=== PATIENT | female | born 1980 | race Caucasian/White ===

== ENCOUNTER → 2016-08-19 | Outpatient (CLI) | payer MEDICARE, OTHER ==
--- NOTE | 2016-08-19 14:30 | MR ---
EXAMINATION TYPE: MR cspine/lspine wo con DATE OF EXAM: 08/19/2016 1:50 PM COMPARISON: CT abdomen and pelvis May 29, 2011. Lumbar spine x-ray August 12, 2009. HISTORY: Neck pain and lumbago with right-sided sciatica per order. Headache with constant pain and s tiffness in neck for 5 years causing pain or weakness in bilateral fingers per patient. Scoliosis wit h pain and bilateral leg numbness and right leg pain per patient. TECHNIQUE: Multiplanar, multisequence imaging of the cervical and lumbar spine are performed without IV contrast. FINDINGS: C-SPINE: FINDINGS: Sagittal images of the cervical spine show the craniocervical junction to appear within nor mal limits. The cervical and upper thoracic spinal cord is normal in course, caliber, and signal. V ertebral alignment is straightened. There is dextroconvex scoliotic curvature centered near the cervi anup thoracic junction on coronal images with more prominent levoconvex scoliosis suspected centered i n the mid thoracic spine. The vertebral body and intravertebral disk heights are normal. No large pos terior disc herniations are seen on sagittal images. The bone marrow signal intensity is within matthew l limits. No significant spurring is noted. Axial images show there is no significant focal disk disease, spinal canal stenosis, neural foraminal narrowing, or spinal cord compromise at any cervical level. IMPRESSION: Loss of normal cervical curvature otherwise unremarkable study. L-SPINE: Sagittal images of the lumbar spine show vertebral body heights to appear satisfactory. There is terrence ed dextroconvex scoliosis centered at L1-L2 level redemonstrated. Multilevel disc desiccation is seen . There is disc space narrowing at left upper to mid lumbar levels and right mid to lower lumbar leve ls identified on sagittal images. No large posterior disc herniations are present on sagittal images The conus medullaris is normal in position and signal ending at mid L1 vertebral body level. There i s some heterogeneous endplate changes right L4-L5 and right L2-L3 vertebral body levels. Axial images at the T12-L1 level are felt within normal limits. Axial images at the L1-L2 level show broad-based left paracentral disc protrusion effacing anterior t hecal sac and axial image 23, bilateral neural foramina are patent. Axial images at the L2-L3 level show moderate broad disc bulge effacing left anterolateral thecal sac on axial image 18 with mild to moderate left-sided neural foraminal narrowing seen. Right-sided neur al foramen is patent. Axial images at the L3-L4 level show mild facet degenerative changes and ligament flavum hypertrophy. There is mild broad disc bulge mildly effacing the anterior thecal sac. Mild bilateral anterior infe rior neural foraminal narrowing at this level is identified, left greater than right. Axial images at L4-L5 level show mild facet degenerative changes and ligamentum flavum hypertrophy. T here is mild to moderate broad disc bulge with right foraminal/lateral disc protrusion component on a xial image 7. There is mild effacement the anterior thecal sac. Left-sided neural foramen is patent. There is moderate right-sided inferior neural foraminal narrowing with encroachment lung anterior inf erior margin of right L4 nerve suspected on sagittal images 11 and 12. Axial images at L5-S1 level show mild facet degenerative changes bilaterally. There is central disc p rotrusion seen. Spinal canal is preserved and bilateral neural foramina are patent. IMPRESSION: Redemonstration of marked dextroconvex rotary scoliosis centered at L2 level with multile maine degenerative changes seen as detailed above. Attention to L4-L5 level where eccentric disc hernia tion appears to encroach on exiting right L4 nerve.
== END | disposition home or self-care (01) ==
LOC: RADMRIMAIN 12:24
PROVIDERS: ATTEND Psychiatry & Neurology Neurology
DX: M41.86 Other forms of scoliosis, lumbar region (principal); M54.41 Lumbago with sciatica, right side
CPT/HCPCS: 72141; 72148

== ENCOUNTER 2016-08-21 10:11 | Day surgery (SDC) | payer MEDICARE, OTHER ==
[2016-08-19 11:09] VITALS: BMI 27.4
[~2016-08-21 10:11] MED LIST: LACTATED RINGERS 1,000 ML IV SCH
[2016-08-21 10:38] VITALS: TEMP 97.6
[2016-08-21] MEDS ORDERED: LIDOCAINE 1% 20 ML VIAL (10MG/ML) FOR IV START INTRADERMA ONE (10:47)
[2016-08-21] MEDS ORDERED: PROPOFOL 10 MG/ML 20 ML VIAL IV ONE (10:53)
--- NOTE | 2016-08-21 11:11 | P.PCN ---
Date of Procedure: 08/21/16 Procedure(s) Performed: BRIEF HISTORY: Patient is a 36-year-old pleasant white female, scheduled for an elective colonoscopy as a part of evaluation of long-standing history of Crohn' s disease diagnosed in 2003. She is status post terminal ileal resection in 2014 for small bowel obstruction. Since then she has been in clinical remission. Presently on no maintenance medications for Crohn's disease. She has 1 or 2 bowel movements daily and occasional right lower quadrant abdominal pain. PROCEDURE PERFORMED: Colonoscopy with biopsy. PREOPERATIVE DIAGNOSIS: Long-standing history of Crohn's ileitis status post TI resection in 2014. IV sedation per Anesthesia. PROCEDURE: After informed consent was obtained, the patient, was brought into the endoscopy unit. IV conscious sedation was administered by Anesthesia under continuous monitoring. Initially the Olympus CF-160 flexible video colonoscope was then inserted in the rectum, gradually advanced into the right colon with ileocolonic anastomosis was visualized. There was narrowing of the anastomosis with multiple superficial erosions identified and biopsies were done from this area. The transverse colon, descending colon, sigmoid colon, and rectum appeared normal. Retroflexion was performed in the rectum and no lesions were seen. The patient tolerated the procedure well. IMPRESSION: 1. Narrowing of the ileocolic anastomosis with multiple superficial erosions consistent with recurrent Crohn's disease 2. Colon appeared normal. RECOMMENDATIONS: Findings of this examination were discussed with the patient as well as a family. She was advised to follow with the biopsy results and she' ll be seen in the office in 3-4 weeks.
[2016-08-21 11:15] VITALS: RESP 16
[2016-08-21 11:29] VITALS: BP 102/72; PULSE 73
== END 2016-08-21 12:36 | disposition home or self-care (01) ==
LOC: ORWHC2ENDO 10:11
PROVIDERS: ATTEND Internal Medicine Gastroenterology
DX: K52.9 Noninfective gastroenteritis and colitis, unspecified (principal); Z98.0 Intestinal bypass and anastomosis status; B19.20 Unspecified viral hepatitis C without hepatic coma; Z79.899 Other long term (current) drug therapy; Z88.8 Allergy status to other drugs, medicaments and biological substances
CPT/HCPCS: 81025; 88305; 45380; J2704

== ENCOUNTER → 2016-08-25 | Outpatient (CLI) | payer MEDICARE, OTHER ==
--- NOTE | 2016-08-25 09:04 | US ---
EXAMINATION TYPE: US liver DATE OF EXAM: 08/25/2016 8:19 AM COMPARISON: NONE CLINICAL HISTORY: 36-year-old female B18.2 Chronic viral HEP C. TECHNIQUE: Multiple sonographic images of the right upper quadrant are obtained. FINDINGS: Liver Length: 12.3 cm Gallbladder Wall: 0.3 cm CBD: 0.7 cm Right Kidney: 10.8 x 4.8 x 5.6 cm Pancreas: Suboptimal visualization of the pancreatic tail secondary to shadowing from bowel gas. Vis ualized portions show no gross abnormality. Liver: Normal size with homogeneous echotexture and no focal lesion. Gallbladder: No abnormal gallbladder distention, wall thickening, pericholecystic fluid, or shadowin g calculi. Evidence for sonographic Licea's sign: No CBD: Borderline to mildly dilated at 7 mm. Right Kidney: No hydronephrosis. IMPRESSION: 1. Overall normal homogeneous appearance to the liver. No sonographic evidence for hepatoma. 2. The bile duct is borderline to mildly dilated. Uncertain if this is chronic in this patient. Corre late with alkaline phosphatase and bilirubin levels to exclude possibility of biliary obstruction.
[2016-08-25 10:20] LABS: Basophils % (A) 1 %; CHCM 32.3; Eosinophils # (A) 0.1 k/uL (0-0.7); Eosinophils % (A) 1 %; HCT 38.1 % (34.0-46.0); HDW 2.35; HGB 12.5 gm/dL (11.4-16.0); Luc # (Auto) 0.18; Luc % (Auto) 2; Lymphocytes # (A) 1.9 k/uL (1.0-4.8); Lymphocytes % (A) 25 %; MCH 31.7 pg (25.0-35.0); MCHC 32.9 g/dL (31.0-37.0); MCV 96.4 fL (80.0-100.0); Mean Platelet Volume 7.8; Monocytes # (A) 0.3 k/uL (0-1.0); Monocytes % (A) 4 %; Neutrophils # (A) 5.1 k/uL (1.3-7.7); Neutrophils % (A) 67 %; RBC 3.95 m/uL (3.80-5.40); WBC 7.6 k/uL (3.8-10.6); WBC (Perox) 8.22
[2016-08-25 11:06] LABS: ALT 58 U/L (9-52); AST 29 U/L (14-36); Alkaline Phosphatase 64 U/L (38-126); Anion Gap 14 mmol/L; Blood Urea Nitrogen 11 mg/dL (7-17); Calcium 9.4 mg/dL (8.4-10.2); Carbon Dioxide 22 mmol/L (22-30); Chloride 106 mmol/L (98-107); Glucose 90 mg/dL (74-99); Non-African American GFR(MDRD) >60 (>60 ml/min/1.73 sqM); Potassium 4.5 mmol/L (3.5-5.1); Sodium 142 mmol/L (137-145); Total Bilirubin 0.4 mg/dL (0.2-1.3); Total Protein 7.2 g/dL (6.3-8.2)
[2016-08-28 14:39] LABS: HCV Qualitative Result DETECTED (Not detected)
== END | disposition home or self-care (01) ==
LOC: RADUSWWP 07:55
PROVIDERS: ATTEND Internal Medicine Gastroenterology
DX: B18.2 Chronic viral hepatitis C (principal)
CPT/HCPCS: 76705; 80053; 82105; 85025; 87522; 87902

== ENCOUNTER → 2017-03-16 | Outpatient (CLI) | payer MEDICARE, OTHER ==
--- NOTE | 2017-03-16 22:48 | US ---
EXAMINATION TYPE: US OB >= 14 wk fetus, US OB TV Cervical Measurement DATE OF EXAM: 03/16/2017 COMPARISON: None CLINICAL HISTORY: 36-year-old female Supervision 3rd trimester O09.523 TECHNIQUE: Transabdominal (TA) and transvaginal scanning FINDINGS: GESTATIONAL AGE / DATING Physician Established: (30 weeks/5 days) EDC: 05/20/17 Dates by LMP: pt unsure of LMP Dates by First Scan: not available Dates by Current Scan: (30 weeks/4 days) EDC: 05/21/17 SURVEY IUP: Single PLACENTA: Anterior PREVIA: No Previa JIMMY: 11.4 cm CERVICAL LENGTH (transabdominal: norm > 3.0cm):unable to visualize CERVICAL LENGTH (transvaginal: norm> 2.5cm): Closed length of 1.9 cm. Some slight funneling appears t o be present. Office called with preliminary results. (Supplemental transvaginal imaging performed to verify cervical length.) BIOMETRY PRESENTATION: Vertex LIE: Longitudinal BPD: 7.8 cm 31 weeks / 1 days HC: 28.7 cm 31 weeks / 4 days AC: 26.9 cm 30 weeks / 0 days FL: 5.9 cm 30 weeks / 6 days ESTIMATED WEIGHT IN GRAMS: 1587 grams ESTIMATED WEIGHT IN LBS/OZ: 3 lbs. 8 oz. WEIGHT PERCENTAGE BASED ON ESTABLISHED DATES: 30% HC/AC: 1.1 FL/AC: 22.8 HEART RATE: 143 bpm RHYTHM: Normal TOOL AND MACHINE MAINTAINER NOTES: Preliminary cervix measurement given to Eryn Juárez office at 3:20. Fawn ent instructed to go to [facility] for further monitoring. IMPRESSION: 1. Single live intrauterine with established gestational age of 30 weeks 5 days. Current ul trasound biometry is concordant (30 weeks 4 days) placing the child at the 30th percentile for weight . 2. Note a closed cervical length measured at 1.9 cm on transvaginal scanning. There appears to be sli ght funneling as well. Appropriate management and close follow-up recommended.
== END | disposition home or self-care (01) ==
LOC: RADUSWWP 14:28
PROVIDERS: ATTEND Obstetrics & Gynecology
DX: O09.523 Supervision of elderly multigravida, third trimester (principal); Z3A.30 30 weeks gestation of pregnancy
CPT/HCPCS: 76805; 76817

== ENCOUNTER → 2017-04-16 | Outpatient (CLI) | payer MEDICARE, OTHER ==
--- NOTE | 2017-04-16 17:20 | US ---
EXAMINATION TYPE: US OB >= 14 wk fetus DATE OF EXAM: 04/16/2017 COMPARISON: US CLINICAL HISTORY: O09.523 Supervision of elderly multigravida, third For Growth/ pt has known shorten ed cervix, pt states she is being monitored for it, has had ultrasounds at outside facility showing p rogression of shortening cervix and thinning on physical exam TECHNIQUE: Transabdominal (TA), TV for cervical length GESTATIONAL AGE / DATING Physician Established: (35 weeks/1 days) EDC: 05/20/2017 Dates by LMP: Unknown Dates by First Scan: (35 weeks/0 days) EDC: 05/21/2017 Dates by Current Scan: (33 weeks/6 days) EDC: 05/29/2017 SURVEY IUP: Single PLACENTA: Anterior PREVIA: No Previa JIMMY: 15.6 cm Normal CERVICAL LENGTH (transabdominal: norm > 3.0cm): 2.1 cm CERVICAL LENGTH (transvaginal: norm> 2.5cm): 1.7 cm, slightly shortened from previous, no funneling visualized (Supplemental transvaginal imaging performed to verify cervical length.) BIOMETRY PRESENTATION: Vertex BPD: 8.4 cm 34 weeks / 0 days HC: 31.6 cm 35 weeks / 3 days AC: 28.6 cm 32 weeks / 4 days FL: 6.5 cm 33 weeks / 4 days ESTIMATED WEIGHT IN GRAMS: 2164 grams ESTIMATED WEIGHT IN LBS/OZ: 4 lbs. 12 oz. WEIGHT PERCENTAGE BASED ON ESTABLISHED DATES: 8.3% HC/AC: 1.11 Normal FL/AC: 23 Normal HEART RATE: 124 bpm RHYTHM: Normal Single, viable IUP, growth parameters in 8th percentile, shortened cervix IMPRESSION: Cervix measures 1.7 cm which is not significantly different than last exam. Cervix is closed. Estimat ed weight is 8 percentile which is decreased compared to last exam. Last exam was 31 percentile . It is not clear if this is due to error of measurement. The possibility of IUGR cannot BE excluded.
== END | disposition home or self-care (01) ==
LOC: RADUSWWP 16:25
PROVIDERS: ATTEND Obstetrics & Gynecology
DX: O09.523 Supervision of elderly multigravida, third trimester (principal); Z3A.33 33 weeks gestation of pregnancy
CPT/HCPCS: 76805; 76817

== ENCOUNTER → 2017-06-28 | Outpatient (CLI) | payer MEDICARE, OTHER ==
[2017-06-28 13:20] LABS: Basophils % (A) 0 %; Eosinophils # (A) 0.1 k/uL (0-0.7); Eosinophils % (A) 1 %; HCT 39.2 % (34.0-46.0); HGB 12.5 gm/dL (11.4-16.0); Lymphocytes # (A) 2.7 k/uL (1.0-4.8); Lymphocytes % (A) 37 %; MCH 30.5 pg (25.0-35.0); MCHC 31.9 g/dL (31.0-37.0); MCV 95.7 fL (80.0-100.0); Monocytes # (A) 0.4 k/uL (0-1.0); Monocytes % (A) 5 %; Neutrophils % (A) 55 %; Platelet Count 206 k/uL (150-450); RDW 13.1 % (11.5-15.5); WBC 7.3 k/uL (3.8-10.6)
[2017-06-28 13:34] LABS: ALT 65 U/L (9-52); AST 36 U/L (14-36); Albumin 4.3 g/dL (3.5-5.0); Alkaline Phosphatase 60 U/L (38-126); Anion Gap 12 mmol/L; Blood Urea Nitrogen 16 mg/dL (7-17); C Reactive Protein <5.0 mg/L (<10.0); Calcium 9.3 mg/dL (8.4-10.2); Carbon Dioxide 20 mmol/L (22-30); Chloride 110 mmol/L (98-107); Glucose 119 mg/dL (74-99); Potassium 4.2 mmol/L (3.5-5.1); Sodium 142 mmol/L (137-145); Total Bilirubin 0.3 mg/dL (0.2-1.3); Total Protein 7.2 g/dL (6.3-8.2)
[2017-06-28 14:44] LABS: Erythrocyte Sedimentation Rate 12 mm/hr (0-20)
== END | disposition home or self-care (01) ==
LOC: LABWHC1 12:23
PROVIDERS: ATTEND Internal Medicine Gastroenterology
DX: K50.90 Crohn's disease, unspecified, without complications (principal)
CPT/HCPCS: 36415; 80053; 85025; 85652; 86140; 86480

== ENCOUNTER → 2017-12-14 | Outpatient (CLI) | payer MEDICARE, OTHER ==
[2017-12-14 13:25] LABS: Basophils % (A) 0 %; Eosinophils # (A) 0.1 k/uL (0-0.7); Eosinophils % (A) 1 %; HCT 37.7 % (34.0-46.0); HGB 12.3 gm/dL (11.4-16.0); Lymphocytes # (A) 3.1 k/uL (1.0-4.8); Lymphocytes % (A) 39 %; MCH 30.5 pg (25.0-35.0); MCHC 32.6 g/dL (31.0-37.0); MCV 93.8 fL (80.0-100.0); Mean Platelet Volume 7.3; Monocytes # (A) 0.5 k/uL (0-1.0); Monocytes % (A) 6 %; Neutrophils # (A) 4.1 k/uL (1.3-7.7); Neutrophils % (A) 52 %; Platelet Count 224 k/uL (150-450); RBC 4.02 m/uL (3.80-5.40); RDW 12.8 % (11.5-15.5); WBC 7.9 k/uL (3.8-10.6)
[2017-12-14 13:36] LABS: ALT 43 U/L (9-52); AST 31 U/L (14-36); Albumin 4.3 g/dL (3.5-5.0); Alkaline Phosphatase 62 U/L (38-126); Anion Gap 10 mmol/L; Blood Urea Nitrogen 9 mg/dL (7-17); Calcium 9.4 mg/dL (8.4-10.2); Carbon Dioxide 26 mmol/L (22-30); Chloride 105 mmol/L (98-107); Glucose 72 mg/dL (74-99); Potassium 4.2 mmol/L (3.5-5.1); Sodium 141 mmol/L (137-145); Total Bilirubin 0.4 mg/dL (0.2-1.3); Total Protein 6.8 g/dL (6.3-8.2)
[2017-12-14 14:01] LABS: C Reactive Protein <5.0 mg/L (<10.0)
[2017-12-14 14:12] LABS: Erythrocyte Sedimentation Rate 11 mm/hr (0-20)
== END ==
LOC: LABWHC1 12:43
PROVIDERS: ATTEND Internal Medicine Gastroenterology
DX: K50.90 Crohn's disease, unspecified, without complications (principal)
CPT/HCPCS: 36415; 80053; 85025; 85652; 86140

== ENCOUNTER → 2018-06-10 | Outpatient (CLI) | payer MEDICARE, OTHER ==
[2018-06-10 13:59] LABS: Basophils % (A) 0 %; Eosinophils # (A) 0.1 k/uL (0-0.7); Eosinophils % (A) 0 %; HGB 12.3 gm/dL (11.4-16.0); Lymphocytes # (A) 3.4 k/uL (1.0-4.8); Lymphocytes % (A) 32 %; MCH 30.4 pg (25.0-35.0); MCHC 31.5 g/dL (31.0-37.0); MCV 96.6 fL (80.0-100.0); Monocytes # (A) 0.5 k/uL (0-1.0); Monocytes % (A) 5 %; Neutrophils # (A) 6.4 k/uL (1.3-7.7); Neutrophils % (A) 60 %; Platelet Count 225 k/uL (150-450); RBC 4.04 m/uL (3.80-5.40); RDW 12.6 % (11.5-15.5); WBC 10.6 k/uL (3.8-10.6)
[2018-06-10 15:15] LABS: Erythrocyte Sedimentation Rate 12 mm/hr (0-20)
[2018-06-10 18:59] LABS: ALT 33 U/L (8-44); AST 27 U/L (13-35); Albumin/Globulin Ratio 2.25 (1.20-2.10); Alkaline Phosphatase 57 U/L (41-126); C Reactive Protein <0.4 mg/dL (0.0-0.8); Calcium 9.2 mg/dL (8.7-10.3); Carbon Dioxide 24.6 mmol/L (21.6-31.8); Chloride 109 mmol/L (96-109); Glucose 72 mg/dL (70-110); Potassium 4.2 mmol/L (3.5-5.5); Sodium 141 mmol/L (135-145); Total Bilirubin 0.3 mg/dL (0.3-1.2); Total Protein 6.5 g/dL (6.2-8.2)
== END ==
LOC: LABWHC1 13:12
PROVIDERS: ATTEND Internal Medicine Gastroenterology
DX: K50.90 Crohn's disease, unspecified, without complications (principal)
CPT/HCPCS: 36415; 80053; 85025; 85652; 86140

== ENCOUNTER → 2018-07-21 | Outpatient (CLI) | payer MEDICARE, OTHER ==
[2018-07-21 20:34] LABS: Hepatitis B Core IgM Non-Reactive (Non-Reactive)
== END ==
LOC: LABWHC1 11:07
PROVIDERS: ATTEND Physician Assistant
DX: B18.2 Chronic viral hepatitis C (principal)
CPT/HCPCS: 36415; 86704; 86705; 87340

== ENCOUNTER → 2018-11-02 | Outpatient (CLI) | payer MEDICARE, OTHER ==
[2018-11-02 12:47] LABS: Basophils % (A) 0 %; Eosinophils # (A) 0.1 k/uL (0-0.7); Eosinophils % (A) 1 %; HCT 40.8 % (34.0-46.0); Lymphocytes # (A) 3.3 k/uL (1.0-4.8); Lymphocytes % (A) 34 %; MCH 30.3 pg (25.0-35.0); MCHC 31.8 g/dL (31.0-37.0); MCV 95.4 fL (80.0-100.0); Mean Platelet Volume 7.5; Monocytes # (A) 0.4 k/uL (0-1.0); Monocytes % (A) 5 %; Neutrophils # (A) 5.6 k/uL (1.3-7.7); Neutrophils % (A) 58 %; Platelet Count 217 k/uL (150-450); RBC 4.28 m/uL (3.80-5.40); RDW 12.6 % (11.5-15.5); WBC 9.7 k/uL (3.8-10.6)
[2018-11-02 16:59] LABS: Albumin 4.7 g/dL (3.80-4.90); Albumin/Globulin Ratio 2.04 (1.60-3.17); Anion Gap 8.2 mmol/L (4.00-12.00); Calcium 9.4 mg/dL (8.7-10.3); Carbon Dioxide 20.8 mmol/L (21.6-31.8); Globulin 2.3 g/dL (1.6-3.3); Potassium 4.4 mmol/L (3.5-5.5); Total Bilirubin 0.7 mg/dL (0.3-1.2)
[2018-11-03 15:34] LABS: Hepatits C Virus RNA Not detected (Not detected); Hepatits C Virus RNA, Quant <12 IU/mL (<12); LOG HCV IU/mL <1.08 (<1.08)
== END | disposition home or self-care (01) ==
LOC: LABWHC1 11:49
PROVIDERS: ATTEND Internal Medicine Gastroenterology
DX: B18.2 Chronic viral hepatitis C (principal)
CPT/HCPCS: 36415; 80053; 85025; 87522

== ENCOUNTER 2019-01-28 20:55 | Emergency (ER) | payer MEDICARE, OTHER ==
[2019-01-28] MEDS ORDERED: SODIUM CHLORIDE 0.9% 1,000 ML IV STA (21:51)
[2019-01-28] MEDS ORDERED: ONDANSETRON 4 MG/2 ML VIAL IVP STA (21:51)
[2019-01-28] MEDS ORDERED: MORPHINE SULFATE 4 MG/ML SYRINGE IV STA (21:51)
[2019-01-28 22:20] LABS: Basophils % (A) 0 %; Eosinophils # (A) 0.1 k/uL (0-0.7); Eosinophils % (A) 1 %; HCT 38.2 % (34.0-46.0); HGB 12.9 gm/dL (11.4-16.0); Lymphocytes # (A) 4.2 k/uL (1.0-4.8); Lymphocytes % (A) 28 %; MCH 32.1 pg (25.0-35.0); MCHC 33.6 g/dL (31.0-37.0); MCV 95.6 fL (80.0-100.0); Mean Platelet Volume 7.2; Monocytes # (A) 0.7 k/uL (0-1.0); Monocytes % (A) 5 %; Neutrophils # (A) 9.8 k/uL (1.3-7.7); Neutrophils % (A) 65 %; Platelet Count 213 k/uL (150-450); RDW 12.3 % (11.5-15.5); WBC 15.1 k/uL (3.8-10.6)
[2019-01-28 22:24] LABS: Appearance,Urine Clear (Clear); Bacteria,Urine Rare /hpf; Bilirubin,Urine Negative (Negative); Blood,Urine Small (Negative); Color,Urine Yellow; Glucose,Urine (UA) Negative (Negative); Ketones,Urine Negative (Negative); Leukocyte Esterase,Urine Negative (Negative); Mucus,Urine Rare /hpf; Nitrite,Urine Negative (Negative); PH, Urine 5.5 (5.0-8.0); Protein,Urine Negative (Negative); RBC,Urine 2 /hpf (0-5); Specific Gravity,Urine 1.013 (1.001-1.035); Squamous Epithelial Cell,Urine 1 /hpf (0-4); Urobilinogen,Urine <2.0 mg/dL (<2.0); WBC,Urine 1 /hpf (0-5)
[2019-01-28 22:33] LABS: ALT 14 U/L (9-52); AST 25 U/L (14-36); African American GFR (CKD) >90 (>60 ml/min/1.73 sqM); Albumin 4.4 g/dL (3.5-5.0); Alkaline Phosphatase 45 U/L (38-126); Amylase 54 U/L (30-110); Anion Gap 10 mmol/L; Blood Urea Nitrogen 14 mg/dL (7-17); Calcium 9.6 mg/dL (8.4-10.2); Carbon Dioxide 22 mmol/L (22-30); Chloride 107 mmol/L (98-107); Glucose 86 mg/dL (74-99); Potassium 3.9 mmol/L (3.5-5.1); Sodium 139 mmol/L (137-145); Total Bilirubin 0.3 mg/dL (0.2-1.3); Total Protein 7.4 g/dL (6.3-8.2)
--- NOTE | 2019-01-28 22:49 | CT ---
EXAM: CT Abdomen and Pelvis With Intravenous Contrast CLINICAL HISTORY: ITS.REASON CT Reason: abdominal pain TECHNIQUE: Axial computed tomography images of the abdomen and pelvis with intravenous contrast. CTDI is 9 mGy and DLP is 437 mGy-cm. This CT exam was performed using one or more of the following dose reduction techniques: automated exposure control, adjustment of the mA and/or kV according to patient size, and/or use of iterative reconstruction technique. COMPARISON: No relevant prior studies available. FINDINGS: Lung bases: No mass. No consolidation. ABDOMEN: Liver: Steatosis. Gallbladder and bile ducts: Gallbladder is unremarkable. Mild intra- and moderate extrahepatic biliary dilatation. Pancreas: Unremarkable. Spleen: Unremarkable. Adrenals: Unremarkable. Kidneys and ureters: No hydronephrosis. Stomach and bowel: No bowel obstruction. No bowel wall thickening. Diffusely fluid-filled small and large bowel. PELVIS: Appendix: No appendicitis. Bladder: Unremarkable. Reproductive: IUD is in place. ABDOMEN and PELVIS: Intraperitoneal space: Unremarkable. Bones/joints: No acute fractures. Severe dextroscoliosis. Soft tissues: Unremarkable. Vasculature: No abdominal aortic aneurysm. Lymph nodes: No enlarged lymph nodes. IMPRESSION: 1. Diffusely fluid-filled small and large bowel, correlate with gastroenteritis. 2. Intra-and extrahepatic biliary dilatation. Gallbladder appears unremarkable No definite stones or obstructive process is identified. Correlate with right upper quadrant ultrasound and ERCP/MRCP.
[2019-01-28] MEDS ORDERED: HYDROmorphone 1 MG/ML 1 ML SYRINGE IVP STA (23:00)
--- NOTE | 2019-01-29 00:03 | ED ---
Abdominal Pain HPI - General Chief Complaint: Abdominal Pain Stated Complaint: Abd pain Time Seen by Provider: 01/28/19 21:18 Source: patient Mode of arrival: ambulatory Limitations: no limitations - History of Present Illness Initial Comments: 38-year-old female patient with past medical history significant for Crohn's disease and polyps structure and presents to the emergency department today for evaluation of upper abdominal pain, bloating, and nausea. Patient states that symptoms started yesterday evening. Patient states that she has felt nauseated but has not vomited. States she was able to eat today however the pain got significantly worse after eating. She denies any fever or chills. Denies any constipation or diarrhea. States her last bowel movement was yesterday morning. She is passing gas. Patient denies any recent rash, shortness breath, chest pain, numbness, tingling, dizziness, weakness, hematuria, dysuria, urinary urgency, urinary frequency, headache, visual changes, or any other complaints. - Related Data Home Medications Medication Instructions Recorded Confirmed Adalimumab [Humira Pediatric] 40 mg SQ Q14D 01/28/19 01/28/19 Ibuprofen [Motrin Ib] 600 mg PO Q6H PRN 01/28/19 01/28/19 Loperamide [Imodium] 2 mg PO QID PRN 01/28/19 01/28/19 Pnv,Calcium 72/Iron/Folic Acid 1 tab PO DAILY 01/28/19 01/28/19 [ Plus Tablet] Umeclidinium Antimony [Incruse 1 puff INHALATION RT-DAILY 01/28/19 01/28/19 Ellipta] Previous Rx's Medication Instructions Recorded Ondansetron [Zofran ODT] 4 mg PO Q8HR PRN #10 tab 01/29/19 Allergies Allergy/AdvReac Type Severity Reaction Status Date / Time prochlorperazine Allergy AGITATION Verified 01/28/19 22:32 [From Compazine] Review of Systems ROS Statement: Those systems with pertinent positive or pertinent negative responses have been documented in the HPI. ROS Other: All systems not noted in ROS Statement are negative. Past Medical History Past Medical History: No Reported History, Unable to Obtain, Pulmonary Embolus (PE) Additional Past Medical History / Comment(s): HEPATITIS C, chrons, History of Any Multi-Drug Resistant Organisms: MRSA Date of last positivie culture/infection: 06/07/14 MDRO Source:: ABDOMEN Past Surgical History: Bowel Resection, Hernia Repair Additional Past Surgical History / Comment(s): VICTOR HUGO FOOT SURGERY, BOWEL RESECTION, Past Anesthesia/Blood Transfusion Reactions: No Reported Reaction Past Psychological History: Depression Smoking Status: Current every day smoker Past Alcohol Use History: None Reported Past Drug Use History: None Reported - Past Family History Father Family Medical History: Cancer General Exam Limitations: no limitations General appearance: alert, in no apparent distress, other (This is a well- developed, well-nourished adult female patient in no acute distress. Vital signs upon presentation are temperature 98.6F, pulse 77, respirations 18, blood pressure 108/74, pulse ox 99% on room air.) Eye exam: Present: normal appearance, PERRL, EOMI. Absent: scleral icterus, conjunctival injection, periorbital swelling ENT exam: Present: normal exam, normal oropharynx, mucous membranes moist Respiratory exam: Present: normal lung sounds bilaterally. Absent: respiratory distress, wheezes, rales, rhonchi, stridor Cardiovascular Exam: Present: regular rate, normal rhythm, normal heart sounds. Absent: systolic murmur, diastolic murmur, rubs, gallop, clicks GI/Abdominal exam: Present: soft, tenderness (Midepigastric and right upper quadrant tenderness), normal bowel sounds. Absent: distended, guarding, rebound, rigid Neurological exam: Present: alert, oriented X3, CN II-XII intact Psychiatric exam: Present: normal affect, normal mood Skin exam: Present: warm, dry, intact, normal color. Absent: rash Course Vital Signs 01/28/19 01/28/19 20:59 23:07 Temperature 98.6 F Pulse Rate 77 77 Respiratory 18 18 Rate Blood Pressure 108/74 119/85 O2 Sat by Pulse 99 99 Oximetry Medical Decision Making - Medical Decision Making 38-year-old female patient presents to the emergency department today for evaluation of upper abdominal pain and nausea. Labs reviewed and showed elevated white blood cell count at 15.1. Liver enzymes normal. Normal bilirubin. Alk phos normal at 45. CT abdomen and pelvis was obtained and showed diffusely fluid-filled small and large bowel. Also showed dilatation of the common bile duct and hepatic bile ducts. Recommended ultrasound of the abdomen, this was obtained and showed dilated common bile duct at 8 mm. I did review previous ultrasounds which showed dilated common bile duct as well. Patient's liver enzymes, alk phos, and bilirubin levels were normal. We will discharge at this time to follow-up outpatient for further evaluation by gastroenterology. She is given prescription for Zofran. She is instructed to follow-up with her primary care physician for recheck in 1-2 days. Return parameters were discussed in detail. She verbalizes understanding and agrees with this plan. - Lab Data Result diagrams: 01/28/19 21:45 01/28/19 21:45 Lab Results 01/28/19 01/28/19 01/28/19 Range/Units 21:40 21:45 21:45 WBC 15.1 H (3.8-10.6) k/uL RBC 4.00 (3.80-5.40) m/uL Hgb 12.9 (11.4-16.0) gm/dL Hct 38.2 (34.0-46.0) % MCV 95.6 (80.0-100.0) fL MCH 32.1 (25.0-35.0) pg MCHC 33.6 (31.0-37.0) g/dL RDW 12.3 (11.5-15.5) % Plt Count 213 (150-450) k/uL Neutrophils % 65 % Lymphocytes % 28 % Monocytes % 5 % Eosinophils % 1 % Basophils % 0 % Neutrophils # 9.8 H (1.3-7.7) k/uL Lymphocytes # 4.2 (1.0-4.8) k/uL Monocytes # 0.7 (0-1.0) k/uL Eosinophils # 0.1 (0-0.7) k/uL Basophils # 0.0 (0-0.2) k/uL Sodium 139 (137-145) mmol/L Potassium 3.9 (3.5-5.1) mmol/L Chloride 107 (98-107) mmol/L Carbon Dioxide 22 (22-30) mmol/L Anion Gap 10 mmol/L BUN 14 (7-17) mg/dL Creatinine 0.72 (0.52-1.04) mg/dL Est GFR (CKD-EPI)AfAm >90 (>60 ml/min/1.73 sqM) Est GFR (CKD-EPI)NonAf >90 (>60 ml/min/1.73 sqM) Glucose 86 (74-99) mg/dL Plasma Lactic Acid Anton (0.7-2.0) mmol/L Calcium 9.6 (8.4-10.2) mg/dL Total Bilirubin 0.3 (0.2-1.3) mg/dL AST 25 (14-36) U/L ALT 14 (9-52) U/L Alkaline Phosphatase 45 (38-126) U/L Total Protein 7.4 (6.3-8.2) g/dL Albumin 4.4 (3.5-5.0) g/dL Amylase 54 (30-110) U/L Lipase 19 L (23-300) U/L Urine Color Yellow Urine Appearance Clear (Clear) Urine pH 5.5 (5.0-8.0) Ur Specific Ruffin 1.013 (1.001-1.035) Urine Protein Negative (Negative) Urine Glucose (UA) Negative (Negative) Urine Ketones Negative (Negative) Urine Blood Small H (Negative) Urine Nitrite Negative (Negative) Urine Bilirubin Negative (Negative) Urine Urobilinogen <2.0 (<2.0) mg/dL Ur Leukocyte Esterase Negative (Negative) Urine RBC 2 (0-5) /hpf Urine WBC 1 (0-5) /hpf Ur Squamous Epith Cells 1 (0-4) /hpf Urine Bacteria Rare H (None) /hpf Urine Mucus Rare H (None) /hpf 01/28/19 Range/Units 21:45 WBC (3.8-10.6) k/uL RBC (3.80-5.40) m/uL Hgb (11.4-16.0) gm/dL Hct (34.0-46.0) % MCV (80.0-100.0) fL MCH (25.0-35.0) pg MCHC (31.0-37.0) g/dL RDW (11.5-15.5) % Plt Count (150-450) k/uL Neutrophils % % Lymphocytes % % Monocytes % % Eosinophils % % Basophils % % Neutrophils # (1.3-7.7) k/uL Lymphocytes # (1.0-4.8) k/uL Monocytes # (0-1.0) k/uL Eosinophils # (0-0.7) k/uL Basophils # (0-0.2) k/uL Sodium (137-145) mmol/L Potassium (3.5-5.1) mmol/L Chloride (98-107) mmol/L Carbon Dioxide (22-30) mmol/L Anion Gap mmol/L BUN (7-17) mg/dL Creatinine (0.52-1.04) mg/dL Est GFR (CKD-EPI)AfAm (>60 ml/min/1.73 sqM) Est GFR (CKD-EPI)NonAf (>60 ml/min/1.73 sqM) Glucose (74-99) mg/dL Plasma Lactic Acid Anton 0.8 (0.7-2.0) mmol/L Calcium (8.4-10.2) mg/dL Total Bilirubin (0.2-1.3) mg/dL AST (14-36) U/L ALT (9-52) U/L Alkaline Phosphatase (38-126) U/L Total Protein (6.3-8.2) g/dL Albumin (3.5-5.0) g/dL Amylase (30-110) U/L Lipase (23-300) U/L Urine Color Urine Appearance (Clear) Urine pH (5.0-8.0) Ur Specific Ruffin (1.001-1.035) Urine Protein (Negative) Urine Glucose (UA) (Negative) Urine Ketones (Negative) Urine Blood (Negative) Urine Nitrite (Negative) Urine Bilirubin (Negative) Urine Urobilinogen (<2.0) mg/dL Ur Leukocyte Esterase (Negative) Urine RBC (0-5) /hpf Urine WBC (0-5) /hpf Ur Squamous Epith Cells (0-4) /hpf Urine Bacteria (None) /hpf Urine Mucus (None) /hpf - Radiology Data Radiology results: report reviewed, image reviewed CT abdomen and pelvis was obtained. Report was reviewed in its entirety. Impression by Dr. Vizcarra shows diffusely fluid-filled small and large bowel, correlate with gastroenteritis. Hepatic biliary dilatation. Gallbladder appears unremarkable. No definite stones or obstructive process is identified. Correlate with right upper quadrant ultrasound and ERCP/MRCP. Ultrasound of the right upper quadrant was obtained. Report was reviewed in its entirety. Impression by Dr. Vizcarra shows dilated CBD with no definite stone identified. The pancreatic duct is also mildly dilated. Recommend ERCP to rule out more distal truck process. Unremarkable gallbladder. Disposition Clinical Impression: Abdominal pain Disposition: HOME SELF-CARE Condition: Good Instructions (If sedation given, give patient instructions): Abdominal Pain (ED) Additional Instructions: Follow-up with your primary care physician or digital pre press operator for recheck as soon as possible. Return to the emergency department immediately for any new, worsening, or concerning symptoms. Prescriptions: Ondansetron [Zofran ODT] 4 mg PO Q8HR PRN #10 tab PRN Reason: Nausea Is patient prescribed a controlled substance at d/c from ED?: No Referrals: Raquel Villeda MD [Primary Care Provider] - 1-2 days Time of Disposition: 00:47
--- NOTE | 2019-01-29 00:16 | US ---
EXAM: US Abdomen Limited, Right Upper Quadrant CLINICAL HISTORY: ITS.REASON US Reason: Pain TECHNIQUE: Real-time ultrasound of the right upper quadrant with image documentation. COMPARISON: CT abdomen 01/28/19 FINDINGS: Liver: No mass. No intrahepatic bile duct dilation. Gallbladder: Unremarkable. No gallstones. Common bile duct: Dilated to 8 mm. No stones. Pancreas: Mildly dilated pancreatic duct 4 mm. Right kidney: No stones. No solid mass. No hydronephrosis. IMPRESSION: 1. Dilated CBD with no definite stone identified. The pancreatic duct is also mildly dilated. Recommend ERCP/MRCP to rule out more distal obstructive process. 2. Unremarkable gallbladder.
[2019-01-29 04:21] VITALS: BP 103/88; PULSE 67; RESP 17; TEMP 98.2
== END 2019-01-29 01:34 | disposition home or self-care (01) ==
LOC: EC 20:55
DX: R10.10 Upper abdominal pain, unspecified (principal); K83.8 Other specified diseases of biliary tract; D72.829 Elevated white blood cell count, unspecified; R11.0 Nausea; K50.90 Crohn's disease, unspecified, without complications; F17.200 Nicotine dependence, unspecified, uncomplicated; Z88.8 Allergy status to other drugs, medicaments and biological substances; Z79.899 Other long term (current) drug therapy; Z86.14 Personal history of Methicillin resistant Staphylococcus aureus infection; Z90.49 Acquired absence of other specified parts of digestive tract
CPT/HCPCS: 36415; 80053; 82150; 83605; 83690; 85025; 81001; 76705; 74177; 99284; 96374; 96375 ×2; 96361; J2270; J2405; J1170; Q9967

== ENCOUNTER 2019-03-04 18:07 | Emergency (ER) | payer MEDICARE, OTHER ==
--- NOTE | 2019-03-04 18:51 | ED ---
General Adult HPI - General Chief complaint: Chest Pain Stated complaint: chest pain Time Seen by Provider: 03/04/19 18:20 Source: patient Mode of arrival: ambulatory Limitations: no limitations - History of Present Illness Initial comments: Patient presents to the ED complaining of having sinus congestion and a cough for the past 2 days. Patient states that her PCP called in a prescription for amoxicillin for her, and she states that she started taking it yesterday. Patient states that she has developed "sharp, shooting" pain in her left chest today. Patient states that she has also developed intermittent palpitations and dyspnea today. Patient states that she has had amoxicillin in the past without reaction. Patient denies trauma or injury, fever or chills, tongue/lip/throat, swelling, rash/pruritus, neck/arm/jaw pain, back pain, pleuritic pain, hemoptysis, dizziness, syncope, nausea/vomiting/diaphoresis, abdominal pain, urinary symptoms, leg or calf swelling or tenderness, or any other symptoms or complaints. - Related Data Home Medications Medication Instructions Recorded Confirmed Adalimumab [Humira Pediatric] 40 mg SQ Q14D 01/28/19 03/04/19 Loperamide [Imodium] 2 mg PO QID PRN 01/28/19 03/04/19 Pnv,Calcium 72/Iron/Folic Acid 1 tab PO DAILY 01/28/19 03/04/19 [ Plus Tablet] Umeclidinium [place] [Incruse 1 puff INHALATION RT-DAILY 01/28/19 03/04/19 Ellipta] Amoxicillian 1 tab PO Q12H 03/04/19 03/04/19 Allergies Allergy/AdvReac Type Severity Reaction Status Date / Time prochlorperazine Allergy AGITATION Verified 03/04/19 18:40 [From Compazine] Review of Systems ROS Statement: Those systems with pertinent positive or pertinent negative responses have been documented in the HPI. ROS Other: All systems not noted in ROS Statement are negative. Past Medical History Past Medical History: No Reported History, Unable to Obtain, Pulmonary Embolus (PE) Additional Past Medical History / Comment(s): HEPATITIS C, crohn's disease History of Any Multi-Drug Resistant Organisms: MRSA Date of last positivie culture/infection: 06/07/14 MDRO Source:: ABDOMEN Past Surgical History: Bowel Resection, Hernia Repair Additional Past Surgical History / Comment(s): VICTOR HUGO FOOT SURGERY, BOWEL RESECTION,. carpal tunnel surgery right hand Past Anesthesia/Blood Transfusion Reactions: No Reported Reaction Past Psychological History: Depression Smoking Status: Current every day smoker Past Alcohol Use History: None Reported Past Drug Use History: None Reported - Past Family History Father Family Medical History: Cancer General Exam Limitations: no limitations General appearance: alert, in no apparent distress Head exam: Present: atraumatic, normocephalic Eye exam: Present: normal appearance, EOMI ENT exam: Present: normal oropharynx, mucous membranes moist Neck exam: Absent: tenderness, meningismus Respiratory exam: Present: wheezes. Absent: respiratory distress, rales, rhonchi, chest wall tenderness Cardiovascular Exam: Present: regular rate, normal rhythm, normal heart sounds, other (Normal radial pulses bilaterally) GI/Abdominal exam: Present: soft. Absent: distended, tenderness Extremities exam: Absent: tenderness, pedal edema, calf tenderness Neurological exam: Present: alert, oriented X3 Psychiatric exam: Present: anxious Skin exam: Present: warm, dry, intact, normal color. Absent: rash Course Vital Signs 03/04/19 03/04/19 03/04/19 18:14 19:20 19:26 Temperature 97.8 F Pulse Rate 83 83 88 Respiratory 18 Rate Blood Pressure 99/62 O2 Sat by Pulse 96 Oximetry - Reevaluation(s) Reevaluation #1: 03/04/19 20:23 Patient remains alert and breathing comfortably. Patient denies development of any new symptoms while in the ED. Patient is aware of her test results, and she feels comfortable going home at this time. Patient was instructed to return to the ED should she develop new or worsening pain or symptoms. Patient was instructed to follow up closely with her PCP. EKG Findings - EKG Comments: EKG Findings:: Normal sinus rhythm, ventricular rate 72 bpm, normal NH and QRS intervals, normal QT interval, normal axis, no acute ST or T-wave abnormality Medical Decision Making - Medical Decision Making Patient's vital signs have been reassuring while in the ED. Patient's EKG, chest x-ray and labs are all fairly unremarkable. Patient's d-dimer and troponin are negative. I suspect that the patient's symptoms are likely secondary to a viral URI, and I do not suspect a cardiac or emergent medical condition. Will discharge patient home at this time. Patient was clearly explained return and follow-up instructions. Patient was instructed to follow up closely with her PCP. Patient feels comfortable with this plan. - Lab Data Result diagrams: 03/04/19 19:40 03/04/19 19:40 Lab Results 03/04/19 03/04/19 03/04/19 Range/Units 19:40 19:40 19:40 WBC 9.6 (3.8-10.6) k/uL RBC 4.41 (3.80-5.40) m/uL Hgb 13.9 (11.4-16.0) gm/dL Hct 41.4 (34.0-46.0) % MCV 93.9 (80.0-100.0) fL MCH 31.4 (25.0-35.0) pg MCHC 33.4 (31.0-37.0) g/dL RDW 12.3 (11.5-15.5) % Plt Count 201 (150-450) k/uL Neutrophils % 50 % Lymphocytes % 41 % Monocytes % 5 % Eosinophils % 1 % Basophils % 1 % Neutrophils # 4.8 (1.3-7.7) k/uL Lymphocytes # 3.9 (1.0-4.8) k/uL Monocytes # 0.5 (0-1.0) k/uL Eosinophils # 0.1 (0-0.7) k/uL Basophils # 0.1 (0-0.2) k/uL PT 9.4 (9.0-12.0) sec INR 0.9 (<1.2) APTT 24.1 (22.0-30.0) sec D-Dimer 0.49 (<0.60) mg/L FEU Sodium 140 (137-145) mmol/L Potassium 4.1 (3.5-5.1) mmol/L Chloride 107 (98-107) mmol/L Carbon Dioxide 23 (22-30) mmol/L Anion Gap 10 mmol/L BUN 12 (7-17) mg/dL Creatinine 0.61 (0.52-1.04) mg/dL Est GFR (CKD-EPI)AfAm >90 (>60 ml/min/1.73 sqM) Est GFR (CKD-EPI)NonAf >90 (>60 ml/min/1.73 sqM) Glucose 90 (74-99) mg/dL Calcium 9.6 (8.4-10.2) mg/dL Total Bilirubin 0.3 (0.2-1.3) mg/dL AST 27 (14-36) U/L ALT 22 (9-52) U/L Alkaline Phosphatase 55 (38-126) U/L Troponin I (0.000-0.034) ng/mL NT-Pro-B Natriuret Pep pg/mL Total Protein 7.9 (6.3-8.2) g/dL Albumin 4.6 (3.5-5.0) g/dL Urine HCG, Qual (Not Detectd) 03/04/19 03/04/19 03/04/19 Range/Units 19:40 19:40 19:40 WBC (3.8-10.6) k/uL RBC (3.80-5.40) m/uL Hgb (11.4-16.0) gm/dL Hct (34.0-46.0) % MCV (80.0-100.0) fL MCH (25.0-35.0) pg MCHC (31.0-37.0) g/dL RDW (11.5-15.5) % Plt Count (150-450) k/uL Neutrophils % % Lymphocytes % % Monocytes % % Eosinophils % % Basophils % % Neutrophils # (1.3-7.7) k/uL Lymphocytes # (1.0-4.8) k/uL Monocytes # (0-1.0) k/uL Eosinophils # (0-0.7) k/uL Basophils # (0-0.2) k/uL PT (9.0-12.0) sec INR (<1.2) APTT (22.0-30.0) sec D-Dimer (<0.60) mg/L FEU Sodium (137-145) mmol/L Potassium (3.5-5.1) mmol/L Chloride (98-107) mmol/L Carbon Dioxide (22-30) mmol/L Anion Gap mmol/L BUN (7-17) mg/dL Creatinine (0.52-1.04) mg/dL Est GFR (CKD-EPI)AfAm (>60 ml/min/1.73 sqM) Est GFR (CKD-EPI)NonAf (>60 ml/min/1.73 sqM) Glucose (74-99) mg/dL Calcium (8.4-10.2) mg/dL Total Bilirubin (0.2-1.3) mg/dL AST (14-36) U/L ALT (9-52) U/L Alkaline Phosphatase (38-126) U/L Troponin I <0.012 (0.000-0.034) ng/mL NT-Pro-B Natriuret Pep 54 pg/mL Total Protein (6.3-8.2) g/dL Albumin (3.5-5.0) g/dL Urine HCG, Qual Not Detected (Not Detectd) - Radiology Data Radiology results: image reviewed (Chest x-ray shows no acute cardiopulmonary process) Disposition Clinical Impression: Upper respiratory infection, Chest pain, Palpitations Disposition: HOME SELF-CARE Condition: Stable Instructions (If sedation given, give patient instructions): Chest Pain (ED), Upper Respiratory Infection (ED), Heart Palpitations (ED) Additional Instructions: Return to the ER immediately if you develop new or worsening pain, increased shortness of breath, a fever, vomiting, feeling dizzy or faint, or new or worsening symptoms. Follow up closely with your primary care provider. Is patient prescribed a controlled substance at d/c from ED?: No Referrals: Raquel Villeda MD [Primary Care Provider] - 1-2 days Time of Disposition: 20:28
[2019-03-04] MEDS ORDERED: IPRATROPIUM-ALBUTEROL 3 ML NEB INHALATION STA (18:59)
[2019-03-04 19:53] LABS: Basophils # (A) 0.1 k/uL (0-0.2); Basophils % (A) 1 %; Eosinophils # (A) 0.1 k/uL (0-0.7); Eosinophils % (A) 1 %; HCT 41.4 % (34.0-46.0); HGB 13.9 gm/dL (11.4-16.0); Lymphocytes # (A) 3.9 k/uL (1.0-4.8); Lymphocytes % (A) 41 %; MCH 31.4 pg (25.0-35.0); MCHC 33.4 g/dL (31.0-37.0); MCV 93.9 fL (80.0-100.0); Mean Platelet Volume 7.5; Monocytes # (A) 0.5 k/uL (0-1.0); Monocytes % (A) 5 %; Neutrophils # (A) 4.8 k/uL (1.3-7.7); Neutrophils % (A) 50 %; Platelet Count 201 k/uL (150-450); RBC 4.41 m/uL (3.80-5.40); RDW 12.3 % (11.5-15.5); WBC 9.6 k/uL (3.8-10.6)
[2019-03-04 20:02] LABS: ALT 22 U/L (9-52); AST 27 U/L (14-36); African American GFR (CKD) >90 (>60 ml/min/1.73 sqM); Albumin 4.6 g/dL (3.5-5.0); Alkaline Phosphatase 55 U/L (38-126); Anion Gap 10 mmol/L; Blood Urea Nitrogen 12 mg/dL (7-17); Calcium 9.6 mg/dL (8.4-10.2); Carbon Dioxide 23 mmol/L (22-30); Chloride 107 mmol/L (98-107); Glucose 90 mg/dL (74-99); Potassium 4.1 mmol/L (3.5-5.1); Sodium 140 mmol/L (137-145); Total Bilirubin 0.3 mg/dL (0.2-1.3); Total Protein 7.9 g/dL (6.3-8.2)
--- NOTE | 2019-03-04 20:11 | XR ---
EXAMINATION TYPE: XR chest 2V DATE OF EXAM: 03/04/2019 COMPARISON: 06/28/2009 INDICATION: Chest pain TECHNIQUE: Frontal and lateral views of the chest are obtained. FINDINGS: The heart size is normal. The pulmonary vasculature is normal. The lungs are clear. Scoliosis is present. IMPRESSION: 1. No acute pulmonary process.
[2019-03-04 20:13] LABS: D-Dimer 0.49 mg/L FEU (<0.60); INR 0.9 (<1.2); Partial Thromboplastin Time 24.1 sec (22.0-30.0); Prothrombin Time 9.4 sec (9.0-12.0)
[2019-03-04 20:51] VITALS: BP 127/64; PULSE 78; RESP 16; TEMP 98.1
== END 2019-03-04 20:51 | disposition home or self-care (01) ==
LOC: EC 18:07
DX: J06.9 Acute upper respiratory infection, unspecified (principal); R00.2 Palpitations; R07.9 Chest pain, unspecified; F17.200 Nicotine dependence, unspecified, uncomplicated; Z88.8 Allergy status to other drugs, medicaments and biological substances; Z86.711 Personal history of pulmonary embolism
CPT/HCPCS: 36415; 71046; 80053; 81025; 83880; 84484; 85025; 85379; 85610; 85730; 94640; 99285

== ENCOUNTER 2019-04-30 08:18 | Inpatient (IN) | payer MEDICARE, OTHER ==
[2019-04-30 08:24] LABS: Glucose,Whole Blood 135 mg/dL (75-99)
[2019-04-30] MEDS ORDERED: SODIUM CHLORIDE 0.9% 1,000 ML IV STA (08:28)
[2019-04-30] MEDS ORDERED: ONDANSETRON 4 MG/2 ML VIAL IVP STA ×2 (08:28→12:13)
[2019-04-30] MEDS ORDERED: MORPHINE SULFATE 4 MG/ML SYRINGE IV STA (08:28)
[2019-04-30] MEDS ORDERED: HYDROmorphone 0.5 MG/0.5 ML SYRINGE IVP STA (08:34)
--- NOTE | 2019-04-30 08:38 | ED ---
Abdominal Pain HPI - General Chief Complaint: Abdominal Pain Stated Complaint: severe abdominal pain Time Seen by Provider: 04/30/19 08:20 Source: patient Mode of arrival: wheelchair Limitations: no limitations - History of Present Illness Initial Comments: 38-year-old female history of Crohn's disease previous small bowel obstruction with resection presents emergency department today for chief complaint of epigastric abdominal pain and vomiting. Patient states that around midnight she began experiencing very sharp and shooting abdominal pain without radiation she states is in the epigastric region. She states she had one small loose bowel movement this morning however this seemed to increase the pain. Patient states when she arrived in the emergency department she had one episode of emesis denies hematemesis. Patient denies any lower abdominal pain. Denies any chest pain shortness of breath leg swelling. Patient denies experiencing symptoms prior to midnight. Patient denies any other complaints. Upon arrival patient appears uncomfortable. VS stable. - Related Data Home Medications Medication Instructions Recorded Confirmed Loperamide [Imodium] 2 - 4 mg PO TID PRN 01/28/19 04/30/19 Pnv,Calcium 72/Iron/Folic Acid 1 tab PO DAILY 01/28/19 04/30/19 [ Plus Tablet] Umeclidinium [place] [Incruse 1 puff INHALATION RT-DAILY 01/28/19 04/30/19 Ellipta] Adalimumab [Humira Pen] 40 mg SQ Q14D 04/30/19 04/30/19 Albuterol Sulfate [Ventolin HFA] 2 puff INHALATION RT-Q4H PRN 04/30/19 04/30/19 Allergies Allergy/AdvReac Type Severity Reaction Status Date / Time prochlorperazine AdvReac AGITATION Verified 04/30/19 13:53 [From Compazine] Review of Systems ROS Statement: Those systems with pertinent positive or pertinent negative responses have been documented in the HPI. ROS Other: All systems not noted in ROS Statement are negative. Past Medical History Past Medical History: No Reported History, Pulmonary Embolus (PE) Additional Past Medical History / Comment(s): HEPATITIS C, crohn's disease, SBO History of Any Multi-Drug Resistant Organisms: MRSA Date of last positivie culture/infection: 06/07/14 MDRO Source:: ABDOMEN Past Surgical History: Bowel Resection, Hernia Repair Additional Past Surgical History / Comment(s): VICTOR HUGO FOOT SURGERY, BOWEL RESECTION,. carpal tunnel surgery right hand Past Anesthesia/Blood Transfusion Reactions: No Reported Reaction Past Psychological History: Depression Smoking Status: Current every day smoker Past Alcohol Use History: None Reported Past Drug Use History: None Reported - Past Family History Father Family Medical History: Cancer General Exam - General Exam Comments Initial Comments: General: The patient is awake and alert, appears uncomfortable Eye: +3 mm pupils are equal, round and reactive to light, extra-ocular movements are intact. No nystagmus. There is normal conjunctiva bilaterally. No signs of icterus. Ears, nose, mouth and throat: There are moist mucous membranes and no oral lesions. Neck: The neck is supple, there is no tenderness or JVD. Cardiovascular: There is a regular rate and rhythm. No murmur, rub or gallop is appreciated. Respiratory: Lungs are clear to auscultation, respirations are non-labored, breath sounds are equal. No wheezes, stridor, rales, or rhonchi. Gastrointestinal: Soft, non-distended, tenderness to palpation of the epigastric region, no RUQ tenderness (-) murphys sign. The remaining abdomen is nontender and without masses or organomegaly noted. There is no rebound or guarding present. No CVA tenderness. Bowel sounds are unremarkable. Musculoskeletal: Normal ROM, no tenderness. Strength 5/5. Sensation intact. Radial pulses equal bilaterally 2+. Neurological: A&O x 3. CN II-XII intact grossly, There are no obvious motor or sensory deficits. Coordination appears grossly intact. Speech is normal. Skin: Skin is warm and dry and no rashes or lesions are noted. Psychiatric: Cooperative, appropriate mood & affect, normal judgment. Limitations: no limitations Course Vital Signs 04/30/19 04/30/19 04/30/19 08:23 12:11 12:19 Temperature 97.8 F 98.0 F 98.0 F Pulse Rate 89 68 68 Respiratory 20 18 18 Rate Blood Pressure 121/93 109/74 109/74 O2 Sat by Pulse 99 96 96 Oximetry Medical Decision Making - Medical Decision Making CT revealed findings consistent with small bowel obstruction. There is evidence of colitis. Patient has history of Crohn's. Patient given Solu-Medrol IV antibiotics. Surgery consult is recommending MPO all rest IV fluids. They did not recommend NG tube at this time. Gastro-neurology on consult. Patient states she seen a different surgeon for a bowel resection after a small bowel obstruction in [place] however she does not prefer to emergency room care with this surgeon as there was complications. Patient be admitted agreeable to admission when necessary antiemetics and pain medications. - Lab Data Result diagrams: 04/30/19 08:55 04/30/19 08:55 Lab Results 04/30/19 04/30/19 04/30/19 Range/Units 08:22 08:55 08:55 WBC 14.3 H (3.8-10.6) k/uL RBC 4.40 (3.80-5.40) m/uL Hgb 14.4 (11.4-16.0) gm/dL Hct 41.8 (34.0-46.0) % MCV 95.1 (80.0-100.0) fL MCH 32.7 (25.0-35.0) pg MCHC 34.4 (31.0-37.0) g/dL RDW 12.1 (11.5-15.5) % Plt Count 226 (150-450) k/uL Neutrophils % 79 % Lymphocytes % 16 % Monocytes % 4 % Eosinophils % 1 % Basophils % 0 % Neutrophils # 11.3 H (1.3-7.7) k/uL Lymphocytes # 2.2 (1.0-4.8) k/uL Monocytes # 0.5 (0-1.0) k/uL Eosinophils # 0.1 (0-0.7) k/uL Basophils # 0.0 (0-0.2) k/uL Sodium 141 (137-145) mmol/L Potassium 4.0 (3.5-5.1) mmol/L Chloride 108 H (98-107) mmol/L Carbon Dioxide 22 (22-30) mmol/L Anion Gap 11 mmol/L BUN 18 H (7-17) mg/dL Creatinine 0.65 (0.52-1.04) mg/dL Est GFR (CKD-EPI)AfAm >90 (>60 ml/min/1.73 sqM) Est GFR (CKD-EPI)NonAf >90 (>60 ml/min/1.73 sqM) Glucose 126 H (74-99) mg/dL POC Glucose (mg/dL) 135 H (75-99) mg/dL POC Glu Hairspring Inspector ID Nafisa Stiles Plasma Lactic Acid [place] (0.7-2.0) mmol/L Calcium 9.9 (8.4-10.2) mg/dL Total Bilirubin 0.5 (0.2-1.3) mg/dL AST 27 (14-36) U/L ALT 24 (9-52) U/L Alkaline Phosphatase 63 (38-126) U/L Total Protein 7.8 (6.3-8.2) g/dL Albumin 4.6 (3.5-5.0) g/dL Amylase 50 (30-110) U/L Lipase 23 (23-300) U/L Urine Color Urine Appearance (Clear) Urine pH (5.0-8.0) Ur Specific [place] (1.001-1.035) Urine Protein (Negative) Urine Glucose (UA) (Negative) Urine Ketones (Negative) Urine Blood (Negative) Urine Nitrite (Negative) Urine Bilirubin (Negative) Urine Urobilinogen (<2.0) mg/dL Ur Leukocyte Esterase (Negative) Urine RBC (0-5) /hpf Urine WBC (0-5) /hpf Ur Squamous Epith Cells (0-4) /hpf Calcium Oxalate Crystal (None) /hpf Urine Bacteria (None) /hpf Urine Mucus (None) /hpf Urine HCG, Qual (Not Detectd) 04/30/19 04/30/19 04/30/19 Range/Units 08:55 09:07 09:07 WBC (3.8-10.6) k/uL RBC (3.80-5.40) m/uL Hgb (11.4-16.0) gm/dL Hct (34.0-46.0) % MCV (80.0-100.0) fL MCH (25.0-35.0) pg MCHC (31.0-37.0) g/dL RDW (11.5-15.5) % Plt Count (150-450) k/uL Neutrophils % % Lymphocytes % % Monocytes % % Eosinophils % % Basophils % % Neutrophils # (1.3-7.7) k/uL Lymphocytes # (1.0-4.8) k/uL Monocytes # (0-1.0) k/uL Eosinophils # (0-0.7) k/uL Basophils # (0-0.2) k/uL Sodium (137-145) mmol/L Potassium (3.5-5.1) mmol/L Chloride (98-107) mmol/L Carbon Dioxide (22-30) mmol/L Anion Gap mmol/L BUN (7-17) mg/dL Creatinine (0.52-1.04) mg/dL Est GFR (CKD-EPI)AfAm (>60 ml/min/1.73 sqM) Est GFR (CKD-EPI)NonAf (>60 ml/min/1.73 sqM) Glucose (74-99) mg/dL POC Glucose (mg/dL) (75-99) mg/dL POC Glu Hairspring Inspector ID Plasma Lactic Acid Anton 1.3 (0.7-2.0) mmol/L Calcium (8.4-10.2) mg/dL Total Bilirubin (0.2-1.3) mg/dL AST (14-36) U/L ALT (9-52) U/L Alkaline Phosphatase (38-126) U/L Total Protein (6.3-8.2) g/dL Albumin (3.5-5.0) g/dL Amylase (30-110) U/L Lipase (23-300) U/L Urine Color Yellow Urine Appearance Cloudy H (Clear) Urine pH 5.5 (5.0-8.0) Ur Specific [place] 1.028 (1.001-1.035) Urine Protein Trace H (Negative) Urine Glucose (UA) Negative (Negative) Urine Ketones 2+ H (Negative) Urine Blood Small H (Negative) Urine Nitrite Negative (Negative) Urine Bilirubin Negative (Negative) Urine Urobilinogen <2.0 (<2.0) mg/dL Ur Leukocyte Esterase Small H (Negative) Urine RBC 5 (0-5) /hpf Urine WBC 6 H (0-5) /hpf Ur Squamous Epith Cells 8 H (0-4) /hpf Calcium Oxalate Crystal Few H (None) /hpf Urine Bacteria Moderate H (None) /hpf Urine Mucus Few H (None) /hpf Urine HCG, Qual Not Detected (Not Detectd) Disposition Clinical Impression: Crohn's disease, SBO (small bowel obstruction), Abdominal pain Disposition: ADMITTED IP TO THIS [facility] Condition: Stable Is patient prescribed a controlled substance at d/c from ED?: No Time of Disposition: 10:22 Decision to Admit Reason: Admit from EC Decision Date: 04/30/19 Decision Time: 10:22
[2019-04-30] MEDS ORDERED: methylPREDNISolone SOD SUCCI 125 MG/2 ML VIAL IV STA (09:07)
[2019-04-30 09:26] LABS: Basophils % (A) 0 %; Eosinophils # (A) 0.1 k/uL (0-0.7); Eosinophils % (A) 1 %; HCT 41.8 % (34.0-46.0); HGB 14.4 gm/dL (11.4-16.0); Lymphocytes # (A) 2.2 k/uL (1.0-4.8); Lymphocytes % (A) 16 %; MCH 32.7 pg (25.0-35.0); MCHC 34.4 g/dL (31.0-37.0); MCV 95.1 fL (80.0-100.0); Mean Platelet Volume 6.7; Monocytes # (A) 0.5 k/uL (0-1.0); Monocytes % (A) 4 %; Neutrophils # (A) 11.3 k/uL (1.3-7.7); Neutrophils % (A) 79 %; Platelet Count 226 k/uL (150-450); RDW 12.1 % (11.5-15.5); WBC 14.3 k/uL (3.8-10.6)
[2019-04-30 09:34] LABS: Appearance,Urine Cloudy (Clear); Bacteria,Urine Moderate /hpf; Bilirubin,Urine Negative (Negative); Blood,Urine Small (Negative); Calcium Oxalate Crystals,Urine Few /hpf; Color,Urine Yellow; Glucose,Urine (UA) Negative (Negative); Ketones,Urine 2+ (Negative); Leukocyte Esterase,Urine Small (Negative); Mucus,Urine Few /hpf; Nitrite,Urine Negative (Negative); PH, Urine 5.5 (5.0-8.0); Protein,Urine Trace (Negative); RBC,Urine 5 /hpf (0-5); Specific Gravity,Urine 1.028 (1.001-1.035); Squamous Epithelial Cell,Urine 8 /hpf (0-4); Urobilinogen,Urine <2.0 mg/dL (<2.0); WBC,Urine 6 /hpf (0-5)
[2019-04-30 09:37] LABS: ALT 24 U/L (9-52); AST 27 U/L (14-36); African American GFR (CKD) >90 (>60 ml/min/1.73 sqM); Albumin 4.6 g/dL (3.5-5.0); Alkaline Phosphatase 63 U/L (38-126); Amylase 50 U/L (30-110); Anion Gap 11 mmol/L; Blood Urea Nitrogen 18 mg/dL (7-17); Calcium 9.9 mg/dL (8.4-10.2); Carbon Dioxide 22 mmol/L (22-30); Chloride 108 mmol/L (98-107); Glucose 126 mg/dL (74-99); Non-African American GFR(CKD) >90 (>60 ml/min/1.73 sqM); Sodium 141 mmol/L (137-145); Total Bilirubin 0.5 mg/dL (0.2-1.3); Total Protein 7.8 g/dL (6.3-8.2)
--- NOTE | 2019-04-30 10:13 | CT ---
EXAMINATION TYPE: CT abdomen pelvis w con DATE OF EXAM: 04/30/2019 COMPARISON: 01/28/2019 HISTORY: 38-year-old female abdominal pain, history of Crohn's TECHNIQUE: Contiguous axial scanning of the abdomen and pelvis following administration of 100 ml Iso [place] 300 IV contrast. Delayed images through the kidneys and coronal/sagittal reconstructions perform ed. CT DLP: 769.2 mGycm Automated exposure control for dose reduction was used. FINDINGS: Heart normal size without pericardial effusion. Lung bases clear without pleural effusion. Bile duct mildly dilated at 9 mm, similar to prior exam. Minimal intrahepatic biliary ductal dilatati on centrally in the liver is also similar. No focal liver lesion. Portal venous system is patent. Gallbladder, adrenal glands, kidneys, spleen, and pancreas appear within normal limits. Minimally pro minent main pancreatic duct at 2.5 mm is unchanged and within acceptable limits. Post surgical changes right lower quadrant, suspected distal ileal resection and ileocolonic anastomo sis with a neoterminal ileum. There is 3.5 cm long segment of moderate circumferential wall thickenin g and annular narrowing of the distal ileum prior to the anastomosis, refer to axial image 36 and sag ittal image 40. Small bowel proximally is dilated up to 4.1 cm and fluid-filled. Liquid stool throughout the colon. M ild circumference of wall thickening of the transverse colon. Some borderline-sized right lower quadrant mesenteric lymph nodes measure up to 6 mm. Mild pelvic free fluid. No free air. Bladder nondistended. Uterus anteverted with IUD in place. Both ovaries are visualized. Bones: Mild osteitis pubis. There is a marked dextro convex scoliotic curvature of the lumbar spine. IMPRESSION: 1. ACUTE TERMINAL ILEITIS WITH A 3.5 CM SEGMENT OF MODERATE CIRCUMFERENTIAL THICKENING AND ANNULAR NA RROWING. 2. POSTSURGICAL CHANGE AT THE ILEOCECAL JUNCTION WITH A NEOTERMINAL ILEUM. 3. SECONDARY PARTIAL SMALL BOWEL OBSTRUCTION. SMALL BOWEL LOOPS ARE DILATED UP TO 4.1 CM. 4. MILD CIRCUMFERENTIAL WALL THICKENING OF THE TRANSVERSE COLON SUGGESTS A CONCURRENT MILD COLITIS. 5. STABLE MILD BILIARY DUCTAL DILATATION AT 9 MM, PROBABLY CHRONIC IN THIS PATIENT GIVEN SIMILAR APPE ARANCE BACK TO 01/28/2019.
[2019-04-30] MEDS ORDERED: MORPHINE SULFATE 4 MG/ML SYRINGE IV PRN (10:20)
[2019-04-30] MEDS ORDERED: NALOXONE 0.4 MG/ML 1 ML VIAL IV PRN (10:20)
[2019-04-30] MEDS: SODIUM CHLORIDE 0.9% 1,000 ML IV SCH ×2 (12:11→20:30)
[2019-04-30] MEDS: HYDROmorphone 0.5 MG/0.5 ML SYRINGE IVP PRN ×4 (12:18→21:54)
[2019-04-30 14:22] VITALS: BMI 24.9
[2019-04-30] MEDS: HEPARIN SODIUM,PORCINE 5,000 UNIT/ML 1 ML VIAL SQ SCH ×2 (15:34→23:14)
[2019-04-30] MEDS ORDERED: ALBUTEROL NEBULIZED 2.5 MG/3 ML INHALATION PRN (17:23)
[2019-04-30] MEDS: INSULIN ASPART (NovoLOG) 100 UNIT/ML VIAL SQ SCH ×2 (17:44→20:45)
[2019-04-30 18:22] LABS: Amphetamine Screen,Urine Not Detected (NotDetected); Barbiturate Screen,Urine Not Detected (NotDetected); Benzodiazepines Screen,Urine Not Detected (NotDetected); Cocaine Screen,Urine Not Detected (NotDetected); Methadone Screen, Urine Not Detected (NotDetected); Opiate Screen,Urine Not Detected (NotDetected); Oxycodone Screen, Urine Not Detected (NotDetected); Phencyclidine Screen,Urine Not Detected (NotDetected); Tricyclic Antidepressant,Urine Not Detected (NotDetected); Urn Cannabinoid Scrn Not Detected (NotDetected)
[2019-04-30] MEDS: PIPERACILLIN-TAZOBACTAM 3.375 GM in SODIUM CHLORIDE 0.9% 100 ML IVPB SCH (18:22)
[2019-04-30] MEDS: methylPREDNISolone SOD SUCCI 125 MG/2 ML VIAL IV SCH ×2 (18:25→23:13)
--- NOTE | 2019-04-30 20:16 | HP ---
HISTORY AND PHYSICAL DATE OF SERVICE: 04/30/2019 CHIEF COMPLAINT: Abdominal pain and nausea. HISTORY OF PRESENT ILLNESS: This 38-year-old woman with a past medical history of multiple medical problems including history of pulmonary embolus, hepatitis C, Crohn disease, small bowel obstruction, MRSA, history of bilateral foot surgery, depression, being followed by Dr. Raquel Villeda and Dr. Simons in the outpatient setting, was complaining of severe abdominal pain for the last 2 days. The patient's pain is felt in the upper epigastrium with some vomiting. Patient unable to keep anything down. The patient was also unable to sleep. Because of the symptoms, the patient came to [facility] and was admitted for further evaluation and treatment. The initial evaluation showed white count elevated 14.3, and the patient also had abdominal and pelvis CAT scan which showed significant terminal ileitis with 3.5 cm segment of moderate circumferential thickening also, postsurgical changes also noted with possible partial small-bowel obstruction also noted. The patient being closely monitored. There is no history of fever, rigors or chills. No history of headache, loss of consciousness or seizures at this time. PAST MEDICAL HISTORY: History of Crohn's disease, abdominal surgery, hepatitis C, history of MRSA, history of bowel resection, depression, nicotine dependence. MEDICATIONS: Prior to admission home medications include: 1. Ellipta 1 puff daily. 2. vitamins p.o. daily. 3. Imodium 2-4 mg t.i.d. p.r.n. 4. Ventolin 1 to 2 puffs q.4h p.r.n. 5. Meropenem 40 mg subcu q.14 days. ALLERGIES: COMPAZINE. FAMILY HISTORY: History of cancer in the family. SOCIAL HISTORY: History of smoking, continued ongoing. REVIEW OF SYSTEMS: ENT: No diminished vision. No diminished hearing. CARDIOVASCULAR system: No angina, or palpitations. RESPIRATORY: No cough or hemoptysis. GI as mentioned earlier. no dysuria. NERVOUS: No numbness or weakness. ALLERGY/IMMUNOLOGY: No asthma or hayfever. MUSCULOSKELETAL as mentioned earlier. HEMATOLOGY/ONCOLOGY: No history of anemia. ENDOCRINE: No history of diabetes or hypothyroidism. CONSTITUTIONAL: As mentioned earlier. DERMATOLOGY: Negative. RHEUMATOLOGY: Negative. PSYCHIATRY: As mentioned earlier. PHYSICAL EXAMINATION: Alert and oriented times three. Pulse 70. Blood pressure 110/78. Respirations 16. Temperature 98 degrees, pulse ox 97% on room air. HEENT: Conjunctivae normal. Oral mucosa moist. NECK is no jugular venous distention. No carotid bruit. No lymph node enlargement. Cardiovascular systems: S1, S2. RESPIRATION: Breath sounds diminished in the bases. A few scattered rhonchi. No crackles. ABDOMEN: Soft, mild diffuse discomfort. No guarding. No rigidity. No mass palpable. Bowel sounds present. No ascites. LEGS: No edema. No swelling. NERVOUS SYSTEM: Higher functions as mentioned earlier. Moves all four limbs. No focal motor or sensory deficits. LYMPHATICS: No lymph nodes palpable in the neck, axillae or groin. SKIN: No ulcer. No rash and no bleeding. JOINTS: No active deforming arthropathy. LAB STUDIES: WBC 14.2, sodium 140, potassium 4. ASSESSMENT: 1. Abdominal pain with possibly acute Crohn's disease, acute exacerbation with acute terminal ileitis. 2. Partial small bowel obstruction secondary to Crohn's disease. 3. Concurrent mild colitis in the transverse colon with circumferential thickening. 4. History of Crohn's disease with bowel resection. 5. Increased WBC. 6. History of hepatitis C. 7. History of MRSA. 8. History of hernia repair. 9. History of bilateral foot surgery. 10.History of depression. 11.History of nicotine dependence, continued, ongoing. 12.FULL CODE. RECOMMENDATIONS AND DISCUSSION: In this 38-year-old woman who presented with multiple complex medical issues, we will monitor the patient closely, continue the current medications, symptomatic treatment, management and we will initiate empiric IV steroids and also symptomatic treatment of the pain. I would also recommend surgical and gastroenterology consultations. I would also recommend empiric antibiotics. Otherwise guarded prognosis because of multiple complex issues. Further recommendations to follow. I would recommend combination of Levaquin and Flagyl for the possible colitis. Copy of dictation being forwarded to Dr. Raquel Villeda who is the primary physician. Home medications also will be restarted. MMODL / IJN: [id number] /
[2019-04-30] MEDS: HYDROcodone/APAP 5-325MG 1 EACH TAB PO PRN (20:30)
[2019-04-30 20:45] LABS: Glucose,Whole Blood 119 mg/dL (75-99)
[2019-04-30] MEDS: TEMAZEPAM 15 MG CAP PO PRN (21:50)
[2019-04-30] MEDS: LORazepam 1 MG TAB PO PRN (23:14)
[2019-05-01] MEDS: HYDROmorphone 0.5 MG/0.5 ML SYRINGE IVP PRN ×7 (01:50→22:02)
[2019-05-01] MEDS: PIPERACILLIN-TAZOBACTAM 3.375 GM in SODIUM CHLORIDE 0.9% 100 ML IVPB SCH ×3 (01:50→17:34)
[2019-05-01] MEDS: methylPREDNISolone SOD SUCCI 125 MG/2 ML VIAL IV SCH ×3 (06:00→17:25)
[2019-05-01] MEDS: ONDANSETRON 4 MG/2 ML VIAL IVP PRN ×2 (06:08→17:44)
[2019-05-01 06:19] LABS: Glucose,Whole Blood 124 mg/dL (75-99)
[2019-05-01] MEDS: INSULIN ASPART (NovoLOG) 100 UNIT/ML VIAL SQ SCH ×4 (07:00→20:31)
[2019-05-01 08:03] LABS: Basophils % (A) 0 %; Eosinophils % (A) 0 %; HCT 36.1 % (34.0-46.0); HGB 12.1 gm/dL (11.4-16.0); Lymphocytes # (A) 1.3 k/uL (1.0-4.8); Lymphocytes % (A) 14 %; MCHC 33.7 g/dL (31.0-37.0); MCV 95.2 fL (80.0-100.0); Mean Platelet Volume 6.7; Monocytes # (A) 0.4 k/uL (0-1.0); Monocytes % (A) 4 %; Neutrophils # (A) 7.7 k/uL (1.3-7.7); Neutrophils % (A) 81 %; Platelet Count 184 k/uL (150-450); RBC 3.79 m/uL (3.80-5.40); RDW 11.9 % (11.5-15.5); WBC 9.5 k/uL (3.8-10.6)
[2019-05-01 08:11] LABS: African American GFR (CKD) >90 (>60 ml/min/1.73 sqM); Anion Gap 8 mmol/L; Blood Urea Nitrogen 16 mg/dL (7-17); Calcium 8.7 mg/dL (8.4-10.2); Carbon Dioxide 22 mmol/L (22-30); Chloride 110 mmol/L (98-107); Glucose 122 mg/dL (74-99); Non-African American GFR(CKD) >90 (>60 ml/min/1.73 sqM); Potassium 4.4 mmol/L (3.5-5.1); Sodium 140 mmol/L (137-145)
[2019-05-01] MEDS: HEPARIN SODIUM,PORCINE 5,000 UNIT/ML 1 ML VIAL SQ SCH ×2 (08:25→17:24)
[2019-05-01] MEDS: HYDROcodone/APAP 5-325MG 1 EACH TAB PO PRN ×3 (08:31→20:34)
[2019-05-01] MEDS: IPRATROPIUM 0.5 MG/2.5 ML NEBU INHALATION SCH ×4 (08:36→20:57)
[2019-05-01 12:22] LABS: Glucose,Whole Blood 120 mg/dL (75-99)
[2019-05-01] MEDS: SODIUM CHLORIDE 0.9% 1,000 ML IV SCH ×2 (13:24→17:24)
--- NOTE | 2019-05-01 13:27 | P.GSCN ---
<Zoe Almaraz - Last Filed: 05/01/19 13:22> History of Present Illness Consult date: 05/01/19 Reason for Consult: SBO Requesting physician: Catie Chowdhury History of present illness: CHIEF COMPLAINT: Small bowel obstruction HISTORY OF PRESENT ILLNESS: 38-year-old female who presented to the emergency room with a chief complaint of abdominal pain. Patient reports she began having abdominal pain Wednesday morning with nausea and episodes of nonbloody bilious emesis. She reports having a bowel movement yesterday morning. She states she was bloated, which has since resolved. She has a history of crohns disease and follows with Dr. Simons outpatient. She reports being on Humira for the last two years. She states this has helped her from requiring hospitalization for her Crohns but she still has 8-10 loose bowel movements a day. She reports bowel resection in 2014 at [facility]. She has not required hospitalization for her Crohns since her bowel resection. Patient states her pain is improved today compared to yesterday. She denies further episodes of emesis. Minimal nausea. She is not passing flatus. PAST MEDICAL HISTORY: See list. PAST SURGICAL HISTORY: See list. SOCIAL HISTORY: No illicit drug use. REVIEW OF SYSTEMS: CONSTITUTIONAL: Denies fever or chills. HEENT: Denies blurred vision, vision changes, or eye pain. Denies hemoptysis CARDIOVASCULAR: Denies chest pain or pressure. RESPIRATORY: No shortness of breath. GASTROINTESTINAL: Refer to HPI for pertinent findings HEMATOLOGIC: Denies bleeding disorders. GENITOURINARY: Denies any blood in urine. SKIN: Denies pruitis. Denies rash. PHYSICAL EXAM: VITAL SIGNS: Reviewed. GENERAL: Well-developed in no acute distress. HEENT: No sclera icterus. Extraocular movements grossly intact. Moist buccal mucosa. Head is atraumatic, normocephalic. ABDOMEN: Soft. Nondistended. Tenderness with palpation near umbilicus. Evidence of old surgical scar from previous bowel resection. NEUROLOGIC: Alert and oriented. Cranial nerves II through XII grossly intact. LABORATORY DATA: Most recent laboratory data reveals white count 9.5. Hemoglobin 12.1. Platelet count 184. Sodium 140. Potassium 4.4. BUN 16. Creatinine 0.56. IMAGING: CT abdomen and pelvis: Acute terminal ileitis with 3.5 cm segment of moderate circumferential thickening and annular narrowing. Postsurgical changes at the ileocecal junction with the neoterminal ileum. Secondary partial small bowel obstruction. Small bowel loops of dilated up to 4.1 cm. Mild circumferential wall thickening of the transverse colon suggests a concurrent mild colitis. St able mild biliary ductal dilation at 9 mm. Probably chronic. ASSESSMENT: 1. Abdominal pain, nausea, vomiting 2. Acute terminal ileitis 3. Small bowel obstruction 4. History of Crohn's disease 5. History of bowel resection in 2014 PLAN: 1. Continue NPO except ice chips at this time 2. Pain control 3. IV steroids started per primary medicine 4. GI consulted for evaluation. Await recommendations 5. Continue conservative management. Dr. Sheffield to re-evaluate patient this afternoon Nurse practitioner note has been reviewed by physician. Signing provider agrees with the documented findings, assessment, and plan of care. Past Medical History Past Medical History: No Reported History, Pulmonary Embolus (PE) Additional Past Medical History / Comment(s): HEPATITIS C, crohn's disease, SBO History of Any Multi-Drug Resistant Organisms: MRSA Year Discovered:: 06/12/15 MRSA @ [facility] MDRO Source:: Abdomen Past Surgical History: Bowel Resection, Hernia Repair Additional Past Surgical History / Comment(s): VICTOR HUGO FOOT SURGERY, BOWEL RESECTION,. carpal tunnel surgery right hand Past Anesthesia/Blood Transfusion Reactions: No Reported Reaction Past Psychological History: Depression Smoking Status: Current every day smoker Past Alcohol Use History: None Reported Past Drug Use History: None Reported - Past Family History Father Family Medical History: Cancer Medications and Allergies Home Medications Medication Instructions Recorded Confirmed Type Loperamide [Imodium] 2 - 4 mg PO TID PRN 01/28/19 04/30/19 History Pnv,Calcium 72/Iron/Folic Acid 1 tab PO DAILY 01/28/19 04/30/19 History [ Plus Tablet] Umeclidinium [place] [Incruse 1 puff INHALATION RT-DAILY 01/28/19 04/30/19 History Ellipta] Adalimumab [Humira Pen] 40 mg SQ Q14D 04/30/19 04/30/19 History Albuterol Sulfate [Ventolin HFA] 2 puff INHALATION RT-Q4H PRN 04/30/19 04/30/19 History Allergies Allergy/AdvReac Type Severity Reaction Status Date / Time prochlorperazine AdvReac AGITATION Verified 04/30/19 13:53 [From Compazine] Surgical - Exam Vital Signs Temp Pulse Resp BP Pulse Ox 97.8 F 89 20 121/93 99 04/30/19 08:23 04/30/19 08:23 04/30/19 08:23 04/30/19 08:23 04/30/19 08:23 Results - Labs 05/01/19 07:38 05/01/19 07:38 Abnormal Lab Results - Last 24 Hours (Table) 04/30/19 05/01/19 05/01/19 Range/Units 20:41 06:15 07:38 RBC 3.79 L (3.80-5.40) m/uL Chloride (98-107) mmol/L Glucose (74-99) mg/dL POC Glucose (mg/dL) 119 H 124 H (75-99) mg/dL 05/01/19 05/01/19 Range/Units 07:38 12:19 RBC (3.80-5.40) m/uL Chloride 110 H (98-107) mmol/L Glucose 122 H (74-99) mg/dL POC Glucose (mg/dL) 120 H (75-99) mg/dL Diabetes panel 05/01/19 Range/Units 07:38 Sodium 140 (137-145) mmol/L Potassium 4.4 (3.5-5.1) mmol/L Chloride 110 H (98-107) mmol/L Carbon Dioxide 22 (22-30) mmol/L BUN 16 (7-17) mg/dL Creatinine 0.56 (0.52-1.04) mg/dL Glucose 122 H (74-99) mg/dL Calcium 8.7 (8.4-10.2) mg/dL Calcium panel 05/01/19 Range/Units 07:38 Calcium 8.7 (8.4-10.2) mg/dL Pituitary panel 05/01/19 Range/Units 07:38 Sodium 140 (137-145) mmol/L Potassium 4.4 (3.5-5.1) mmol/L Chloride 110 H (98-107) mmol/L Carbon Dioxide 22 (22-30) mmol/L BUN 16 (7-17) mg/dL Creatinine 0.56 (0.52-1.04) mg/dL Glucose 122 H (74-99) mg/dL Calcium 8.7 (8.4-10.2) mg/dL Adrenal panel 05/01/19 Range/Units 07:38 Sodium 140 (137-145) mmol/L Potassium 4.4 (3.5-5.1) mmol/L Chloride 110 H (98-107) mmol/L Carbon Dioxide 22 (22-30) mmol/L BUN 16 (7-17) mg/dL Creatinine 0.56 (0.52-1.04) mg/dL Glucose 122 H (74-99) mg/dL Calcium 8.7 (8.4-10.2) mg/dL <Gibson Sheffield - Last Filed: 05/01/19 14:16> History of Present Illness History of present illness: As above. Patient with CAT scan suggesting small bowel obstruction related to recurrent Crohn's disease with stricture formation distal ileum at anastomotic site. Patient still having discomfort although nausea and vomiting have improved. Await GI evaluation. Will remain on standby for possible surgical intervention if necessary. Surgical - Exam Vital Signs Temp Pulse Resp BP Pulse Ox 97.8 F 89 20 121/93 99 04/30/19 08:23 04/30/19 08:23 04/30/19 08:23 04/30/19 08:23 04/30/19 08:23 Results - Labs 05/01/19 07:38 05/01/19 07:38 Abnormal Lab Results - Last 24 Hours (Table) 04/30/19 05/01/19 05/01/19 Range/Units 20:41 06:15 07:38 RBC 3.79 L (3.80-5.40) m/uL Chloride (98-107) mmol/L Glucose (74-99) mg/dL POC Glucose (mg/dL) 119 H 124 H (75-99) mg/dL 05/01/19 05/01/19 Range/Units 07:38 12:19 RBC (3.80-5.40) m/uL Chloride 110 H (98-107) mmol/L Glucose 122 H (74-99) mg/dL POC Glucose (mg/dL) 120 H (75-99) mg/dL Diabetes panel 05/01/19 Range/Units 07:38 Sodium 140 (137-145) mmol/L Potassium 4.4 (3.5-5.1) mmol/L Chloride 110 H (98-107) mmol/L Carbon Dioxide 22 (22-30) mmol/L BUN 16 (7-17) mg/dL Creatinine 0.56 (0.52-1.04) mg/dL Glucose 122 H (74-99) mg/dL Calcium 8.7 (8.4-10.2) mg/dL Calcium panel 05/01/19 Range/Units 07:38 Calcium 8.7 (8.4-10.2) mg/dL Pituitary panel 05/01/19 Range/Units 07:38 Sodium 140 (137-145) mmol/L Potassium 4.4 (3.5-5.1) mmol/L Chloride 110 H (98-107) mmol/L Carbon Dioxide 22 (22-30) mmol/L BUN 16 (7-17) mg/dL Creatinine 0.56 (0.52-1.04) mg/dL Glucose 122 H (74-99) mg/dL Calcium 8.7 (8.4-10.2) mg/dL Adrenal panel 05/01/19 Range/Units 07:38 Sodium 140 (137-145) mmol/L Potassium 4.4 (3.5-5.1) mmol/L Chloride 110 H (98-107) mmol/L Carbon Dioxide 22 (22-30) mmol/L BUN 16 (7-17) mg/dL Creatinine 0.56 (0.52-1.04) mg/dL Glucose 122 H (74-99) mg/dL Calcium 8.7 (8.4-10.2) mg/dL
[2019-05-01] MEDS: LORazepam 1 MG TAB PO PRN ×2 (13:36→17:37)
--- NOTE | 2019-05-01 16:05 | PN ---
PROGRESS NOTE DATE OF SERVICE: 05/01/2019 This 38-year-old woman who was admitted with abdominal pain with possible Crohn disease, acute exacerbation, also had features of small-bowel obstruction. The patient is being evaluated by surgery and as well as Gastroenterology. No chest pain. No palpitations. No fever. High-dose IV steroids has been initiated. PHYSICAL EXAM: Alert and oriented x3. Pulse is 82, blood pressure 112/65, respiration 18, temperature 98.6, pulse ox 94% on room air. HEENT: Conjunctivae normal. NECK: No JVD. CARDIOVASCULAR: S1, S2 muffled. RESPIRATORY: Breath sounds diminished in the bases. Scattered rhonchi and crackles. ABDOMEN is soft. Mild diffuse discomfort on palpation. No guarding. No rigidity. No mass palpable. LEGS: No edema. No swelling. CENTRAL NERVOUS SYSTEM: No focal deficits. LABS: CBC within normal limits and glucose 122. Other labs are noted. ASSESSMENT: 1. Abdominal pain with possible acute Crohn's disease, acute exacerbation with acute terminal ileitis. 2. Partial small-bowel obstruction possibly secondary to Crohn's disease. 3. Concurrent mild colitis of the transverse colon with circumferential thickening. 4. History of Crohn's disease with bowel resection. 5. Increased WBC. 6. History hepatitis C. 7. History of MRSA. 8. History of hernia repair. 9. History of bilateral foot surgery. 10.History of depression. 11.History of nicotine dependence, continued ongoing. 12.FULL CODE. RECOMMENDATIONS AND DISCUSSION: Recommend to continue current medications, management and symptomatic treatment. Otherwise, at this time, I recommend continue with empiric antibiotics as well as IV steroids. We will continue to monitor. Closely follow with multiple consultants. Prognosis guarded. Further recommendations to follow. MMODL / IJN: [id number] /
[2019-05-01 17:50] LABS: Glucose,Whole Blood 118 mg/dL (75-99)
[2019-05-01] MEDS: PANTOPRAZOLE 40 MG/10 ML VIAL IVP SCH (19:37)
[2019-05-01 20:31] LABS: Glucose,Whole Blood 126 mg/dL (75-99)
[2019-05-01] MEDS: TEMAZEPAM 15 MG CAP PO PRN (21:17)
[2019-05-01] MEDS ORDERED: HEPARIN SODIUM,PORCINE 5,000 UNIT/ML 1 ML VIAL ONE (23:59)
[2019-05-01] MEDS ORDERED: methylPREDNISolone SOD SUCCI 125 MG/2 ML VIAL ONE (23:59)
[2019-05-01] MEDS ORDERED: LORazepam 1 MG TAB ONE (23:59)
[2019-05-02] MEDS ORDERED: HYDROcodone/APAP 5-325MG 1 EACH TAB ONE (01:00)
[2019-05-02] MEDS ORDERED: HYDROmorphone 0.5 MG/0.5 ML SYRINGE ONE ×2 (01:00)
[2019-05-02] MEDS ORDERED: SODIUM CHLORIDE 0.9% 1,000 ML BAG ONE (01:00)
[2019-05-02] MEDS: HEPARIN SODIUM,PORCINE 5,000 UNIT/ML 1 ML VIAL SQ SCH ×4 (05:33→22:56)
[2019-05-02] MEDS: methylPREDNISolone SOD SUCCI 125 MG/2 ML VIAL IV SCH ×5 (05:33→22:56)
[2019-05-02] MEDS: SODIUM CHLORIDE 0.9% 1,000 ML IV SCH ×4 (05:33→22:56)
[2019-05-02] MEDS: PIPERACILLIN-TAZOBACTAM 3.375 GM in SODIUM CHLORIDE 0.9% 100 ML IVPB SCH ×3 (05:37→18:05)
[2019-05-02] MEDS: LORazepam 1 MG TAB PO PRN ×4 (06:04→21:06)
[2019-05-02] MEDS: IPRATROPIUM 0.5 MG/2.5 ML NEBU INHALATION SCH ×4 (07:30→20:38)
--- NOTE | 2019-05-02 07:56 | XR ---
2 view abdomen HISTORY: Bowel obstruction 2 views of the abdomen submitted on 3 images and correlated to prior CT 04/30/2019 There is a marked scoliotic curvature present. Intrauterine contraceptive device is present within th e pelvis. Lung bases are clear. There are air-fluid levels without bowel distention. No evident pneum operitoneum. Some retained fecal debris present throughout the distribution of the descending colon. IMPRESSION: Correlate for enteritis, ileus, follow-up as indicated
[2019-05-02 07:57] LABS: Glucose,Whole Blood 119 mg/dL (75-99)
[2019-05-02] MEDS: HYDROmorphone 0.5 MG/0.5 ML SYRINGE IVP PRN ×5 (08:08→22:30)
[2019-05-02] MEDS: PANTOPRAZOLE 40 MG/10 ML VIAL IVP SCH ×2 (08:08→21:01)
[2019-05-02] MEDS: INSULIN ASPART (NovoLOG) 100 UNIT/ML VIAL SQ SCH ×4 (08:13→21:00)
[2019-05-02 08:25] VITALS: RESP 16
--- NOTE | 2019-05-02 10:01 | P.CONS ---
History of Present Illness - Reason for Consult Consult date: 05/01/19 Abdominal pain Requesting physician: Joselo Sheth - Chief Complaint Abdominal pain - History of Present Illness 39-year-old female with a medical history significant for small bowel Crohn's disease who presented to the hospital for evaluation of abdominal pain. The patient reports pain of 1 day duration in the epigastric region of her abdomen. Pain is described as sharp with associated vomiting. She reports that this is similar to her prior episode of small bowel obstruction. The patient has a history of Crohn's disease of the small bowel diagnosed in approximately 2004. The patient has had disease complicated by prior small bowel obstruction. In 2014 at which time she required surgical intervention secondary to the obstruction. She reports that the last time she required steroid therapy was in 2014. Currently she is maintained on Humira therapy. She will also use Imodium as needed for breakthrough diarrhea. She reports over the past few months she has had intermittent episodes of abdominal pain and loose stool and its presented to the ER previously but was discharged and told symptoms are secondary to a gastroenteritis. She failed to follow up in the gastroenterology clinic and currently came to the hospital for evaluation of the pain is josemanuel cribed. Review of Systems REVIEW OF SYSTEMS: CONSTITUTIONAL: Denies any fevers, chills, weight change or fatigue. CARDIOVASCULAR: Denies any chest pain, palpitations high or low blood pressures RESPIRATORY: Denies any shortness of breath, hemoptysis or cough. GENITOURINARY: No dysuria or hematuria. MUSCULOSKELETAL: No weakness reported. SKIN: Denies any new rashes or lesions, jaundice or pallor. PSYCHIATRIC: Denies any depression or anxiety. NEUROLOGY: Denies headache, denies any new focal deficits. EARS/NOSE/THROAT: No recent hearing change, congestion, nasal discharge or sore throat. EYES: No pain in eyes, discharge or change in vision. GASTROINTESTINAL: As per HPI. Past Medical History Past Medical History: No Reported History, Pulmonary Embolus (PE) Additional Past Medical History / Comment(s): HEPATITIS C, crohn's disease, SBO History of Any Multi-Drug Resistant Organisms: MRSA Year Discovered:: 06/12/15 MRSA @ [facility] MDRO Source:: Abdomen Past Surgical History: Bowel Resection, Hernia Repair Additional Past Surgical History / Comment(s): VICTOR HUGO FOOT SURGERY, BOWEL RESECTION,. carpal tunnel surgery right hand Past Anesthesia/Blood Transfusion Reactions: No Reported Reaction Past Psychological History: Depression Smoking Status: Current every day smoker Past Alcohol Use History: None Reported Past Drug Use History: None Reported - Past Family History Father Family Medical History: Cancer Medications and Allergies Home Medications Medication Instructions Recorded Confirmed Type Loperamide [Imodium] 2 - 4 mg PO TID PRN 01/28/19 04/30/19 History Pnv,Calcium 72/Iron/Folic Acid 1 tab PO DAILY 01/28/19 04/30/19 History [ Plus Tablet] Umeclidinium [place] [Incruse 1 puff INHALATION RT-DAILY 01/28/19 04/30/19 History Ellipta] Adalimumab [Humira Pen] 40 mg SQ Q14D 04/30/19 04/30/19 History Albuterol Sulfate [Ventolin HFA] 2 puff INHALATION RT-Q4H PRN 04/30/19 04/30/19 History Allergies Allergy/AdvReac Type Severity Reaction Status Date / Time prochlorperazine AdvReac AGITATION Verified 04/30/19 13:53 [From Compazine] Physical Exam Vitals: Vital Signs Temp Pulse Pulse Resp BP Pulse Ox 05/01/19 11:59 98.6 F 82 18 112/65 95 05/01/19 08:46 70 05/01/19 08:40 78 05/01/19 08:11 98.2 F 79 16 108/71 94 L 05/01/19 01:48 98.2 F 74 16 111/68 96 04/30/19 21:30 97.8 F 75 16 122/75 98 Intake and Output 05/01/19 05/01/19 05/01/19 06:59 14:59 22:59 Other: # Voids 2 1 On physical examination, patient appears comfortable in no apparent distress. HEAD: Normocephalic, atraumatic. EYES: No scleral icterus. No conjunctival injection. MOUTH: No lesions, tongue midline. NECK: Trachea midline, no gross abnormalities. CHEST: Clear to auscultation with no wheezing or rhonchi appreciated. HEART: Regular rate and rhythm. ABDOMEN: Soft, obese. Bowel sounds are positive. No organomegaly. No guarding or rigidity. EXTREMITIES: No pedal edema. SKIN: No rashes, no jaundice. NEUROLOGIC: Alert and oriented x3. No focal deficits. Results CBC & Chem 7: 05/01/19 07:38 05/01/19 07:38 Labs: Abnormal Lab Results - Last 24 Hours (Table) 04/30/19 05/01/19 05/01/19 Range/Units 20:41 06:15 07:38 RBC 3.79 L (3.80-5.40) m/uL Chloride (98-107) mmol/L Glucose (74-99) mg/dL POC Glucose (mg/dL) 119 H 124 H (75-99) mg/dL 05/01/19 05/01/19 Range/Units 07:38 12:19 RBC (3.80-5.40) m/uL Chloride 110 H (98-107) mmol/L Glucose 122 H (74-99) mg/dL POC Glucose (mg/dL) 120 H (75-99) mg/dL CT scan - abdomen: report reviewed (Computed tomography scan of the abdomen with findings of ileitis, bowel obstruction, transverse colitis and stable biliary dilation.) Assessment and Plan (1) Crohn's disease Narrative/Plan: 39-year-old female with a 15 year history of Crohn's disease previously complicated by obstruction requiring surgery in 2014 presented to the hospital due to complaints of abdominal pain and vomiting. The patient had computed tomography scan findings of ileitis with small bowel obstruction as well as colitis of the transverse colon and stable biliary dilation. The patient has been having abdominal pain and loose stool occurring intermittently over the past 3 months. She failed follow-up in the gastroenterology clinic. At [facility] the patient is maintained on Humira therapy and has not required steroids since her bowel resection in 2014. Symptoms of secondary to an acute exacerbation of her Crohn's disease. Current Visit: Yes Status: Acute Code(s): K50.90 - CROHN'S DISEASE, UNSPECIFIED, WITHOUT COMPLICATIONS SNOMED Code(s): 02189433 (2) History of hepatitis C Narrative/Plan: Reported history of hepatitis C for which she received treatment. Current Visit: Yes Status: Acute Code(s): Z86.19 - PERSONAL HISTORY OF OTHER INFECTIOUS AND PARASITIC DISEASES SNOMED Code(s): 58048832286231 (3) Abdominal pain Current Visit: Yes Status: Acute Code(s): R10.9 - UNSPECIFIED ABDOMINAL PAIN SNOMED Code(s): 92476370 (4) SBO (small bowel obstruction) Current Visit: Yes Status: Acute Code(s): K56.609 - UNSP INTESTNL OBST, UNSP TO PARTIAL VERSUS COMPLETE OBST SNOMED Code(s): 996248415 Plan: Supportive care Nothing by mouth Appreciate recommendations by surgical service Continue steroid therapy with IV Solu-Medrol ESR and CRP and fecal calprotectin ordered Continue to monitor clinically X-ray abdomen ordered for tomorrow Thank you for allowing us to participate in the care of the patient we will continue to follow
[2019-05-02] MEDS: IPRATROPIUM-ALBUTEROL 3 ML NEB INHALATION PRN ×2 (11:16→15:19)
[2019-05-02] MEDS: MAG HYDROX/AL HYDROX/SIMETH 30 ML CUP PO PRN ×2 (11:29→21:00)
[2019-05-02 11:47] LABS: Glucose,Whole Blood 127 mg/dL (75-99)
--- NOTE | 2019-05-02 12:15 | P.PN ---
<Zoe Almaraz - Last Filed: 05/02/19 12:14> Subjective Progress Note Date: 05/02/19 CHIEF COMPLAINT: Small bowel obstruction HISTORY OF PRESENT ILLNESS: Patient examined this morning at the bedside. She reports improvement in her abdominal pain. She is passing flatus this morning. She reports minimal nausea. No emesis. She does complain of heartburn. PHYSICAL EXAM: VITAL SIGNS: Reviewed. GENERAL: Well-developed in no acute distress. HEENT: No sclera icterus. Extraocular movements grossly intact. Moist buccal mucosa. Head is atraumatic, normocephalic. ABDOMEN: Soft. Nondistended. Minimal tenderness with palpation near umbilicus. Evidence of old surgical scar from previous bowel resection. NEUROLOGIC: Alert and oriented. Cranial nerves II through XII grossly intact. ASSESSMENT: 1. Abdominal pain, nausea, vomiting 2. Acute terminal ileitis 3. Small bowel obstruction 4. History of Crohn's disease 5. History of bowel resection in 2014 PLAN: 1. Trial clear liquid diet 2. Pain control 3. Continue IV steroids per GI service 4. GI consulted for evaluation. Await recommendations 5. Continue conservative management at this time Nurse practitioner note has been reviewed by physician. Signing provider agrees with the documented findings, assessment, and plan of care. Objective - Vital Signs Vital signs: Vital Signs Temp 97.8 F 05/02/19 06:55 Pulse 76 05/02/19 06:55 Resp 16 05/02/19 06:55 BP 133/84 05/02/19 06:55 Pulse Ox 96 05/02/19 06:55 Intake & Output 05/01/19 05/02/19 05/02/19 18:59 06:59 18:59 Intake Total 1480 Balance 1480 Intake: Intake, IV Titration 1140 Amount Piperacillin-Tazobactam 3 100 .375 gm In Sodium Chloride 0.9% 100 ml @ 25 mls/hr IVPB Q8H [facility] Rx#: [id number] Sodium Chloride 0.9% 1, 1040 000 ml @ 130 mls/hr IV . Q7H42M [facility] Rx#:[id number] Oral 340 Other: # Voids 1 3 - Labs CBC & Chem 7: 05/01/19 07:38 05/01/19 07:38 Labs: Abnormal Lab Results - Last 24 Hours (Table) 1105/01/19 05/01/19 Range/Units 12:19 17:31 20:29 POC Glucose (mg/dL) 120 H 118 H 126 H (75-99) mg/dL 05/02/19 Range/Units 07:53 POC Glucose (mg/dL) 119 H (75-99) mg/dL Microbiology - Last 24 Hours (Table) 04/30/19 18:16 Blood Culture - Preliminary Blood No Growth after 24 hours <Gibson Sheffield - Last Filed: 05/02/19 19:28> Subjective As above. Patient doing better. Her pain is improved. She is passing flatus. Tolerating clear liquids at this time. We'll reassess tomorrow but likely will advance diet following that. Continue IV steroids. Objective - Vital Signs Vital signs: Vital Signs Temp 98.5 F 05/02/19 12:51 Pulse 76 05/02/19 15:28 Resp 16 05/02/19 12:51 BP 127/79 05/02/19 12:51 Pulse Ox 94 L 05/02/19 12:51 Intake & Output 05/02/19 05/02/19 05/03/19 06:59 18:59 06:59 Intake Total 1480 540 Balance 1480 540 Intake: Intake, IV Titration 1140 Amount Piperacillin-Tazobactam 3 100 .375 gm In Sodium Chloride 0.9% 100 ml @ 25 mls/hr IVPB Q8H [facility] Rx#: [id number] Sodium Chloride 0.9% 1, 1040 000 ml @ 130 mls/hr IV . Q7H42M [facility] Rx#:[id number] Oral 340 540 Other: # Voids 3 4 # Bowel Movements 0 - Labs CBC & Chem 7: 05/02/19 12:42 05/02/19 12:42 Labs: Abnormal Lab Results - Last 24 Hours (Table) 05/01/19 05/02/19 05/02/19 Range/Units 20:29 07:53 11:37 RBC (3.80-5.40) m/uL Glucose (74-99) mg/dL POC Glucose (mg/dL) 126 H 119 H 127 H (75-99) mg/dL 05/02/19 05/02/19 05/02/19 Range/Units 12:42 12:42 16:50 RBC 3.77 L (3.80-5.40) m/uL Glucose 125 H (74-99) mg/dL POC Glucose (mg/dL) 151 H (75-99) mg/dL Microbiology - Last 24 Hours (Table) 04/30/19 18:16 Blood Culture - Preliminary Blood No Growth after 24 hours
[2019-05-02 13:17] LABS: Basophils # (A) 0.1 k/uL (0-0.2); Basophils % (A) 1 %; Eosinophils % (A) 0 %; HCT 36.4 % (34.0-46.0); Lymphocytes % (A) 11 %; MCH 31.7 pg (25.0-35.0); MCHC 32.9 g/dL (31.0-37.0); MCV 96.5 fL (80.0-100.0); Mean Platelet Volume 7.9; Monocytes # (A) 0.5 k/uL (0-1.0); Monocytes % (A) 6 %; Neutrophils # (A) 7.2 k/uL (1.3-7.7); Neutrophils % (A) 82 %; Platelet Count 177 k/uL (150-450); RBC 3.77 m/uL (3.80-5.40); RDW 12.1 % (11.5-15.5); WBC 8.8 k/uL (3.8-10.6)
[2019-05-02 13:45] LABS: African American GFR (CKD) >90 (>60 ml/min/1.73 sqM); Anion Gap 9 mmol/L; Blood Urea Nitrogen 14 mg/dL (7-17); Calcium 8.9 mg/dL (8.4-10.2); Carbon Dioxide 24 mmol/L (22-30); Chloride 107 mmol/L (98-107); Glucose 125 mg/dL (74-99); Non-African American GFR(CKD) >90 (>60 ml/min/1.73 sqM); Potassium 3.9 mmol/L (3.5-5.1); Sodium 140 mmol/L (137-145)
[2019-05-02] MEDS: HYDROcodone/APAP 5-325MG 1 EACH TAB PO PRN ×2 (15:03→21:06)
[2019-05-02 16:53] LABS: Glucose,Whole Blood 151 mg/dL (75-99)
--- NOTE | 2019-05-02 18:46 | PN ---
PROGRESS NOTE DATE OF SERVICE: 05/02/2019 This 39-year-old woman who was admitted with abdominal pain with Crohn's disease and possible intestinal obstruction is being closely monitored. The most recent abdominal x-ray done today showed features of some enteritis. Surgery and Gastroenterology are following the patient closely. Clear liquid diet was being tried at this time. No chest pain. No palpitations. No fever. PHYSICAL EXAMINATION: Vitals are stable. The pulse is 71, blood pressure 127/70, respiration 16, temperature 98.4, pulse ox 94% on room air. CARDIOVASCULAR SYSTEM: S1, S2 normal. RESPIRATORY SYSTEM: Breath sounds diminished at the bases. No rhonchi. No crackles. ABDOMEN: Soft. Mild diffuse tenderness on palpation. LEGS: No edema. No swelling. NERVOUS SYSTEM: No focal deficit. LABS: WBC 8.3, hemoglobin 12. ASSESSMENT: 1. Abdominal pain with possible acute Crohn's disease, acute exacerbation, with acute terminal ileitis. 2. Partial small-bowel obstruction, possibly secondary to Crohn's disease. 3. Concurrent mild colitis of the transverse colon with circumferential thickening in the CT scan. 4. History of Crohn's disease with bowel resection. 5. Increased white count. 6. History of hepatitis C. 7. History of methicillin-resistant Staphylococcus aeruginosa. 8. History of hernia repair. 9. History of bilateral foot surgery. 10.History of depression. 11.History of nicotine dependence, continued ongoing. 12.FULL CODE. RECOMMENDATIONS AND DISCUSSION: In this 39-year-old woman who presented with multiple complex medical issues, we will monitor the patient closely, continue the current medications, continue symptomatic treatment. Otherwise, will continue with Solu-Medrol. Continue the rest of the medications. Closely monitor with Surgery and Gastroenterology. Advance the diet. If the patient is able to tolerate advanced diet, she could be discharged home soon. MMODL / IJN: [id number] /
[2019-05-02 20:47] LABS: Glucose,Whole Blood 137 mg/dL (75-99)
[2019-05-02] MEDS: TEMAZEPAM 15 MG CAP PO PRN (22:29)
[2019-05-03] MEDS: LORazepam 1 MG TAB PO PRN ×2 (00:51→05:55)
[2019-05-03] MEDS: HYDROmorphone 0.5 MG/0.5 ML SYRINGE IVP PRN ×4 (01:40→12:36)
[2019-05-03] MEDS: PIPERACILLIN-TAZOBACTAM 3.375 GM in SODIUM CHLORIDE 0.9% 100 ML IVPB SCH ×2 (02:05→10:04)
[2019-05-03 05:35] VITALS: BP 142/70; TEMP 97.4
[2019-05-03] MEDS: methylPREDNISolone SOD SUCCI 125 MG/2 ML VIAL IV SCH ×2 (05:54→12:58)
[2019-05-03 07:13] LABS: Glucose,Whole Blood 122 mg/dL (75-99)
--- NOTE | 2019-05-03 07:34 | P.PN ---
Subjective Progress Note Date: 05/02/19 Principal diagnosis: Small bowel obstruction, abdominal pain, Crohn's disease Abdominal pain improved, passing flatus. She has tolerated liquid diet. Objective - Vital Signs Vital signs: Vital Signs Temp 98.5 F 05/02/19 12:51 Pulse 76 05/02/19 15:28 Resp 16 05/02/19 12:51 BP 127/79 05/02/19 12:51 Pulse Ox 94 L 05/02/19 12:51 Intake & Output 05/01/19 05/02/19 05/02/19 18:59 06:59 18:59 Intake Total 1480 Balance 1480 Intake: Intake, IV Titration 1140 Amount Piperacillin-Tazobactam 3 100 .375 gm In Sodium Chloride 0.9% 100 ml @ 25 mls/hr IVPB Q8H [facility] Rx#: [id number] Sodium Chloride 0.9% 1, 1040 000 ml @ 130 mls/hr IV . Q7H42M [facility] Rx#:[id number] Oral 340 Other: # Voids 1 3 1 # Bowel Movements 0 - Exam On physical examination, patient appears comfortable in no apparent distress. HEAD: Normocephalic, atraumatic. EYES: No scleral icterus. No conjunctival injection. MOUTH: No lesions, tongue midline. NECK: Trachea midline, no gross abnormalities. ABDOMEN: Soft, tender to palpation. Bowel sounds are positive. No organomegaly. No guarding or rigidity. EXTREMITIES: No pedal edema. SKIN: No rashes, no jaundice. NEUROLOGIC: Alert and oriented x3. No focal deficits. - Labs CBC & Chem 7: 05/02/19 12:42 05/02/19 12:42 Labs: Abnormal Lab Results - Last 24 Hours (Table) 05/01/19 05/01/19 05/02/19 Range/Units 17:31 20:29 07:53 RBC (3.80-5.40) m/uL Glucose (74-99) mg/dL POC Glucose (mg/dL) 118 H 126 H 119 H (75-99) mg/dL 05/02/19 05/02/19 05/02/19 Range/Units 11:37 12:42 12:42 RBC 3.77 L (3.80-5.40) m/uL Glucose 125 H (74-99) mg/dL POC Glucose (mg/dL) 127 H (75-99) mg/dL 05/02/19 Range/Units 16:50 RBC (3.80-5.40) m/uL Glucose (74-99) mg/dL POC Glucose (mg/dL) 151 H (75-99) mg/dL Microbiology - Last 24 Hours (Table) 04/30/19 18:16 Blood Culture - Preliminary Blood No Growth after 24 hours Assessment and Plan (1) Crohn's disease Narrative/Plan: 39-year-old female with a 15 year history of Crohn's disease previously complicated by obstruction requiring surgery in 2014 presented to the hospital due to complaints of abdominal pain and vomiting. The patient had computed tomography scan findings of ileitis with small bowel obstruction as well as colitis of the transverse colon and stable biliary dilation. The patient has been having abdominal pain and loose stool occurring intermittently over the past 3 months. She failed follow-up in the gastroenterology clinic. At baseline the patient is maintained on Humira therapy and has not required steroids since her bowel resection in 2014. Symptoms of secondary to an acute exacerbation of her Crohn's disease. Current Visit: Yes Status: Acute Code(s): K50.90 - CROHN'S DISEASE, UNSPECIFIED, WITHOUT COMPLICATIONS SNOMED Code(s): 33281208 (2) History of hepatitis C Current Visit: Yes Status: Acute Code(s): Z86.19 - PERSONAL HISTORY OF OTHER INFECTIOUS AND PARASITIC DISEASES SNOMED Code(s): 88675371138038 (3) Abdominal pain Current Visit: Yes Status: Acute Code(s): R10.9 - UNSPECIFIED ABDOMINAL PAIN SNOMED Code(s): 00951662 (4) SBO (small bowel obstruction) Current Visit: Yes Status: Acute Code(s): K56.609 - UNSP INTESTNL OBST, UNSP TO PARTIAL VERSUS COMPLETE OBST SNOMED Code(s): 332083098 Plan: Supportive care Liquid diet, advance per surgical service Appreciate recommendations by surgical service Continue steroid therapy with IV Solu-Medrol ESR and CRP reviewed Continue to monitor clinically X-ray abdomen ordered reviewed Thank you for allowing us to participate in the care of the patient we will continue to follow
[2019-05-03] MEDS: IPRATROPIUM 0.5 MG/2.5 ML NEBU INHALATION SCH ×2 (07:47→11:16)
[2019-05-03 08:00] VITALS: PULSE 53
[2019-05-03] MEDS: PANTOPRAZOLE 40 MG/10 ML VIAL IVP SCH (08:25)
[2019-05-03] MEDS: HEPARIN SODIUM,PORCINE 5,000 UNIT/ML 1 ML VIAL SQ SCH (08:25)
[2019-05-03] MEDS: INSULIN ASPART (NovoLOG) 100 UNIT/ML VIAL SQ SCH ×2 (08:26→12:37)
[2019-05-03 09:47] LABS: Basophils % (A) 0 %; Eosinophils % (A) 0 %; HCT 35.3 % (34.0-46.0); Lymphocytes # (A) 1.1 k/uL (1.0-4.8); Lymphocytes % (A) 11 %; MCH 32.5 pg (25.0-35.0); MCHC 34.1 g/dL (31.0-37.0); MCV 95.3 fL (80.0-100.0); Monocytes # (A) 0.5 k/uL (0-1.0); Monocytes % (A) 5 %; Neutrophils # (A) 7.7 k/uL (1.3-7.7); Neutrophils % (A) 82 %; Platelet Count 173 k/uL (150-450); RBC 3.71 m/uL (3.80-5.40); RDW 12.1 % (11.5-15.5); WBC 9.4 k/uL (3.8-10.6)
[2019-05-03] MEDS: SODIUM CHLORIDE 0.9% 1,000 ML IV SCH (10:03)
[2019-05-03 10:04] LABS: African American GFR (CKD) >90 (>60 ml/min/1.73 sqM); Anion Gap 7 mmol/L; Blood Urea Nitrogen 10 mg/dL (7-17); Calcium 8.9 mg/dL (8.4-10.2); Carbon Dioxide 24 mmol/L (22-30); Chloride 108 mmol/L (98-107); Glucose 123 mg/dL (74-99); Non-African American GFR(CKD) >90 (>60 ml/min/1.73 sqM); Potassium 4.3 mmol/L (3.5-5.1); Sodium 139 mmol/L (137-145)
[2019-05-03] MEDS: HYDROcodone/APAP 5-325MG 1 EACH TAB PO PRN (10:54)
[2019-05-03 11:25] LABS: Glucose,Whole Blood 122 mg/dL (75-99)
--- NOTE | 2019-05-03 23:41 | DS ---
DISCHARGE SUMMARY DATE OF SERVICE: 05/03/2019 FINAL DIAGNOSES: 1. Abdominal pain with possible Crohn's disease, acute exacerbation, with acute terminal ileitis. 2. Partial small-bowel obstruction, possibly secondary to Crohn's disease. 3. Concurrent mild colitis of the transverse colon with circumferential thickening in the CT scan. 4. History of Crohn's disease with bowel resection. 5. Increased white count. 6. History of hepatitis C. 7. History of methicillin-resistant Staphylococcus aeruginosa. 8. History of hernia repair. 9. History of bilateral foot surgery. 10.History of depression. 11.History of nicotine dependence, continued ongoing. 12.FULL CODE. DISCHARGE DISPOSITION: The patient will be discharged in stable condition with guarded prognosis. Discharge cleared by Gastroenterology, Dr. Dominique. HISTORY OF PRESENT ILLNESS: This 39-year-old woman with a past medical history of multiple medical problems was admitted with Crohn's disease, acute exacerbation, and features of small-bowel obstruction. Patient was seen by Surgery and Gastroenterology. Patient improved significantly. Patient was able to tolerate a diet. The patient is followed by Dr. Raquel Villeda in the outpatient setting. On exam, vitals are stable. CARDIOVASCULAR SYSTEM: S1, S2 muffled. ABDOMEN: Soft, non-tender. NERVOUS SYSTEM: No focal deficit. The patient will be discharged in stable condition with guarded prognosis after clearance from Gastroenterology and Surgery. DISCHARGE ADVICE AND MEDICATIONS: 1. Diet is cardiac, soft, low-residual. 2. Activity limited until followup. 3. Follow up with Dr. Sheffield as recommended. 4. Follow up with Dr. Raquel Villeda as recommended. 5. Follow up with GI as recommended. 6. Humira Pen 40 mg subcutaneously q.14 days. 7. Imodium p.r.n. 8. Incruse Ellipta 1 puff daily. 9. vitamins daily. 10.Ventolin HFA p.r.n. 11.Prednisone taper: 60 mg p.o. daily for one week, 54 daily for one week; 44 daily 14 for one week; and 34 daily for one week. Then taper in the outpatient setting. 12.Protonix 40 mg p.o. daily. Once again, the patient will be discharged in stable condition with guarded prognosis. MMODL / IJN: [id number] /
== END 2019-05-03 13:24 | disposition home or self-care (01) | DRG 386 ==
LOC: EC 08:18 → 6PED 11:13 → 4MS4W 05-02 06:27
PROVIDERS: ADMIT Hospitalist; ATTEND Hospitalist
DX: K50.80 Crohn's disease of both small and large intestine without complications (principal); Z16.24 Resistance to multiple antibiotics; F17.200 Nicotine dependence, unspecified, uncomplicated; Z79.52 Long term (current) use of systemic steroids; Z80.9 Family history of malignant neoplasm, unspecified; Z86.14 Personal history of Methicillin resistant Staphylococcus aureus infection; Z86.711 Personal history of pulmonary embolism; Z90.49 Acquired absence of other specified parts of digestive tract; Z79.899 Other long term (current) drug therapy; Z88.8 Allergy status to other drugs, medicaments and biological substances
CPT/HCPCS: 36415; 74019; 74177; 80048; 80053; 80306; 81001; 81025; 82150; 83605; 83690; 83993; 85025; 85379; 85652; 86140; 87040; 93005; 94640; 96361; 96374; 96375; 96376; 99285

== ENCOUNTER → 2019-06-30 | Outpatient (CLI) | payer MEDICARE, OTHER ==
[2019-06-30 13:10] LABS: Basophils # (A) 0.1 k/uL (0-0.2); Basophils % (A) 1 %; Eosinophils # (A) 0.1 k/uL (0-0.7); Eosinophils % (A) 1 %; HCT 41.5 % (34.0-46.0); HGB 13.4 gm/dL (11.4-16.0); Lymphocytes # (A) 2.8 k/uL (1.0-4.8); Lymphocytes % (A) 30 %; MCH 31.2 pg (25.0-35.0); MCHC 32.4 g/dL (31.0-37.0); MCV 96.4 fL (80.0-100.0); Mean Platelet Volume 8.2; Monocytes # (A) 0.4 k/uL (0-1.0); Monocytes % (A) 5 %; Neutrophils # (A) 6.1 k/uL (1.3-7.7); Neutrophils % (A) 63 %; Platelet Count 227 k/uL (150-450); RDW 12.3 % (11.5-15.5); WBC 9.6 k/uL (3.8-10.6)
[2019-06-30 18:09] LABS: Erythrocyte Sedimentation Rate 11 mm/hr (0-20)
[2019-06-30 19:56] LABS: ALT 16 U/L (8-44); AST 25 U/L (13-35); African American GFR (CKD) 131.2 (60.0-200.0); Albumin/Globulin Ratio 2.47 (1.60-3.17); Alkaline Phosphatase 59 U/L (41-126); BUN/Creat Ratio 21.67 Ratio (12.00-20.00); C Reactive Protein <0.4 mg/dL (0.0-0.8); Calcium 9.3 mg/dL (8.7-10.3); Carbon Dioxide 22.7 mmol/L (21.6-31.8); Chloride 108 mmol/L (96-109); Globulin 1.9 g/dL (1.6-3.3); Glucose 84 mg/dL (70-110); Non-African American GFR(CKD) 113.2 (60.0-200.0); Potassium 4.4 mmol/L (3.5-5.5); Sodium 138 mmol/L (135-145); Total Bilirubin 0.4 mg/dL (0.3-1.2); Total Protein 6.6 g/dL (6.2-8.2)
== END | disposition home or self-care (01) ==
LOC: LABWHC1 11:31
PROVIDERS: ATTEND Internal Medicine Gastroenterology
DX: B18.2 Chronic viral hepatitis C (principal); K50.90 Crohn's disease, unspecified, without complications
CPT/HCPCS: 36415; 80053; 82248; 85025; 85652; 86140; 87522

== ENCOUNTER 2019-08-08 23:43 | Inpatient (IN) | payer MEDICARE, OTHER ==
[2019-08-09] MEDS ORDERED: SODIUM CHLORIDE 0.9% 1,000 ML IV ONE (00:12)
[2019-08-09] MEDS ORDERED: ONDANSETRON 4 MG/2 ML VIAL IVP STA (00:12)
[2019-08-09] MEDS ORDERED: HYDROmorphone 1 MG/ML 1 ML SYRINGE IVP STA ×2 (00:12→01:35)
[2019-08-09 00:26] LABS: Basophils % (A) 0 %; Eosinophils # (A) 0.3 k/uL (0-0.7); Eosinophils % (A) 2 %; HCT 41.1 % (34.0-46.0); HGB 13.4 gm/dL (11.4-16.0); Lymphocytes # (A) 3.9 k/uL (1.0-4.8); Lymphocytes % (A) 34 %; MCH 30.8 pg (25.0-35.0); MCHC 32.7 g/dL (31.0-37.0); MCV 94.5 fL (80.0-100.0); Monocytes # (A) 0.6 k/uL (0-1.0); Monocytes % (A) 5 %; Neutrophils # (A) 6.8 k/uL (1.3-7.7); Neutrophils % (A) 58 %; Platelet Count 242 k/uL (150-450); RBC 4.35 m/uL (3.80-5.40); RDW 11.8 % (11.5-15.5); WBC 11.7 k/uL (3.8-10.6)
[2019-08-09 00:27] LABS: Appearance,Urine Clear (Clear); Bacteria,Urine Rare /hpf; Bilirubin,Urine Negative (Negative); Blood,Urine Small (Negative); Color,Urine Light Yellow; Glucose,Urine (UA) Negative (Negative); Ketones,Urine Negative (Negative); Leukocyte Esterase,Urine Negative (Negative); Mucus,Urine Rare /hpf; Nitrite,Urine Negative (Negative); PH, Urine 5.5 (5.0-8.0); Protein,Urine Negative (Negative); RBC,Urine <1 /hpf (0-5); Squamous Epithelial Cell,Urine 2 /hpf (0-4); Urobilinogen,Urine <2.0 mg/dL (<2.0); WBC,Urine 1 /hpf (0-5)
[2019-08-09 00:33] LABS: ALT 18 U/L (4-34); AST 32 U/L (14-36); African American GFR (CKD) >90 (>60 ml/min/1.73 sqM); Albumin 4.8 g/dL (3.5-5.0); Alkaline Phosphatase 54 U/L (38-126); Amylase 43 U/L (30-110); Anion Gap 10 mmol/L; Blood Urea Nitrogen 13 mg/dL (7-17); Calcium 9.8 mg/dL (8.4-10.2); Carbon Dioxide 23 mmol/L (22-30); Chloride 106 mmol/L (98-107); Glucose 99 mg/dL (74-99); Non-African American GFR(CKD) >90 (>60 ml/min/1.73 sqM); Potassium 4.1 mmol/L (3.5-5.1); Sodium 139 mmol/L (137-145); Total Bilirubin 0.3 mg/dL (0.2-1.3); Total Protein 7.6 g/dL (6.3-8.2)
--- NOTE | 2019-08-09 00:58 | CT ---
EXAMINATION TYPE: CT abdomen pelvis w con DATE OF EXAM: 08/09/2019 COMPARISON: 04/30/2019 HISTORY: Patient presents with abdomianl pain. H/x of chrons. CT DLP: 859.6 mGycm Automated exposure control for dose reduction was used. CONTRAST: Performed with IV Contrast, patient injected with 100mL mL of Isovue 300. The lung bases are clear. There is no pleural effusion. Heart size is normal. There is no pericardial effusion. Liver spleen stomach pancreas gallbladder appear normal. Bile ducts are not dilated. There is no adrenal mass. Kidneys show satisfactory contrast opacification. There is no hydronephrosi s. There is thoracolumbar dextroscoliosis. Ureters are not dilated. There is IUD in the uterus. Uteru s is anteverted. Bladder distends smoothly. There are multiple dilated distal small bowel loops with fluid. Small bowel measures up to 3.5 cm. Th ere multiple surgical clips at the ascending colon. There is fecal material in the distal ileum. Ther e is narrowing at the terminal ileum and anastomosis with the colon. There is no ascites. There is no free air. There is no mesenteric edema. IMPRESSION: Distal mechanical small bowel obstruction at the anastomosis of the ileum with the right colon. Previ ous surgery. Obstruction appears similar to old exam.
--- NOTE | 2019-08-09 01:15 | ED ---
Abdominal Pain HPI - General Chief Complaint: Abdominal Pain Stated Complaint: Abd Pain Time Seen by Provider: 08/08/19 23:52 Source: patient Mode of arrival: ambulatory Limitations: no limitations - History of Present Illness Initial Comments: 39-year-old male patient with past medical history significant for Crohn's disease, bowel resection, multiple small bowel obstructions, presents to the emergency department today for evaluation of upper abdominal pain, distention, nausea. Patient states the pain has been present since around 7 PM this evening . States she has been experiencing some mild discomfort over the last couple of days but nothing unusual. Denies any fever or chills. Denies any vomiting. States she did have a small amount of diarrhea couple of days ago but no further bowel movements. Patient states she had her bowel resection at [facility] in [place] and has been admitted here before for small bowel obstruction and has seen Dr. Madyson sharp. Patient denies any recent rash, fever, chills, shortness breath, chest pain, diarrhea, constipation, back pain, numbness, tingling, dizziness, weakness, hematuria, dysuria, urinary urgency, urinary frequency, headache, visual changes, or any other complaints. - Related Data Home Medications Medication Instructions Recorded Confirmed Loperamide [Imodium] 2 - 4 mg PO TID PRN 01/28/19 04/30/19 Pnv,Calcium 72/Iron/Folic Acid 1 tab PO DAILY 01/28/19 04/30/19 [ Plus Tablet] Umeclidinium [place] [Incruse 1 puff INHALATION RT-DAILY 01/28/19 04/30/19 Ellipta] Adalimumab [Humira(Cf) Pen] 40 mg SQ Q14D 04/30/19 04/30/19 Albuterol Sulfate [Ventolin HFA] 2 puff INHALATION RT-Q4H PRN 04/30/19 04/30/19 Previous Rx's Medication Instructions Recorded Pantoprazole Sodium [Protonix] 40 mg PO DAILY #30 tablet. 05/03/19 predniSONE 0 mg PO DIRECTED #120 tab 05/03/19 Allergies Allergy/AdvReac Type Severity Reaction Status Date / Time prochlorperazine AdvReac AGITATION Verified 08/08/19 23:50 [From Compazine] Review of Systems ROS Statement: Those systems with pertinent positive or pertinent negative responses have been documented in the HPI. ROS Other: All systems not noted in ROS Statement are negative. Past Medical History Past Medical History: Pulmonary Embolus (PE) Additional Past Medical History / Comment(s): HEPATITIS C, crohn's disease, SBO History of Any Multi-Drug Resistant Organisms: MRSA Date of last positivie culture/infection: 06/12/15 MRSA @ [facility] MDRO Source:: Abdomen Past Surgical History: Bowel Resection, Hernia Repair Additional Past Surgical History / Comment(s): VICTOR HUGO FOOT SURGERY, BOWEL RESECTION,. carpal tunnel surgery right hand Past Anesthesia/Blood Transfusion Reactions: No Reported Reaction Past Psychological History: Depression Smoking Status: Current every day smoker Past Alcohol Use History: None Reported Past Drug Use History: None Reported - Past Family History Father Family Medical History: Cancer General Exam Limitations: no limitations General appearance: alert, in no apparent distress, other (This is a well- developed, well-nourished adult female patient in no acute distress. Vital signs upon presentation are temperature 97.9F, pulse 70, respirations 18, blood pressure 146/77, pulse ox 100% on room air.) Eye exam: Present: normal appearance, PERRL, EOMI. Absent: scleral icterus, conjunctival injection, periorbital swelling ENT exam: Present: normal exam, normal oropharynx, mucous membranes moist Respiratory exam: Present: normal lung sounds bilaterally. Absent: respiratory distress, wheezes, rales, rhonchi, stridor Cardiovascular Exam: Present: regular rate, normal rhythm, normal heart sounds. Absent: systolic murmur, diastolic murmur, rubs, gallop, clicks GI/Abdominal exam: Present: soft, tenderness (Upper abdominal tenderness), normal bowel sounds. Absent: distended, guarding, rebound, rigid Neurological exam: Present: alert, oriented X3, CN II-XII intact Psychiatric exam: Present: normal affect, normal mood Skin exam: Present: warm, dry, intact, normal color. Absent: rash Course Vital Signs 08/08/19 08/09/19 08/09/19 23:47 00:18 00:43 Temperature 97.9 F Pulse Rate 70 63 78 Respiratory 18 18 18 Rate Blood Pressure 146/77 129/95 125/88 O2 Sat by Pulse 100 98 98 Oximetry 08/09/19 08/09/19 01:27 01:46 Temperature 98.2 F Pulse Rate 68 78 Respiratory 16 19 Rate Blood Pressure 130/92 142/96 O2 Sat by Pulse 100 98 Oximetry Medical Decision Making - Medical Decision Making 39-year-old female patient presented to the emergency department today for evaluation of upper abdominal pain, distention, nausea. Physical examination did reveal tenderness over the upper abdomen. Patient is afebrile with normal vital signs. Labs reviewed and were unremarkable. CT abdomen and pelvis was obtained and did show a distal mechanical small bowel obstruction. Patient was not vomiting. Pain medication was effective. She will be admitted to the hospital for further evaluation by general surgery. We will insert NG tube to low intermittent suction. I did discuss findings, results, plan with the patient, she is agreeable. - Lab Data Result diagrams: 08/09/19 00:01 08/09/19 00:01 Lab Results 08/09/19 08/09/19 08/09/19 Range/Units 00:01 00:01 00:01 WBC 11.7 H (3.8-10.6) k/uL RBC 4.35 (3.80-5.40) m/uL Hgb 13.4 (11.4-16.0) gm/dL Hct 41.1 (34.0-46.0) % MCV 94.5 (80.0-100.0) fL MCH 30.8 (25.0-35.0) pg MCHC 32.7 (31.0-37.0) g/dL RDW 11.8 (11.5-15.5) % Plt Count 242 (150-450) k/uL Neutrophils % 58 % Lymphocytes % 34 % Monocytes % 5 % Eosinophils % 2 % Basophils % 0 % Neutrophils # 6.8 (1.3-7.7) k/uL Lymphocytes # 3.9 (1.0-4.8) k/uL Monocytes # 0.6 (0-1.0) k/uL Eosinophils # 0.3 (0-0.7) k/uL Basophils # 0.0 (0-0.2) k/uL Sodium 139 (137-145) mmol/L Potassium 4.1 (3.5-5.1) mmol/L Chloride 106 (98-107) mmol/L Carbon Dioxide 23 (22-30) mmol/L Anion Gap 10 mmol/L BUN 13 (7-17) mg/dL Creatinine 0.67 (0.52-1.04) mg/dL Est GFR (CKD-EPI)AfAm >90 (>60 ml/min/1.73 sqM) Est GFR (CKD-EPI)NonAf >90 (>60 ml/min/1.73 sqM) Glucose 99 (74-99) mg/dL Plasma Lactic Acid Anton (0.7-2.0) mmol/L Calcium 9.8 (8.4-10.2) mg/dL Total Bilirubin 0.3 (0.2-1.3) mg/dL AST 32 (14-36) U/L ALT 18 (4-34) U/L Alkaline Phosphatase 54 (38-126) U/L Total Protein 7.6 (6.3-8.2) g/dL Albumin 4.8 (3.5-5.0) g/dL Amylase 43 (30-110) U/L Lipase 38 (23-300) U/L Urine Color Light Yellow Urine Appearance Clear (Clear) Urine pH 5.5 (5.0-8.0) Ur Specific [place] 1.010 (1.001-1.035) Urine Protein Negative (Negative) Urine Glucose (UA) Negative (Negative) Urine Ketones Negative (Negative) Urine Blood Small H (Negative) Urine Nitrite Negative (Negative) Urine Bilirubin Negative (Negative) Urine Urobilinogen <2.0 (<2.0) mg/dL Ur Leukocyte Esterase Negative (Negative) Urine RBC <1 (0-5) /hpf Urine WBC 1 (0-5) /hpf Ur Squamous Epith Cells 2 (0-4) /hpf Urine Bacteria Rare H (None) /hpf Urine Mucus Rare H (None) /hpf 08/09/19 Range/Units 00:01 WBC (3.8-10.6) k/uL RBC (3.80-5.40) m/uL Hgb (11.4-16.0) gm/dL Hct (34.0-46.0) % MCV (80.0-100.0) fL MCH (25.0-35.0) pg MCHC (31.0-37.0) g/dL RDW (11.5-15.5) % Plt Count (150-450) k/uL Neutrophils % % Lymphocytes % % Monocytes % % Eosinophils % % Basophils % % Neutrophils # (1.3-7.7) k/uL Lymphocytes # (1.0-4.8) k/uL Monocytes # (0-1.0) k/uL Eosinophils # (0-0.7) k/uL Basophils # (0-0.2) k/uL Sodium (137-145) mmol/L Potassium (3.5-5.1) mmol/L Chloride (98-107) mmol/L Carbon Dioxide (22-30) mmol/L Anion Gap mmol/L BUN (7-17) mg/dL Creatinine (0.52-1.04) mg/dL Est GFR (CKD-EPI)AfAm (>60 ml/min/1.73 sqM) Est GFR (CKD-EPI)NonAf (>60 ml/min/1.73 sqM) Glucose (74-99) mg/dL Plasma Lactic Acid Anton 0.6 L (0.7-2.0) mmol/L Calcium (8.4-10.2) mg/dL Total Bilirubin (0.2-1.3) mg/dL AST (14-36) U/L ALT (4-34) U/L Alkaline Phosphatase (38-126) U/L Total Protein (6.3-8.2) g/dL Albumin (3.5-5.0) g/dL Amylase (30-110) U/L Lipase (23-300) U/L Urine Color Urine Appearance (Clear) Urine pH (5.0-8.0) Ur Specific [place] (1.001-1.035) Urine Protein (Negative) Urine Glucose (UA) (Negative) Urine Ketones (Negative) Urine Blood (Negative) Urine Nitrite (Negative) Urine Bilirubin (Negative) Urine Urobilinogen (<2.0) mg/dL Ur Leukocyte Esterase (Negative) Urine RBC (0-5) /hpf Urine WBC (0-5) /hpf Ur Squamous Epith Cells (0-4) /hpf Urine Bacteria (None) /hpf Urine Mucus (None) /hpf - Radiology Data Radiology results: report reviewed, image reviewed CT abdomen and pelvis with contrast was obtained. Report was reviewed in its entirety. Impression by Dr. Engle shows distal mechanical small bowel obstruction at the anastomosis of the ileum within the right colon. Previous surgery. Obstruction appears similar to old exam. Disposition Clinical Impression: Small bowel obstruction Disposition: ADMITTED IP TO THIS [facility] Condition: Serious Referrals: Raquel Villeda MD [Primary Care Provider] - 1-2 days Decision to Admit Reason: Admit from EC Decision Date: 08/09/19 Decision Time: 02:01
[2019-08-09] MEDS ORDERED: NALOXONE 0.4 MG/ML 1 ML VIAL IV PRN (01:59)
--- NOTE | 2019-08-09 03:06 | XR ---
EXAMINATION TYPE: XR chest 1V confirm line [facility] DATE OF EXAM: 08/09/2019 COMPARISON: 03/04/2018 HISTORY: Check tube placement TECHNIQUE: FINDINGS: There is nasogastric tube with the tip probably in the distal esophagus near the gastroesop hageal junction. The lungs are clear. There is no heart failure. Heart size is normal. IMPRESSION: Nasogastric tube is probably in the distal esophagus. No cardiopulmonary disease. Heart a nd lungs unchanged.
[2019-08-09] MEDS: SODIUM CHLORIDE 0.9% 1,000 ML IV SCH ×3 (03:54→20:53)
[2019-08-09] MEDS: HYDROmorphone 1 MG/ML 1 ML SYRINGE IVP PRN ×6 (04:53→20:46)
[2019-08-09] MEDS: ONDANSETRON 4 MG/2 ML VIAL IVP PRN ×2 (07:40→17:53)
[2019-08-09 07:44] LABS: Basophils % (A) 0 %; Eosinophils # (A) 0.1 k/uL (0-0.7); Eosinophils % (A) 1 %; HCT 39.3 % (34.0-46.0); HGB 12.7 gm/dL (11.4-16.0); Lymphocytes # (A) 2.9 k/uL (1.0-4.8); Lymphocytes % (A) 31 %; MCH 31.3 pg (25.0-35.0); MCHC 32.3 g/dL (31.0-37.0); MCV 97.2 fL (80.0-100.0); Mean Platelet Volume 8.3; Monocytes # (A) 0.4 k/uL (0-1.0); Monocytes % (A) 4 %; Neutrophils % (A) 62 %; Platelet Count 192 k/uL (150-450); RBC 4.05 m/uL (3.80-5.40); RDW 12.1 % (11.5-15.5); WBC 9.6 k/uL (3.8-10.6)
[2019-08-09 07:50] LABS: ALT 16 U/L (4-34); AST 29 U/L (14-36); African American GFR (CKD) >90 (>60 ml/min/1.73 sqM); Albumin 4.1 g/dL (3.5-5.0); Alkaline Phosphatase 48 U/L (38-126); Anion Gap 7 mmol/L; Blood Urea Nitrogen 9 mg/dL (7-17); Calcium 8.7 mg/dL (8.4-10.2); Carbon Dioxide 22 mmol/L (22-30); Chloride 109 mmol/L (98-107); Glucose 81 mg/dL (74-99); Non-African American GFR(CKD) >90 (>60 ml/min/1.73 sqM); Potassium 4.6 mmol/L (3.5-5.1); Sodium 138 mmol/L (137-145); Total Bilirubin 0.3 mg/dL (0.2-1.3); Total Protein 6.8 g/dL (6.3-8.2)
[2019-08-09] MEDS ORDERED: KETOROLAC 30 MG/ML 1 ML VIAL IVP STA (09:38)
--- NOTE | 2019-08-09 10:15 | P.GSCN ---
<Zoe Almaraz - Last Filed: 08/09/19 10:15> History of Present Illness Consult date: 08/09/19 Reason for Consult: small bowel obstruction Requesting physician: Lacey Campbell History of present illness: CHIEF COMPLAINT: Small bowel obstruction HISTORY OF PRESENT ILLNESS: 39-year-old female with a history of Crohn's disease and previous bowel resection who presents to the emergency room with a chief complaint of abdominal pain. Patient reports she has a history of small bowel obstructions and her pain felt similar to her previous obstructions. Patient was most recent hospital as in April 2019 for small bowel traction and was treated with conservative management. Patient follows up outpatient with Dr. Carrington and is prescribed Humira. She reports nausea but denies vomiting. She reports passing a small amount of flatus yesterday. Last bowel movement was yesterday. Denies fever or chills. She currently complains of a severe headache at the moment. Apparently the patient had an NG tube placed and it needed to be advanced per the RN. When the RN attempted to advance the NG tube the patient refused and wanted the NG tube removed. PAST MEDICAL HISTORY: See list. PAST SURGICAL HISTORY: See list. SOCIAL HISTORY: No illicit drug use. REVIEW OF SYSTEMS: CONSTITUTIONAL: Denies fever or chills. HEENT: Denies blurred vision, vision changes, or eye pain. Denies hemoptysis CARDIOVASCULAR: Denies chest pain or pressure. RESPIRATORY: No shortness of breath. GASTROINTESTINAL: Refer to HPI for pertinent findings HEMATOLOGIC: Denies bleeding disorders. GENITOURINARY: Denies any blood in urine. SKIN: Denies pruitis. Denies rash. PHYSICAL EXAM: VITAL SIGNS: Reviewed. GENERAL: Well-developed in no acute distress. HEENT: No sclera icterus. Extraocular movements grossly intact. Moist buccal mucosa. Head is atraumatic, normocephalic. ABDOMEN: Soft. Mild fullness near superior aspect of abdomen. Minimal tenderness. NEUROLOGIC: Alert and oriented. Cranial nerves II through XII grossly intact. LABORATORY DATA: WBC 11.7. Repeat 9.6. IMAGING: CT abdomen and pelvis: Distal mechanical small bowel obstruction at the anastomosis of the ileum with right colon. ASSESSMENT: 1. Abdominal pain 2. Small bowel obstruction 3. History of Crohn's disease 4. History bowel resection, 2014 5. History of previous small bowel obstructions treated with conservative management PLAN: -NPO -Consult GI for evaluation -Patient expressing concerns regarding surgical intervention. She states she is frustrated with recurrent hospitalizations for small bowel obstruction and is wanting surgery to fix the obstruction at the anastomosis site. Will discuss with Dr. Sheffield. Dr. Sheffield to re-evaluate patient this afternoon Nurse practitioner note has been reviewed by physician. Signing provider agrees with the documented findings, assessment, and plan of care. Past Medical History Past Medical History: Pulmonary Embolus (PE) Additional Past Medical History / Comment(s): HEPATITIS C received treatment reports levels are now undetectable , crohn's disease, SBO History of Any Multi-Drug Resistant Organisms: MRSA Year Discovered:: 06/12/15 MRSA @ [facility] MDRO Source:: Abdomen Past Surgical History: Bowel Resection, Hernia Repair Additional Past Surgical History / Comment(s): VICTOR HUGO FOOT SURGERY, BOWEL RESECTION ,. carpal tunnel surgery bilat hand Past Anesthesia/Blood Transfusion Reactions: No Reported Reaction Past Psychological History: Depression Smoking Status: Current every day smoker Past Alcohol Use History: None Reported Additional Past Alcohol Use History / Comment(s): STARTED SMOKING AT AGE 13 SMOKES 1PPD Past Drug Use History: None Reported Additional Drug Use History / Comment(s): HAS NOT USED SINCE NOVEMBER 15 - Past Family History Father Family Medical History: Cancer Medications and Allergies Home Medications Medication Instructions Recorded Confirmed Type Loperamide [Imodium] 2 - 4 mg PO TID PRN 01/28/19 08/09/19 History Umeclidinium [place] [Incruse 1 puff INHALATION RT-DAILY 01/28/19 08/09/19 Hi [place] Ellipta] Adalimumab [Humira(Cf) Pen] 40 mg SQ Q14D 04/30/19 08/09/19 History Albuterol Sulfate [Ventolin HFA] 2 puff INHALATION RT-Q4H PRN 04/30/19 08/09/19 History Multivitamins, Thera [Multivitamin 1 tab PO DAILY 08/09/19 08/09/19 History (formulary)] Allergies Allergy/AdvReac Type Severity Reaction Status Date / Time prednisone AdvReac Hallucinati Verified 08/09/19 08:06 ons prochlorperazine AdvReac AGITATION Verified 08/09/19 08:06 [From Compazine] Surgical - Exam Vital Signs Temp Pulse Resp BP Pulse Ox 97.9 F 70 18 146/77 100 08/08/19 23:47 08/08/19 23:47 08/08/19 23:47 08/08/19 23:47 08/08/19 23:47 Results - Labs 08/09/19 06:50 08/09/19 06:50 Abnormal Lab Results - Last 24 Hours (Table) 08/09/19 08/09/19 08/09/19 Range/Units 00:01 00:01 00:01 WBC 11.7 H (3.8-10.6) k/uL Chloride (98-107) mmol/L Plasma Lactic Acid Anton 0.6 L (0.7-2.0) mmol/L Urine Blood Small H (Negative) Urine Bacteria Rare H (None) /hpf Urine Mucus Rare H (None) /hpf 08/09/19 Range/Units 06:50 WBC (3.8-10.6) k/uL Chloride 109 H (98-107) mmol/L Plasma Lactic Acid Anton (0.7-2.0) mmol/L Urine Blood (Negative) Urine Bacteria (None) /hpf Urine Mucus (None) /hpf Diabetes panel 08/09/19 08/09/19 Range/Units 00:01 06:50 Sodium 139 138 (137-145) mmol/L Potassium 4.1 4.6 (3.5-5.1) mmol/L Chloride 106 109 H (98-107) mmol/L Carbon Dioxide 23 22 (22-30) mmol/L BUN 13 9 (7-17) mg/dL Creatinine 0.67 0.63 (0.52-1.04) mg/dL Glucose 99 81 (74-99) mg/dL Calcium 9.8 8.7 (8.4-10.2) mg/dL AST 32 29 (14-36) U/L ALT 18 16 (4-34) U/L Alkaline Phosphatase 54 48 (38-126) U/L Total Protein 7.6 6.8 (6.3-8.2) g/dL Albumin 4.8 4.1 (3.5-5.0) g/dL Calcium panel 08/09/19 08/09/19 Range/Units 00:01 06:50 Calcium 9.8 8.7 (8.4-10.2) mg/dL Albumin 4.8 4.1 (3.5-5.0) g/dL Pituitary panel 08/09/19 08/09/19 Range/Units 00:01 06:50 Sodium 139 138 (137-145) mmol/L Potassium 4.1 4.6 (3.5-5.1) mmol/L Chloride 106 109 H (98-107) mmol/L Carbon Dioxide 23 22 (22-30) mmol/L BUN 13 9 (7-17) mg/dL Creatinine 0.67 0.63 (0.52-1.04) mg/dL Glucose 99 81 (74-99) mg/dL Calcium 9.8 8.7 (8.4-10.2) mg/dL Adrenal panel 08/09/19 08/09/19 Range/Units 00:01 06:50 Sodium 139 138 (137-145) mmol/L Potassium 4.1 4.6 (3.5-5.1) mmol/L Chloride 106 109 H (98-107) mmol/L Carbon Dioxide 23 22 (22-30) mmol/L BUN 13 9 (7-17) mg/dL Creatinine 0.67 0.63 (0.52-1.04) mg/dL Glucose 99 81 (74-99) mg/dL Calcium 9.8 8.7 (8.4-10.2) mg/dL Total Bilirubin 0.3 0.3 (0.2-1.3) mg/dL AST 32 29 (14-36) U/L ALT 18 16 (4-34) U/L Alkaline Phosphatase 54 48 (38-126) U/L Total Protein 7.6 6.8 (6.3-8.2) g/dL Albumin 4.8 4.1 (3.5-5.0) g/dL <Gibson Sheffield - Last Filed: 08/09/19 14:57> History of Present Illness History of present illness: As above. Patient known to our service. Patient with recurrent bowel obstruction. Patient states she frequently has episodes that resolved spontaneously at home. She says she is tired of having to deal with these frequent bowel obstructions. She would like to proceed with resection of the known stricture at the anastomotic site. She was notified by her skein winder previously that the stricture was very tight and would require eventual surgical resection. Patient is high risk for laparotomy and bowel resection given her underlying Crohn's. Risks of bleeding, infection, leak, abscess, fistula formation, recurrent stricture or bowel obstruction, ureteral, bladder and bowel injury, recurrent hernia, mesh infection were all reviewed. Patient would like to proceed. We'll tentative schedule for tomorrow afternoon. Await formal GI evaluation. Surgical - Exam Vital Signs Temp Pulse Resp BP Pulse Ox 97.9 F 70 18 146/77 100 08/08/19 23:47 08/08/19 23:47 08/08/19 23:47 08/08/19 23:47 08/08/19 23:47 Results - Labs 08/09/19 06:50 08/09/19 06:50 Abnormal Lab Results - Last 24 Hours (Table) 08/09/19 08/09/19 08/09/19 Range/Units 00:01 00:01 00:01 WBC 11.7 H (3.8-10.6) k/uL Chloride (98-107) mmol/L Plasma Lactic Acid Anton 0.6 L (0.7-2.0) mmol/L Urine Blood Small H (Negative) Urine Bacteria Rare H (None) /hpf Urine Mucus Rare H (None) /hpf 08/09/19 Range/Units 06:50 WBC (3.8-10.6) k/uL Chloride 109 H (98-107) mmol/L Plasma Lactic Acid Anton (0.7-2.0) mmol/L Urine Blood (Negative) Urine Bacteria (None) /hpf Urine Mucus (None) /hpf Diabetes panel 08/09/19 08/09/19 Range/Units 00:01 06:50 Sodium 139 138 (137-145) mmol/L Potassium 4.1 4.6 (3.5-5.1) mmol/L Chloride 106 109 H (98-107) mmol/L Carbon Dioxide 23 22 (22-30) mmol/L BUN 13 9 (7-17) mg/dL Creatinine 0.67 0.63 (0.52-1.04) mg/dL Glucose 99 81 (74-99) mg/dL Calcium 9.8 8.7 (8.4-10.2) mg/dL AST 32 29 (14-36) U/L ALT 18 16 (4-34) U/L Alkaline Phosphatase 54 48 (38-126) U/L Total Protein 7.6 6.8 (6.3-8.2) g/dL Albumin 4.8 4.1 (3.5-5.0) g/dL Calcium panel 08/09/19 08/09/19 Range/Units 00:01 06:50 Calcium 9.8 8.7 (8.4-10.2) mg/dL Albumin 4.8 4.1 (3.5-5.0) g/dL Pituitary panel 08/09/19 08/09/19 Range/Units 00:01 06:50 Sodium 139 138 (137-145) mmol/L Potassium 4.1 4.6 (3.5-5.1) mmol/L Chloride 106 109 H (98-107) mmol/L Carbon Dioxide 23 22 (22-30) mmol/L BUN 13 9 (7-17) mg/dL Creatinine 0.67 0.63 (0.52-1.04) mg/dL Glucose 99 81 (74-99) mg/dL Calcium 9.8 8.7 (8.4-10.2) mg/dL Adrenal panel 08/09/19 08/09/19 Range/Units 00:01 06:50 Sodium 139 138 (137-145) mmol/L Potassium 4.1 4.6 (3.5-5.1) mmol/L Chloride 106 109 H (98-107) mmol/L Carbon Dioxide 23 22 (22-30) mmol/L BUN 13 9 (7-17) mg/dL Creatinine 0.67 0.63 (0.52-1.04) mg/dL Glucose 99 81 (74-99) mg/dL Calcium 9.8 8.7 (8.4-10.2) mg/dL Total Bilirubin 0.3 0.3 (0.2-1.3) mg/dL AST 32 29 (14-36) U/L ALT 18 16 (4-34) U/L Alkaline Phosphatase 54 48 (38-126) U/L Total Protein 7.6 6.8 (6.3-8.2) g/dL Albumin 4.8 4.1 (3.5-5.0) g/dL
[2019-08-09] MEDS ORDERED: ACETAMINOPHEN IV (For NPO) 1,000 MG in EMPTY BAG 1 BAG IVPB ONE (11:06)
--- NOTE | 2019-08-09 12:12 | P.HPIM ---
History of Present Illness This is a pleasant 39 years old female with past medical history of Crohn's disease, hepatitis C status post treatment, several times of small bowel obstruction, MRSA infection, status post bowel resection and hernia repair. She had surgery in 2014 and since then she has a third attack of bowel obstruction, yesterday evening about 7 PM she started having abdominal distention with periumbilical pain with some nausea but no vomiting, her pain was nonradiating felt like sharp and rachel very severe about 10/10, now is 8/10 with Dilaudid, she had some bowel movement yesterday 3 PM and nonsustained, she has little gas this morning. She admits smoking, alcohol or illicit tracts, patient is counseled to quit smoking Vitals stable, mild leukocytosis of 11.7 K on the presentation came back to normal at 10.6, rest of the CBC, BMP liver enzymes are unremarkable and UA is also suspicious of infection. Chest x-ray: No acute process by radiologist. Abdomen and pelvic CT: Multiple dilated distal small bowel loops with the liquids, no free air In the emergency room patient was started on pain management with Dilaudid, IV fluids with normal saline at 75 mL/h, NG tube was inserted Surgical team has evaluated the patient Review of Systems CONSTITUTIONAL: No fever, no malaise, no fatigue. HEENT: No recent visual problems or hearing problems. Denied any sore throat. CARDIOVASCULAR: No orthopnea, PND, no palpitations, no syncope. PULMONARY: No shortness of breath, no cough, no hemoptysis. GASTROINTESTINAL: No diarrhea, no nausea, no vomiting, no abdominal pain. Normoactive bowel sounds. NEUROLOGICAL: No headaches, no weakness, no numbness. HEMATOLOGICAL: Denies any bleeding or petechiae. GENITOURINARY: Denies any burning micturition, frequency, or urgency. MUSCULOSKELETAL/RHEUMATOLOGICAL: Denies any joint pain, swelling, or any muscle pain. ENDOCRINE: Denies any polyuria or polydipsia. Past Medical History Past Medical History: Pulmonary Embolus (PE) Additional Past Medical History / Comment(s): HEPATITIS C received treatment reports levels are now undetectable , crohn's disease, SBO History of Any Multi-Drug Resistant Organisms: MRSA Date of last positivie culture/infection: 06/12/15 MRSA @ [facility] MDRO Source:: Abdomen Past Surgical History: Bowel Resection, Hernia Repair Additional Past Surgical History / Comment(s): VICTOR HUGO FOOT SURGERY, BOWEL RESECTIO N,. carpal tunnel surgery bilat hand Past Anesthesia/Blood Transfusion Reactions: No Reported Reaction Past Psychological History: Depression Smoking Status: Current every day smoker Past Alcohol Use History: None Reported Additional Past Alcohol Use History / Comment(s): STARTED SMOKING AT AGE 13 SMOKES 1PPD Past Drug Use History: None Reported Additional Drug Use History / Comment(s): HAS NOT USED SINCE NOVEMBER 15 - Past Family History Father Family Medical History: Cancer Medications and Allergies Home Medications Medication Instructions Recorded Confirmed Type Loperamide [Imodium] 2 - 4 mg PO TID PRN 01/28/19 08/09/19 History Umeclidinium [place] [Incruse 1 puff INHALATION RT-DAILY 01/28/19 08/09/19 H istory Ellipta] Adalimumab [Humira(Cf) Pen] 40 mg SQ Q14D 04/30/19 08/09/19 History Albuterol Sulfate [Ventolin HFA] 2 puff INHALATION RT-Q4H PRN 04/30/19 08/09/19 History Multivitamins, Thera [Multivitamin 1 tab PO DAILY 08/09/19 08/09/19 History (formulary)] Allergies Allergy/AdvReac Type Severity Reaction Status Date / Time prednisone AdvReac Hallucinati Verified 08/09/19 08:06 ons prochlorperazine AdvReac AGITATION Verified 08/09/19 08:06 [From Compazine] Physical Exam Vitals: Vital Signs Temp Pulse Pulse Resp BP BP Pulse Ox 08/09/19 07:47 98.6 F 66 16 106/66 98 08/09/19 03:35 98.6 F 76 17 127/80 93 L 08/09/19 03:15 68 19 139/90 96 08/09/19 01:46 78 19 142/96 98 08/09/19 01:27 98.2 F 68 16 130/92 100 08/09/19 00:43 78 18 125/88 98 08/09/19 00:18 63 18 129/95 98 08/08/19 23:47 97.9 F 70 18 146/77 100 Intake and Output 08/08/19 08/09/19 08/09/19 22:59 06:59 14:59 Intake Total 1000 Balance 1000 Intake: Intake, IV Titration 1000 Amount Sodium Chloride 0.9% 1, 1000 000 ml @ 999 mls/hr IV . Q1H1M ONE Rx#:[id number] Other: Weight 67 kg GENERAL: The patient is alert and oriented x3, not in any acute distress. Well developed, well nourished. HEENT: Pupils are round and equally reacting to light. EOMI. No scleral icterus. No conjunctival pallor. Normocephalic, atraumatic. No pharyngeal erythema. No thyromegaly. CARDIOVASCULAR: S1 and S2 present. No murmurs, rubs, or gallops. PULMONARY: Chest is clear to auscultation, no wheezing or crackles. -ABDOMEN: Soft, mid umbilical tenderness, no rebound tenderness or guarding, nondistended, normoactive bowel sounds. No palpable organomegaly. mid-abdomen scar MUSCULOSKELETAL: No joint swelling or deformity. EXTREMITIES: No cyanosis, clubbing, or pedal edema. NEUROLOGICAL: Gross neurological examination did not reveal any focal deficits. SKIN: No rashes. No petechiae Results CBC & Chem 7: 08/09/19 06:50 08/09/19 06:50 Labs: Abnormal Lab Results - Last 24 Hours (Table) 08/09/19 08/09/19 08/09/19 Range/Units 00:01 00:01 00:01 WBC 11.7 H (3.8-10.6) k/uL Chloride (98-107) mmol/L Plasma Lactic Acid Anton 0.6 L (0.7-2.0) mmol/L Urine Blood Small H (Negative) Urine Bacteria Rare H (None) /hpf Urine Mucus Rare H (None) /hpf 08/09/19 Range/Units 06:50 WBC (3.8-10.6) k/uL Chloride 109 H (98-107) mmol/L Plasma Lactic Acid Anton (0.7-2.0) mmol/L Urine Blood (Negative) Urine Bacteria (None) /hpf Urine Mucus (None) /hpf Thrombosis Risk Factor Assmnt - Choose All That Apply Any of the Below Risk Factors Present?: Yes Each Factor Represents 1 point: Age 41-60 years, Obesity (BMI >25) Each Risk Factor Represents 3 Points: History of DVT/PE Thrombosis Risk Factor Assessment Total Risk Factor Score: 5 Thrombosis Risk Factor Assessment Level: High Risk Assessment and Plan Assessment: Recurrent small bowel obstruction Celiac disease Hepatitis C status post treatment History of MRSA infection Status post bowel resection and hernia repair Plan: This is a pleasant 89 days old female who presents with recurrent bowel obstruction, surgical team evaluated the patient and they don't decide about need for surgical intervention home cold GI team upon recommendation. Pain management. Nothing by mouth, IV fluids Labs and medication were reviewed.. Continue same treatment. Continue with symptomatic treatment. Resume home medication. Monitor lytes and vitals. DVT and GI prophylaxis. Further recommendations of the clinical course of the patient DVT prophylaxis: Subcutaneous heparin GI Prophylaxis: Pepcid PT/OT: Pending Prognosis is guarded
[2019-08-09] MEDS: ALPRAZolam 0.5 MG TAB PO PRN ×2 (14:09→21:01)
[2019-08-09] MEDS ORDERED: fentaNYL (PF) 50 MCG/ML 2 ML AMP IVP PRN (18:50)
[2019-08-09] MEDS ORDERED: LIDOCAINE 1% (10MG/ML) FOR IV START INTRADERMA PRN (18:50)
[2019-08-09] MEDS ORDERED: DEXAMETHASONE SOD PHOSPHATE 10 MG/ML 1 ML VIAL IV ONE (18:50)
[2019-08-09] MEDS ORDERED: fentaNYL (PF) 50 MCG/ML 2 ML AMP IV PRN (18:50)
[2019-08-09] MEDS ORDERED: MIDAZOLAM 2 MG/2 ML VIAL IV PRN (18:50)
[2019-08-09] MEDS: LACTATED RINGERS 1,000 ML IV SCH (19:40)
--- NOTE | 2019-08-09 20:27 | P.CONS ---
History of Present Illness - Reason for Consult Consult date: 08/09/19 Crohn's disease, small bowel Requesting physician: Salomón E Sheet - Chief Complaint Abdominal pain - History of Present Illness A 39-year-old female with a medical history significant for hepatitis C treated with antiviral therapy in SVR, prior MRSA infection, and Crohn's disease of the small bowel with multiple admissions for bowel obstructions who presented back to the hospital with complaints of abdominal pain, abdominal distention, nausea and no vomiting. The patient's last admission was at the end of hospitalized for similar complaints. The patient has a history of Crohn's disease of the small bowel diagnosed approximately 2003. His disease has been complicated by bowel obstructions in the past requiring surgical intervention for an obstruction in 2014 at which time she was on steroid therapy. She was also discharged on steroid therapy on her last admission and is currently maintained on Humira therapy. She reports using Imodium as needed for breakthrough diarrhea. She reports intermittent episodes of abdominal pain and feels certain foods such as fibrous foods will exacerbate her attacks and precipitate obstruction. Patient was unable to tolerate a nasogastric tube on current admission. Laboratory evaluation on presentation was significant for WBC 9.6, hemoglobin 12.7, platelet count 592,000 with a normal ESR and CRP and an amylase of 43 and lipase of 38. Computed tomography scan of the abdomen showed multiple dilated loops of small bowel consistent with an obstruction at the anastomotic site. Review of Systems REVIEW OF SYSTEMS: CONSTITUTIONAL: Denies any fevers, chills, weight change or fatigue. CARDIOVASCULAR: Denies any chest pain, palpitations high or low blood pressures RESPIRATORY: Denies any shortness of breath, hemoptysis or cough. GENITOURINARY: No dysuria or hematuria. MUSCULOSKELETAL: No weakness reported. SKIN: Denies any new rashes or lesions, jaundice or pallor. PSYCHIATRIC: Denies any depression or anxiety. NEUROLOGY: Denies headache, denies any new focal deficits. EARS/NOSE/THROAT: No recent hearing change, congestion, nasal discharge or sore throat. EYES: No pain in eyes, discharge or change in vision. GASTROINTESTINAL: As per HPI. Past Medical History Past Medical History: Pulmonary Embolus (PE) Additional Past Medical History / Comment(s): HEPATITIS C received treatment reports levels are now undetectable , crohn's disease, SBO History of Any Multi-Drug Resistant Organisms: MRSA Year Discovered:: 06/12/15 MRSA @ [facility] MDRO Source:: Abdomen Past Surgical History: Bowel Resection, Hernia Repair Additional Past Surgical History / Comment(s): VICTOR HUGO FOOT SURGERY, BOWEL RESECTION,. carpal tunnel surgery bilat hand Past Anesthesia/Blood Transfusion Reactions: No Reported Reaction Past Psychological History: Depression Smoking Status: Current every day smoker Past Alcohol Use History: None Reported Additional Past Alcohol Use History / Comment(s): STARTED SMOKING AT AGE 13 SMOKES 1PPD Past Drug Use History: None Reported Additional Drug Use History / Comment(s): HAS NOT USED SINCE NOVEMBER 15 - Past Family History Father Family Medical History: Cancer Medications and Allergies Home Medications Medication Instructions Recorded Confirmed Type Loperamide [Imodium] 2 - 4 mg PO TID PRN 01/28/19 08/09/19 History Umeclidinium [place] [Incruse 1 puff INHALATION RT-DAILY 01/28/19 08/09/19 History Ellipta] Adalimumab [Humira(Cf) Pen] 40 mg SQ Q14D 04/30/19 08/09/19 History Albuterol Sulfate [Ventolin HFA] 2 puff INHALATION RT-Q4H PRN 04/30/19 08/09/19 History Multivitamins, Thera [Multivitamin 1 tab PO DAILY 08/09/19 08/09/19 History (formulary)] Allergies Allergy/AdvReac Type Severity Reaction Status Date / Time prednisone AdvReac Hallucinati Verified 08/09/19 08:06 ons prochlorperazine AdvReac AGITATION Verified 08/09/19 08:06 [From Compazine] Physical Exam Vitals: Vital Signs Temp Pulse Pulse Resp BP BP Pulse Ox 08/09/19 19:05 98.2 F 74 16 137/86 98 08/09/19 14:20 98.3 F 55 L 16 118/78 99 08/09/19 07:47 98.6 F 66 16 106/66 98 08/09/19 03:35 98.6 F 76 17 127/80 93 L 08/09/19 03:15 68 19 139/90 96 08/09/19 01:46 78 19 142/96 98 08/09/19 01:27 98.2 F 68 16 130/92 100 08/09/19 00:43 78 18 125/88 98 08/09/19 00:18 63 18 129/95 98 08/08/19 23:47 97.9 F 70 18 146/77 100 Intake and Output 08/09/19 08/09/19 08/09/19 06:59 14:59 22:59 Intake Total 1000 Balance 1000 Intake: Intake, IV Titration 1000 Amount Sodium Chloride 0.9% 1, 1000 000 ml @ 999 mls/hr IV . Q1H1M ONE Rx#:[id number] Other: Voiding Method Toilet # Voids 3 Weight 67 kg On physical examination, patient appears comfortable in no apparent distress. HEAD: Normocephalic, atraumatic. EYES: No scleral icterus. No conjunctival injection. MOUTH: No lesions, tongue midline. NECK: Trachea midline, no gross abnormalities. CHEST: Clear to auscultation with no wheezing or rhonchi appreciated. HEART: Regular rate and rhythm. ABDOMEN: Soft, mildly tender to palpation. Bowel sounds are positive. No organomegaly. No guarding or rigidity. EXTREMITIES: No pedal edema. SKIN: No rashes, no jaundice. NEUROLOGIC: Alert and oriented x3. No focal deficits. Results CBC & Chem 7: 08/09/19 06:50 08/09/19 06:50 Labs: Abnormal Lab Results - Last 24 Hours (Table) 08/09/19 08/09/19 08/09/19 Range/Units 00:01 00:01 00:01 WBC 11.7 H (3.8-10.6) k/uL Chloride (98-107) mmol/L Plasma Lactic Acid Anton 0.6 L (0.7-2.0) mmol/L Urine Blood Small H (Negative) Urine Bacteria Rare H (None) /hpf Urine Mucus Rare H (None) /hpf 08/09/19 Range/Units 06:50 WBC (3.8-10.6) k/uL Chloride 109 H (98-107) mmol/L Plasma Lactic Acid Anton (0.7-2.0) mmol/L Urine Blood (Negative) Urine Bacteria (None) /hpf Urine Mucus (None) /hpf CT scan - abdomen: report reviewed (Distal mechanical small bowel obstruction on computed tomography scan of the abdomen.) Assessment and Plan (1) SBO (small bowel obstruction) Narrative/Plan: 39-year-old female presenting to the hospital with abdominal pain, nausea and findings on computed tomography scan of the distal small bowel obstruction of the anastomotic site. She has a known history of Crohn's disease diagnosed in approximately 2003 requiring surgery for a bowel obstruction in 2014 currently maintained on Humira therapy the patient has had multiple hospitalizations for recurrent bowel obstructions. She denies any perianal disease or fistula seen disease. Currently ESR and CRP are normal. Current Visit: Yes Status: Acute Code(s): K56.609 - UNSP INTESTNL OBST, UNSP TO PARTIAL VERSUS COMPLETE OBST SNOMED Code(s): 459223627 (2) Abdominal pain Current Visit: No Status: Acute Code(s): R10.9 - UNSPECIFIED ABDOMINAL PAIN SNOMED Code(s): 90240062 (3) Crohn's disease Current Visit: No Status: Acute Code(s): K50.90 - CROHN'S DISEASE, UN SPECIFIED, WITHOUT COMPLICATIONS SNOMED Code(s): 95521699 Plan: Supportive care Nothing by mouth ESR and CRP normal Surgical service consulted Continue to monitor her symptomatically Continue to monitor CBC and CMP At this time we will hold off on steroid therapy and wait for recommendations from a surgical service Patient will need to continue to follow up with gastroenterology in the outpatient setting For allowing us the care of the patient we will continue to follow
[2019-08-09] MEDS: HEPARIN SODIUM,PORCINE 5,000 UNIT/ML 1 ML VIAL SQ SCH (20:46)
[2019-08-09] MEDS: FAMOTIDINE 20 MG/2 ML VIAL IV SCH (20:46)
[2019-08-10] MEDS ORDERED: KETOROLAC 30 MG/ML 1 ML VIAL IVP SCH
[2019-08-10] MEDS: KETOROLAC 30 MG/ML 1 ML VIAL IVP PRN (00:59)
[2019-08-10] MEDS: HYDROmorphone 1 MG/ML 1 ML SYRINGE IVP PRN ×6 (01:12→21:30)
[2019-08-10 07:39] LABS: Basophils % (A) 0 %; Eosinophils # (A) 0.2 k/uL (0-0.7); Eosinophils % (A) 3 %; HGB 12.1 gm/dL (11.4-16.0); Lymphocytes % (A) 50 %; MCH 30.9 pg (25.0-35.0); MCHC 32.6 g/dL (31.0-37.0); MCV 94.6 fL (80.0-100.0); Monocytes # (A) 0.3 k/uL (0-1.0); Monocytes % (A) 5 %; Neutrophils # (A) 2.3 k/uL (1.3-7.7); Neutrophils % (A) 39 %; Platelet Count 196 k/uL (150-450); RBC 3.91 m/uL (3.80-5.40); RDW 11.9 % (11.5-15.5); WBC 5.9 k/uL (3.8-10.6)
[2019-08-10] MEDS: HEPARIN SODIUM,PORCINE 5,000 UNIT/ML 1 ML VIAL SQ SCH ×2 (08:03→20:14)
[2019-08-10] MEDS: FAMOTIDINE 20 MG/2 ML VIAL IV SCH ×2 (08:03→20:13)
[2019-08-10 08:08] LABS: ALT 15 U/L (4-34); AST 25 U/L (14-36); African American GFR (CKD) >90 (>60 ml/min/1.73 sqM); Albumin 3.5 g/dL (3.5-5.0); Alkaline Phosphatase 54 U/L (38-126); Anion Gap 7 mmol/L; Blood Urea Nitrogen 9 mg/dL (7-17); Calcium 8.3 mg/dL (8.4-10.2); Carbon Dioxide 23 mmol/L (22-30); Chloride 108 mmol/L (98-107); Glucose 71 mg/dL (74-99); Magnesium 1.9 mg/dL (1.6-2.3); Non-African American GFR(CKD) >90 (>60 ml/min/1.73 sqM); Sodium 138 mmol/L (137-145); Total Bilirubin 0.4 mg/dL (0.2-1.3)
[2019-08-10 08:54] LABS: Bilirubin, Delta 0.1 mg/dL (0.0-0.2); Bilirubin,Unconjugated 0.3 mg/dL (0.0-1.1)
[2019-08-10] MEDS: ONDANSETRON 4 MG/2 ML VIAL IVP PRN (10:34)
[2019-08-10] MEDS ORDERED: IV FLUID CONTINUATION 1,000 ML IV ONE (14:27)
[2019-08-10] MEDS ORDERED: LACTATED RINGERS 1,000 ML IV ONE ×2 (14:28→18:45)
[2019-08-10] MEDS ORDERED: MIDAZOLAM 2 MG/2 ML VIAL IV ONE (15:06)
[2019-08-10] MEDS ORDERED: metroNIDAZOLE-NS PMX 500 MG in SALINE 1 100ML.BAG IVPB STA (15:44)
[2019-08-10] MEDS ORDERED: HEPARIN SODIUM,PORCINE 5,000 UNIT/ML 1 ML VIAL IV ONE (15:44)
[2019-08-10] MEDS ORDERED: ONDANSETRON 4 MG/2 ML VIAL IVP ONE ×2 (15:45→19:00)
--- NOTE | 2019-08-10 15:48 | P.PN ---
Progress Note - Text Progress Note Date: 08/10/19 As above. Patient was seen by GI last night. Spoke with Dr. Carrington yesterday myself. Patient requesting resection of the known stricture at the anastomosis which given her recurrent episodes and symptoms is not unreasonable. We'll proceed with laparotomy and planned bowel resection at this time. Risks previously described.
[2019-08-10] MEDS ORDERED: GLYCOPYRROLATE 0.2 MG/ML 2 ML VIAL ONE (16:19)
[2019-08-10] MEDS ORDERED: ePHEDrine SULFATE/0.9% NACL/PF 50 MG/5 ML SYRINGE IV ONE (16:19)
[2019-08-10] MEDS ORDERED: MIDAZOLAM 2 MG/2 ML VIAL ONE (16:19)
[2019-08-10] MEDS ORDERED: ROCURONIUM BROMIDE 10 MG/ML 5 ML VIAL IV ONE (16:19)
[2019-08-10] MEDS ORDERED: HYDROmorphone (PF) 1 MG/ML ONE (16:19)
[2019-08-10] MEDS ORDERED: LIDOCAINE 1% INJ 10MG/ML (20 ML MDV) ONE (16:19)
[2019-08-10] MEDS ORDERED: fentaNYL (PF) 50 MCG/ML 2 ML AMP ONE (16:19)
[2019-08-10] MEDS ORDERED: NEOSTIGMINE 1 MG/ML 10 ML VIAL ONE (16:19)
[2019-08-10] MEDS ORDERED: SUCCINYLCHOLINE CHLORIDE 100 MG/5 ML SYR IV ONE (16:19)
[2019-08-10] MEDS ORDERED: PROPOFOL 10 MG/ML 20 ML VIAL IV ONE (16:19)
[2019-08-10] MEDS ORDERED: HYDROmorphone 0.5 MG/0.5 ML SYRINGE IVP PRN (18:53)
[2019-08-10] MEDS ORDERED: ACETAMINOPHEN IV (For NPO) 1,000 MG in EMPTY BAG 1 BAG IVPB ONE (19:00)
--- NOTE | 2019-08-10 19:00 | P.OP ---
Date of Procedure: 08/10/19 Procedure(s) Performed: PREOPERATIVE DIAGNOSIS: Ileocolonic anastomosis stricture POSTOPERATIVE DIAGNOSIS: Same PROCEDURE: Exploratory laparotomy with partial colectomy, ileocolostomy SURGEON: Yohannes EBL: 50 ML ANESTHESIA: General COMPLICATIONS: None OPERATIVE PROCEDURE: Placement placed in the operating table in the supine position. The patient was placed under general anesthesia. Cardoza catheter was placed Abdomen was then prepped and draped sterilely. Midline incision made using the scalpel. Dissection through the subcutaneous tissues and fascia took place using electrocautery. The patient had a mesh that was present beneath the fascia. Once the mesh was reached and this was sharply divided using both the scalpel and the Hatfield scissors. There were some flimsy adhesions between the omentum and the fascia. These were divided using blunt dissection and cautery. Once we had full abdominal wall opening the Bookwalter retractor was utilized. The small bowel and colon were inspected. The patient's bowel was free of any significant dilatation. There was a loop of small bowel present about 8-10 inches away from the anastomosis that was adherent to the anastomotic site. Sharp dissection took place mobilizing this away from the anastomotic site. A small serosal tear was seen and repaired using a 3-0 GI silk suture. The small bowel was inspected. There was no active inflammatory changes identified. The bowel was divided proximal to the anastomosis and the small bowel was divided using a linear 75 stapler. The ascending colon was then divided just distal to the anastomotic site using a linear 75 stapler. The mesentery was divided using both LigaSure and 0 silk ties. The anastomosis was passed off the field. I did not like the appearance of the colon at the distal ascending colon and I decided to resect an additional 3-4 inches of the hepatic flexure. In doing so we had a nice healthy piece of transverse colon to anastomose to. The area was irrigated. No bleeding was seen. The antimesenteric portion of the staple line of both the ileum and transverse colon was excised using electrocautery. The linear 75 stapler was fired along the antimesenteric border creating a [id number] anastomosis antiperistaltic. The defect was then closed using a TX 60 device. The TX 60 stapler line was imbricated using interrupted 3-0 GI silk sutures. A 3-0 GI silk crotch stitch was also placed. Again irrigation took place with no evidence of bleeding. No additional abnormalities in the bowel both small bowel and colon were identified. Again the abdomen was inspected and no bleeding was seen. I reapproximated the mesh using 2 separate running 0 Prolene sutures. The midline fascia is then reapproximated anterior to this using 3 separate double-stranded #1 PDS sutures. The subcutaneous tissues were closed using 3-0 Vicryl sutures. The skin was closed using galilea. Sterile dressings were applied. At the end of this procedure the sponge needle and ensure counts were correct. DISPOSITION: Stable to recovery room
[2019-08-10] MEDS ORDERED: HYDROmorphone 1 MG/ML 1 ML SYRINGE IVP ONE ×3 (19:03→19:35)
[2019-08-10] MEDS ORDERED: KETOROLAC 30 MG/ML 1 ML VIAL IVP ONE (19:18)
[2019-08-10] MEDS: LACTATED RINGERS 1,000 ML IV SCH (20:09)
[2019-08-10] MEDS: SODIUM CHLORIDE 0.9% 1,000 ML IV SCH (20:13)
[2019-08-10] MEDS: ALPRAZolam 0.5 MG TAB PO PRN (21:30)
[2019-08-11] MEDS: HYDROmorphone 1 MG/ML 1 ML SYRINGE IVP PRN ×5 (00:33→11:09)
[2019-08-11] MEDS: ONDANSETRON 4 MG/2 ML VIAL IVP PRN ×2 (02:13→11:09)
[2019-08-11] MEDS: SODIUM CHLORIDE 0.9% 1,000 ML IV SCH ×2 (05:44→21:25)
[2019-08-11 07:56] LABS: Basophils % (A) 0 %; Eosinophils % (A) 0 %; HCT 39.4 % (34.0-46.0); Lymphocytes # (A) 1.1 k/uL (1.0-4.8); Lymphocytes % (A) 9 %; MCH 31.3 pg (25.0-35.0); MCHC 32.9 g/dL (31.0-37.0); MCV 95.1 fL (80.0-100.0); Mean Platelet Volume 8.2; Monocytes # (A) 0.6 k/uL (0-1.0); Monocytes % (A) 4 %; Neutrophils # (A) 11.1 k/uL (1.3-7.7); Neutrophils % (A) 86 %; Platelet Count 177 k/uL (150-450); RBC 4.15 m/uL (3.80-5.40); RDW 11.7 % (11.5-15.5); WBC 12.9 k/uL (3.8-10.6)
[2019-08-11] MEDS: FAMOTIDINE 20 MG/2 ML VIAL IV SCH ×2 (08:09→21:26)
[2019-08-11] MEDS: HEPARIN SODIUM,PORCINE 5,000 UNIT/ML 1 ML VIAL SQ SCH ×2 (08:09→21:25)
[2019-08-11 08:14] LABS: African American GFR (CKD) >90 (>60 ml/min/1.73 sqM); Anion Gap 13 mmol/L; Blood Urea Nitrogen 4 mg/dL (7-17); Calcium 8.5 mg/dL (8.4-10.2); Carbon Dioxide 19 mmol/L (22-30); Chloride 101 mmol/L (98-107); Glucose 91 mg/dL (74-99); Magnesium 1.6 mg/dL (1.6-2.3); Non-African American GFR(CKD) >90 (>60 ml/min/1.73 sqM); Potassium 4.3 mmol/L (3.5-5.1); Sodium 133 mmol/L (137-145)
[2019-08-11] MEDS ORDERED: HYDROmorphone 0.5 MG/0.5 ML SYRINGE IVP STA (09:05)
--- NOTE | 2019-08-11 09:26 | P.PN ---
Subjective date of service for the note : 08/10/19 This is a pleasant 39 years old female with past medical history of Crohn's disease, hepatitis C status post treatment, several times of small bowel obstruction, MRSA infection, status post bowel resection and hernia repair. She had surgery in 2014 and since then she has a third attack of bowel obstruction, yesterday evening about 7 PM she started having abdominal distention with periumbilical pain with some nausea but no vomiting, her pain was nonradiating felt like sharp and rachel very severe about 10/10, now is 8/10 with Dilaudid, she had some bowel movement yesterday 3 PM and nonsustained, she has little gas this morning. She admits smoking, alcohol or illicit tracts, patient is counseled to quit smoking Vitals stable, mild leukocytosis of 11.7 K on the presentation came back to normal at 10.6, rest of the CBC, BMP liver enzymes are unremarkable and UA is also suspicious of infection. Chest x-ray: No acute process by radiologist. Abdomen and pelvic CT: Multiple dilated distal small bowel loops with the liquids, no free air In the emergency room patient was started on pain management with Dilaudid, IV fluids with normal saline at 75 mL/h, NG tube was inserted Surgical team has evaluated the patient 08/10/19 pt was lying in bed not in distress , still complaining from mid abd pain and tenderness and going for exp lapratomy on 08/10/19 Objective - Vital Signs Vital signs: Vital Signs Temp 99.3 F 08/11/19 07:00 Pulse 83 08/11/19 07:00 Resp 17 08/11/19 07:00 BP 133/86 08/11/19 07:00 Pulse Ox 97 08/11/19 07:00 Intake & Output 08/10/19 08/11/19 08/11/19 18:59 06:59 18:59 Intake Total 1450 1450 Output Total 375 2300 Balance 1075 -850 Intake: IV 1450 450 Intake, IV Titration 1000 Amount ACETAMINOPHEN IV (For NPO 400 ) 1,000 mg In Empty Bag 1 bag @ 400 mls/hr IVPB ONCE ONE Rx#:[id number] Sodium Chloride 0.9% 1, 600 000 ml @ 75 mls/hr IV . [id number] [facility] Rx#:[id number] Output: Urine 325 2300 Estimated Blood Loss 50 Other: Voiding Method Indwelling Catheter Indwelling Catheter # Voids 3 - Exam GENERAL: The patient is alert and oriented x3, not in any acute distress. Well developed, well nourished. HEENT: Pupils are round and equally reacting to light. EOMI. No scleral icterus. No conjunctival pallor. Normocephalic, atraumatic. No pharyngeal erythema. No thyromegaly. CARDIOVASCULAR: S1 and S2 present. No murmurs, rubs, or gallops. PULMONARY: Chest is clear to auscultation, no wheezing or crackles. -ABDOMEN: Soft, mid umbilical tenderness, no rebound tenderness or guarding, nondistended, normoactive bowel sounds. No palpable organomegaly. mid-abdomen scar MUSCULOSKELETAL: No joint swelling or deformity. EXTREMITIES: No cyanosis, clubbing, or pedal edema. NEUROLOGICAL: Gross neurological examination did not reveal any focal deficits. SKIN: No rashes. No petechiae - Labs CBC & Chem 7: 08/11/19 07:04 08/11/19 07:04 Labs: Abnormal Lab Results - Last 24 Hours (Table) 08/11/19 08/11/19 Range/Units 07:04 07:04 WBC 12.9 H (3.8-10.6) k/uL Neutrophils # 11.1 H (1.3-7.7) k/uL Sodium 133 L (137-145) mmol/L Carbon Dioxide 19 L (22-30) mmol/L BUN 4 L (7-17) mg/dL Assessment and Plan Assessment: Recurrent small bowel obstruction Celiac disease Hepatitis C status post treatment History of MRSA infection Status post bowel resection and hernia repair Plan: This is a pleasant 89 days old female who presents with recurrent bowel obstruction, surgical team evaluated the patient and they don't decide about need for surgical intervention home cold GI team upon recommendation. Pain management. Nothing by mouth, IV fluids Labs and medication were reviewed.. Continue same treatment. Continue with symptomatic treatment. Resume home medication. Monitor lytes and vitals. DVT and GI prophylaxis. Further recommendations of the clinical course of the patient DVT prophylaxis: Subcutaneous heparin GI Prophylaxis: Pepcid PT/OT: Pending Prognosis is guarded
[2019-08-11] MEDS: KETOROLAC 30 MG/ML 1 ML VIAL IVP PRN (09:27)
--- NOTE | 2019-08-11 11:10 | P.PN ---
<Zoe Almaraz - Last Filed: 08/11/19 11:55> Subjective Progress Note Date: 08/11/19 CHIEF COMPLAINT: Small bowel obstruction HISTORY OF PRESENT ILLNESS: Patient is status post exploratory laparotomy with partial colectomy with Dr. Sheffield. Postoperative day #1. Patient examined this morning the bedside. Patient is complaining of pain greater than 10 out of 10. She states she is unable to get out of bed or move today secondary to the pain. She denies nausea but states she is unable to eat anything this morning secondary to the pain. Vital signs stable. Low-grade temperature this morning of 99.3. WBC 12.9. PHYSICAL EXAM: VITAL SIGNS: Reviewed. GENERAL: Well-developed in no acute distress-appears to be in pain. HEENT: No sclera icterus. Extraocular movements grossly intact. Moist buccal mucosa. Head is atraumatic, normocephalic. ABDOMEN: Soft. Dressing clean dry and intact. Abdominal binder noted. NEUROLOGIC: Alert and oriented. Cranial nerves II through XII grossly intact. ASSESSMENT: 1. Abdominal pain 2. Small bowel obstruction 3. History of Crohn's disease 4. History bowel resection, 2014 5. History of previous small bowel obstructions treated with conservative management PLAN: -Clear liquid diet as tolerated -Pain control. Continue IV dilaudid. Continue IV Toradol. Extra dose of Dilaudid 0.5mg x 1 now due to pain -Incentive spirometer -Continue IV fluids -Activity as tolerated -Nursing to discontinue mccrary catheter if patients pain is controlled this afternoon and patient is able to ambulate to the bathroom -Patient to hold Humira at the time of discharge for [address] Dhillon conservation with Dr. Simons Nurse practitioner note has been reviewed by physician. Signing provider agrees with the documented findings, assessment, and plan of care. Objective - Vital Signs Vital signs: Vital Signs Temp 99.3 F 08/11/19 07:00 Pulse 83 08/11/19 07:00 Resp 17 08/11/19 07:00 BP 133/86 08/11/19 07:00 Pulse Ox 97 08/11/19 07:00 Intake & Output 08/10/19 08/11/19 08/11/19 18:59 06:59 18:59 Intake Total 1450 1450 Output Total 375 2300 300 Balance 1075 -850 -300 Intake: IV 1450 450 Intake, IV Titration 1000 Amount ACETAMINOPHEN IV (For NPO 400 ) 1,000 mg In Empty Bag 1 bag @ 400 mls/hr IVPB ONCE ONE Rx#:[id number] Sodium Chloride 0.9% 1, 600 000 ml @ 75 mls/hr IV . [id number] [facility] Rx#:[id number] Output: Urine 325 2300 300 Estimated Blood Loss 50 Other: Voiding Method Indwelling Catheter Indwelling Catheter # Voids 3 1 - Labs CBC & Chem 7: 08/11/19 07:04 08/11/19 07:04 Labs: Abnormal Lab Results - Last 24 Hours (Table) 08/11/19 08/11/19 Range/Units 07:04 07:04 WBC 12.9 H (3.8-10.6) k/uL Neutrophils # 11.1 H (1.3-7.7) k/uL Sodium 133 L (137-145) mmol/L Carbon Dioxide 19 L (22-30) mmol/L BUN 4 L (7-17) mg/dL <Gibson Sheffield - Last Filed: 08/11/19 14:00> Subjective As above. Patient having discomfort today. Will add [employer] pain control. Continue Toradol. Continue clear liquids for now. Objective - Vital Signs Vital signs: Vital Signs Temp 99.3 F 08/11/19 07:00 Pulse 83 08/11/19 07:00 Resp 17 08/11/19 07:00 BP 133/86 08/11/19 07:00 Pulse Ox 97 08/11/19 07:00 Intake & Output 08/10/19 08/11/19 08/11/19 18:59 06:59 18:59 Intake Total 1450 1450 Output Total 375 2300 300 Balance 1075 -850 -300 Intake: IV 1450 450 Intake, IV Titration 1000 Amount ACETAMINOPHEN IV (For NPO 400 ) 1,000 mg In Empty Bag 1 bag @ 400 mls/hr IVPB ONCE ONE Rx#:[id number] Sodium Chloride 0.9% 1, 600 000 ml @ 75 mls/hr IV . [id number] [facility] Rx#:[id number] Output: Urine 325 2300 300 Estimated Blood Loss 50 Other: Voiding Method Indwelling Catheter Indwelling Catheter # Voids 3 1 - Labs CBC & Chem 7: 08/11/19 07:04 08/11/19 07:04 Labs: Abnormal Lab Results - Last 24 Hours (Table) 08/11/19 08/11/19 Range/Units 07:04 07:04 WBC 12.9 H (3.8-10.6) k/uL Neutrophils # 11.1 H (1.3-7.7) k/uL Sodium 133 L (137-145) mmol/L Carbon Dioxide 19 L (22-30) mmol/L BUN 4 L (7-17) mg/dL
[2019-08-11] MEDS ORDERED: NALOXONE 0.4 MG/ML 1 ML VIAL IV PRN (11:52)
[2019-08-11] MEDS: HYDROmorphone PCA 10 MG/50 ML BAG IV PRN (13:12)
--- NOTE | 2019-08-11 15:24 | P.PN ---
Subjective Progress Note Date: 08/11/19 Principal diagnosis: Small bowel obstruction Patient is status post exploratory laparotomy with partial colectom; Postoperative day #1 Patient examined this morning the bedside. Patient is complaining of pain greater than 10 out of 10. She states she is unable to get out of bed or move today secondary to the pain. She denies nausea but states she is unable to eat anything this morning secondary to the pain. Vital signs stable. Low-grade temperature this morning of 99.3. WBC 12.9. Surgery is following and recommending to continue with clear liquid diet as tolerated; patient has been using IV Dilaudid for pain control and has been started on BLADDER TIER; continue with incentive spirometry, IV fluids; increase activity as tolerated Objective - Vital Signs Vital signs: Vital Signs Temp 99.3 F 08/11/19 07:00 Pulse 83 08/11/19 07:00 Resp 17 08/11/19 07:00 BP 133/86 08/11/19 07:00 Pulse Ox 97 08/11/19 07:00 Intake & Output 08/10/19 08/11/19 08/11/19 18:59 06:59 18:59 Intake Total 1450 1450 Output Total 375 2300 300 Balance 1075 -850 -300 Intake: IV 1450 450 Intake, IV Titration 1000 Amount ACETAMINOPHEN IV (For NPO 400 ) 1,000 mg In Empty Bag 1 bag @ 400 mls/hr IVPB ONCE ONE Rx#:[id number] Sodium Chloride 0.9% 1, 600 000 ml @ 75 mls/hr IV . [id number] [facility] Rx#:[id number] Output: Urine 325 2300 300 Estimated Blood Loss 50 Other: Voiding Method Indwelling Catheter Indwelling Catheter # Voids 3 1 - Exam PHYSICAL EXAMINATION: GENERAL: The patient is alert and oriented x3, not in any acute distress. Well developed, well nourished. HEENT: Pupils are round and equally reacting to light. EOMI. No scleral icterus. No conjunctival pallor. Normocephalic, atraumatic. No pharyngeal erythema. No thyromegaly. CARDIOVASCULAR: S1 and S2 present. No murmurs, rubs, or gallops. PULMONARY: Chest is clear to auscultation, no wheezing or crackles. ABDOMEN: Soft, nontender, nondistended, normoactive bowel sounds. No palpable organomegaly. MUSCULOSKELETAL: No joint swelling or deformity. EXTREMITIES: No cyanosis, clubbing, or pedal edema. NEUROLOGICAL: Gross neurological examination did not reveal any focal deficits. SKIN: No rashes. - Labs CBC & Chem 7: 08/11/19 07:04 08/11/19 07:04 Labs: Abnormal Lab Results - Last 24 Hours (Table) 08/11/19 08/11/19 Range/Units 07:04 07:04 WBC 12.9 H (3.8-10.6) k/uL Neutrophils # 11.1 H (1.3-7.7) k/uL Sodium 133 L (137-145) mmol/L Carbon Dioxide 19 L (22-30) mmol/L BUN 4 L (7-17) mg/dL Assessment and Plan Assessment: Recurrent small bowel obstruction Celiac disease Hepatitis C status post treatment History of MRSA infection Status post bowel resection and hernia repair Plan: This is a pleasant 412 days old female who presents with recurrent bowel obstruction, surgical team evaluated the patient and they don't decide about need for surgical intervention home cold GI team upon recommendation. Pain management. Nothing by mouth, IV fluids Labs and medication were reviewed.. Continue same treatment. Continue with symptomatic treatment. Resume home medication. Monitor lytes and vitals. DVT and GI prophylaxis. Further recommendations of the clinical course of the patient DVT prophylaxis: Subcutaneous heparin GI Prophylaxis: Pepcid PT/OT: Pending
--- NOTE | 2019-08-11 18:05 | P.PN ---
Subjective Progress Note Date: 08/11/19 Principal diagnosis: Crohn's disease, small bowel obstruction Patient seen post-up day #1 doing well. Tolerating liquids. No nausea or vomiting. Objective - Vital Signs Vital signs: Vital Signs Temp 99.1 F 08/11/19 15:00 Pulse 81 08/11/19 15:00 Resp 16 08/11/19 15:00 BP 130/77 08/11/19 15:00 Pulse Ox 96 08/11/19 15:00 Intake & Output 08/10/19 08/11/19 08/11/19 18:59 06:59 18:59 Intake Total 1450 1450 Output Total 375 2300 1200 Balance 1075 -850 -1200 Intake: IV 1450 450 Intake, IV Titration 1000 Amount ACETAMINOPHEN IV (For NPO 400 ) 1,000 mg In Empty Bag 1 bag @ 400 mls/hr IVPB ONCE ONE Rx#:[id number] Sodium Chloride 0.9% 1, 600 000 ml @ 75 mls/hr IV . [id number] [facility] Rx#:[id number] Output: Urine 325 2300 1200 Estimated Blood Loss 50 Other: Voiding Method Indwelling Catheter Indwelling Catheter # Voids 3 1 - Exam On physical examination, patient appears comfortable in no apparent distress. HEAD: Normocephalic, atraumatic. EYES: No scleral icterus. No conjunctival injection. MOUTH: No lesions, tongue midline. NECK: Trachea midline, no gross abnormalities. ABDOMEN: Soft, appropriately tender with midline wound dressed. Bowel sounds are positive. No organomegaly. No guarding or rigidity. EXTREMITIES: No pedal edema. SKIN: No rashes, no jaundice. NEUROLOGIC: Alert and oriented x3. No focal deficits. - Labs CBC & Chem 7: 08/11/19 07:04 08/11/19 07:04 Labs: Abnormal Lab Results - Last 24 Hours (Table) 08/11/19 08/11/19 Range/Units 07:04 07:04 WBC 12.9 H (3.8-10.6) k/uL Neutrophils # 11.1 H (1.3-7.7) k/uL Sodium 133 L (137-145) mmol/L Carbon Dioxide 19 L (22-30) mmol/L BUN 4 L (7-17) mg/dL Assessment and Plan (1) SBO (small bowel obstruction) Narrative/Plan: 39-year-old female presenting to the hospital with abdominal pain, nausea and findings on computed tomography scan of the distal small bowel obstruction of the anastomotic site. She has a known history of Crohn's disease diagnosed in approximately 2003 requiring surgery for a bowel obstruction in 2014 currently maintained on Humira therapy the patient has had multiple hospitalizations for recurrent bowel obstructions. She denies any perianal disease or fistula seen disease. Currently ESR and CRP are normal. Patient is postop day #1 for resection of her anastomotic site and partial colectomy with primary anastomosis. Current Visit: Yes Status: Acute Code(s): K56.609 - UNSP INTESTNL OBST, UNSP TO PARTIAL VERSUS COMPLETE OBST SNOMED Code(s): 211620482 (2) Abdominal pain Current Visit: No Status: Acute Code(s): R10.9 - UNSPECIFIED ABDOMINAL PAIN SNOMED Code(s): 58457353 (3) Crohn's disease Current Visit: No Status: Acute Code(s): K50.90 - CROHN'S DISEASE, UNSPECIFIED, WITHOUT COMPLICATIONS SNOMED Code(s): 65180290 Plan: Supportive care Liquid diet, advance per surgical recommendations ESR and CRP normal Surgical service consulted Continue to monitor her symptomatically Continue to monitor CBC and CMP Patient will continue to hold biologic therapy and discuss resumption on follow- up with gastroenterology Patient will need to continue to follow up with gastroenterology in the outpatient setting Thank you for allowing us to participate in the care of the patient, we'll defer further management to the surgical service and stand by, please to call us back with any questions or concerns
[2019-08-11] MEDS: LACTATED RINGERS 1,000 ML IV SCH (20:19)
[2019-08-11] MEDS: ALPRAZolam 0.5 MG TAB PO PRN (21:25)
[2019-08-12] MEDS ORDERED: KETOROLAC 30 MG/ML 1 ML VIAL IM SCH
[2019-08-12] MEDS: KETOROLAC 30 MG/ML 1 ML VIAL IVP SCH ×5 (00:05→22:51)
[2019-08-12] MEDS: HYDROmorphone PCA 10 MG/50 ML BAG IV PRN ×2 (02:55→19:37)
[2019-08-12 07:20] LABS: Basophils % (A) 0 %; Eosinophils # (A) 0.1 k/uL (0-0.7); Eosinophils % (A) 1 %; HGB 12.7 gm/dL (11.4-16.0); Lymphocytes # (A) 2.2 k/uL (1.0-4.8); Lymphocytes % (A) 20 %; MCHC 32.7 g/dL (31.0-37.0); MCV 94.9 fL (80.0-100.0); Mean Platelet Volume 7.8; Monocytes # (A) 0.7 k/uL (0-1.0); Monocytes % (A) 7 %; Neutrophils # (A) 7.6 k/uL (1.3-7.7); Neutrophils % (A) 70 %; Platelet Count 192 k/uL (150-450); RBC 4.11 m/uL (3.80-5.40); RDW 11.8 % (11.5-15.5); WBC 10.8 k/uL (3.8-10.6)
[2019-08-12 07:48] LABS: African American GFR (CKD) >90 (>60 ml/min/1.73 sqM); Anion Gap 8 mmol/L; Blood Urea Nitrogen 7 mg/dL (7-17); Calcium 8.9 mg/dL (8.4-10.2); Carbon Dioxide 24 mmol/L (22-30); Chloride 105 mmol/L (98-107); Glucose 102 mg/dL (74-99); Magnesium 1.8 mg/dL (1.6-2.3); Non-African American GFR(CKD) >90 (>60 ml/min/1.73 sqM); Sodium 137 mmol/L (137-145)
[2019-08-12] MEDS: HEPARIN SODIUM,PORCINE 5,000 UNIT/ML 1 ML VIAL SQ SCH ×2 (09:43→20:10)
[2019-08-12] MEDS: FAMOTIDINE 20 MG/2 ML VIAL IV SCH ×2 (09:43→20:10)
[2019-08-12] MEDS: SODIUM CHLORIDE 0.9% 1,000 ML IV SCH (09:44)
--- NOTE | 2019-08-12 14:06 | P.PN ---
Subjective Progress Note Date: 08/12/19 CHIEF COMPLAINT: Crohn's disease HISTORY OF PRESENT ILLNESS: The patient is a 39-year-old female status post ileocolectomy for Crohn's disease, 08/10/2019. She is tolerating diet. She only complains of incisional pain that has improved with Toradol. She is ambulating in her room with her and child present. No flatus or bowel movements. She is on clear liquid diet. ROS: No reports of nausea and vomiting. No bowel movements. No fevers or chills. No new chest pain. No productive sputum PHYSICAL EXAM: VITAL SIGNS: Reviewed CONSTITUTIONAL: Well developed and in no acute distress. EYES: Conjuctivae without sclera icterus. Extraocular movements grossly intact. HEAD, EARS, NOSE, THROAT: Moist buccal mucosa. Head is atraumatic, normocephalic. Hears conversational speech. No nasal drainage. NECK: Supple. No thyroidomegaly. RESPIRATORY: Non-labored respirations and equal bilateral excursions. CARDIOVASCULAR: Palpable 2+ radial pulses. Regular rate. Regular rhythm. ABDOMEN: Incisions clean dry and intact. Soft. No peritonitis. Abdominal binder present MUSCULOSKELETAL: No gross deformity of the lower extremities noted. No clubbing. No cyanosis. SKIN: Good skin turgor. Well perfused. NEUROLOGIC: Cranial nerves I through XII grossly intact. No focal or lateral izing signs. PSYCH: Appropriate affect. Alert and oriented to person, place and time. CLINICAL LABS: White blood cell count normal improvement from 12.9-10.8 ASSESSMENT: 1. Crohn's disease 2. Status post ileocolectomy PLAN: 1. Pain management adjusted to include Toradol 30 mg every 6 hours 2. Await bowel function prior to advance diet. Objective - Vital Signs Vital signs: Vital Signs Temp 98.5 F 08/12/19 07:00 Pulse 75 08/12/19 08:00 Resp 16 08/12/19 08:00 BP 120/82 08/12/19 07:00 Pulse Ox 94 L 08/12/19 07:00 Intake & Output 08/11/19 08/12/19 08/12/19 18:59 06:59 18:59 Intake Total 450 Output Total 1700 Balance -1700 450 Intake: Intake, IV Titration 450 Amount Sodium Chloride 0.9% 1, 450 000 ml @ 75 mls/hr IV . [id number] [facility] Rx#:[id number] Output: Urine 1700 Uretheral (Cardoza) 500 Other: Voiding Method Indwelling Catheter Toilet Toilet # Voids 1 3 - Labs CBC & Chem 7: 08/12/19 07:05 08/12/19 07:05 Labs: Abnormal Lab Results - Last 24 Hours (Table) 08/12/19 08/12/19 Range/Units 07:05 07:05 WBC 10.8 H (3.8-10.6) k/uL Creatinine 0.50 L (0.52-1.04) mg/dL Glucose 102 H (74-99) mg/dL Assessment and Plan (1) SBO (small bowel obstruction) Current Visit: Yes Status: Acute Code(s): K56.609 - UNSP INTESTNL OBST, UNSP TO PARTIAL VERSUS COMPLETE OBST SNOMED Code(s): 916188765 (2) Abdominal pain Current Visit: No Status: Acute Code(s): R10.9 - UNSPECIFIED ABDOMINAL PAIN SNOMED Code(s): 59404849 (3) Crohn's disease Current Visit: No Status: Acute Code(s): K50.90 - CROHN'S DISEASE, UNSPECIFIED, WITHOUT COMPLICATIONS SNOMED Code(s): 83683853
[2019-08-12] MEDS: METOCLOPRAMIDE 5 MG/ML 2 ML VIAL IVP SCH ×2 (15:34→20:10)
[2019-08-12] MEDS: ALPRAZolam 0.5 MG TAB PO PRN ×2 (15:42→22:51)
--- NOTE | 2019-08-12 16:14 | P.PN ---
Subjective Progress Note Date: 08/12/19 Principal diagnosis: Small bowel obstruction Patient is status post exploratory laparotomy with partial colectom; Postoperative day #1 Patient examined this morning the bedside. Patient is complaining of pain greater than 10 out of 10. She states she is unable to get out of bed or move today secondary to the pain. She denies nausea but states she is unable to eat anything this morning secondary to the pain. Vital signs stable. Low-grade temperature this morning of 99.3. WBC 12.9. Surgery is following and recommending to continue with clear liquid diet as tolerated; patient has been using IV Dilaudid for pain control and has been started on FISH SMOKER; continue with incentive spirometry, IV fluids; increase activity as tolerated 08/12/2019 Patient seen and evaluated in room at bedside; does report improvement in pain control; recommended to have stool softener; patient is refusing; advised to discuss with surgery; currently tolerating clear liquid diet; surgery is recommending advancing diet once bowel function is stable; patient remains on FISH SMOKER and Toradol 30 mg every 6 hours Reviewed and White Blood Count Is Slowly Trending down to 10.8; chemical profile remained stable Objective - Vital Signs Vital signs: Vital Signs Temp 98.5 F 08/12/19 07:00 Pulse 75 08/12/19 08:00 Resp 16 08/12/19 08:00 BP 120/82 08/12/19 07:00 Pulse Ox 94 L 08/12/19 07:00 Intake & Output 08/11/19 08/12/19 08/12/19 18:59 06:59 18:59 Intake Total 450 Output Total 1700 Balance -1700 450 Intake: Intake, IV Titration 450 Amount Sodium Chloride 0.9% 1, 450 000 ml @ 75 mls/hr IV . [id number] [facility] Rx#:[id number] Output: Urine 1700 Uretheral ([place]) 500 Other: Voiding Method Indwelling Catheter Toilet Toilet # Voids 1 3 - Exam PHYSICAL EXAMINATION: GENERAL: The patient is alert and oriented x3, not in any acute distress. Well developed, well nourished. HEENT: Pupils are round and equally reacting to light. EOMI. No scleral icterus. No conjunctival pallor. Normocephalic, atraumatic. No pharyngeal erythema. No thyromegaly. CARDIOVASCULAR: S1 and S2 present. No murmurs, rubs, or gallops. PULMONARY: Chest is clear to auscultation, no wheezing or crackles. ABDOMEN: Soft, nontender, nondistended, normoactive bowel sounds. No palpable organomegaly. MUSCULOSKELETAL: No joint swelling or deformity. EXTREMITIES: No cyanosis, clubbing, or pedal edema. NEUROLOGICAL: Gross neurological examination did not reveal any focal deficits. SKIN: No rashes. - Labs CBC & Chem 7: 08/12/19 07:05 08/12/19 07:05 Labs: Abnormal Lab Results - Last 24 Hours (Table) 08/12/19 08/12/19 Range/Units 07:05 07:05 WBC 10.8 H (3.8-10.6) k/uL Creatinine 0.50 L (0.52-1.04) mg/dL Glucose 102 H (74-99) mg/dL Assessment and Plan Assessment: Recurrent small bowel obstruction Celiac disease Hepatitis C status post treatment History of MRSA infection Status post bowel resection and hernia repair Plan: This is a pleasant 412 days old female who presents with recurrent bowel obstruction, surgical team evaluated the patient and they don't decide about need for surgical intervention home cold GI team upon recommendation. Pain management. Nothing by mouth, IV fluids Labs and medication were reviewed.. Continue same treatment. Continue with symptomatic treatment. Resume home medication. Monitor lytes and vitals. DVT and GI prophylaxis. Further recommendations of the clinical course of the patient DVT prophylaxis: Subcutaneous heparin GI Prophylaxis: Pepcid PT/OT: Pending
[2019-08-12] MEDS: LACTATED RINGERS 1,000 ML IV SCH (20:15)
[2019-08-13] MEDS: SODIUM CHLORIDE 0.9% 1,000 ML IV SCH ×2 (00:42→11:44)
[2019-08-13] MEDS: METOCLOPRAMIDE 5 MG/ML 2 ML VIAL IVP SCH ×4 (03:30→20:23)
[2019-08-13] MEDS: KETOROLAC 30 MG/ML 1 ML VIAL IVP SCH ×3 (04:55→17:11)
[2019-08-13] MEDS: ALPRAZolam 0.5 MG TAB PO PRN ×2 (07:26→17:12)
[2019-08-13] MEDS: FAMOTIDINE 20 MG/2 ML VIAL IV SCH ×2 (07:26→20:23)
[2019-08-13] MEDS: HEPARIN SODIUM,PORCINE 5,000 UNIT/ML 1 ML VIAL SQ SCH ×2 (07:26→20:23)
[2019-08-13 07:31] LABS: African American GFR (CKD) >90 (>60 ml/min/1.73 sqM); Anion Gap 4 mmol/L; Blood Urea Nitrogen 5 mg/dL (7-17); Calcium 8.2 mg/dL (8.4-10.2); Carbon Dioxide 26 mmol/L (22-30); Chloride 105 mmol/L (98-107); Glucose 75 mg/dL (74-99); Non-African American GFR(CKD) >90 (>60 ml/min/1.73 sqM); Potassium 3.5 mmol/L (3.5-5.1); Sodium 135 mmol/L (137-145)
[2019-08-13 11:25] VITALS: BMI 25.3
--- NOTE | 2019-08-13 12:18 | P.PN ---
Subjective Progress Note Date: 08/13/19 CHIEF COMPLAINT: Crohn's disease HISTORY OF PRESENT ILLNESS: The patient is a 39-year-old female status post ileocolectomy for Crohn's disease, 08/10/2019. She started to pass flatus after being placed on Reglan. No nausea. She is tolerating clears. No bowel movements. She is still sore but more tolerable in the last 2 days. ROS: No reports of nausea and vomiting. No bowel movements. No fevers or chills. No new chest pain. No productive sputum PHYSICAL EXAM: VITAL SIGNS: Reviewed CONSTITUTIONAL: Well developed and in no acute distress. EYES: Conjuctivae without sclera icterus. Extraocular movements grossly intact. HEAD, EARS, NOSE, THROAT: Moist buccal mucosa. Head is atraumatic, normocephalic. Hears conversational speech. No nasal drainage. NECK: Supple. No thyroidomegaly. RESPIRATORY: Non-labored respirations and equal bilateral excursions. CARDIOVASCULAR: Palpable 2+ radial pulses. Regular rate. Regular rhythm. ABDOMEN: Incisions dry and intact. Soft. No peritonitis. Abdominal binder present. No cellulitis or infection. Less than 1 cm shadowing along mid 1/3 of incision. MUSCULOSKELETAL: No gross deformity of the lower extremities noted. No clubbing. No cyanosis. SKIN: Good skin turgor. Well perfused. NEUROLOGIC: Cranial nerves I through XII grossly intact. No focal or lateralizing signs. PSYCH: Appropriate affect. Alert and oriented to person, place and time. CLINICAL LABS: No new labs today ASSESSMENT: 1. Crohn's disease 2. Status post ileocolectomy PLAN: 1. Will advance diet cautiously. 2. Start full liquid diet. 3. Current regimen of Reglan, Toradol effective per patient. Objective - Vital Signs Vital signs: Vital Signs Temp 98.9 F 08/13/19 07:25 Pulse 79 08/13/19 07:25 Resp 16 08/13/19 07:25 BP 125/84 08/13/19 07:25 Pulse Ox 95 08/13/19 07:25 Intake & Output 08/12/19 08/13/19 08/13/19 17:59 06:59 18:59 Intake Total 1210 Balance 1210 Weight 67 kg Intake: Intake, IV Titration 150 Amount Sodium Chloride 0.9% 1, 150 000 ml @ 75 mls/hr IV . [id number] [facility] Rx#:[id number] Oral 1060 Other: Voiding Method Toilet # Voids 2 - Labs CBC & Chem 7: 08/12/19 07:05 08/13/19 06:22 Labs: Abnormal Lab Results - Last 24 Hours (Table) 08/13/19 Range/Units 06:22 Sodium 135 L (137-145) mmol/L BUN 5 L (7-17) mg/dL Creatinine 0.44 L (0.52-1.04) mg/dL Calcium 8.2 L (8.4-10.2) mg/dL Assessment and Plan (1) SBO (small bowel obstruction) Current Visit: Yes Status: Acute Code(s): K56.609 - UNSP INTESTNL OBST, UNSP TO PARTIAL VERSUS COMPLETE OBST SNOMED Code(s): 457823356 (2) Abdominal pain Current Visit: No Status: Acute Code(s): R10.9 - UNSPECIFIED ABDOMINAL PAIN SNOMED Code(s): 30818062 (3) Crohn's disease Current Visit: No Status: Acute Code(s): K50.90 - CROHN'S DISEASE, UNSPECIFIED, WITHOUT COMPLICATIONS SNOMED Code(s): 87717242
[2019-08-13] MEDS: HYDROmorphone PCA 10 MG/50 ML BAG IV PRN (13:36)
[2019-08-13] MEDS: LACTATED RINGERS 1,000 ML IV SCH (17:14)
--- NOTE | 2019-08-13 17:23 | P.PN ---
Subjective Progress Note Date: 08/13/19 Principal diagnosis: Small bowel obstruction Patient is status post exploratory laparotomy with partial colectom; Postoperative day #1 Patient examined this morning the bedside. Patient is complaining of pain greater than 10 out of 10. She states she is unable to get out of bed or move today secondary to the pain. She denies nausea but states she is unable to eat anything this morning secondary to the pain. Vital signs stable. Low-grade temperature this morning of 99.3. WBC 12.9. Surgery is following and recommending to continue with clear liquid diet as tolerated; patient has been using IV Dilaudid for pain control and has been started on DELI/BAKERY ASSOCIATE; continue with incentive spirometry, IV fluids; increase activity as tolerated 08/12/2019 Patient seen and evaluated in room at bedside; does report improvement in pain control; recommended to have stool softener; patient is refusing; advised to discuss with surgery; currently tolerating clear liquid diet; surgery is recommending advancing diet once bowel function is stable; patient remains on DELI/BAKERY ASSOCIATE and Toradol 30 mg every 6 hours Reviewed and White Blood Count Is Slowly Trending down to 10.8; chemical profile remained stable 08/13/2019 Patient is sitting up in bed and seems comfortable; diet has been advanced to full liquid; patient has been passing gas, no bowel movement yet; remains on Reglan Surgery is following and recommending to advance diet cautiously; patient's diet has been advanced to full liquid; she remains on Reglan and Toradol for nausea and pain control Objective - Vital Signs Vital signs: Vital Signs Temp 98.4 F 08/13/19 15:00 Pulse 66 08/13/19 15:00 Resp 18 08/13/19 15:00 BP 130/81 08/13/19 15:00 Pulse Ox 96 08/13/19 16:33 Intake & Output 08/12/19 08/13/19 08/13/19 17:59 06:59 18:59 Intake Total 1210 Balance 1210 Weight 67 kg Intake: Intake, IV Titration 150 Amount Sodium Chloride 0.9% 1, 150 000 ml @ 75 mls/hr IV . [id number] [facility] Rx#:[id number] Oral 1060 Other: Voiding Method Toilet # Voids 2 - Exam PHYSICAL EXAMINATION: GENERAL: The patient is alert and oriented x3, not in any acute distress. Well developed, well nourished. HEENT: Pupils are round and equally reacting to light. EOMI. No scleral icterus. No conjunctival pallor. Normocephalic, atraumatic. No pharyngeal erythema. No thyromegaly. CARDIOVASCULAR: S1 and S2 present. No murmurs, rubs, or gallops. PULMONARY: Chest is clear to auscultation, no wheezing or crackles. ABDOMEN: Soft, nontender, nondistended, normoactive bowel sounds. No palpable organomegaly. MUSCULOSKELETAL: No joint swelling or deformity. EXTREMITIES: No cyanosis, clubbing, or pedal edema. NEUROLOGICAL: Gross neurological examination did not reveal any focal deficits. SKIN: No rashes. - Labs CBC & Chem 7: 08/12/19 07:05 08/13/19 06:22 Labs: Abnormal Lab Results - Last 24 Hours (Table) 08/13/19 Range/Units 06:22 Sodium 135 L (137-145) mmol/L BUN 5 L (7-17) mg/dL Creatinine 0.44 L (0.52-1.04) mg/dL Calcium 8.2 L (8.4-10.2) mg/dL Assessment and Plan Assessment: Recurrent small bowel obstruction Celiac disease Hepatitis C status post treatment History of MRSA infection Status post bowel resection and hernia repair Plan: This is a pleasant 412 days old female who presents with recurrent bowel obstruction, surgical team evaluated the patient and they don't decide about need for surgical intervention home cold GI team upon recommendation. Pain management. Nothing by mouth, IV fluids Labs and medication were reviewed.. Continue same treatment. Continue with symptomatic treatment. Resume home medication. Monitor lytes and vitals. DVT and GI prophylaxis. Further recommendations of the clinical course of the patient DVT prophylaxis: Subcutaneous heparin GI Prophylaxis: Pepcid PT/OT: Pending
[2019-08-14] MEDS: METOCLOPRAMIDE 5 MG/ML 2 ML VIAL IVP SCH ×4 (00:36→22:01)
[2019-08-14] MEDS: KETOROLAC 30 MG/ML 1 ML VIAL IVP SCH ×4 (00:36→17:31)
[2019-08-14] MEDS: ALPRAZolam 0.5 MG TAB PO PRN ×3 (00:38→22:05)
[2019-08-14] MEDS: SODIUM CHLORIDE 0.9% 1,000 ML IV SCH ×2 (03:04→16:19)
--- NOTE | 2019-08-14 06:51 | P.PN ---
Subjective date of service for the note : 08/10/19 This is a pleasant 39 years old female with past medical history of Crohn's disease, hepatitis C status post treatment, several times of small bowel obstruction, MRSA infection, status post bowel resection and hernia repair. She had surgery in 2014 and since then she has a third attack of bowel obstruction, yesterday evening about 7 PM she started having abdominal distention with periumbilical pain with some nausea but no vomiting, her pain was nonradiating felt like sharp and rachel very severe about 10/10, now is 8/10 with Dilaudid, she had some bowel movement yesterday 3 PM and nonsustained, she has little gas this morning. She admits smoking, alcohol or illicit tracts, patient is counseled to quit smoking Vitals stable, mild leukocytosis of 11.7 K on the presentation came back to normal at 10.6, rest of the CBC, BMP liver enzymes are unremarkable and UA is also suspicious of infection. Chest x-ray: No acute process by radiologist. Abdomen and pelvic CT: Multiple dilated distal small bowel loops with the liquids, no free air In the emergency room patient was started on pain management with Dilaudid, IV fluids with normal saline at 75 mL/h, NG tube was inserted Surgical team has evaluated the patient 08/14/19 pt was lying in bed not in distress , still complaining from mid abd pain and tenderness and going for exp lapratomy on 08/10/19 4 BJ colonic anastomosis stricture, status post partial colectomy and ileostomy. Today which was lying in bed comfortable with no distress, no chest pain or dyspnea, she had one meal last night, mainly soft and that is been well tolerated, patient is passing gases. No bowel movement yet, abdominal pain is controlled. And dressing is in a Place Objective - Vital Signs Vital signs: Vital Signs Temp 98.5 F 08/14/19 02:10 Pulse 82 08/14/19 02:10 Resp 18 08/14/19 02:10 BP 115/78 08/14/19 02:10 Pulse Ox 93 L 08/14/19 02:10 Intake & Output 08/13/19 08/13/19 08/14/19 06:59 18:59 06:59 Intake Total 1210 Balance 1210 Weight 67 kg Intake: Intake, IV Titration 150 Amount Sodium Chloride 0.9% 1, 150 000 ml @ 75 mls/hr IV . [id number] [facility] Rx#:[id number] Oral 1060 Other: Voiding Method Toilet Toilet # Voids 2 2 - Exam GENERAL: The patient is alert and oriented x3, not in any acute distress. Well developed, well nourished. HEENT: Pupils are round and equally reacting to light. EOMI. No scleral icterus. No conjunctival pallor. Normocephalic, atraumatic. No pharyngeal erythema. No thyromegaly. CARDIOVASCULAR: S1 and S2 present. No murmurs, rubs, or gallops. PULMONARY: Chest is clear to auscultation, no wheezing or crackles. -ABDOMEN: Soft, mid umbilical tenderness, no rebound tenderness or guarding, nondistended, normoactive bowel sounds. No palpable organomegaly. mid-abdomen scar MUSCULOSKELETAL: No joint swelling or deformity. EXTREMITIES: No cyanosis, clubbing, or pedal edema. NEUROLOGICAL: Gross neurological examination did not reveal any focal deficits. SKIN: No rashes. No petechiae - Labs CBC & Chem 7: 08/12/19 07:05 08/13/19 06:22 Labs: Abnormal Lab Results - Last 24 Hours (Table) 08/13/19 Range/Units 06:22 Sodium 135 L (137-145) mmol/L BUN 5 L (7-17) mg/dL Creatinine 0.44 L (0.52-1.04) mg/dL Calcium 8.2 L (8.4-10.2) mg/dL Assessment and Plan Assessment: Recurrent small bowel obstruction,status post exploratory laparotomy on 08/09 with colectomy and ileocolostomy Celiac disease, not active tissue Hepatitis C status post treatment History of MRSA infection Status post bowel resection and hernia repair Plan: This is a pleasant 41 days old female who presents with recurrent bowel obstruction, Patient status post exploratory laparotomy on 08/09 with colectomy and ileocolostomy. Surgical team are following the case closely. Advance diet as tolerated. Pain control. Continue with gentle hydration Labs and medication were reviewed.. Continue same treatment. Continue with symptomatic treatment. Resume home medication. Monitor lytes and vitals. DVT and GI prophylaxis. Further recommendations of the clinical course of the patient DVT prophylaxis: Subcutaneous heparin GI Prophylaxis: Pepcid Prognosis is guarded
[2019-08-14 08:13] LABS: Basophils % (A) 0 %; Eosinophils # (A) 0.2 k/uL (0-0.7); Eosinophils % (A) 4 %; HCT 31.2 % (34.0-46.0); HGB 10.4 gm/dL (11.4-16.0); Lymphocytes # (A) 1.9 k/uL (1.0-4.8); Lymphocytes % (A) 31 %; MCH 30.9 pg (25.0-35.0); MCHC 33.2 g/dL (31.0-37.0); MCV 93.1 fL (80.0-100.0); Mean Platelet Volume 8.7; Monocytes # (A) 0.4 k/uL (0-1.0); Monocytes % (A) 7 %; Neutrophils # (A) 3.4 k/uL (1.3-7.7); Neutrophils % (A) 56 %; Platelet Count 210 k/uL (150-450); RBC 3.35 m/uL (3.80-5.40); RDW 11.8 % (11.5-15.5); WBC 5.9 k/uL (3.8-10.6)
[2019-08-14 08:15] LABS: African American GFR (CKD) >90 (>60 ml/min/1.73 sqM); Anion Gap 6 mmol/L; Blood Urea Nitrogen 5 mg/dL (7-17); Calcium 8.3 mg/dL (8.4-10.2); Carbon Dioxide 24 mmol/L (22-30); Chloride 106 mmol/L (98-107); Glucose 77 mg/dL (74-99); Non-African American GFR(CKD) >90 (>60 ml/min/1.73 sqM); Potassium 3.4 mmol/L (3.5-5.1); Sodium 136 mmol/L (137-145)
[2019-08-14 09:01] LABS: C Reactive Protein 48.2 mg/L (<10.0)
[2019-08-14] MEDS: FAMOTIDINE 20 MG/2 ML VIAL IV SCH ×2 (09:40→21:56)
[2019-08-14] MEDS: HEPARIN SODIUM,PORCINE 5,000 UNIT/ML 1 ML VIAL SQ SCH ×2 (09:40→21:55)
--- NOTE | 2019-08-14 10:25 | P.PN ---
<Zoe Almaraz Arnold - Last Filed: 08/14/19 10:20> Subjective Progress Note Date: 08/14/19 CHIEF COMPLAINT: Small bowel obstruction HISTORY OF PRESENT ILLNESS: Patient is status post exploratory laparotomy with partial colectomy with Dr. Sheffield. Patient examined this morning the bedside. Patient appears much more comfortable this morning. However, she is still rating her pain 8/10. She remains on Dilaudid BULB FARMWORKER pump and Toradol. She is tolerating full liquid diet. Liquid bowel movement this morning. Denies nausea. WBC 5.9. Hemoglobin 10.4. Vitals stable. Afebrile. PHYSICAL EXAM: VITAL SIGNS: Reviewed. GENERAL: Well-developed in no acute distress. HEENT: No sclera icterus. Extraocular movements grossly intact. Moist buccal mucosa. Head is atraumatic, normocephalic. ABDOMEN: Soft. Dressing noted with small amount of drainage noted. Abdominal binder noted. NEUROLOGIC: Alert and oriented. Cranial nerves II through XII grossly intact. ASSESSMENT: 1. Abdominal pain 2. Small bowel obstruction 3. History of Crohn's disease 4. History bowel resection, 2014 5. History of previous small bowel obstructions treated with conservative management PLAN: -Patient does not feel ready to advance diet. Continue full liquid diet at this time. -Continue Dilaudid BULB FARMWORKER for today. Discussion held with patient regarding transition to oral pain medications, possibly tomorrow, in attempts to get her ready for discharge. Patient agreeable. -Incentive spirometer -Activity as tolerated -Replace potassium. Check magnesium level. -New optifoam ordered. Change abdominal dressing today Nurse practitioner note has been reviewed by physician. Signing provider agrees with the documented findings, assessment, and plan of care. Objective - Vital Signs Vital signs: Vital Signs Temp 98.5 F 08/14/19 07:00 Pulse 77 08/14/19 07:00 Resp 16 08/14/19 07:00 BP 125/80 08/14/19 07:00 Pulse Ox 94 L 08/14/19 07:00 Intake & Output 08/13/19 08/14/19 08/14/19 18:59 06:59 18:59 Intake Total 1210 200 Balance 1210 200 Weight 67 kg Intake: Intake, IV Titration 150 Amount Sodium Chloride 0.9% 1, 150 000 ml @ 50 mls/hr IV . Q20H [facility] Rx#:[id number] Oral 1060 200 Other: Voiding Method Toilet Toilet Toilet # Voids 2 2 1 # Bowel Movements 1 - Labs CBC & Chem 7: 08/14/19 07:21 08/14/19 07:21 Labs: Abnormal Lab Results - Last 24 Hours (Table) 08/14/19 08/14/19 Range/Units 07:21 07:21 RBC 3.35 L (3.80-5.40) m/uL Hgb 10.4 L (11.4-16.0) gm/dL Hct 31.2 L (34.0-46.0) % Sodium 136 L (137-145) mmol/L Potassium 3.4 L (3.5-5.1) mmol/L BUN 5 L (7-17) mg/dL Creatinine 0.42 L (0.52-1.04) mg/dL Calcium 8.3 L (8.4-10.2) mg/dL C-Reactive Protein 48.2 H (<10.0) mg/L <Gibson Sheffield - Last Filed: 08/14/19 17:11> Subjective As above. Patient requesting more to eat. Will advance to low fiber diet at this time. Continue ambulation. Minimize BULB FARMWORKER use. Hopefully discharge tomorrow. Objective - Vital Signs Vital signs: Vital Signs Temp 98.5 F 08/14/19 07:00 Pulse 77 08/14/19 07:00 Resp 16 08/14/19 07:00 BP 125/80 08/14/19 07:00 Pulse Ox 94 L 08/14/19 07:00 Intake & Output 08/13/19 08/14/19 08/14/19 18:59 06:59 18:59 Intake Total 1210 1000 Balance 1210 1000 Weight 67 kg Intake: Intake, IV Titration 150 600 Amount Sodium Chloride 0.9% 1, 150 600 000 ml @ 50 mls/hr IV . Q20H [facility] Rx#:[id number] Oral 1060 400 Other: Voiding Method Toilet Toilet Toilet # Voids 2 2 3 # Bowel Movements 1 - Labs CBC & Chem 7: 08/14/19 07:21 08/14/19 07:21 Labs: Abnormal Lab Results - Last 24 Hours (Table) 03/09/20 03/09/20 Range/Units 07:21 07:21 RBC 3.35 L (3.80-5.40) m/uL Hgb 10.4 L (11.4-16.0) gm/dL Hct 31.2 L (34.0-46.0) % Sodium 136 L (137-145) mmol/L Potassium 3.4 L (3.5-5.1) mmol/L BUN 5 L (7-17) mg/dL Creatinine 0.42 L (0.52-1.04) mg/dL Calcium 8.3 L (8.4-10.2) mg/dL C-Reactive Protein 48.2 H (<10.0) mg/L
[2019-08-14] MEDS: POTASSIUM CHLORIDE ER 20 MEQ TAB.ER PO SCH ×2 (11:09→12:40)
[2019-08-14] MEDS: HYDROmorphone PCA 10 MG/50 ML BAG IV PRN (16:22)
[2019-08-14] MEDS: LACTATED RINGERS 1,000 ML IV SCH (19:01)
[2019-08-14] MEDS ORDERED: Potassium Replacement Protocol 1 EACH MISC MISCELLANE PRN (20:10)
[2019-08-15] MEDS: KETOROLAC 30 MG/ML 1 ML VIAL IVP SCH ×5 (00:27→23:51)
[2019-08-15] MEDS: METOCLOPRAMIDE 5 MG/ML 2 ML VIAL IVP SCH ×2 (02:49→08:41)
[2019-08-15 08:29] LABS: African American GFR (CKD) >90 (>60 ml/min/1.73 sqM); Anion Gap 6 mmol/L; Blood Urea Nitrogen 6 mg/dL (7-17); Calcium 8.6 mg/dL (8.4-10.2); Carbon Dioxide 28 mmol/L (22-30); Chloride 103 mmol/L (98-107); Glucose 78 mg/dL (74-99); Magnesium 1.5 mg/dL (1.6-2.3); Non-African American GFR(CKD) >90 (>60 ml/min/1.73 sqM); Potassium 3.6 mmol/L (3.5-5.1); Sodium 137 mmol/L (137-145)
[2019-08-15] MEDS: HEPARIN SODIUM,PORCINE 5,000 UNIT/ML 1 ML VIAL SQ SCH ×2 (08:40→22:27)
[2019-08-15] MEDS: FAMOTIDINE 20 MG/2 ML VIAL IV SCH (08:40)
[2019-08-15] MEDS: SODIUM CHLORIDE 0.9% 1,000 ML IV SCH (12:51)
[2019-08-15] MEDS ORDERED: POTASSIUM CHLORIDE ER 20 MEQ TAB.ER PO STA (12:51)
--- NOTE | 2019-08-15 12:52 | P.PN ---
<Zoe Almaraz - Last Filed: 08/15/19 12:46> Subjective Progress Note Date: 08/15/19 CHIEF COMPLAINT: Small bowel obstruction HISTORY OF PRESENT ILLNESS: Patient is status post exploratory laparotomy with partial colectomy with Dr. Sheffield. Patient examined this morning the bedside. Patient continues to report abdominal pain. [employer] pump was discontinued this morning. Patient is receiving Story. She reports multiple bowel movements this morning. She is tolerating diet without nausea or vomiting. PHYSICAL EXAM: VITAL SIGNS: Reviewed. GENERAL: Well-developed in no acute distress. HEENT: No sclera icterus. Extraocular movements grossly intact. Moist buccal mucosa. Head is atraumatic, normocephalic. ABDOMEN: Soft. Dressing noted. Abdominal binder noted. NEUROLOGIC: Alert and oriented. Cranial nerves II through XII grossly intact. ASSESSMENT: 1. Abdominal pain 2. Small bowel obstruction 3. History of Crohn's disease 4. History bowel resection, 2014 5. History of previous small bowel obstructions treated with conservative management PLAN: -Continue diet as tolerated -DC Reglan -Continue Story and IV Toradol -Replace magnesium and potassium -Patient is stable for discharge home. However, she is hesitant to be discharged home this afternoon because she has a toddler at home and is afraid of "overdoing it". Dr. Sheffield will re-evaluate patient this afternoon for possible discharge today versus tomorrow Nurse practitioner note has been reviewed by physician. Signing provider agrees with the documented findings, assessment, and plan of care. Objective - Vital Signs Vital signs: Vital Signs Temp 98.0 F 08/15/19 07:05 Pulse 62 08/15/19 07:05 Resp 18 08/15/19 07:05 BP 124/73 08/15/19 07:05 Pulse Ox 96 08/15/19 07:05 Intake & Output 08/14/19 08/15/19 08/15/19 18:59 06:59 18:59 Intake Total 1000 300 200 Balance 1000 300 200 Intake: Intake, IV Titration 600 Amount Sodium Chloride 0.9% 1, 600 000 ml @ 50 mls/hr IV . Q20H [facility] Rx#:[id number] Oral 400 300 200 Other: Voiding Method Toilet # Voids 3 1 # Bowel Movements 1 - Labs CBC & Chem 7: 08/14/19 07:21 08/15/19 07:01 Labs: Abnormal Lab Results - Last 24 Hours (Table) 08/15/19 Range/Units 07:01 BUN 6 L (7-17) mg/dL Creatinine 0.49 L (0.52-1.04) mg/dL Magnesium 1.5 L (1.6-2.3) mg/dL <Gibson Sheffield - Last Filed: 08/15/19 16:59> Subjective As above. Patient's pain is improving. She was not taking any narcotics today after the Dilaudid [employer] was discontinued. Anticipate discharge in a.m. Follow- up one week. Objective - Vital Signs Vital signs: Vital Signs Temp 99.0 F 08/15/19 14:40 Pulse 70 08/15/19 14:40 Resp 16 08/15/19 14:40 BP 131/83 08/15/19 14:40 Pulse Ox 95 08/15/19 14:40 Intake & Output 08/14/19 08/15/19 08/15/19 18:59 06:59 18:59 Intake Total 1000 300 600 Balance 1000 300 600 Intake: Intake, IV Titration 600 Amount Sodium Chloride 0.9% 1, 600 000 ml @ 50 mls/hr IV . Q20H [facility] Rx#:[id number] Oral 400 300 600 Other: Voiding Method Toilet # Voids 3 1 2 # Bowel Movements 1 - Labs CBC & Chem 7: 08/14/19 07:21 08/15/19 07:01 Labs: Abnormal Lab Results - Last 24 Hours (Table) 08/15/19 Range/Units 07:01 BUN 6 L (7-17) mg/dL Creatinine 0.49 L (0.52-1.04) mg/dL Magnesium 1.5 L (1.6-2.3) mg/dL
[2019-08-15] MEDS: MAGNESIUM SULFATE-D5W PMX 1 GM in DEXTROSE/WATER 1 100ML.BAG IVPB SCH ×2 (13:15→14:16)
[2019-08-15] MEDS: ALPRAZolam 0.5 MG TAB PO PRN ×2 (13:21→22:39)
[2019-08-15] MEDS: HYDROcodone/APAP 5-325MG 1 EACH TAB PO PRN (19:27)
[2019-08-15] MEDS: HYDROmorphone 1 MG/ML 1 ML SYRINGE IVP PRN ×2 (19:28→22:39)
[2019-08-15] MEDS ORDERED: MAGNESIUM SULFATE-D5W PMX 1 GM in DEXTROSE/WATER 1 100ML.BAG IVPB ONE (21:27)
--- NOTE | 2019-08-15 21:27 | P.PN ---
Subjective date of service for the note : 08/10/19 This is a pleasant 39 years old female with past medical history of Crohn's disease, hepatitis C status post treatment, several times of small bowel obstruction, MRSA infection, status post bowel resection and hernia repair. She had surgery in 2014 and since then she has a third attack of bowel obstruction, yesterday evening about 7 PM she started having abdominal distention with periumbilical pain with some nausea but no vomiting, her pain was nonradiating felt like sharp and rachel very severe about 10/, now is 8/10 with Dilaudid, she had some bowel movement yesterday 3 PM and nonsustained, she has little gas this morning. She admits smoking, alcohol or illicit tracts, patient is counseled to quit smoking Vitals stable, mild leukocytosis of 11.7 K on the presentation came back to normal at 10.6, rest of the CBC, BMP liver enzymes are unremarkable and UA is also suspicious of infection. Chest x-ray: No acute process by radiologist. Abdomen and pelvic CT: Multiple dilated distal small bowel loops with the liquids, no free air In the emergency room patient was started on pain management with Dilaudid, IV fluids with normal saline at 75 mL/h, NG tube was inserted Surgical team has evaluated the patient 08/14/19 pt was lying in bed not in distress , still complaining from mid abd pain and tenderness and going for exp lapratomy on 08/10/19 4 BJ colonic anastomosis stricture, status post partial colectomy and ileostomy. Today which was lying in bed comfortable with no distress, no chest pain or dyspnea, she had one meal last night, mainly soft and that is been well tolerated, patient is passing gases. No bowel movement yet, abdominal pain is controlled. And dressing is in a Place 08/15/19 pt did not feel she is ready for discharge today , diet is been advanced gradually vitals stable , labs reviewed possible dc in 24 hours Objective - Vital Signs Vital signs: Vital Signs Temp 98.3 F 08/15/19 19:25 Pulse 78 08/15/19 19:25 Resp 17 08/15/19 19:25 BP 124/81 08/15/19 19:25 Pulse Ox 97 08/15/19 19:25 Intake & Output 08/15/19 08/15/19 08/16/19 06:59 18:59 06:59 Intake Total 300 600 Balance 300 600 Intake: Oral 300 600 Other: # Voids 1 2 1 - Exam GENERAL: The patient is alert and oriented x3, not in any acute distress. Well developed, well nourished. HEENT: Pupils are round and equally reacting to light. EOMI. No scleral icterus. No conjunctival pallor. Normocephalic, atraumatic. No pharyngeal erythema. No thyromegaly. CARDIOVASCULAR: S1 and S2 present. No murmurs, rubs, or gallops. PULMONARY: Chest is clear to auscultation, no wheezing or crackles. -ABDOMEN: Soft, mid umbilical tenderness, no rebound tenderness or guarding, nondistended, normoactive bowel sounds. No palpable organomegaly. mid-abdomen scar MUSCULOSKELETAL: No joint swelling or deformity. EXTREMITIES: No cyanosis, clubbing, or pedal edema. NEUROLOGICAL: Gross neurological examination did not reveal any focal deficits. SKIN: No rashes. No petechiae - Labs CBC & Chem 7: 08/14/19 07:21 08/15/19 07:01 Labs: Abnormal Lab Results - Last 24 Hours (Table) 08/15/19 Range/Units 07:01 BUN 6 L (7-17) mg/dL Creatinine 0.49 L (0.52-1.04) mg/dL Magnesium 1.5 L (1.6-2.3) mg/dL Assessment and Plan Assessment: Recurrent small bowel obstruction,status post exploratory laparotomy on 08/09 with colectomy and ileocolostomy Celiac disease, not active tissue Hepatitis C status post treatment History of MRSA infection Status post bowel resection and hernia repair Plan: This is a pleasant 39 days old female who presents with recurrent bowel obstruction, Patient status post exploratory laparotomy on 08/09 with colectomy and ileocolostomy. Surgical team are following the case closely. Advance diet as tolerated. Pain control. Continue with gentle hydration Labs and medication were reviewed.. Continue same treatment. Continue with symptomatic treatment. Resume home medication. Monitor lytes and vitals. DVT and GI prophylaxis. Further recommendations of the clinical course of the patient DVT prophylaxis: Subcutaneous heparin GI Prophylaxis: Pepcid Prognosis is guarded
[2019-08-15] MEDS: FAMOTIDINE 20 MG TAB PO SCH (22:27)
[2019-08-15] MEDS: LACTATED RINGERS 1,000 ML IV SCH (23:45)
[2019-08-16] MEDS: HYDROcodone/APAP 5-325MG 1 EACH TAB PO PRN ×2 (01:17→08:08)
[2019-08-16] MEDS: HYDROmorphone 1 MG/ML 1 ML SYRINGE IVP PRN ×2 (02:12→06:01)
[2019-08-16] MEDS: SODIUM CHLORIDE 0.9% 1,000 ML IV SCH (06:04)
[2019-08-16 07:37] LABS: Magnesium 1.9 mg/dL (1.6-2.3); Potassium 3.8 mmol/L (3.5-5.1)
[2019-08-16 07:50] VITALS: BP 111/67; PULSE 66; RESP 15; TEMP 98.5
[2019-08-16] MEDS: HEPARIN SODIUM,PORCINE 5,000 UNIT/ML 1 ML VIAL SQ SCH (08:03)
[2019-08-16] MEDS: FAMOTIDINE 20 MG TAB PO SCH (08:03)
[2019-08-16] MEDS: ALPRAZolam 0.5 MG TAB PO PRN (09:21)
--- NOTE | 2019-08-16 09:50 | P.PN ---
Subjective Progress Note Date: 08/16/19 CHIEF COMPLAINT: Small bowel obstruction HISTORY OF PRESENT ILLNESS: Patient is status post exploratory laparotomy with partial colectomy with Dr. Sheffield. Patient examined this morning the bedside. Patient continues to report abdominal pain thi morning but states it is tolerable. She is tolerating diet. Denies nausea or vomiting. Passing flatus and having bowel movements. PHYSICAL EXAM: VITAL SIGNS: Reviewed. GENERAL: Well-developed in no acute distress. HEENT: No sclera icterus. Extraocular movements grossly intact. Moist buccal mucosa. Head is atraumatic, normocephalic. ABDOMEN: Soft. Dressing noted. Abdominal binder noted. NEUROLOGIC: Alert and oriented. Cranial nerves II through XII grossly intact. ASSESSMENT: 1. Abdominal pain 2. Small bowel obstruction 3. History of Crohn's disease 4. History bowel resection, 2014 5. History of previous small bowel obstructions treated with conservative management PLAN: Patient is stable for discharge home today from a surgical standpoint. Will defer to internal medicine. Pres[facility] for [place] [facility] Patient to hold her Humira for [address] Sheffield. She is to follow up outpatient with Dr. Sheffield. Nurse practitioner note has been reviewed by physician. Signing provider agrees with the documented findings, assessment, and plan of care. Objective - Vital Signs Vital signs: Vital Signs Temp 98.5 F 08/16/19 07:00 Pulse 66 08/16/19 07:00 Resp 15 08/16/19 07:00 BP 111/67 08/16/19 07:00 Pulse Ox 97 08/16/19 07:00 Intake & Output 08/15/19 08/16/19 08/16/19 18:59 06:59 18:59 Intake Total 600 Balance 600 Intake: Oral 600 Other: # Voids 2 2 - Labs CBC & Chem 7: 08/14/19 07:21 08/16/19 06:52
--- NOTE | 2019-08-16 09:52 | P.DS ---
Providers Date of admission: 08/09/19 02:56 Attending physician: Joselo Sheth Consults: 08/09/19 01:59 Consult Physician Routine Consulting Provider: Gibson Sheffield Consult Reason/Comments: Small bowel obstruction Do you want consulting provider notified?: Yes Primary care physician: Raquel Villeda Hospital Course: diagnoses: Recurrent small bowel obstruction,status post exploratory laparotomy on 08/09 with colectomy and ileocolostomy Celiac disease, not active tissue Hepatitis C status post treatment History of MRSA infection Status post bowel resection and hernia repair hospital course This is a pleasant 39 years old female with past medical history of Crohn's disease, hepatitis C status post treatment, several times of small bowel obstruction, MRSA infection, status post bowel resection and hernia repair. She had surgery in 2014 and since then she has a third attack of bowel obstruction, patient presents with upper abdominal distention and periumbilical pain with nausea and no vomiting, patient has been evaluated by surgical service,Abdomen and pelvic CT: Multiple dilated distal small bowel loops with the liquids, no free air. Patient was asking for surgery to be done for her, surgical team evaluated the patient and she underwent exploratory laparotomy on 08/09 with colectomy and ileocolostomy, postsurgically her pain is controlled, she is tolerating diet well, she had regular bowel movements yesterday and today. No nausea vomiting. No other new complaints Patient was cleared for discharge by surgical team Problems and management plan were discussed with the patient and he verbalized understanding and acceptance Patient was found stable and can be discharged home however he needs follow-up as an outpatient. Patient was instructed to follow up with PCP Dr. miranda within one week as well as Dr. angulo in 1-2 weeks and patient agrees and wants to make her own appointments Gen: patient is a AAOx3, no distress CVS: S1-S2, RRR, no murmur Lungs: B/L CTA, no wheezing Abdomen: soft, no distention, no tenderness, positive bowel sounds. Surgical wound is closed with dressing is in place Extremity: no leg edema or induration Time spent more than 35 minutes Patient Condition at Discharge: Serious Plan - Discharge Summary Discharge Rx Participant: Yes New Discharge Prescriptions: No Action Umeclidinium [place] [Incruse Ellipta] 1 puff INHALATION RT-DAILY Loperamide [Imodium] 2 - 4 mg PO TID PRN PRN Reason: Diarrhea Albuterol Sulfate [Ventolin HFA] 2 puff INHALATION RT-Q4H PRN PRN Reason: Shortness Of Breath Adalimumab [Humira(Cf) Pen] 40 mg SQ Q14D Multivitamins, Thera [Multivitamin (formulary)] 1 tab PO DAILY Discharge Medication List Loperamide [Imodium] 2 - 4 mg PO TID PRN 01/28/19 [History] Umeclidinium [place] [Incruse Ellipta] 1 puff INHALATION RT-DAILY 01/28/19 [History] Adalimumab [Humira(Cf) Pen] 40 mg SQ Q14D 04/30/19 [History] Albuterol Sulfate [Ventolin HFA] 2 puff INHALATION RT-Q4H PRN 04/30/19 [History] Multivitamins, Thera [Multivitamin (formulary)] 1 tab PO DAILY 08/09/19 [History] Follow up Appointment(s)/Referral(s): Gibson Sheffield MD [Medical Doctor] - 1 Week Raquel Villeda MD [Primary Care Provider] - 1-2 days
--- NOTE | 2019-08-16 11:10 | CDI ---
Documentation Clarification Form Date: 08/16/2019 CDS: Angela Marcos, CCS, CCDS Admit Date: 08/09/2019 Patient Name: Bianca Lucas Discharge Date: ATTENTION: The Clinical Documentation Specialists (CDI) and [facility] Coding Staff appreciate your assistance in clarifying documentation. Please respond to the clarification below the line at the bottom and electronically sign. The CDI & [facility] Coding staff will review the response and follow-up if needed. Please note: Queries are made part of the Legal Health Record. If you have any questions, please contact the author of this message via ITS. Dear Sheet: Per the 08/15 Discharge Summary and previous attending progress notes, the patient is diagnosed with a recurrent small bowel obstruction, nos; history of Crohn's disease & Celiac disease not active issue. The cause of the small bowel obstruction is not clearly documented. History/Risk Factors: Crohn's disease, Celiac disease, recurrent small bowel obstructions, Hepatitis C status post treatment, Previous MRSA infection to abdomen, previous bowel resection & hernia repair. Clinical Indicators: Presented to the ED on 08/08 with abdominal distention with periumbilical pain with some nausea, no vomiting. Radiology findings: 08/08 CT Abdomen & Pelvis: Distal mechanical small bowel obstruction at the anastomosis of the ileum with the right colon. Surgical Consult 3/: Abdominal pain, Small bowel obstruction, History of Crohn's disease, History of bowel resection 2014, History of previous small bowel obstructions treated with conservative management. Treatment 3/4: IV Dilaudid, IV Zofran, IV fluid bolus 1,000 mls @ 999 mls/hr. Procedure: Exploratory laparotomy with partial colectomy, ileocolostomy. In your professional opinion, can you please clarify the cause of the small bowel obstruction if known? Small bowel obstruction related to Crohn's disease Small bowel obstruction related to other condition, please specify: Other, please specify Unable to determine (Last Revision: September 2017) possible SBO related to adhesion , vs others MTDD
== END 2019-08-16 11:48 | disposition home or self-care (01) | DRG 330 ==
LOC: EC 23:43 → 4SSUR 08-09 02:56
PROVIDERS: ADMIT Hospitalist; ATTEND Hospitalist
PROC: 0DBK0ZZ Excision of Ascending Colon, Open Approach (ICD-10-PCS; principal; 2019-08-10 07:30)
PROC: 0D1B0ZK Bypass Ileum to Ascending Colon, Open Approach (ICD-10-PCS; principal; 2019-08-10 07:30)
DX: K56.50 Intestinal adhesions [bands], unspecified as to partial versus complete obstruction (principal); K50.00 Crohn's disease of small intestine without complications; F17.200 Nicotine dependence, unspecified, uncomplicated; F32.9 Major depressive disorder, single episode, unspecified; Z86.14 Personal history of Methicillin resistant Staphylococcus aureus infection; Z86.711 Personal history of pulmonary embolism; Z90.49 Acquired absence of other specified parts of digestive tract; Z98.890 Other specified postprocedural states; Z80.9 Family history of malignant neoplasm, unspecified; Z79.899 Other long term (current) drug therapy; Z88.8 Allergy status to other drugs, medicaments and biological substances
CPT/HCPCS: 36415; 74177; 80048; 80053; 80076; 81001; 81025; 82150; 83605; 83690; 83735; 84132; 84703; 85025; 85652; 86140; 88307; 94760; 94762; 96361; 96374; 96375; 96376; 99285

== ENCOUNTER 2020-11-16 22:56 | Emergency (ER) | payer MEDICARE, OTHER ==
[2020-11-16 23:00] VITALS: BP 132/93; PULSE 76; RESP 18; TEMP 97.9
--- NOTE | 2020-11-16 23:46 | ED ---
ENT HPI - General Chief complaint: ENT Stated complaint: swollen jaw Time Seen by Provider: 11/16/20 23:23 Source: patient Mode of arrival: ambulatory Limitations: no limitations - History of Present Illness Initial comments: Patient is a 40-year-old female presenting to emergency Department with complaints of right sided jaw swelling that's been intermittent for the past month. She states she just had a follow-up with her dentist a few days ago, they do not think it's dental related. She has no teeth pain. She is already missing teeth on the bottom right side. She denies any fevers or chills. She states only thing that is change it she started fading about a month ago and does have a lot of dry mouth. She denies any fevers or chills, no nausea or vomiting, no chest pain or shortness of breath. She has no further complaints at this time. - Related Data Home Medications Medication Instructions Recorded Confirmed Umeclidinium [place] [Incruse 1 puff INHALATION RT-DAILY 01/28/19 08/09/19 Ellipta] Albuterol Sulfate [Ventolin HFA] 2 puff INHALATION RT-Q4H PRN 04/30/19 08/09/19 Multivitamins, Thera [Multivitamin 1 tab PO DAILY 08/09/19 08/09/19 (formulary)] Previous Rx's Medication Instructions Recorded Famotidine [Pepcid] 20 mg PO Q12HR #60 tab 08/16/19 Hydrocodone/Acetaminophen [[place] 1 tab PO Q6HR PRN #10 tab 08/16/19 5-325] Melatonin 3 mg PO HS PRN #7 tablet 08/16/19 Allergies Allergy/AdvReac Type Severity Reaction Status Date / Time prednisone AdvReac Hallucinati Verified 11/16/20 23:00 ons prochlorperazine AdvReac AGITATION Verified 11/16/20 23:00 [From Compazine] Review of Systems ROS Statement: Those systems with pertinent positive or pertinent negative responses have been documented in the HPI. ROS Other: All systems not noted in ROS Statement are negative. Past Medical History Past Medical History: Pulmonary Embolus (PE) Additional Past Medical History / Comment(s): HEPATITIS C received treatment reports levels are now undetectable , crohn's disease, SBO History of Any Multi-Drug Resistant Organisms: MRSA Date of last positivie culture/infection: 06/12/15 MRSA @ [facility] MDRO Source:: Abdomen Past Surgical History: Bowel Resection, Hernia Repair Additional Past Surgical History / Comment(s): VICTOR HUGO FOOT SURGERY, BOWEL RESECTION,. carpal tunnel surgery bilat hand Past Anesthesia/Blood Transfusion Reactions: No Reported Reaction Past Psychological History: Depression Smoking Status: Vaper Past Alcohol Use History: None Reported Past Drug Use History: None Reported - Past Family History Father Family Medical History: Cancer General Exam - General Exam Comments Initial Comments: GENERAL: Patient is well-developed and well-nourished. Patient is nontoxic and in no acute distress. HEAD: Atraumatic, normocephalic. EYES: Pupils equal round and reactive to light, extraocular movements intact, sclera anicteric, conjunctiva are normal. Eyelids were unremarkable. ENT: TMs normal, nares patent, oropharynx clear without exudates. Moist mucous membranes. Patient does have some very mild swelling noted to the right jaw area, painful underneath along the salivary duct gland. NECK: Normal range of motion, supple without lymphadenopathy or JVD. LUNGS: Unlabored respirations. Breath sounds clear to auscultation bilaterally and equal. No wheezes rales or rhonchi. HEART: Regular rate and rhythm without murmurs, rubs or gallops. ABDOMEN: Soft, nontender, normoactive bowel sounds. No guarding, no rebound. No masses appreciated. : Deferred MUSCULOSKELETAL: Normal extremities with adequate strength and normal range of motion, no pitting or edema. No clubbing or cyanosis. NEUROLOGICAL: Patient is alert and oriented x 3. Motor and sensory are also intact. Cranial nerves II through XII grossly intact. Symmetrical smile. Normal speech, normal gait. PSYCH: Normal mood, normal affect. SKIN: Warm, Dry, normal turgor, no rashes or lesions noted. Limitations: no limitations Course Vital Signs 11/16/20 22:57 Temperature 97.9 F Pulse Rate 76 Respiratory 18 Rate Blood Pressure 132/93 O2 Sat by Pulse 96 Oximetry Medical Decision Making - Medical Decision Making Patient is a 40-year-old female here with some mild swelling noted to the right jaw fits been intermittent over the past month. She did have a recent follow-up with her dentist, ruled out dental infection. Her vitals are stable, no fevers. I discussed with patient that I think this could be a clogged salivary duct. She started fainting about a month ago and often has a dry mouth. I recommended increasing her water intake, trial of sour candies and foods to increase saliva production. She can follow up with ENT if symptoms persist. She is stable for discharge and she is in agreement with this plan of care. Case discussed with Dr. Vora. Disposition Clinical Impression: Pain in lower jaw, Salivary disorder Disposition: HOME SELF-CARE Condition: Stable Instructions (If sedation given, give patient instructions): Sialoadenitis (ED) Additional Instructions: Please return to the Emergency Department if symptoms worsen or any other concerns. Increase fluid intake, do not smoke or vape, this dries out the mouth more. Sour candies. Follow up with ENT as discussed. Is patient prescribed a controlled substance at d/c from ED?: No Referrals: Raquel Villeda MD [Primary Care Provider] - 1-2 days Layo Ordaz MD [STAFF PHYSICIAN] - 1-2 days Time of Disposition: 23:46
== END 2020-11-16 23:58 | disposition home or self-care (01) ==
LOC: EC 22:56
DX: K11.9 Disease of salivary gland, unspecified (principal); F32.9 Major depressive disorder, single episode, unspecified; F17.290 Nicotine dependence, other tobacco product, uncomplicated; Z86.711 Personal history of pulmonary embolism
CPT/HCPCS: 99283

== ENCOUNTER → 2021-03-19 | Outpatient (CLI) | payer MEDICARE, OTHER ==
[2021-03-19 17:50] LABS: Basophils # (A) 0.02 X 10*3/uL (0.00-0.10); Basophils % (A) 0.3 %; Eosinophils # (A) 0.11 X 10*3/uL (0.04-0.35); Eosinophils % (A) 1.4 %; HCT 37.9 % (37.2-46.3); Lymphocytes # (A) 3.04 X 10*3/uL (0.90-5.00); Lymphocytes % (A) 39.6 %; MCH 29.9 pg (27.0-32.0); MCHC 31.7 g/dL (32.0-37.0); MCV 94.5 fL (80.0-97.0); Mean Platelet Volume 10.3 fL (9.5-12.2); Monocytes # (A) 0.57 X 10*3/uL (0.20-1.00); Monocytes % (A) 7.4 %; Neutrophils # (A) 3.92 X 10*3/uL (1.80-7.70); Neutrophils % (A) 51.2 %; Platelet Count 230 X 10*3/uL (140-440); RBC 4.01 X 10*6/uL (4.10-5.20); RDW 12.3 % (11.5-14.5); WBC 7.67 X 10*3/uL (4.50-10.00)
[2021-03-19 19:36] LABS: African American GFR (CKD) 116.6 (60.0-200.0); Albumin 4.5 g/dL (3.8-4.9); Albumin/Globulin Ratio 1.96 (1.60-3.17); Anion Gap 14.9 mmol/L (4.00-12.00); BUN/Creat Ratio 13.4 Ratio (12.00-20.00); Blood Urea Nitrogen 9.9 mg/dL (9.0-27.0); Calcium 9.5 mg/dL (8.7-10.3); Carbon Dioxide 18.7 mmol/L (21.6-31.8); Globulin 2.3 g/dL (1.6-3.3); Non-African American GFR(CKD) 100.6 (60.0-200.0); Potassium 4.3 mmol/L (3.5-5.5); Total Bilirubin 0.4 mg/dL (0.30-1.20); Total Protein 6.7 g/dL (6.2-8.2)
== END | disposition home or self-care (01) ==
LOC: LABWHC1 10:37
PROVIDERS: ATTEND Internal Medicine Gastroenterology
DX: K50.90 Crohn's disease, unspecified, without complications (principal)
CPT/HCPCS: 36415; 80053; 85025

== ENCOUNTER → 2021-03-19 | Outpatient (CLI) | payer MEDICARE, OTHER ==
--- NOTE | 2021-03-19 14:44 | US ---
EXAMINATION TYPE: US pelvis complete transvag DATE OF EXAM: 03/19/2021 COMPARISON: CT 2019 CLINICAL HISTORY: N92.6 Irregular menses. Copper IUD TECHNIQUE: Transvaginal (TV) and Transabdominal (TA) . Transabdominal sonographic images of the pel vis were acquired. Transvaginal sonographic images were medically necessary to better assess the fol lowing anatomy: Ovaries Date of LMP: Irregular EXAM MEASUREMENTS: Uterus: 8.6x3.1x4.1 cm Endometrial Stripe: 0.5 cm Right Ovary: 4.4x3.5x4.1 cm Left Ovary: 1.3x1.0x1.1 cm 1. Uterus: Anteverted wnl 2. Endometrium: wnl 3. Right Ovary: Large cyst 3.4x3.3x2.8cm 4. Left Ovary: Dominant follicle 1.0x0.6x0.7cm 5. Bilateral Adnexa: wnl 6. Posterior cul-de-sac: wnl IMPRESSION: 1. Right ovarian cyst. 2. IUD within the endometrial canal
== END | disposition home or self-care (01) ==
LOC: RADUSWWP 10:07
PROVIDERS: ATTEND Family Medicine
DX: N83.201 Unspecified ovarian cyst, right side (principal); Z97.5 Presence of (intrauterine) contraceptive device
CPT/HCPCS: 76830; 76856

== ENCOUNTER → 2021-06-17 | Outpatient (CLI) | payer MEDICARE, OTHER | END | disposition home or self-care (01) | LOC: LABWHC1 13:48 | PROVIDERS: ATTEND Family Medicine | DX: Z20.822 Contact with and (suspected) exposure to COVID-19 (principal); R09.81 Nasal congestion; J02.9 Acute pharyngitis, unspecified | CPT/HCPCS: U0003; C9803 ==

== ENCOUNTER 2021-09-22 15:55 | Observation (INO) | payer MEDICARE, OTHER ==
[2021-09-22] MEDS ORDERED: KETOROLAC 15 MG/ML 1 ML VIAL IVP STA (18:56)
[2021-09-22] MEDS ORDERED: SODIUM CHLORIDE 0.9% 1,000 ML IV STA (18:56)
[2021-09-22] MEDS ORDERED: ONDANSETRON 4 MG/2 ML VIAL IVP STA (18:56)
[2021-09-22 19:49] LABS: Basophils % (A) 0 %; Eosinophils # (A) 0.1 k/uL (0-0.7); Eosinophils % (A) 1 %; HCT 37.4 % (34.0-46.0); HGB 12.7 gm/dL (11.4-16.0); Lymphocytes % (A) 35 %; MCH 31.9 pg (25.0-35.0); MCHC 34.1 g/dL (31.0-37.0); MCV 93.7 fL (80.0-100.0); Mean Platelet Volume 7.4; Monocytes # (A) 0.5 k/uL (0-1.0); Monocytes % (A) 5 %; Neutrophils # (A) 4.9 k/uL (1.3-7.7); Neutrophils % (A) 56 %; Platelet Count 245 k/uL (150-450); RBC 3.99 m/uL (3.80-5.40); RDW 13.1 % (11.5-15.5); WBC 8.6 k/uL (3.8-10.6)
[2021-09-22] MEDS ORDERED: MORPHINE SULFATE 4 MG/ML SYRINGE IVP STA ×2 (19:59→21:47)
[2021-09-22 20:00] LABS: ALT 23 U/L (4-34); AST 26 U/L (14-36); African American GFR (CKD) >90 (>60 ml/min/1.73 sqM); Albumin 4.3 g/dL (3.5-5.0); Alkaline Phosphatase 57 U/L (38-126); Amylase 49 U/L (30-110); Anion Gap 7 mmol/L; Blood Urea Nitrogen 11 mg/dL (7-17); Carbon Dioxide 26 mmol/L (22-30); Chloride 105 mmol/L (98-107); Glucose 136 mg/dL (74-99); Lipase 40 U/L (23-300); Non-African American GFR(CKD) >90 (>60 ml/min/1.73 sqM); Potassium 3.5 mmol/L (3.5-5.1); Sodium 138 mmol/L (137-145); Total Bilirubin 0.4 mg/dL (0.2-1.3); Total Protein 7.3 g/dL (6.3-8.2)
[2021-09-22 20:01] LABS: INR 0.9 (<1.2); Partial Thromboplastin Time 23.7 sec (22.0-30.0); Prothrombin Time 9.7 sec (9.0-12.0)
[2021-09-22 20:06] LABS: Appearance,Urine Clear (Clear); Bilirubin,Urine Negative (Negative); Blood,Urine Negative (Negative); Color,Urine Yellow; Glucose,Urine (UA) Negative (Negative); Ketones,Urine Negative (Negative); Leukocyte Esterase,Urine Negative (Negative); Nitrite,Urine Negative (Negative); PH, Urine 5.5 (5.0-8.0); Protein,Urine Negative (Negative); Specific Gravity,Urine 1.017 (1.001-1.035); Urobilinogen,Urine <2.0 mg/dL (<2.0)
--- NOTE | 2021-09-22 20:28 | XR ---
EXAMINATION TYPE: XR abdomen acute w cxr DATE OF EXAM: 09/22/2021 7:38 PM INDICATION: Patient age:Female; 41 years old; Reason for study: Abdominal pain; COMPARISON: CT abdomen 08/09/2019. TECHNIQUE: Two radiographic views of the abdomen and an a chest radiograph were obtained. FINDINGS CHEST: Lungs/Pleura: The lungs are clear. There is no evidence of pleural effusion, focal consolidation or p neumothorax. Mediastinum: Unremarkable. Vasculature: Normal. Heart: Normal in size. Musculoskeletal: The osseous structures are intact. Other findings: No significant. FINDINGS ABDOMEN: Bowel gas pattern: Normal without dilated loops of small or large bowel. Fecal material and gas are d emonstrated throughout the colon and rectum. Abnormal calcifications: None. Musculoskeletal: Dextroscoliosis changes most pronounced within the mid and upper lumbar spine. These are similar prior Other: IUD is seen projecting over the pelvis. IMPRESSION: 1. No radiographic evidence for acute abdominal process. 2. No acute cardiopulmonary process 3. Dextroscoliosis. 4. IUD projecting over the pelvis.
[2021-09-22] MEDS ORDERED: MAG HYDROX/AL HYDROX/SIMETH 30 ML, HYOSCYAMINE ELIXIR 10 ML, LIDOCAINE VISCOUS 2% 10 ML PO STA ×3 (20:43)
--- NOTE | 2021-09-22 21:29 | CT ---
EXAMINATION TYPE: CT abdomen pelvis w con CT DLP: 968.7 mGycm, Automated exposure control for dose reduction was used. DATE OF EXAM: 09/22/2021 9:13 PM COMPARISON: CT abdomen pelvis most recent from 08/09/2019. CLINICAL INDICATION:Female, 41 years old with history of Abdominal pain, acute, nonlocalized; epigast zoya pain TECHNIQUE: Standard CT of the abdomen and pelvis following the administration of 100 cc of Isovue 3 00 IV contrast material. Coronal and sagittal reformats were performed. FINDINGS: LOWER CHEST: Unremarkable ABDOMEN LIVER: Unremarkable GALLBLADDER AND BILE DUCTS: Similar prominence to the biliary system. PANCREAS: Similar prominent main pancreatic duct. SPLEEN: Unremarkable. ADRENAL GLANDS: Unremarkable. KIDNEYS AND URETERS: No evidence of hydronephrosis or renal calculus. The ureters are unremarkable. PELVIS BLADDER: Unremarkable REPRODUCTIVE: Intrauterine device seen within the endometrium. Left ovarian dominant follicle measuri ng 25 mm. ABDOMEN & PELVIS STOMACH AND BOWEL: Post surgical change changes to the colon on the right without evidence of bowel o bstruction. PERITONEUM: No evidence of pneumoperitoneum or free fluid. VASCULATURE: No evidence of aortic aneurysm. MUSCULOSKELETAL: No acute osseous abnormalities. Dextroscoliosis apex at L2. LYMPH NODES: No gross evidence for lymphadenopathy. SOFT TISSUE/ABDOMINAL WALL: Surgical changes to the anterior abdominal wall. IMPRESSION: 1. No evidence for acute intra-abdominal process to explain the patient's pain. 2. Postsurgical changes to the colon without evidence of bowel obstruction. 3. Dextroscoliosis apex at L2. Similar to prior.
--- NOTE | 2021-09-22 22:35 | ED ---
Abdominal Pain HPI - General Chief Complaint: Abdominal Pain Stated Complaint: abdominal pain Time Seen by Provider: 09/22/21 18:40 Source: patient Mode of arrival: ambulatory Limitations: no limitations - History of Present Illness Initial Comments: Patient is a 41-year-old female presenting with chief complaint of epigastric pain. Patient has past medical history of Crohn's disease and multiple bowel obstructions. Patient states that she has been experiencing a sharp stabbing pain in the epigastric region for several days now. She is unable to get relief with different positions, no difference with eating or drinking, no medication helps her symptoms. She admits to nausea and vomiting. Denies chest pain, shortness of breath, fever, chills, hematochezia, hematemesis, hematuria, urgency, frequency, dysuria, weakness, numbness, tingling, headache, URI-like symptoms. - Related Data Home Medications Medication Instructions Recorded Confirmed Adalimumab [Humira(Cf) Pen] 40 mg SQ Q14D 09/22/21 09/22/21 Butalb/APAP/Caff 50-325-40Mg 1 tab PO BID PRN 09/22/21 09/22/21 [Fioricet 50-325-40] Gabapentin [Neurontin] 300 mg PO BID 09/22/21 09/22/21 Loperamide [Imodium] 4 mg PO TID 09/22/21 09/22/21 Melatonin 10 mg PO HS 09/22/21 09/22/21 Pantoprazole Sodium [Protonix] 20 mg PO DAILY 09/22/21 09/22/21 Pnv,Calcium 72/Iron/Folic Acid 1 tab PO DAILY 09/22/21 09/22/21 [ Plus Tablet] traMADol HCL [Ultram] 50 mg PO BID 09/22/21 09/22/21 Allergies Allergy/AdvReac Type Severity Reaction Status Date / Time prednisone AdvReac Hallucinati Verified 09/22/21 21:16 ons prochlorperazine AdvReac AGITATION Verified 09/22/21 21:16 [From Compazine] Review of Systems ROS Statement: Those systems with pertinent positive or pertinent negative responses have been documented in the HPI. ROS Other: All systems not noted in ROS Statement are negative. Past Medical History Past Medical History: Pulmonary Embolus (PE) Additional Past Medical History / Comment(s): HEPATITIS C received treatment reports levels are now undetectable , crohn's disease, SBO History of Any Multi-Drug Resistant Organisms: MRSA Date of last positivie culture/infection: 06/12/15 MRSA @ [facility] MDRO Source:: Abdomen Past Surgical History: Bowel Resection, Hernia Repair Additional Past Surgical History / Comment(s): VICTOR HUGO FOOT SURGERY, BOWEL RESECTION,. carpal tunnel surgery bilat hand Past Anesthesia/Blood Transfusion Reactions: No Reported Reaction Past Psychological History: Depression Smoking Status: Vaper Past Alcohol Use History: None Reported Past Drug Use History: None Reported - Past Family History Father Family Medical History: Cancer General Exam Limitations: no limitations General appearance: alert, in distress Head exam: Present: atraumatic, normocephalic, normal inspection Eye exam: Present: normal appearance. Absent: scleral icterus ENT exam: Present: normal exam, mucous membranes moist Neck exam: Present: normal inspection Respiratory exam: Present: normal lung sounds bilaterally. Absent: respiratory distress, wheezes, rales, rhonchi, stridor Cardiovascular Exam: Present: regular rate, normal rhythm, normal heart sounds. Absent: systolic murmur, diastolic murmur, rubs, gallop, clicks GI/Abdominal exam: Present: soft, tenderness (Mainly epigastric, tender throughout), normal bowel sounds. Absent: distended, guarding, rebound, rigid Neurological exam: Present: alert, oriented X3, CN II-XII intact Psychiatric exam: Present: normal affect, normal mood Skin exam: Present: warm, dry, intact, normal color. Absent: rash Course Vital Signs 09/22/21 16:06 Temperature 98.5 F Pulse Rate 72 Respiratory 16 Rate Blood Pressure 148/84 O2 Sat by Pulse 100 Oximetry Medical Decision Making - Medical Decision Making Patient is a 41-year-old female with history of Crohn's disease and several bowel obstructions presenting with chief complaint of epigastric pain. Patient admits to nausea, vomiting, diarrhea. Vitals are stable. On examination there is tenderness mainly in the epigastric region, and slightly less tenderness all throughout. Bowel sounds in all 4 quadrants. Lab work is unremarkable. Acute abdominal series x-ray shows no acute process. CT of the abdomen and pelvis with contrast shows no evidence for acute intra-abdominal process to explain the patient's pain. It also, some postsurgical changes to the colon without evidence of bowel obstruction and dextroscoliosis apex at L2, similar to prior. Patient received Toradol, GI cocktail, Zofran, and morphine for pain control. Patient is experiencing little pain relief. I spoke with Dr. Butler from [facility] who agreed to admit the patient for observation for intractable abdominal pain. Dr. Simons has been consulted. I discussed this case with my attending Dr. Acevedo. - Lab Data Result diagrams: 09/22/21 19:33 09/22/21 19:33 Lab Results 09/22/21 09/22/21 09/22/21 Range/Units 19:33 19:33 19:33 WBC 8.6 (3.8-10.6) k/uL RBC 3.99 (3.80-5.40) m/uL Hgb 12.7 (11.4-16.0) gm/dL Hct 37.4 (34.0-46.0) % MCV 93.7 (80.0-100.0) fL MCH 31.9 (25.0-35.0) pg MCHC 34.1 (31.0-37.0) g/dL RDW 13.1 (11.5-15.5) % Plt Count 245 (150-450) k/uL MPV 7.4 Neutrophils % 56 % Lymphocytes % 35 % Monocytes % 5 % Eosinophils % 1 % Basophils % 0 % Neutrophils # 4.9 (1.3-7.7) k/uL Lymphocytes # 3.0 (1.0-4.8) k/uL Monocytes # 0.5 (0-1.0) k/uL Eosinophils # 0.1 (0-0.7) k/uL Basophils # 0.0 (0-0.2) k/uL PT 9.7 (9.0-12.0) sec INR 0.9 (<1.2) APTT 23.7 (22.0-30.0) sec Sodium (137-145) mmol/L Potassium (3.5-5.1) mmol/L Chloride (98-107) mmol/L Carbon Dioxide (22-30) mmol/L Anion Gap mmol/L BUN (7-17) mg/dL Creatinine (0.52-1.04) mg/dL Est GFR (CKD-EPI)AfAm (>60 ml/min/1.73 sqM) Est GFR (CKD-EPI)NonAf (>60 ml/min/1.73 sqM) Glucose (74-99) mg/dL Plasma Lactic Acid Anton (0.7-2.0) mmol/L Calcium (8.4-10.2) mg/dL Total Bilirubin (0.2-1.3) mg/dL AST (14-36) U/L ALT (4-34) U/L Alkaline Phosphatase (38-126) U/L Troponin I (0.000-0.034) ng/mL Total Protein (6.3-8.2) g/dL Albumin (3.5-5.0) g/dL Amylase (30-110) U/L Lipase (23-300) U/L Urine Color Yellow Urine Appearance Clear (Clear) Urine pH 5.5 (5.0-8.0) Ur Specific Frederick 1.017 (1.001-1.035) Urine Protein Negative (Negative) Urine Glucose (UA) Negative (Negative) Urine Ketones Negative (Negative) Urine Blood Negative (Negative) Urine Nitrite Negative (Negative) Urine Bilirubin Negative (Negative) Urine Urobilinogen <2.0 (<2.0) mg/dL Ur Leukocyte Esterase Negative (Negative) Urine HCG, Qual (Not Detectd) 09/22/21 09/22/21 09/22/21 Range/Units 19:33 19:33 19:33 WBC (3.8-10.6) k/uL RBC (3.80-5.40) m/uL Hgb (11.4-16.0) gm/dL Hct (34.0-46.0) % MCV (80.0-100.0) fL MCH (25.0-35.0) pg MCHC (31.0-37.0) g/dL RDW (11.5-15.5) % Plt Count (150-450) k/uL MPV Neutrophils % % Lymphocytes % % Monocytes % % Eosinophils % % Basophils % % Neutrophils # (1.3-7.7) k/uL Lymphocytes # (1.0-4.8) k/uL Monocytes # (0-1.0) k/uL Eosinophils # (0-0.7) k/uL Basophils # (0-0.2) k/uL PT (9.0-12.0) sec INR (<1.2) APTT (22.0-30.0) sec Sodium 138 (137-145) mmol/L Potassium 3.5 (3.5-5.1) mmol/L Chloride 105 (98-107) mmol/L Carbon Dioxide 26 (22-30) mmol/L Anion Gap 7 mmol/L BUN 11 (7-17) mg/dL Creatinine 0.60 (0.52-1.04) mg/dL Est GFR (CKD-EPI)AfAm >90 (>60 ml/min/1.73 sqM) Est GFR (CKD-EPI)NonAf >90 (>60 ml/min/1.73 sqM) Glucose 136 H (74-99) mg/dL Plasma Lactic Acid Anton 1.0 (0.7-2.0) mmol/L Calcium 9.0 (8.4-10.2) mg/dL Total Bilirubin 0.4 (0.2-1.3) mg/dL AST 26 (14-36) U/L ALT 23 (4-34) U/L Alkaline Phosphatase 57 (38-126) U/L Troponin I (0.000-0.034) ng/mL Total Protein 7.3 (6.3-8.2) g/dL Albumin 4.3 (3.5-5.0) g/dL Amylase 49 (30-110) U/L Lipase 40 (23-300) U/L Urine Color Urine Appearance (Clear) Urine pH (5.0-8.0) Ur Specific Frederick (1.001-1.035) Urine Protein (Negative) Urine Glucose (UA) (Negative) Urine Ketones (Negative) Urine Blood (Negative) Urine Nitrite (Negative) Urine Bilirubin (Negative) Urine Urobilinogen (<2.0) mg/dL Ur Leukocyte Esterase (Negative) Urine HCG, Qual Not Detected (Not Detectd) 09/22/21 Range/Units 19:33 WBC (3.8-10.6) k/uL RBC (3.80-5.40) m/uL Hgb (11.4-16.0) gm/dL Hct (34.0-46.0) % MCV (80.0-100.0) fL MCH (25.0-35.0) pg MCHC (31.0-37.0) g/dL RDW (11.5-15.5) % Plt Count (150-450) k/uL MPV Neutrophils % % Lymphocytes % % Monocytes % % Eosinophils % % Basophils % % Neutrophils # (1.3-7.7) k/uL Lymphocytes # (1.0-4.8) k/uL Monocytes # (0-1.0) k/uL Eosinophils # (0-0.7) k/uL Basophils # (0-0.2) k/uL PT (9.0-12.0) sec INR (<1.2) APTT (22.0-30.0) sec Sodium (137-145) mmol/L Potassium (3.5-5.1) mmol/L Chloride (98-107) mmol/L Carbon Dioxide (22-30) mmol/L Anion Gap mmol/L BUN (7-17) mg/dL Creatinine (0.52-1.04) mg/dL Est GFR (CKD-EPI)AfAm (>60 ml/min/1.73 sqM) Est GFR (CKD-EPI)NonAf (>60 ml/min/1.73 sqM) Glucose (74-99) mg/dL Plasma Lactic Acid Anton (0.7-2.0) mmol/L Calcium (8.4-10.2) mg/dL Total Bilirubin (0.2-1.3) mg/dL AST (14-36) U/L ALT (4-34) U/L Alkaline Phosphatase (38-126) U/L Troponin I <0.012 (0.000-0.034) ng/mL Total Protein (6.3-8.2) g/dL Albumin (3.5-5.0) g/dL Amylase (30-110) U/L Lipase (23-300) U/L Urine Color Urine Appearance (Clear) Urine pH (5.0-8.0) Ur Specific Frederick (1.001-1.035) Urine Protein (Negative) Urine Glucose (UA) (Negative) Urine Ketones (Negative) Urine Blood (Negative) Urine Nitrite (Negative) Urine Bilirubin (Negative) Urine Urobilinogen (<2.0) mg/dL Ur Leukocyte Esterase (Negative) Urine HCG, Qual (Not Detectd) - EKG Data EKG shows normal: sinus rhythm, axis, intervals, QRS complexes Rate: normal EKG Comments: This EKG was also shown to and interpreted by my attending Dr. Acevedo. Sinus rhythm, rate of 63. SC interval 146. QRS duration 88. - Radiology Data Radiology results: report reviewed, image reviewed Acute abdominal series x-ray shows no acute process. CT of the abdomen and pelvis with contrast shows no evidence for acute intra-abdominal process to explain the patient's pain. It also, some postsurgical changes to the colon without evidence of bowel obstruction and dextroscoliosis apex at L2, similar to prior. Disposition Clinical Impression: Abdominal pain Disposition: ADMITTED IP TO THIS HOSP Condition: Good Referrals: Raquel Villeda MD [Primary Care Provider] - 1-2 days Time of Disposition: 23:06 Decision to Admit Reason: Admit from EC Decision Date: 09/22/21 Decision Time: 23:06
[2021-09-22] MEDS ORDERED: NALOXONE 0.4 MG/ML 1 ML VIAL IV PRN (22:50)
[2021-09-22] MEDS ORDERED: MORPHINE SULFATE 4 MG/ML SYRINGE IV PRN (22:50)
[2021-09-22] MEDS ORDERED: ONDANSETRON 4 MG/2 ML VIAL IVP PRN (22:50)
[2021-09-22] MEDS ORDERED: ACETAMINOPHEN TAB 325 MG TAB PO PRN (22:50)
[2021-09-22] MEDS ORDERED: HYDROmorphone 0.5 MG/0.5 ML SYRINGE IVP STA (23:50)
[2021-09-23] MEDS: SODIUM CHLORIDE 0.9% 1,000 ML IV SCH ×3 (00:04→16:29)
--- NOTE | 2021-09-23 02:51 | P.HPIM ---
History of Present Illness H&P Date: 09/23/21 Chief Complaint: Abdominal pain 41-year-old female with Crohn's disease on Humira, history of factor V Leiden with history of PE Patient comes in patient comes in with 5 day history of abdominal discomfort described it as epigastric abdominal pain refusing to the rest of the abdomen sharp in nature not related to food or activity has been persistent and getting worse she felt that was similar to her prior episodes of bowel obstruction patient also reporting multiple bowel resection s in the past. currently her symptoms includes repeated nausea and vomiting, nonbilious nonbloody, with increasing frequency of diarrhea and loose stools about 16 times a day nonbloody no melena. She describes over the past 2 days pain became worse and constant with increased bloating again no bleeding. She grew increasingly concerned and decided to come in for evaluation She denies any fevers or chills denies any recent travel or hospital stay denies any injuries. Denies any chest pain or trouble breathing She denies any tobacco smoking she admits to vaping she denies any recreational drugs she denies any heavy alcohol Blood work overall was unremarkable CAT scan of the abdomen showed no acute pathology Review of Systems Pertinent positives as noted in HPI. All other systems were reviewed and are negative Past Medical History Past Medical History: Pulmonary Embolus (PE) Additional Past Medical History / Comment(s): HEPATITIS C received treatment reports levels are now undetectable , crohn's disease, SBO, factor V Leiden with history of PE History of Any Multi-Drug Resistant Organisms: MRSA Date of last positivie culture/infection: 06/12/15 MRSA @ [facility] MDRO Source:: Abdomen Past Surgical History: Bowel Resection, Hernia Repair Additional Past Surgical History / Comment(s): VICTOR HUGO FOOT SURGERY, BOWEL RESECTION,. carpal tunnel surgery bilat hand Past Anesthesia/Blood Transfusion Reactions: No Reported Reaction Past Psychological History: Depression Smoking Status: Vaper Past Alcohol Use History: None Reported Past Drug Use History: None Reported - Past Family History Father Family Medical History: Cancer Medications and Allergies Home Medications Medication Instructions Recorded Confirmed Type Adalimumab [Humira(Cf) Pen] 40 mg SQ Q14D 09/22/21 09/22/21 History Butalb/APAP/Caff 50-325-40Mg 1 tab PO BID PRN 09/22/21 09/22/21 History [Fioricet 50-325-40] Gabapentin [Neurontin] 300 mg PO BID 09/22/21 09/22/21 History Loperamide [Imodium] 4 mg PO TID 09/22/21 09/22/21 History Melatonin 10 mg PO HS 09/22/21 09/22/21 History Pantoprazole Sodium [Protonix] 20 mg PO DAILY 09/22/21 09/22/21 History Pnv,Calcium 72/Iron/Folic Acid 1 tab PO DAILY 09/22/21 09/22/21 History [ Plus Tablet] traMADol HCL [Ultram] 50 mg PO BID 09/22/21 09/22/21 History Allergies Allergy/AdvReac Type Severity Reaction Status Date / Time prednisone AdvReac Hallucinati Verified 09/22/21 21:16 ons prochlorperazine AdvReac AGITATION Verified 09/22/21 21:16 [From Compazine] Physical Exam Vitals: Vital Signs Temp Pulse Resp BP Pulse Ox 09/22/21 23:42 75 16 108/75 96 09/22/21 16:06 98.5 F 72 16 148/84 100 Intake and Output 09/22/21 09/22/21 09/23/21 14:59 22:59 06:59 Other: Weight 77.111 kg Constitutional: No acute distress, conversant, pleasant Eyes: Anicteric sclerae, moist conjunctiva, Pupils equal round reactive to light ENMT: NC/AT Oropharynx clear, no erythema, or exudates Neck: Supple, no masses, or JVD No carotid bruits No thyromegaly Lungs: Clear to auscultation Clear to percussion Normal respiratory effort, no accessory muscle use Cardiovascular: Heart regular in rate and rhythm, No murmurs, gallops, or rubs No peripheral edema Abdominal: Soft Diffuse abdominal discomfort with epigastric tenderness to deep palpation, no guarding, rebound or rigidity Abdomen moving with respiration Normoactive bowel sounds No hepatomegaly, No splenomegaly No palpable mass No abdominal wall hernia noted Skin: Normal temperature, tone, texture, turgor No induration No subcutaneous nodules No rash, lesions No ulcers Extremities: No digital cyanosis No clubbing Pedal pulses intact and symmetrical Radial pulses intact and symmetrical No calf tenderness Psychiatric: Alert and oriented to person, place and time Appropriate affect fair judgement Neuro Muscles Strength 4/5 in all 4 extremities Sensation to light touch grossly present throughout Cranial nerves II-XII grossly intact No focal sensory deficits Lymphatics: no palpable cervical or supraclavicular , or inguinal lymph nodes Results CBC & Chem 7: 09/22/21 19:33 09/22/21 19:33 Labs: Abnormal Lab Results - Last 24 Hours (Table) 09/22/21 Range/Units 19:33 Glucose 136 H (74-99) mg/dL Assessment and Plan Assessment: Crohn's disease with history of multiple bowel obstructions status post multiple bowel resections History of thromboembolic doesn't secondary to underlying factor V Leiden Plan IV fluid hydration with saline Pain control with opiates GI consultation Symptomatic control Computed tomography scan of the abdomen and pelvis reviewed no acute changes Blood work reviewed unremarkable overall Zofran for nausea vomiting Heparin subcu 3 times a day for DVT prophylaxis PPI for GI prophylaxis Anticipated length of stay less than 2 midnights
[2021-09-23] MEDS: HYDROmorphone 0.5 MG/0.5 ML SYRINGE IVP PRN ×6 (02:57→19:45)
[2021-09-23 06:12] LABS: Basophils % (A) 1 %; Eosinophils # (A) 0.1 k/uL (0-0.7); Eosinophils % (A) 1 %; HCT 36.8 % (34.0-46.0); HGB 11.9 gm/dL (11.4-16.0); Lymphocytes # (A) 2.7 k/uL (1.0-4.8); Lymphocytes % (A) 31 %; MCHC 32.4 g/dL (31.0-37.0); MCV 95.8 fL (80.0-100.0); Monocytes # (A) 0.5 k/uL (0-1.0); Monocytes % (A) 6 %; Neutrophils # (A) 5.3 k/uL (1.3-7.7); Neutrophils % (A) 61 %; Platelet Count 201 k/uL (150-450); RBC 3.84 m/uL (3.80-5.40); RDW 12.6 % (11.5-15.5); WBC 8.7 k/uL (3.8-10.6)
[2021-09-23 06:28] LABS: ALT 22 U/L (4-34); AST 27 U/L (14-36); African American GFR (CKD) >90 (>60 ml/min/1.73 sqM); Albumin 3.7 g/dL (3.5-5.0); Alkaline Phosphatase 51 U/L (38-126); Anion Gap 6 mmol/L; Blood Urea Nitrogen 7 mg/dL (7-17); Calcium 8.1 mg/dL (8.4-10.2); Carbon Dioxide 23 mmol/L (22-30); Chloride 107 mmol/L (98-107); Glucose 87 mg/dL (74-99); Non-African American GFR(CKD) >90 (>60 ml/min/1.73 sqM); Potassium 4.4 mmol/L (3.5-5.1); Sodium 136 mmol/L (137-145); Total Bilirubin 0.6 mg/dL (0.2-1.3); Total Protein 6.4 g/dL (6.3-8.2)
[2021-09-23] MEDS: KETOROLAC 15 MG/ML 1 ML VIAL IVP PRN ×2 (08:28→16:28)
[2021-09-23] MEDS: HEPARIN SODIUM,PORCINE/PF 5,000 UNIT/0.5 ML SYRINGE SQ SCH ×3 (08:52→23:26)
[2021-09-23] MEDS: GABAPENTIN 300 MG CAP PO SCH ×2 (08:52→21:24)
[2021-09-23] MEDS: PANTOPRAZOLE 40 MG TABLET PO SCH (08:52)
[2021-09-23] MEDS ORDERED: DICYCLOMINE 20 MG TAB PO PRN (12:23)
[2021-09-23] MEDS: SIMETHICONE 80 MG CHEWABLE PO SCH ×3 (13:46→21:23)
--- NOTE | 2021-09-23 13:55 | P.CONS ---
History of Present Illness - Reason for Consult Consult date: 09/23/21 crohn's, abdominal pain Requesting physician: Bryan Tang - Chief Complaint abdominal bloating - History of Present Illness This a 41-year-old female well-known to Dr. huang for history of Crohn's disease. She follows with Dr. Yao the office and was supposed to see her a week ago however she did not make that appointment. She presented to the hospital emergency room yesterday with complaints of abdominal bloating and discomfort causing her to have some shortness of breath and inability to take a full breath. She does have a history of previous of bowel obstructions with surgery, she states she was diagnosed with Crohn's done 2003. She underwent a partial colectomy with Dr. 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 Last colonoscopy was in [address] Simons with findings of narrowing of the ileocolic anastomosis with multiple superficial erosions consistent with recurrent Crohn's disease. Colon appeared normal. Patient states she's not having any severe abdominal pain however feels more like bloating and like it's pushing up on her rib cage and diaphragm. She denies any blood in her stool but states that she has been having anywhere from 5-10 loose bowel movements a day. Patient is currently on Humira last dose taken one week ago. She takes it every 2 weeks. She denies any fevers or chills. Oxygen saturation has been 98-100% on room air. She's been afebrile. WBC 8.7 hemoglobin 11.9 platelet count 201,000 INR 0.9 Sed rate 10 CRP of less than 0.5 total bilirubin 0.6 AST 27 ALT [address] abdomen and pelvis with no acute findings. Review of Systems REVIEW OF SYSTEMS: CARDIOPULMONARY: No chest pain. Feels like she is unable to take a full breath. Gastrointestinal: Abdominal bloating. No nausea or vomiting. No hematemesis, coffee-ground emesis. No rectal bleeding, or melena. GENITOURINARY: No dysuria or hematuria. MUSCULOSKELETAL: Reports normal range of motion. SKIN: No rashes. No jaundice. ENDOCRINE: No chills, fevers. No excessive weight gain or loss. No polydipsia or polyuria. PSYCHIATRIC: Unremarkable. NEUROLOGY: No change in mental status. Denies dizziness, headache. ENT: Vision unremarkable. CONSTITUTIONAL: No recent weight loss. No fever, chills, night sweats. Past Medical History Past Medical History: Pulmonary Embolus (PE) Additional Past Medical History / Comment(s): HEPATITIS C received treatment reports levels are now undetectable , crohn's disease, SBO, factor V Leiden with history of PE History of Any Multi-Drug Resistant Organisms: MRSA Year Discovered:: 06/12/15 MRSA @ [facility] MDRO Source:: Abdomen Past Surgical History: Bowel Resection, Hernia Repair Additional Past Surgical History / Comment(s): VICTOR HUGO FOOT SURGERY, BOWEL RESECTION,. carpal tunnel surgery bilat hand Past Anesthesia/Blood Transfusion Reactions: No Reported Reaction Past Psychological History: Depression Smoking Status: Vaper Past Alcohol Use History: None Reported Additional Past Alcohol Use History / Comment(s): STARTED SMOKING AT AGE 13 SMOKES 1PPD Past Drug Use History: None Reported Additional Drug Use History / Comment(s): HAS NOT USED SINCE NOVEMBER 17 - Past Family History Father Family Medical History: Cancer Medications and Allergies Home Medications Medication Instructions Recorded Confirmed Type Adalimumab [Humira(Cf) Pen] 40 mg SQ Q14D 09/22/21 09/22/21 History Butalb/APAP/Caff 50-325-40Mg 1 tab PO BID PRN 09/22/21 09/22/21 History [Fioricet 50-325-40] Gabapentin [Neurontin] 300 mg PO BID 09/22/21 09/22/21 History Loperamide [Imodium] 4 mg PO TID 09/22/21 09/22/21 History Melatonin 10 mg PO HS 09/22/21 09/22/21 History Pantoprazole Sodium [Protonix] 20 mg PO DAILY 09/22/21 09/22/21 History Pnv,Calcium 72/Iron/Folic Acid 1 tab PO DAILY 09/22/21 09/22/21 History [ Plus Tablet] traMADol HCL [Ultram] 50 mg PO BID 09/22/21 09/22/21 History Allergies Allergy/AdvReac Type Severity Reaction Status Date / Time prednisone AdvReac Hallucinati Verified 09/22/21 21:16 ons prochlorperazine AdvReac AGITATION Verified 09/22/21 21:16 [From Compazine] Physical Exam Vitals: Vital Signs Temp Pulse Resp BP Pulse Ox 09/23/21 03:02 70 18 127/85 98 09/22/21 23:42 75 16 108/75 96 09/22/21 16:06 98.5 F 72 16 148/84 100 Intake and Output 09/22/21 09/23/21 09/23/21 22:59 06:59 14:59 Other: Weight 77.111 kg 77.111 kg General appearance: The patient is alert, oriented, appears in no acute distress. HET: Head is normocephalic and atraumatic. Conjunctiva pink. Sclera anicteric. Neck: Supple without lymphadenopathy. Trachea midline. Heart: S1 S2. Regular rate and rhythm. Lungs: Clear to auscultation. Abdomen: Soft, nontender, nondistended with bowel sounds. No guarding or rigidity. Skin: No rashes. No jaundice. Extremities: Normal skin color and turgor. No pedal edema. Neurological: No focal deficits. Alert and oriented x3. Results CBC & Chem 7: 09/23/21 05:28 09/23/21 05:28 Labs: Abnormal Lab Results - Last 24 Hours (Table) 09/22/21 09/23/21 Range/Units 19:33 05:28 Sodium 136 L (137-145) mmol/L Glucose 136 H (74-99) mg/dL Calcium 8.1 L (8.4-10.2) mg/dL Comments: CT abdomen and pelvis no evidence for acute intra-abdominal process to explain patient's pain. Postsurgical changes to: Without evidence of bowel obstruction. Dextroscoliosis apex at L2. Assessment and Plan (1) Crohn's disease Narrative/Plan: [id number] female with a history of Crohn's disease diagnosed several years ago with history of small bowel obstruction status post partial colectomy, Jose colostomy in August 2019. She presented to the emergency department with complaints of bloating discomfort and pain that is pushing up her diaphragm where she feels that she is unable to take a deep breath. Overall her Crohn's has been well managed with Humira which she takes another week, last dose one week ago Wednesday. She states she still having multiple loose stools anywhere between 5-10 a day, nonbloody. Denies any nausea or vomiting. Again CT with no acute findings. CRP and sed rate are normal indicating that patient is not an Crohn's flare at this time. Symptoms may be related to underlying IBS. Will start Bentyl, and Mylicon for gas. Current Visit: No Status: Acute Code(s): K50.90 - CROHN'S DISEASE, UNSPECIFIED, WITHOUT COMPLICATIONS SNOMED Code(s): 57588895 (2) Abdominal pain Current Visit: Yes Status: Acute Code(s): R10.9 - UNSPECIFIED ABDOMINAL PAIN SNOMED Code(s): 29432257 (3) History of hepatitis C Current Visit: No Status: Acute Code(s): Z86.19 - PERSONAL HISTORY OF OTHER INFECTIOUS AND PARASITIC DISEASES SNOMED Code(s): 33964861125468 Plan: 1. Continue symptomatic and supportive care 2. Keep on full liquid diet for now 3. Mylicon and Bentyl added 4. CRP/sed rate ordered, within normal limits 5. No plans on endoscopic evaluation Thank you for this consultation, we will continue to follow. Dr. Mark Simons I agree with the dictator's note, documented as a scribe by Suzette Mixon.
[2021-09-23] MEDS ORDERED: ZOLPIDEM 10 MG TAB PO PRN (19:45)
[2021-09-23] MEDS ORDERED: MELATONIN 5 MG TABLET PO SCH (21:00)
[2021-09-24] MEDS: HYDROmorphone 0.5 MG/0.5 ML SYRINGE IVP PRN ×2 (03:51→08:16)
[2021-09-24 07:12] VITALS: BP 124/83; PULSE 63; RESP 18; TEMP 98
[2021-09-24] MEDS: SODIUM CHLORIDE 0.9% 1,000 ML IV SCH ×2 (07:26→11:33)
[2021-09-24] MEDS: HEPARIN SODIUM,PORCINE/PF 5,000 UNIT/0.5 ML SYRINGE SQ SCH (08:16)
[2021-09-24] MEDS: GABAPENTIN 300 MG CAP PO SCH (08:16)
[2021-09-24] MEDS: SIMETHICONE 80 MG CHEWABLE PO SCH ×2 (08:16→11:33)
[2021-09-24] MEDS: PANTOPRAZOLE 40 MG TABLET PO SCH (08:16)
--- NOTE | 2021-09-24 10:48 | P.PN ---
Subjective Progress Note Date: 09/24/21 Principal diagnosis: Abdominal pain, history of Crohn's disease 41-year-old female with a history of Crohn's disease who follows with Dr. Calderon presented for abdominal pain and bloating. Sed rate and CRP were within normal limits. Patient is currently on Humira, last dose taken little over a week ago. Patient takes it every 2 weeks. Symptoms likely related to IBS, Crohn's disease does not appear to be causing symptoms. Patient was started on Bentyl and Mylicon. She's been afebrile. States abdominal pain and bloating have improved. She's been tolerating a full liquid diet. Objective - Vital Signs Vital signs: Vital Signs Temp 98 F 09/24/21 06:51 Pulse 63 09/24/21 06:51 Resp 18 09/24/21 06:51 BP 124/83 09/24/21 06:51 Pulse Ox 100 09/24/21 06:51 Intake & Output 09/23/21 09/24/21 09/24/21 18:59 06:59 18:59 Weight 77.111 kg Other: Voiding Method Toilet # Voids 4 3 - Exam General appearance: The patient is alert, oriented, appears in no acute distress. HET: Head is normocephalic and atraumatic. Conjunctiva pink. Sclera anicteric. Neck: Supple without lymphadenopathy. Abdomen: Soft, nontender, nondistended with bowel sounds. No guarding or rigidity. Extremities: Normal skin color and turgor. No pedal edema Skin: No rashes, no jaundice Neurological: No focal deficits. Alert and oriented x 3. - Labs CBC & Chem 7: 09/23/21 05:28 09/23/21 05:28 Assessment and Plan (1) Crohn's disease Narrative/Plan: 108-sqmb-[id number] female with a history of Crohn's disease diagnosed several years ago with history of small bowel obstruction status post partial colectomy, Jose colostomy in August 2019. She presented to the emergency department with complaints of bloating discomfort and pain that is pushing up her diaphragm where she feels that she is unable to take a deep breath. Overall her Crohn's has been well managed with Humira which she takes another week, last dose one week ago Wednesday. She states she still having multiple loose stools anywhere between 5-10 a day, nonbloody. Denies any nausea or vomiting. Again CT with no acute findings. CRP and sed rate are normal indicating that patient is not an Crohn's flare at this time. Symptoms may be related to underlying IBS. Will start Bentyl, and Mylicon for gas. Current Visit: No Status: Acute Code(s): K50.90 - CROHN'S DISEASE, UNSPECIFIED, WITHOUT COMPLICATIONS SNOMED Code(s): 65213634 (2) Abdominal pain Current Visit: Yes Status: Acute Code(s): R10.9 - UNSPECIFIED ABDOMINAL PAIN SNOMED Code(s): 43258238 (3) History of hepatitis C Current Visit: No Status: Acute Code(s): Z86.19 - PERSONAL HISTORY OF OTHER INFECTIOUS AND PARASITIC DISEASES SNOMED Code(s): 50796171047657 Plan: 1. Continue symptomatic and supportive care 2. Increased to low fiber diet 3. Mylicon and Bentyl added 4. CRP/sed rate ordered, within normal limits 5. No plans on endoscopic evaluation 6. Dietitian consulted per patient request to discuss foods to avoid for IBS/Crohn's disease Thank you for this consultation, the patient is cleared by gastroenterology for discharge. She has appointment for follow-up on October 13. Dr. Mark Simons I agree with the dictator's note, documented as a scribe by Suzette Mixon.
--- NOTE | 2021-09-24 10:53 | P.DS ---
Providers Date of admission: 09/23/21 00:07 Attending physician: Corrine Butler MD Consults: 09/22/21 22:51 Consult Physician Urgent Consulting Provider: Mahi Simons Consult Reason/Comments: Intractable abdominal pain with history of Crohn's disease Do you want consulting provider notified?: Yes Primary care physician: [facility] Hospital Course: 41-year-old female with Crohn's disease on Humira, history of factor V Leiden with history of PE Patient comes in patient comes in with 5 day history of abdominal discomfort described it as epigastric abdominal pain refusing to the rest of the abdomen sharp in nature not related to food or activity has been persistent and getting worse she felt that was similar to her prior episodes of bowel obstruction patient also reporting multiple bowel resection s in the past. currently her symptoms includes repeated nausea and vomiting, nonbilious nonbloody, with increasing frequency of diarrhea and loose stools about 16 times a day nonbloody no melena. She describes over the past 2 days pain became worse and constant with increased bloating again no bleeding. She grew increasingly concerned and decided to come in for evaluation She denies any fevers or chills denies any recent travel or hospital stay denies any injuries. Denies any chest pain or trouble breathing She denies any tobacco smoking she admits to vaping she denies any recreational drugs she denies any heavy alcohol Blood work overall was unremarkable CAT scan of the abdomen showed no acute pathology Patient was evaluated by GI not recommending any new intervention. No EGD or colonoscopy. Diet has been advanced by their service. Patient does have follow-up appointment with gastrology in October. At this time she denies any abdominal discomfort, shortness of breath or palpitations. I did evaluated and speak with GI as well and patient is okay be discharged from their perspective. Patient is eager to be discharged today. Patient Condition at Discharge: Good Plan - Discharge Summary New Discharge Prescriptions: New Dicyclomine [Bentyl] 20 mg PO QID PRN 14 Days #56 tab PRN Reason: Dyspepsia No Action Pnv,Calcium 72/Iron/Folic Acid [ Plus Tablet] 1 tab PO DAILY Gabapentin [Neurontin] 300 mg PO BID Butalb/APAP/Caff 50-325-40Mg [Fioricet 50-325-40] 1 tab PO BID PRN PRN Reason: Migraine Headache Melatonin 10 mg PO HS traMADol HCL [Ultram] 50 mg PO BID Pantoprazole Sodium [Protonix] 20 mg PO DAILY Loperamide [Imodium] 4 mg PO TID Adalimumab [Humira(Cf) Pen] 40 mg SQ Q14D Discharge Medication List Adalimumab [Humira(Cf) Pen] 40 mg SQ Q14D 09/22/21 [History] Butalb/APAP/Caff 50-325-40Mg [Fioricet 50-325-40] 1 tab PO BID PRN 09/22/21 [History] Gabapentin [Neurontin] 300 mg PO BID 09/22/21 [History] Loperamide [Imodium] 4 mg PO TID 09/22/21 [History] Melatonin 10 mg PO HS 09/22/21 [History] Pantoprazole Sodium [Protonix] 20 mg PO DAILY 09/22/21 [History] Pnv,Calcium 72/Iron/Folic Acid [ Plus Tablet] 1 tab PO DAILY 09/22/21 [History] traMADol HCL [Ultram] 50 mg PO BID 09/22/21 [History] Dicyclomine [Bentyl] 20 mg PO QID PRN 14 Days #56 tab 09/24/21 [Rx] Follow up Appointment(s)/Referral(s): Mahi Simons MD [STAFF PHYSICIAN] - 10/13/21 Raquel Villeda MD [Primary Care Provider] - 1-2 days
[2021-09-24] MEDS: KETOROLAC 15 MG/ML 1 ML VIAL IVP PRN (11:32)
[2021-09-24 15:13] VITALS: BMI 29.2
== END 2021-09-24 13:34 | disposition home or self-care (01) ==
LOC: EC 15:55 → 6NMEDSUR 09-23 00:07 → 4SSUR 09-23 04:37
PROVIDERS: ADMIT Internal Medicine; ATTEND Internal Medicine
DX: R10.13 Epigastric pain (principal); K50.90 Crohn's disease, unspecified, without complications; D68.51 Activated protein C resistance; F32.A Depression, unspecified; M41.9 Scoliosis, unspecified; R14.0 Abdominal distension (gaseous); F17.290 Nicotine dependence, other tobacco product, uncomplicated; Z98.0 Intestinal bypass and anastomosis status; Z79.899 Other long term (current) drug therapy; Z97.5 Presence of (intrauterine) contraceptive device; Z87.19 Personal history of other diseases of the digestive system; Z88.8 Allergy status to other drugs, medicaments and biological substances; Z86.711 Personal history of pulmonary embolism; Z86.19 Personal history of other infectious and parasitic diseases; Z86.14 Personal history of Methicillin resistant Staphylococcus aureus infection; Z90.49 Acquired absence of other specified parts of digestive tract; Z98.890 Other specified postprocedural states; Z80.9 Family history of malignant neoplasm, unspecified
CPT/HCPCS: 96376 ×4; 96361 ×3; 96372 ×2; 96374; 96375 ×2; 99285; 36415; 93005; 80053 ×2; 85652; 82150; 83605; 83690; 84484; 85025 ×2; 85610; 85730; 86140; 81003; 81025; 87324; 83993; 74022; 74177; G0378 ×3; J2270; J2405; J1885 ×3; J1170 ×2; Q9967; J1644 ×2

== ENCOUNTER → 2021-11-18 | Outpatient (CLI) | payer MEDICARE, OTHER ==
--- NOTE | 2021-11-18 15:24 | US ---
EXAMINATION TYPE: US pelvis complete transvag DATE OF EXAM: 11/18/2021 COMPARISON: 03/19/2021 CLINICAL HISTORY: 41-year-old female [id number] RT OVARIAN CYST. TECHNIQUE: Transabdominal sonographic images of the pelvis were acquired. Transvaginal sonographic i mages were medically necessary to better assess the following anatomy: ovaries EXAM MEASUREMENTS: Uterus: 7.7 x 3.4 x 4.3 cm Endometrial Stripe: .7 cm Left Ovary: 2.7 x 1.9 x 2.4 cm 1. Uterus: Anteverted. Cervical nabothian cysts posteriorly measuring 6 mm. IUD is visualized, pro bably situated within the uterine cavity. 2. Endometrium: wnl 3. Right Ovary: Obscured by overlying bowel gas 4. Left Ovary: 2 complex areas seen measuring 1.7 x 1.5 x 1.3 cm 1.7 x 1.3 x 1.7 cm. Internal reticu lar material. 1 of these may contain some mural based nodularity that shows associated vascularity. 5. Bilateral Adnexa: wnl 6. Posterior cul-de-sac: wnl IMPRESSION: 1. IUD appropriately situated along the uterine cavity. 2. Two lesions within the left ovary measuring 1.7 cm each. These show internal reticular material; h emorrhagic cysts are favored. However, one of these may also contain mural based nodularity and assoc iated blood flow is difficult to exclude. Recommend follow-up ultrasound in 6-8 weeks to assess for i nvolution. If there is persistence of growth, further female pelvic MRI may be considered.
--- NOTE | 2021-11-19 10:57 | MM ---
Reason for Exam: Screening (asymptomatic). Baseline mammogram. Patient History: Menarche at age 13. First Full-Term at age 17. Patient has history of breast feeding. Patient used Hormonal Contraceptives for 5 years. Last menstrual period: 10/14/2021 Risk Values: Pura 5 year model risk: 0.5%. NCI Lifetime model risk: 6.5%. Prior Study Comparison: Patient's first Mammogram. Tissue Density: The breast tissue is heterogeneously dense. This may lower the sensitivity of mammography. Findings: Analyzed By CAD. There is no suspicious group of microcalcifications or new suspicious mass in either breast. Overall Assessment: Negative, BI-RAD 1 Management: Screening Mammogram of both breasts in 1 year. A clinical breast exam by your physician is recommended on an annual basis and results should be correlated with mammographic findings. Electronically signed and approved by: Tristen Dumont M.D.
== END | disposition home or self-care (01) ==
LOC: RADUSWWP 08:01
PROVIDERS: ATTEND Family Medicine
DX: Z12.31 Encounter for screening mammogram for malignant neoplasm of breast (principal); N83.8 Other noninflammatory disorders of ovary, fallopian tube and broad ligament; Z97.5 Presence of (intrauterine) contraceptive device
CPT/HCPCS: 76830; 76856; 77063; 77067

== ENCOUNTER → 2022-04-02 | Outpatient (CLI) | payer MEDICARE, OTHER ==
[2022-04-02 23:16] LABS: Basophils # (A) 0.02 X 10*3/uL (0.00-0.10); Basophils % (A) 0.2 %; Eosinophils # (A) 0.08 X 10*3/uL (0.04-0.35); Eosinophils % (A) 0.9 %; HCT 36.1 % (37.2-46.3); HGB 12.3 g/dL (12.0-15.0); Immature Grans, Automated 0.3 %; Lymphocytes % (A) 33.8 %; MCH 31.3 pg (27.0-32.0); MCHC 34.1 g/dL (32.0-37.0); MCV 91.9 fL (80.0-97.0); Mean Platelet Volume 10.4 fL (9.5-12.2); Monocytes # (A) 0.62 X 10*3/uL (0.20-1.00); Monocytes % (A) 7.2 %; NRBC Per 100 WBC 0 /100 WBCS (0.0-0.0); Neutrophils # (A) 4.93 X 10*3/uL (1.80-7.70); Neutrophils % (A) 57.6 %; Platelet Count 295 X 10*3/uL (140-440); RBC 3.93 X 10*6/uL (4.10-5.20); WBC 8.58 X 10*3/uL (4.50-10.00)
[2022-04-02 23:21] LABS: ALT 70 U/L (8-44); AST 54 U/L (13-35); Albumin 4.6 g/dL (3.8-4.9); Alkaline Phosphatase 81 U/L (41-126); BUN/Creat Ratio 13.86 Ratio (12.00-20.00); Blood Urea Nitrogen 9.7 mg/dL (9.0-27.0); Calcium 9.2 mg/dL (8.7-10.3); Carbon Dioxide 24.8 mmol/L (20.0-27.5); Chloride 104 mmol/L (96-109); Globulin 2.7 g/dL (1.6-3.3); Glucose 118 mg/dL (70-110); Non-African American GFR(CKD) 106.1 (60.0-200.0); Potassium 3.9 mmol/L (3.5-5.5); Sodium 140 mmol/L (135-145); Total Bilirubin <0.15 mg/dL (0.30-1.20); Total Protein 7.3 g/dL (6.2-8.2)
== END | disposition home or self-care (01) ==
LOC: LABWHC1 16:07
PROVIDERS: ATTEND Internal Medicine Gastroenterology
DX: K50.90 Crohn's disease, unspecified, without complications (principal)
CPT/HCPCS: 36415; 80053; 85025

== ENCOUNTER 2022-04-14 01:05 | Inpatient (IN) | payer MEDICARE, OTHER ==
[2022-04-14] MEDS ORDERED: SODIUM CHLORIDE 0.9% 1,000 ML IV STA ×2 (01:26→03:32)
[2022-04-14] MEDS ORDERED: HYDROmorphone 0.5 MG/0.5 ML SYRINGE IVP STA ×2 (01:26→03:27)
[2022-04-14] MEDS ORDERED: KETOROLAC 15 MG/ML 1 ML VIAL IVP STA (01:26)
--- NOTE | 2022-04-14 01:43 | ED ---
Abdominal Pain HPI - General Chief Complaint: Abdominal Pain Stated Complaint: Abdominal pain Time Seen by Provider: 04/14/22 01:12 Source: patient, EMS, RN notes reviewed Mode of arrival: EMS - History of Present Illness Initial Comments: This is a 41-year-old female with a past medical history of Crohn's disease who presents to the emergency department for abdominal pain. Symptoms started several hours prior to arrival and is described as being in the RUQ and epigastric region. States that she is concerned about another bowel obstruction, as she has had two in the past that have been attributed to the Crohn's disease and excessive scar tissue from prior surgeries. She did initially feel very nauseous and was given Zofran by EMS on route. Prior to symptoms beginning, she ate a burrito. She does follow with Dr. Simons on a regular basis for the Crohn's disease. Denies any fevers, chills, sore throat, cough, dyspnea, chest pain, palpitations, vomiting, diarrhea, back pain, or headaches. MD Complaint: abdominal pain Location: RUQ, epigastric Associated Symptoms: nausea - Related Data Home Medications Medication Instructions Recorded Confirmed RX: Adalimumab [Humira(Cf) Pen] 40 mg SQ Q14D 09/22/21 09/22/21 RX: Butalb/APAP/Caff 50-325-40Mg 1 tab PO BID PRN 09/22/21 09/22/21 [Fioricet 50-325-40] RX: Gabapentin [Neurontin] 300 mg PO BID 09/22/21 09/22/21 RX: Loperamide [Imodium] 4 mg PO TID 09/22/21 09/22/21 RX: Melatonin [Melatonin ER] 10 mg PO HS 09/22/21 09/22/21 RX: Pantoprazole Sodium [Protonix] 20 mg PO DAILY 09/22/21 09/22/21 RX: Vit No.180/Iron/Folic 1 tab PO DAILY 09/22/21 09/22/21 [ Plus Vitamin-Mineral] RX: traMADol HCL [Ultram] 50 mg PO BID 09/22/21 09/22/21 Previous Rx's Medication Instructions Recorded RX: Dicyclomine [Bentyl] 20 mg PO QID PRN 14 Days #56 tab 09/24/21 Allergies Allergy/AdvReac Type Severity Reaction Status Date / Time prednisone AdvReac Hallucinati Verified 04/14/22 01:14 ons prochlorperazine AdvReac AGITATION Verified 04/14/22 01:14 [From Compazine] Review of Systems ROS Statement: Those systems with pertinent positive or pertinent negative responses have been documented in the HPI. ROS Other: All systems not noted in ROS Statement are negative. Past Medical History Past Medical History: Pulmonary Embolus (PE) Additional Past Medical History / Comment(s): HEPATITIS C received treatment reports levels are now undetectable , crohn's disease, SBO, factor V Leiden with history of PE History of Any Multi-Drug Resistant Organisms: MRSA Date of last positivie culture/infection: 06/12/15 MRSA @ [facility] MDRO Source:: Abdomen Past Surgical History: Bowel Resection, Hernia Repair Additional Past Surgical History / Comment(s): VICTOR HUGO FOOT SURGERY, BOWEL RESECTION,. carpal tunnel surgery bilat hand Past Anesthesia/Blood Transfusion Reactions: No Reported Reaction Past Psychological History: Depression Smoking Status: Vaper Past Alcohol Use History: None Reported Past Drug Use History: None Reported - Past Family History Father Family Medical History: Cancer General Exam General appearance: alert, in distress Head exam: Present: atraumatic, normocephalic, normal inspection Respiratory exam: Present: normal lung sounds bilaterally. Absent: respiratory distress, wheezes, rales, rhonchi, stridor Cardiovascular Exam: Present: regular rate, normal rhythm, normal heart sounds. Absent: systolic murmur, diastolic murmur, rubs, gallop, clicks GI/Abdominal exam: Present: soft, tenderness (RUQ, RLQ, and epigastric), hypoactive bowel sounds. Absent: distended Neurological exam: Present: alert, oriented X3, CN II-XII intact Psychiatric exam: Present: normal affect, normal mood Skin exam: Present: warm, dry, intact, normal color. Absent: rash Course Vital Signs 04/14/22 01:09 Temperature 97.6 F Pulse Rate 76 Respiratory 18 Rate Blood Pressure 137/95 Medical Decision Making - Medical Decision Making This is a 41-year-old female who presents to the emergency department for abdominal pain. Lab work reveals mild leukocytosis. Computed tomography scan of the abdomen and pelvis obtained revealing a dilated small bowel consistent with mechanical obstruction at the ileocolic anastomosis. She was given a bolus of normal saline and started on maintenance fluids. Patient admitted to medicine with general surgery consult. This case was discussed in detail with the attending ED physician. Presentation, findings, and treatment plan discussed in detail as well. - Lab Data Result diagrams: 04/14/22 01:42 04/14/22 01:42 Lab Results 04/14/22 04/14/22 04/14/22 Range/Units 01:42 01:42 01:42 WBC 11.3 H (3.8-10.6) k/uL RBC 4.28 (3.80-5.40) m/uL Hgb 13.1 (11.4-16.0) gm/dL Hct 38.8 (34.0-46.0) % MCV 90.5 (80.0-100.0) fL MCH 30.6 (25.0-35.0) pg MCHC 33.8 (31.0-37.0) g/dL RDW 12.1 (11.5-15.5) % Plt Count 233 (150-450) k/uL MPV 8.6 Neutrophils % 66 % Lymphocytes % 26 % Monocytes % 4 % Eosinophils % 1 % Basophils % 0 % Neutrophils # 7.4 (1.3-7.7) k/uL Lymphocytes # 3.0 (1.0-4.8) k/uL Monocytes # 0.5 (0-1.0) k/uL Eosinophils # 0.1 (0-0.7) k/uL Basophils # 0.0 (0-0.2) k/uL ESR (0-20) mm/hr Sodium 141 (137-145) mmol/L Potassium 4.1 (3.5-5.1) mmol/L Chloride 106 (98-107) mmol/L Carbon Dioxide 28 (22-30) mmol/L Anion Gap 7 mmol/L BUN 12 (7-17) mg/dL Creatinine 0.62 (0.52-1.04) mg/dL Est GFR (CKD-EPI)AfAm >90 (>60 ml/min/1.73 sqM) Est GFR (CKD-EPI)NonAf >90 (>60 ml/min/1.73 sqM) Glucose 116 H (74-99) mg/dL Plasma Lactic Acid Anton (0.7-2.0) mmol/L Calcium 9.1 (8.4-10.2) mg/dL Total Bilirubin 0.4 (0.2-1.3) mg/dL AST 30 (14-36) U/L ALT 28 (4-34) U/L Alkaline Phosphatase 70 (38-126) U/L C-Reactive Protein (<1.0) mg/dL Total Protein 7.2 (6.3-8.2) g/dL Albumin 4.7 (3.5-5.0) g/dL Amylase 53 (30-110) U/L Lipase 22 L (23-300) U/L Urine Color Light Yellow Urine Appearance Clear (Clear) Urine pH 5.5 (5.0-8.0) Ur Specific [place] 1.012 (1.001-1.035) Urine Protein Negative (Negative) Urine Glucose (UA) Negative (Negative) Urine Ketones Negative (Negative) Urine Blood Negative (Negative) Urine Nitrite Negative (Negative) Urine Bilirubin Negative (Negative) Urine Urobilinogen <2.0 (<2.0) mg/dL Ur Leukocyte Esterase Negative (Negative) Urine HCG, Qual (Not Detectd) 04/14/22 04/14/22 04/14/22 Range/Units 01:42 01:42 01:43 WBC (3.8-10.6) k/uL RBC (3.80-5.40) m/uL Hgb (11.4-16.0) gm/dL Hct (34.0-46.0) % MCV (80.0-100.0) fL MCH (25.0-35.0) pg MCHC (31.0-37.0) g/dL RDW (11.5-15.5) % Plt Count (150-450) k/uL MPV Neutrophils % % Lymphocytes % % Monocytes % % Eosinophils % % Basophils % % Neutrophils # (1.3-7.7) k/uL Lymphocytes # (1.0-4.8) k/uL Monocytes # (0-1.0) k/uL Eosinophils # (0-0.7) k/uL Basophils # (0-0.2) k/uL ESR 13 (0-20) mm/hr Sodium (137-145) mmol/L Potassium (3.5-5.1) mmol/L Chloride (98-107) mmol/L Carbon Dioxide (22-30) mmol/L Anion Gap mmol/L BUN (7-17) mg/dL Creatinine (0.52-1.04) mg/dL Est GFR (CKD-EPI)AfAm (>60 ml/min/1.73 sqM) Est GFR (CKD-EPI)NonAf (>60 ml/min/1.73 sqM) Glucose (74-99) mg/dL Plasma Lactic Acid Anton 0.7 (0.7-2.0) mmol/L Calcium (8.4-10.2) mg/dL Total Bilirubin (0.2-1.3) mg/dL AST (14-36) U/L ALT (4-34) U/L Alkaline Phosphatase (38-126) U/L C-Reactive Protein (<1.0) mg/dL Total Protein (6.3-8.2) g/dL Albumin (3.5-5.0) g/dL Amylase (30-110) U/L Lipase (23-300) U/L Urine Color Urine Appearance (Clear) Urine pH (5.0-8.0) Ur Specific [place] (1.001-1.035) Urine Protein (Negative) Urine Glucose (UA) (Negative) Urine Ketones (Negative) Urine Blood (Negative) Urine Nitrite (Negative) Urine Bilirubin (Negative) Urine Urobilinogen (<2.0) mg/dL Ur Leukocyte Esterase (Negative) Urine HCG, Qual Not Detected (Not Detectd) 04/14/22 Range/Units 01:43 WBC (3.8-10.6) k/uL RBC (3.80-5.40) m/uL Hgb (11.4-16.0) gm/dL Hct (34.0-46.0) % MCV (80.0-100.0) fL MCH (25.0-35.0) pg MCHC (31.0-37.0) g/dL RDW (11.5-15.5) % Plt Count (150-450) k/uL MPV Neutrophils % % Lymphocytes % % Monocytes % % Eosinophils % % Basophils % % Neutrophils # (1.3-7.7) k/uL Lymphocytes # (1.0-4.8) k/uL Monocytes # (0-1.0) k/uL Eosinophils # (0-0.7) k/uL Basophils # (0-0.2) k/uL ESR (0-20) mm/hr Sodium (137-145) mmol/L Potassium (3.5-5.1) mmol/L Chloride (98-107) mmol/L Carbon Dioxide (22-30) mmol/L Anion Gap mmol/L BUN (7-17) mg/dL Creatinine (0.52-1.04) mg/dL Est GFR (CKD-EPI)AfAm (>60 ml/min/1.73 sqM) Est GFR (CKD-EPI)NonAf (>60 ml/min/1.73 sqM) Glucose (74-99) mg/dL Plasma Lactic Acid Anton (0.7-2.0) mmol/L Calcium (8.4-10.2) mg/dL Total Bilirubin (0.2-1.3) mg/dL AST (14-36) U/L ALT (4-34) U/L Alkaline Phosphatase (38-126) U/L C-Reactive Protein <0.5 (<1.0) mg/dL Total Protein (6.3-8.2) g/dL Albumin (3.5-5.0) g/dL Amylase (30-110) U/L Lipase (23-300) U/L Urine Color Urine Appearance (Clear) Urine pH (5.0-8.0) Ur Specific [place] (1.001-1.035) Urine Protein (Negative) Urine Glucose (UA) (Negative) Urine Ketones (Negative) Urine Blood (Negative) Urine Nitrite (Negative) Urine Bilirubin (Negative) Urine Urobilinogen (<2.0) mg/dL Ur Leukocyte Esterase (Negative) Urine HCG, Qual (Not Detectd) - Radiology Data Radiology results: report reviewed, image reviewed Disposition Clinical Impression: SBO (small bowel obstruction) Disposition: ADMITTED IP TO THIS HOSP
[2022-04-14 01:58] LABS: Basophils % (A) 0 %; Eosinophils # (A) 0.1 k/uL (0-0.7); Eosinophils % (A) 1 %; HCT 38.8 % (34.0-46.0); HGB 13.1 gm/dL (11.4-16.0); Lymphocytes % (A) 26 %; MCH 30.6 pg (25.0-35.0); MCHC 33.8 g/dL (31.0-37.0); MCV 90.5 fL (80.0-100.0); Mean Platelet Volume 8.6; Monocytes # (A) 0.5 k/uL (0-1.0); Monocytes % (A) 4 %; Neutrophils # (A) 7.4 k/uL (1.3-7.7); Neutrophils % (A) 66 %; Platelet Count 233 k/uL (150-450); RBC 4.28 m/uL (3.80-5.40); RDW 12.1 % (11.5-15.5); WBC 11.3 k/uL (3.8-10.6)
[2022-04-14 01:59] LABS: Appearance,Urine Clear (Clear); Bilirubin,Urine Negative (Negative); Blood,Urine Negative (Negative); Color,Urine Light Yellow; Glucose,Urine (UA) Negative (Negative); Ketones,Urine Negative (Negative); Leukocyte Esterase,Urine Negative (Negative); Nitrite,Urine Negative (Negative); PH, Urine 5.5 (5.0-8.0); Protein,Urine Negative (Negative); Specific Gravity,Urine 1.012 (1.001-1.035); Urobilinogen,Urine <2.0 mg/dL (<2.0)
[2022-04-14 02:24] LABS: ALT 28 U/L (4-34); AST 30 U/L (14-36); African American GFR (CKD) >90 (>60 ml/min/1.73 sqM); Albumin 4.7 g/dL (3.5-5.0); Alkaline Phosphatase 70 U/L (38-126); Amylase 53 U/L (30-110); Anion Gap 7 mmol/L; Blood Urea Nitrogen 12 mg/dL (7-17); Calcium 9.1 mg/dL (8.4-10.2); Carbon Dioxide 28 mmol/L (22-30); Chloride 106 mmol/L (98-107); Glucose 116 mg/dL (74-99); Lipase 22 U/L (23-300); Non-African American GFR(CKD) >90 (>60 ml/min/1.73 sqM); Potassium 4.1 mmol/L (3.5-5.1); Sodium 141 mmol/L (137-145); Total Bilirubin 0.4 mg/dL (0.2-1.3); Total Protein 7.2 g/dL (6.3-8.2)
--- NOTE | 2022-04-14 03:17 | CT ---
EXAMINATION TYPE: CT abdomen pelvis w con DATE OF EXAM: 04/14/2022 COMPARISON: 09/22/2021 HISTORY: Abdominal pain CT DLP: 871.9 mGycm Automated exposure control for dose reduction was used. CONTRAST: Performed with IV Contrast, patient injected with 100ml mL of Isovue 300. Images obtained from the diaphragm to the floor the pelvis with IV contrast. The lung bases are clear. No pleural effusion. Heart size is normal. No pericardial effusion. Liver spleen and stomach pancreas and gallbladder appear intact. The bile ducts are not dilated. There is no adrenal mass. Kidneys show satisfactory contrast opacification. No hydronephrosis. Delaye d images show normal renal excretion. No retroperitoneal adenopathy. Bladder distends smoothly. No in guinal hernia. No free fluid in the pelvis. Uterus is anteverted. There is IUD in the uterine fundus. No pelvic mass. There is a lumbar dextroscoliotic deformity. There are spondylotic changes in the elza mbar spine. There are some dilated fluid-filled small bowel loops in the right side of the abdomen. There is appa rent right hemicolectomy. Transition point is likely the site of anastomosis. Small bowel dilated up to 3.7 cm. No free air. No ascites. IMPRESSION: Dilated distal small bowel consistent with a mechanical small bowel obstruction. Obstruction appears to be at the ileocolic colic anastomosis. Obstruction appears new compared to old exam.
[2022-04-14] MEDS ORDERED: ONDANSETRON 4 MG/2 ML VIAL IVP STA (03:27)
[2022-04-14] MEDS ORDERED: ONDANSETRON 4 MG/2 ML VIAL IVP PRN (03:35)
[2022-04-14] MEDS ORDERED: HYDROmorphone 0.5 MG/0.5 ML SYRINGE IVP PRN (03:35)
[2022-04-14] MEDS ORDERED: NALOXONE 0.4 MG/ML 1 ML VIAL IV PRN (03:35)
[2022-04-14] MEDS ORDERED: METOCLOPRAMIDE 5 MG/ML 2 ML VIAL IVP PRN (03:36)
[2022-04-14] MEDS: HYDROmorphone 1 MG/ML 1 ML SYRINGE IVP PRN ×4 (09:30→20:09)
[2022-04-14] MEDS ORDERED: BUTALB/APAP/CAFF 50-325-40MG TAB PO PRN (13:38)
[2022-04-14] MEDS ORDERED: DICYCLOMINE 20 MG TAB PO PRN (13:38)
[2022-04-14] MEDS ORDERED: CYCLOBENZAPRINE 10 MG TAB PO PRN (13:38)
[2022-04-14] MEDS ORDERED: PANTOPRAZOLE 40 MG TABLET PO SCH (13:45)
--- NOTE | 2022-04-14 15:30 | P.GSCN ---
History of Present Illness Consult date: 04/14/22 History of present illness: CHIEF COMPLAINT: Abdominal pain HISTORY OF PRESENT ILLNESS: This is a 41-year-old female with a known history of Crohn's that has caused prior bowel obstructions in the past and had required bowel resection. 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 Patient presents to the hospital with complaints of abdominal pain and nausea and vomiting that started last night around 8 PM. She reports symptoms started after she ate frozen burritos and broccoli. She has not had any flatus or bowel movement. Her pain is located in the middle of her abdomen. She had a computed tomography scan abdomen and pelvis showing dilated distal small bowel consistent with a mechanical small bowel obstruction. Obstruction appears to be at the ileocolic anastomosis. Obstruction appears new compared to old exam. Surgical service has been consulted in regards to small bowel obstruction. Patient does have a history of factor V Leiden deficiency and prior PE. She is not on any blood thinners. Patient does follow with Dr. Simons in outpatient setting for her Crohn's. PAST MEDICAL HISTORY: See below PAST SURGICAL HISTORY: See below MEDICATIONS: See below ALLERGIES: See below SOCIAL HISTORY: No illicit drug use. REVIEW OF SYSTEMS: CONSTITUTIONAL: Denies fever or chills. HEENT: Denies blurred vision, vision changes, or eye pain. Denies hemoptysis CARDIOVASCULAR: Denies chest pain or pressure. RESPIRATORY: No shortness of breath. GASTROINTESTINAL: See HPI for pertinent findings HEMATOLOGIC: Denies bleeding disorders. GENITOURINARY: Denies any blood in urine or increased urinary frequency. SKIN: Denies pruitis. Denies rash. PHYSICAL EXAM: VITAL SIGNS: Reviewed GENERAL: Well-developed in no acute distress. HEENT: No sclera icterus. Extraocular movements grossly intact. Moist buccal mucosa. Head is atraumatic, normocephalic. No nasal drainage. ABDOMEN: Soft. Mildly distended. Tenderness with palpation of the mid abdomen NEUROLOGIC: Alert and oriented. Cranial nerves II through XII grossly intact. LABORATORY DATA: WBC 11.3 Hgb 13.1 platelets 233 Sodium is 141 potassium is 4.1 creatinine 0.62 Glucose 116 Lactic acid 0.7 LFTs normal Lipase 22 Urinalysis negative And COVID-19 not detected IMAGING: Computed tomography scan of pelvis as stated above ASSESSMENT: 1. Mechanical small bowel obstruction. Computed tomography scan shows obstruct ion appears to be at the ileocolic anastomosis 2. History of Crohn's 3. History of bowel obstruction secondary to her Crohn's requiring bowel resections PLAN: -Recommend transfer to tertiary care center due to no GI coverage at [facility] this week -Keep patient nothing by mouth -Continue IV fluids -Continue supportive care Physician Disability Case Manager note has been reviewed by physician. Signing provider agrees with the documented findings, assessment, and plan of care. I have personally seen and examined the patient, reviewed the UNDERWRITING TECHNICIAN /PAs history, exam and MDM and agree with the assessment and plan as written. Based on total visit time, I have performed more than 50% of the visit. As above: Patient with small bowel obstruction. Symptoms began yesterday. CAT scan reviewed. Patient does have dilated distal small bowel loops. Additional bowel loops appear to be somewhat collapsed. Patient says she does feel better today. No vomiting. She would like to avoid surgery given her history of Crohn's which is obviously what we would desire as well. We'll begin IV Solu- Medrol. No GI coverage here. Recommend transfer if that becomes available. Past Medical History Past Medical History: Pulmonary Embolus (PE) Additional Past Medical History / Comment(s): HEPATITIS C received treatment reports levels are now undetectable , crohn's disease, SBO, factor V Leiden with history of PE History of Any Multi-Drug Resistant Organisms: MRSA Year Discovered:: 06/12/15 MRSA @ [facility] MDRO Source:: Abdomen Past Surgical History: Bowel Resection, Hernia Repair Additional Past Surgical History / Comment(s): VICTOR HUGO FOOT SURGERY, BOWEL RESECTION,. carpal tunnel surgery bilat hand Past Anesthesia/Blood Transfusion Reactions: No Reported Reaction Past Psychological History: Depression Smoking Status: Vaper Past Alcohol Use History: None Reported Past Drug Use History: None Reported - Past Family History Father Family Medical History: Cancer Medications and Allergies Home Medications Medication Instructions Recorded Confirmed Type Adalimumab [Humira(Cf) Pen] 40 mg SQ Q14D 09/22/21 04/14/22 History Butalb/APAP/Caff 50-325-40Mg 1 tab PO BID PRN 09/22/21 04/14/22 History [Fioricet 50-325-40] Gabapentin [Neurontin] 300 mg PO BID 09/22/21 04/14/22 History Loperamide [Imodium] 2 mg PO QID PRN 09/22/21 04/14/22 History Melatonin [Melatonin ER] 10 mg PO HS 09/22/21 04/14/22 History Pantoprazole Sodium [Protonix] 20 mg PO DAILY 09/22/21 04/14/22 History Vit No.180/Iron/Folic 1 tab PO DAILY 09/22/21 04/14/22 History [ Plus Vitamin-Mineral] traMADol HCL [Ultram] 50 mg PO BID 09/22/21 04/14/22 History Dicyclomine [Bentyl] 20 mg PO QID PRN 14 Days #56 tab 09/24/21 04/14/22 Rx Cyclobenzaprine [Flexeril] 10 mg PO DAILY PRN 04/14/22 04/14/22 History hydrOXYzine HCL [Atarax] 25 mg PO HS 04/14/22 04/14/22 History Allergies Allergy/AdvReac Type Severity Reaction Status Date / Time prednisone AdvReac Hallucinati Verified 04/14/22 12:34 ons prochlorperazine AdvReac AGITATION Verified 04/14/22 12:34 [From Compazine] Surgical - Exam Vital Signs Temp Pulse Resp BP 97.6 F 76 18 137/95 04/14/22 01:09 04/14/22 01:09 04/14/22 01:09 04/14/22 01:09 Results - Labs 04/14/22 01:42 04/14/22 01:42 Abnormal Lab Results - Last 24 Hours (Table) 04/14/22 04/14/22 Range/Units 01:42 01:42 WBC 11.3 H (3.8-10.6) k/uL Glucose 116 H (74-99) mg/dL Lipase 22 L (23-300) U/L Diabetes panel 04/14/22 Range/Units 01:42 Sodium 141 (137-145) mmol/L Potassium 4.1 (3.5-5.1) mmol/L Chloride 106 (98-107) mmol/L Carbon Dioxide 28 (22-30) mmol/L BUN 12 (7-17) mg/dL Creatinine 0.62 (0.52-1.04) mg/dL Glucose 116 H (74-99) mg/dL Calcium 9.1 (8.4-10.2) mg/dL AST 30 (14-36) U/L ALT 28 (4-34) U/L Alkaline Phosphatase 70 (38-126) U/L Total Protein 7.2 (6.3-8.2) g/dL Albumin 4.7 (3.5-5.0) g/dL Calcium panel 04/14/22 Range/Units 01:42 Calcium 9.1 (8.4-10.2) mg/dL Albumin 4.7 (3.5-5.0) g/dL Pituitary panel 04/14/22 Range/Units 01:42 Sodium 141 (137-145) mmol/L Potassium 4.1 (3.5-5.1) mmol/L Chloride 106 (98-107) mmol/L Carbon Dioxide 28 (22-30) mmol/L BUN 12 (7-17) mg/dL Creatinine 0.62 (0.52-1.04) mg/dL Glucose 116 H (74-99) mg/dL Calcium 9.1 (8.4-10.2) mg/dL Adrenal panel 04/14/22 Range/Units 01:42 Sodium 141 (137-145) mmol/L Potassium 4.1 (3.5-5.1) mmol/L Chloride 106 (98-107) mmol/L Carbon Dioxide 28 (22-30) mmol/L BUN 12 (7-17) mg/dL Creatinine 0.62 (0.52-1.04) mg/dL Glucose 116 H (74-99) mg/dL Calcium 9.1 (8.4-10.2) mg/dL Total Bilirubin 0.4 (0.2-1.3) mg/dL AST 30 (14-36) U/L ALT 28 (4-34) U/L Alkaline Phosphatase 70 (38-126) U/L Total Protein 7.2 (6.3-8.2) g/dL Albumin 4.7 (3.5-5.0) g/dL
--- NOTE | 2022-04-14 15:50 | P.HPIM ---
History of Present Illness H&P Date: 04/14/22 Chief Complaint: Abdominal pain Patient is a 41-year-old female with a known history of Crohn's disease currently on Humira, hepatitis C status post treatment, history of small bowel obstruction, history of bowel resection and depression presents to ER with the complaints of abdominal pain. Patient says that she started having right upper quadrant and midabdominal pain few hours prior to ER presentation. Patient felt similar symptoms are from prior SBO. This is with nausea and vomiting.Patientalsostatesthathersymptomsdevelopedaftereatingabetter. PatientfollowswithDr.Tumaasanoutpatient CT of abdomen pelvis showed distal dilated small bowel consistent with mechanica l small bowel obstruction. Obstruction appears to be at the ileocolic anastomosis. Laboratory data showed WBC 11.3 hemoglobin 13.1 and platelets 233 Sodium 141 potassium 4.1 chloride 106 bicarb is 28 BUN 12 and creatinine 0.62 and blood sugar 116 11 years or not elevated. CRP less than 0.5 Urinalysis is negative for infection COVID 19 PCR not detected. Review of Systems Constitutional: Patient denies any fever or chills . No generalized weakness or weight loss. Abdomen: Patient does have abdominal pain associated with nausea. No diarrhea.. Cardiovascular: Patient denies any chest pain or short of breath no palpitations. Respiratory: patient denied any cough is from production. No shortness of breath Neurologic: Patient denied any numbness or tingling headache. Musculoskeletal: Patient denies any complaints of joint swelling or deformity. Skin: Negative Psychiatric: Negative Endocrine: No heat or cold intolerance. No recent weight gain. Genitourinary: No dysuria or hematuria. All other 14 point ROS negative except the above Past Medical History Past Medical History: Pulmonary Embolus (PE) Additional Past Medical History / Comment(s): HEPATITIS C received treatment reports levels are now undetectable , crohn's disease, SBO, factor V Leiden with history of PE History of Any Multi-Drug Resistant Organisms: MRSA Date of last positivie culture/infection: 06/12/15 MRSA @ [facility] MDRO Source:: Abdomen Past Surgical History: Bowel Resection, Hernia Repair Additional Past Surgical History / Comment(s): VICTOR HUGO FOOT SURGERY, BOWEL RESECTION,. carpal tunnel surgery bilat hand Past Anesthesia/Blood Transfusion Reactions: No Reported Reaction Past Psychological History: Depression Smoking Status: Vaper Past Alcohol Use History: None Reported Past Drug Use History: None Reported - Past Family History Father Family Medical History: Cancer Medications and Allergies Home Medications Medication Instructions Recorded Confirmed Type Adalimumab [Humira(Cf) Pen] 40 mg SQ Q14D 09/22/21 04/14/22 History Butalb/APAP/Caff 50-325-40Mg 1 tab PO BID PRN 09/22/21 04/14/22 History [Fioricet 50-325-40] Gabapentin [Neurontin] 300 mg PO BID 09/22/21 04/14/22 History Loperamide [Imodium] 2 mg PO QID PRN 09/22/21 04/14/22 History Melatonin [Melatonin ER] 10 mg PO HS 09/22/21 04/14/22 History Pantoprazole Sodium [Protonix] 20 mg PO DAILY 09/22/21 04/14/22 History Vit No.180/Iron/Folic 1 tab PO DAILY 09/22/21 04/14/22 History [ Plus Vitamin-Mineral] traMADol HCL [Ultram] 50 mg PO BID 09/22/21 04/14/22 History Dicyclomine [Bentyl] 20 mg PO QID PRN 14 Days #56 tab 09/24/21 04/14/22 Rx Cyclobenzaprine [Flexeril] 10 mg PO DAILY PRN 04/14/22 04/14/22 History hydrOXYzine HCL [Atarax] 25 mg PO HS 04/14/22 04/14/22 History Allergies Allergy/AdvReac Type Severity Reaction Status Date / Time prednisone AdvReac Hallucinati Verified 04/14/22 12:34 ons prochlorperazine AdvReac AGITATION Verified 04/14/22 12:34 [From Compazine] Physical Exam Vitals: Vital Signs Temp Pulse Resp BP Pulse Ox 04/14/22 09:25 58 L 16 120/86 100 04/14/22 01:09 97.6 F 76 18 137/95 Intake and Output 04/13/22 04/14/22 04/14/22 22:59 06:59 14:59 Other: Weight 72.575 kg PHYSICAL EXAMINATION: Patient is lying in the bed comfortably, no acute distress, awake alert and oriented.. HEENT: Normocephalic. Neck is supple. Pupils reactive. Nostrils clear. Oral cavity is moist. Neck reveals no JVD, carotid bruits, or thyromegaly. CHEST EXAMINATION: Trachea is central. Symmetrical expansion. Lung oakley clear to auscultation and percussion. CARDIAC: Normal S1, S2 with no gallops. No murmurs ABDOMEN: Soft. Bowel sounds not present. Mild diffuse tenderness. No guarding or rigidity.. No organomegaly. No abdominal bruits. Extremities: reveal no edema. No clubbing or cyanosis Neurologically awake, alert, oriented x3 with well-coordinated movements. No focal deficits noted Skin: No rash or skin lesions. Psychiatric: Coperative. Nonsuicidal Musculoskeletal: No joint swelling or deformity. Normal range of motion. Results CBC & Chem 7: 04/14/22 01:42 04/14/22 01:42 Labs: Abnormal Lab Results - Last 24 Hours (Table) 04/14/22 04/14/22 Range/Units 01:42 01:42 WBC 11.3 H (3.8-10.6) k/uL Glucose 116 H (74-99) mg/dL Lipase 22 L (23-300) U/L Thrombosis Risk Factor Assmnt - DVT/VTE Prophylaxis DVT/VTE Prophylaxis: Pharmacologic Prophylaxis ordered Assessment and Plan Assessment: Abdominal pain secondary to distal small bowel mechanical obstruction History of bowel resection due to SBO Crohn's disease currently on Humira History of PE and factor V [place]. Currently not on any anticoagulation Depression Hepatitis C status post treatment DVT prophylaxis heparin subcu Plan: Patient will be continued on IV hydration and nothing by mouth. Continue pain management with Dilaudid. Gen. surgery was consulted for evaluation. SBO thought to be due to mechanical obstruction related to Crohn's disease and general surgery recommends GI evaluation. Time with Patient: Greater than 30
[2022-04-14] MEDS ORDERED: MELATONIN 5 MG TABLET PO SCH (21:00)
[2022-04-14] MEDS ORDERED: GABAPENTIN 300 MG CAP PO SCH (21:00)
[2022-04-14] MEDS ORDERED: hydrOXYzine HCL 25 MG TAB PO SCH (21:00)
[2022-04-14 21:08] VITALS: RESP 16
[2022-04-14] MEDS: KETOROLAC 15 MG/ML 1 ML VIAL IVP PRN (22:10)
[2022-04-15] MEDS ORDERED: methylPREDNISolone SOD SUCCI 125 MG/2 ML VIAL IV SCH
[2022-04-15] MEDS: HYDROmorphone 1 MG/ML 1 ML SYRINGE IVP PRN ×2 (01:08→03:21)
[2022-04-15] MEDS: KETOROLAC 15 MG/ML 1 ML VIAL IVP PRN (05:09)
[2022-04-15 05:19] VITALS: BP 128/80; PULSE 66; TEMP 97.8
== END 2022-04-15 05:39 | disposition short-term general hospital (02) | DRG 389 ==
LOC: EC 01:05 → 5NMEDONC 03:50
PROVIDERS: ADMIT Hospitalist; ATTEND Hospitalist
DX: K56.609 Unspecified intestinal obstruction, unspecified as to partial versus complete obstruction (principal); D68.51 Activated protein C resistance; K50.90 Crohn's disease, unspecified, without complications; Z20.822 Contact with and (suspected) exposure to COVID-19; D72.829 Elevated white blood cell count, unspecified; F32.A Depression, unspecified; F17.290 Nicotine dependence, other tobacco product, uncomplicated; Z79.620 Long term (current) use of immunosuppressive biologic; Z79.891 Long term (current) use of opiate analgesic; Z79.899 Other long term (current) drug therapy; Z90.49 Acquired absence of other specified parts of digestive tract; Z86.19 Personal history of other infectious and parasitic diseases; Z86.711 Personal history of pulmonary embolism; Z86.14 Personal history of Methicillin resistant Staphylococcus aureus infection; Z88.8 Allergy status to other drugs, medicaments and biological substances
CPT/HCPCS: 36415; 74177; 80053; 81003; 81025; 82150; 83605; 83690; 85025; 85652; 86140; 87635; 96361; 96374; 96375; 96376; 99285

== ENCOUNTER → 2022-09-25 | Outpatient (CLI) | payer MEDICARE, OTHER ==
[2022-09-25 15:32] LABS: Basophils # (A) 0.03 X 10*3/uL (0.00-0.10); Basophils % (A) 0.3 %; Eosinophils # (A) 0.11 X 10*3/uL (0.04-0.35); Eosinophils % (A) 1.1 %; HCT 38.2 % (37.2-46.3); HGB 12.4 g/dL (12.0-15.0); Immature Grans, Automated 0.3 %; Lymphocytes # (A) 4.52 X 10*3/uL (0.90-5.00); Lymphocytes % (A) 46.7 %; MCH 30.8 pg (27.0-32.0); MCHC 32.5 g/dL (32.0-37.0); Mean Platelet Volume 9.9 fL (9.5-12.2); Monocytes # (A) 0.85 X 10*3/uL (0.20-1.00); Monocytes % (A) 8.8 %; NRBC Per 100 WBC 0 /100 WBCS (0.0-0.0); Neutrophils # (A) 4.14 X 10*3/uL (1.80-7.70); Neutrophils % (A) 42.8 %; Platelet Count 282 X 10*3/uL (140-440); RBC 4.02 X 10*6/uL (4.10-5.20); RDW 13.2 % (11.5-14.5); WBC 9.68 X 10*3/uL (4.50-10.00)
[2022-09-25 16:27] LABS: African American GFR (CKD) 118.2 (60.0-200.0); Albumin 4.7 g/dL (3.8-4.9); Anion Gap 10.7 mmol/L (10.00-18.00); BUN/Creat Ratio 15.44 Ratio (12.00-20.00); Blood Urea Nitrogen 11.1 mg/dL (9.0-27.0); Calcium 9.7 mg/dL (8.7-10.3); Globulin 2.4 g/dL (1.6-3.3); Potassium 4.4 mmol/L (3.5-5.5); Total Bilirubin 0.2 mg/dL (0.30-1.20); Total Protein 7.1 g/dL (6.2-8.2)
== END | disposition home or self-care (01) ==
LOC: LABWHC1 09:08
PROVIDERS: ATTEND Internal Medicine Gastroenterology
DX: K50.90 Crohn's disease, unspecified, without complications (principal)
CPT/HCPCS: 36415; 80053; 85025

== ENCOUNTER → 2022-10-05 | Outpatient (CLI) | payer MEDICARE, OTHER | END | disposition home or self-care (01) | LOC: LABWHC1 14:04 | PROVIDERS: ATTEND Internal Medicine | DX: R10.817 Generalized abdominal tenderness (principal) | CPT/HCPCS: 36415; 83993 ==

== ENCOUNTER 2022-11-05 07:01 | Emergency (ER) | payer MEDICARE, OTHER ==
[2022-11-05 07:11] VITALS: TEMP 97.9
--- NOTE | 2022-11-05 07:35 | ED ---
Abdominal Pain HPI - General Chief Complaint: Abdominal Pain Stated Complaint: Gely Flair Up Time Seen by Provider: 11/05/22 07:14 Source: patient, RN notes reviewed, old records reviewed Mode of arrival: ambulatory Limitations: no limitations - History of Present Illness Initial Comments: 42-year-old female with past medical history significant for Crohn's presenting to the ED with the chief complaint of abdominal pain. Patient states that since Wednesday, she has had nausea, diarrhea, and abdominal pain. Pain is "all over" her abdomen. Rates that it is burning and constant in nature. States pain is currently a 9/10 in severity. She states that she has also had approximately 10 episodes of diarrhea every day since onset. Denies melena or gross blood in the stool but notes blood on the toilet paper when she wipes. 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 and subsequent stricturotomy with improvement of stenosis - Related Data Home Medications Medication Instructions Recorded Confirmed Adalimumab [Humira(Cf) Pen] 40 mg SQ Q14D 09/22/21 04/14/22 Butalb/APAP/Caff 50-325-40Mg 1 tab PO BID PRN 09/22/21 04/14/22 [Fioricet 50-325-40] Gabapentin [Neurontin] 300 mg PO BID 09/22/21 04/14/22 Loperamide [Imodium] 2 mg PO QID PRN 09/22/21 04/14/22 Melatonin [Melatonin ER] 10 mg PO HS 09/22/21 04/14/22 Pantoprazole Sodium [Protonix] 20 mg PO DAILY 09/22/21 04/14/22 Vit No.180/Iron/Folic 1 tab PO DAILY 09/22/21 04/14/22 [ Plus Vitamin-Mineral] traMADol HCL [Ultram] 50 mg PO BID 09/22/21 04/14/22 Cyclobenzaprine [Flexeril] 10 mg PO DAILY PRN 04/14/22 04/14/22 hydrOXYzine HCL [Atarax] 25 mg PO HS 04/14/22 04/14/22 Previous Rx's Medication Instructions Recorded Dicyclomine [Bentyl] 20 mg PO QID PRN 14 Days #56 tab 09/24/21 Allergies Allergy/AdvReac Type Severity Reaction Status Date / Time prednisone AdvReac Hallucinati Verified 11/05/22 07:11 ons prochlorperazine AdvReac AGITATION Verified 11/05/22 07:11 [From Compazine] Review of Systems ROS Statement: Those systems with pertinent positive or pertinent negative responses have been documented in the HPI. ROS Other: All systems not noted in ROS Statement are negative. Past Medical History Past Medical History: Pulmonary Embolus (PE) Additional Past Medical History / Comment(s): HEPATITIS C received treatment reports levels are now undetectable , crohn's disease, SBO, factor V Leiden with history of PE History of Any Multi-Drug Resistant Organisms: MRSA Date of last positivie culture/infection: 06/12/15 MRSA @ [facility] MDRO Source:: Abdomen Past Surgical History: Bowel Resection, Hernia Repair Additional Past Surgical History / Comment(s): VICTOR HUGO FOOT SURGERY, BOWEL RESECTION,. carpal tunnel surgery bilat hand Past Anesthesia/Blood Transfusion Reactions: No Reported Reaction Past Psychological History: Depression Smoking Status: Vaper Past Alcohol Use History: None Reported Past Drug Use History: None Reported - Past Family History Father Family Medical History: Cancer General Exam Limitations: no limitations General appearance: alert, in no apparent distress Head exam: Present: atraumatic, normocephalic Eye exam: Present: normal appearance ENT exam: Present: mucous membranes moist Neck exam: Present: normal inspection Respiratory exam: Present: normal lung sounds bilaterally Cardiovascular Exam: Present: regular rate, normal rhythm GI/Abdominal exam: Present: soft, tenderness (Diffusely TTP), diminished bowel sounds Neurological exam: Present: oriented X3 Psychiatric exam: Present: normal affect, normal mood Skin exam: Present: dry Course Vital Signs 11/05/22 11/05/22 11/05/22 07:09 08:27 09:29 Temperature 97.9 F Pulse Rate 68 67 68 Respiratory 18 18 18 Rate Blood Pressure 121/87 120/89 120/88 O2 Sat by Pulse 100 98 96 Oximetry 11/05/22 11/05/22 10:49 11:31 Temperature Pulse Rate 50 L 54 L Respiratory 16 18 Rate Blood Pressure 112/75 105/67 O2 Sat by Pulse 100 100 Oximetry Medical Decision Making - Medical Decision Making Was pt. sent in by a medical professional or institution (, PA, [employer], urgent care, hospital, or halfway...) When possible be specific @ - None Did you speak to anyone other than the patient for history (EMS, parent, family, police, friend...)? What history was obtained from this source @ -[No] Did you review nursing and triage notes (agree or disagree)? Why? @ -[I reviewed and agree with nursing and triage notes] Were old charts reviewed (outside hosp., previous admission, EMS record, old EKG, old radiological studies, urgent care reports/EKG's, halfway records)? Report findings @ -Heart charts reviewed showing history of Crohn's Differential Diagnosis (chest pain, altered mental status, abdominal pain women, abdominal pain men, vaginal bleeding, weakness, fever, dyspnea, syncope, headache, dizziness, GI bleed, back pain, seizure, CVA, palpatations, mental health, musculoskeletal)? @ -Differential Abdominal Pain Women: Appendicitis, Cholecystitis, diverticulosis, ischemic bowel, pancreatitis, hepatitis, UTI, gastroenteritis, AAA, incarcerated hernia, bowel obstruction, constipation, inflammatory bowel, hepatitis, peptic ulcer disease, splenic infarction, perforated viscus, vulvitis, ovarian torsion, PID, kidney stone, placenta abruption, this is not meant to be an all-inclusive list EKG interpreted by me (3pts min.). @ -[As above] X-rays interpreted by me (1pt min.). @ -[None done] CT interpreted by me (1pt min.). @ -CT showed mild to moderate wall thickening consistent with active Crohn's colitis U/S interpreted by me (1pt. min.). @ -[None done] What testing was considered but not performed or refused? (CT, X-rays, U/S, labs)? Why? @ -[None] What meds were considered but not given or refused? Why? @ -[None] Did you discuss the management of the patient with other professionals (professionals i.e. , PA, [employer], lab, RT, psych nurse, director of social services, cotton feeder, teacher, food safety officer, window caser)? Give summary @ -[No] Was smoking cessation discussed for >3mins.? @ -[No] Was critical care preformed (if so, how long)? @ -[No] Were there social determinants of health that impacted care today? How? (Homelessness, low income, unemployed, alcoholism, drug addiction, transportation, low edu. Level, literacy, decrease access to med. care, residential, rehab)? @ -[No] Was there de-escalation of care discussed even if they declined (Discuss DNR or withdrawal of care, Hospice)? DNR status @ -[No] What co-morbidities impacted this encounter? (DM, HTN, Smoking, COPD, CAD, Cancer, CVA, ARF, Chemo, Hep., AIDS, mental health diagnosis, sleep apnea, morbid obesity)? @ -[None] Was patient admitted / discharged? Hospital course, mention meds given and route, prescriptions, significant lab abnormalities, going to OR and other pertinent info. @ -Patient discharged. Given IV morphine as needed, by mouth GI cocktail, and IV GI cocktail with improvement of symptoms. Abs showed no significant abnormalities. Patient able to tolerate by mouth at discharge. Undiagnosed new problem with uncertain prognosis? @ -[No] Drug Therapy requiring intensive monitoring for toxicity (Heparin, Nitro, Insulin, Cardizem)? @ -[No] Were any procedures done? @ -[No] Diagnosis/symptom? @ -Crohn's Acute, or Chronic, or Acute on Chronic? @ -Acute on chronic Uncomplicated (without systemic symptoms) or Complicated (systemic symptoms)? @ -Complicated Side effects of treatment? @ -[No] Exacerbation, Progression, or Severe Exacerbation? @ -[No] Poses a threat to life or bodily function? How? (Chest pain, USA, PR, pneumonia, PE, COPD, DKA, ARF, appy, cholecystitis, CVA, Diverticulitis, Homicidal, Suicidal, threat to staff... and all critical care pts) @ -[No] - Lab Data Result diagrams: 11/05/22 07:43 11/05/22 07:43 Lab Results 11/05/22 11/05/22 11/05/22 Range/Units 07:43 07:43 07:43 WBC 8.2 (3.8-10.6) k/uL RBC 4.08 (3.80-5.40) m/uL Hgb 12.8 (11.4-16.0) gm/dL Hct 38.4 (34.0-46.0) % MCV 94.1 (80.0-100.0) fL MCH 31.3 (25.0-35.0) pg MCHC 33.2 (31.0-37.0) g/dL RDW 12.7 (11.5-15.5) % Plt Count 234 (150-450) k/uL MPV 7.8 Neutrophils % 48 % Lymphocytes % 41 % Monocytes % 6 % Eosinophils % 2 % Basophils % 0 % Neutrophils # 3.9 (1.3-7.7) k/uL Lymphocytes # 3.4 (1.0-4.8) k/uL Monocytes # 0.5 (0-1.0) k/uL Eosinophils # 0.1 (0-0.7) k/uL Basophils # 0.0 (0-0.2) k/uL Sodium (137-145) mmol/L Potassium (3.5-5.1) mmol/L Chloride (98-107) mmol/L Carbon Dioxide (22-30) mmol/L Anion Gap mmol/L BUN (7-17) mg/dL Creatinine (0.52-1.04) mg/dL Est GFR (CKD-EPI)AfAm (>60 ml/min/1.73 sqM) Est GFR (CKD-EPI)NonAf (>60 ml/min/1.73 sqM) Glucose (74-99) mg/dL Calcium (8.4-10.2) mg/dL Total Bilirubin (0.2-1.3) mg/dL AST (14-36) U/L ALT (4-34) U/L Alkaline Phosphatase (38-126) U/L Total Protein (6.3-8.2) g/dL Albumin (3.5-5.0) g/dL Amylase (30-110) U/L Lipase (23-300) U/L Urine Color Yellow Urine Appearance Clear (Clear) Urine pH 5.5 (5.0-8.0) Ur Specific [place] 1.018 (1.001-1.035) Urine Protein Negative (Negative) Urine Glucose (UA) Negative (Negative) Urine Ketones Negative (Negative) Urine Blood Negative (Negative) Urine Nitrite Negative (Negative) Urine Bilirubin Negative (Negative) Urine Urobilinogen <2.0 (<2.0) mg/dL Ur Leukocyte Esterase Negative (Negative) Urine HCG, Qual Not Detected (Not Detectd) 11/05/22 Range/Units 07:43 WBC (3.8-10.6) k/uL RBC (3.80-5.40) m/uL Hgb (11.4-16.0) gm/dL Hct (34.0-46.0) % MCV (80.0-100.0) fL MCH (25.0-35.0) pg MCHC (31.0-37.0) g/dL RDW (11.5-15.5) % Plt Count (150-450) k/uL MPV Neutrophils % % Lymphocytes % % Monocytes % % Eosinophils % % Basophils % % Neutrophils # (1.3-7.7) k/uL Lymphocytes # (1.0-4.8) k/uL Monocytes # (0-1.0) k/uL Eosinophils # (0-0.7) k/uL Basophils # (0-0.2) k/uL Sodium 139 (137-145) mmol/L Potassium 3.9 (3.5-5.1) mmol/L Chloride 106 (98-107) mmol/L Carbon Dioxide 26 (22-30) mmol/L Anion Gap 7 mmol/L BUN 11 (7-17) mg/dL Creatinine 0.62 (0.52-1.04) mg/dL Est GFR (CKD-EPI)AfAm >90 (>60 ml/min/1.73 sqM) Est GFR (CKD-EPI)NonAf >90 (>60 ml/min/1.73 sqM) Glucose 90 (74-99) mg/dL Calcium 9.1 (8.4-10.2) mg/dL Total Bilirubin 0.2 (0.2-1.3) mg/dL AST 31 (14-36) U/L ALT 33 (4-34) U/L Alkaline Phosphatase 64 (38-126) U/L Total Protein 7.0 (6.3-8.2) g/dL Albumin 4.3 (3.5-5.0) g/dL Amylase 50 (30-110) U/L Lipase 71 (23-300) U/L Urine Color Urine Appearance (Clear) Urine pH (5.0-8.0) Ur Specific [place] (1.001-1.035) Urine Protein (Negative) Urine Glucose (UA) (Negative) Urine Ketones (Negative) Urine Blood (Negative) Urine Nitrite (Negative) Urine Bilirubin (Negative) Urine Urobilinogen (<2.0) mg/dL Ur Leukocyte Esterase (Negative) Urine HCG, Qual (Not Detectd) - EKG Data -: EKG Interpreted by Me EKG shows normal: sinus rhythm EKG Comments: EKG shows a normal sinus rhythm at a rate of 65, NC 128, QRS 89, QT/QTC 383/395 Disposition Clinical Impression: Acute Crohn's disease Disposition: HOME SELF-CARE Condition: Good Additional Instructions: Please return to the Emergency Department if symptoms worsen or any other concerns. Please follow-up with gastroenterology. Is patient prescribed a controlled substance at d/c from ED?: No Referrals: Raquel Villeda MD [Primary Care Provider] - 1-2 days Mahi Simons MD [STAFF PHYSICIAN] - 1-2 days Time of Disposition: 11:00
[2022-11-05] MEDS ORDERED: IOPAMIDOL CONTRAST (ORAL USE) VIAL PO PRN (07:38)
[2022-11-05] MEDS ORDERED: SODIUM CHLORIDE 0.9% 500 ML 500 ML IV STA (07:53)
[2022-11-05] MEDS ORDERED: MORPHINE SULFATE 2 MG/ML SYRINGE IVP ONE ×2 (07:54→08:57)
[2022-11-05 08:02] LABS: Basophils % (A) 0 %; Eosinophils # (A) 0.1 k/uL (0-0.7); Eosinophils % (A) 2 %; HCT 38.4 % (34.0-46.0); HGB 12.8 gm/dL (11.4-16.0); Lymphocytes # (A) 3.4 k/uL (1.0-4.8); Lymphocytes % (A) 41 %; MCH 31.3 pg (25.0-35.0); MCHC 33.2 g/dL (31.0-37.0); MCV 94.1 fL (80.0-100.0); Mean Platelet Volume 7.8; Monocytes # (A) 0.5 k/uL (0-1.0); Monocytes % (A) 6 %; Neutrophils # (A) 3.9 k/uL (1.3-7.7); Neutrophils % (A) 48 %; Platelet Count 234 k/uL (150-450); RBC 4.08 m/uL (3.80-5.40); RDW 12.7 % (11.5-15.5); WBC 8.2 k/uL (3.8-10.6)
[2022-11-05 08:04] LABS: Appearance,Urine Clear (Clear); Bilirubin,Urine Negative (Negative); Blood,Urine Negative (Negative); Color,Urine Yellow; Glucose,Urine (UA) Negative (Negative); Ketones,Urine Negative (Negative); Leukocyte Esterase,Urine Negative (Negative); Nitrite,Urine Negative (Negative); PH, Urine 5.5 (5.0-8.0); Protein,Urine Negative (Negative); Specific Gravity,Urine 1.018 (1.001-1.035); Urobilinogen,Urine <2.0 mg/dL (<2.0)
[2022-11-05 08:24] LABS: ALT 33 U/L (4-34); AST 31 U/L (14-36); African American GFR (CKD) >90 (>60 ml/min/1.73 sqM); Albumin 4.3 g/dL (3.5-5.0); Alkaline Phosphatase 64 U/L (38-126); Amylase 50 U/L (30-110); Anion Gap 7 mmol/L; Blood Urea Nitrogen 11 mg/dL (7-17); Calcium 9.1 mg/dL (8.4-10.2); Carbon Dioxide 26 mmol/L (22-30); Chloride 106 mmol/L (98-107); Glucose 90 mg/dL (74-99); Lipase 71 U/L (23-300); Non-African American GFR(CKD) >90 (>60 ml/min/1.73 sqM); Potassium 3.9 mmol/L (3.5-5.1); Sodium 139 mmol/L (137-145); Total Bilirubin 0.2 mg/dL (0.2-1.3)
[2022-11-05] MEDS ORDERED: PANTOPRAZOLE 40 MG/10 ML VIAL IVP STA (08:58)
[2022-11-05] MEDS ORDERED: METOCLOPRAMIDE 5 MG/ML 2 ML VIAL IVP STA (08:58)
[2022-11-05] MEDS ORDERED: MAG HYDROX/AL HYDROX/SIMETH 30 ML, HYOSCYAMINE ELIXIR 10 ML PO STA ×2 (08:59)
[2022-11-05] MEDS ORDERED: MORPHINE SULFATE 4 MG/ML SYRINGE IVP STA ×2 (09:17→11:01)
[2022-11-05] MEDS ORDERED: KETOROLAC 15 MG/ML 1 ML VIAL IVP STA (09:17)
--- NOTE | 2022-11-05 10:45 | CT ---
EXAMINATION TYPE: CT abdomen pelvis w con DATE OF EXAM: 11/05/2022 COMPARISON: 04/14/2022 HISTORY: 42-year-old female Abdominal pain, History of Crohn's TECHNIQUE: Contiguous axial scanning of the abdomen and pelvis following administration of 100 ml Iso [place] 300 IV contrast. Delayed images through the kidneys and coronal/sagittal reconstructions perform ed. CT DLP: 757.6 mGycm Automated exposure control for dose reduction was used. FINDINGS: LUNG BASES: Dependent atelectasis in the visualized lower lungs. Otherwise, no significant abnormalit y is appreciated. LIVER/GB: Mild dilatation of the bile duct at 8 mm remains unchanged, likely chronic for the patient. No abnormal gallbladder hydrops. Portal venous system is patent. Otherwise, no significant abnormali ty is appreciated. PANCREAS: No significant abnormality is seen. SPLEEN: No significant abnormality is seen. ADRENALS: No significant abnormality is seen. KIDNEYS: No significant abnormality is seen. BOWEL: Mild to moderate fold thickening of the proximal to mid stomach. No dilated small bowel, free fluid, or free air. Oral contrast has progressed into the proximal sigmoid colon. No significant stoo l burden. There is mild to moderate circumferential thickening of the sigmoid colon down to the rectum. No sign ificant pericolonic inflammatory change. Some associated mucosal hyperemia is present. LYMPH NODES: A few prominent but not enlarged right lower quadrant mesenteric lymph nodes measuring u p to 6 mm. No abdominal or pelvic lymphadenopathy seen by size criteria. PELVIS: Bladder is urine distended. Uterus and started. Small bilateral ovaries. No abnormal fluid co llection in the pelvis or pelvic lymphadenopathy. BONES: Degenerated dextroconvex scoliosis of the lumbar spine. Mild degenerative change at the hips. IMPRESSION: 1. MILD TO MODERATE WALL THICKENING OF THE SIGMOID COLON AND RECTUM ALONG WITH MUCOSAL HYPEREMIA. GIV EN THE PATIENT'S HISTORY, LIKELY RELATING TO ACTIVE CROHN'S COLITIS. NO ABSCESS OR FREE AIR. 2. Possible mild gastritis given gastric fold thickening.
[2022-11-05 11:32] VITALS: BP 105/67; PULSE 54; RESP 18
[2022-11-05] MEDS ORDERED: ACET/COD 300 MG/30 MG STARTER PACK 6 TAB BTL PO STA (12:01)
== END 2022-11-05 12:22 | disposition home or self-care (01) ==
LOC: EC 07:01
DX: K50.90 Crohn's disease, unspecified, without complications (principal); F32.A Depression, unspecified; F17.290 Nicotine dependence, other tobacco product, uncomplicated; Z86.711 Personal history of pulmonary embolism; Z79.899 Other long term (current) drug therapy; Z88.8 Allergy status to other drugs, medicaments and biological substances
CPT/HCPCS: 36415; 93005; 80053; 82150; 83690; 85025; 81003; 81025; 74177; 99285; 96374; 96375 ×2; 96376 ×2; 96361; J2270 ×2; J2765; C9113; Q9967

== ENCOUNTER → 2022-12-10 | Outpatient (CLI) | payer MEDICARE, OTHER ==
[2022-12-10 21:32] LABS: ALT 17 U/L (8-44); AST 23 U/L (13-35); Albumin 4.5 d/dL (3.8-4.9); Albumin/Globulin Ratio 2.14 Ratio (1.60-3.17); Alkaline Phosphatase 62 U/L (41-126); Bilirubin, Conjugated <0.20 mg/dL (0.20-0.40); Globulin 2.1 d/dL (1.6-3.3); Total Bilirubin <0.2 mg/dL (0.3-1.2); Total Protein 6.6 d/dL (6.2-8.2)
[2022-12-10 21:50] LABS: Hepatitis C IgG Antibody Reactive (Non-Reactive)
[2022-12-10 23:27] LABS: Hepatitis A Antibody IgM Nonreactive; Hepatitis B Core IgM Nonreactive; Hepatitis B Surface Antigen Nonreactive
== END | disposition home or self-care (01) ==
LOC: LABWHC1 14:31
PROVIDERS: ATTEND Internal Medicine
DX: K50.812 Crohn's disease of both small and large intestine with intestinal obstruction (principal)
CPT/HCPCS: 36415; 80074; 80076; 82248; 86480; 86704

== ENCOUNTER → 2023-04-06 | Outpatient (CLI) | payer MEDICARE, OTHER ==
[2023-04-06 15:31] LABS: Basophils # (A) 0.01 X 10*3/uL (0.00-0.10); Basophils % (A) 0.1 %; Eosinophils # (A) 0.11 X 10*3/uL (0.04-0.35); Eosinophils % (A) 1.4 %; HGB 13.2 d/dL (12.0-15.0); Lymphocytes # (A) 3.29 X 10*3/uL (0.90-5.00); Lymphocytes % (A) 40.5 %; MCH 30.6 pg (27.0-32.0); MCV 92.6 FL (80.0-97.0); Mean Platelet Volume 10.8 FL (9.5-12.2); Monocytes # (A) 0.47 X 10*3/uL (0.20-1.00); Monocytes % (A) 5.8 %; NRBC Per 100 WBC 0 X 10*3/uL (0.00-0.01); Neutrophils # (A) 4.23 X 10*3/uL (1.80-7.70); Platelet Count 185 X 10*3/uL (140-440); RBC 4.32 X 10*6/uL (4.10-5.20); WBC 8.13 X 10*3/uL (4.50-10.00)
[2023-04-06 16:45] LABS: Erythrocyte Sedimentation Rate 14 mm/Hr (0-20)
[2023-04-06 19:23] LABS: % Iron Saturation 20.16 (12.00-45.00); ALT 20 U/L (8-44); AST 27 U/L (13-35); Albumin 4.9 d/dL (3.8-4.9); Albumin/Globulin Ratio 1.81 Ratio (1.60-3.17); Alkaline Phosphatase 82 U/L (41-126); BUN/Creat Ratio 11.71 Ratio (12.00-20.00); Blood Urea Nitrogen 8.2 mg/dL (9.0-27.0); C Reactive Protein <0.30 mg/dL (0.00-0.80); Calcium 9.7 mg/dL (8.7-10.3); Carbon Dioxide 24.1 mmol/L (21.6-31.8); Chloride 103 mmol/L (96-109); Globulin 2.7 d/dL (1.6-3.3); Glucose 91 mg/dL (70-110); Iron 77 UG/DL (50-170); Potassium 3.9 mmol/L (3.5-5.5); Sodium 141 mmol/L (135-145); Total Bilirubin <0.2 mg/dL (0.3-1.2); Total Iron Binding Capacity 382 UG/DL (228-460); Total Protein 7.6 d/dL (6.2-8.2)
== END | disposition home or self-care (01) ==
LOC: LABWHC1 11:36
PROVIDERS: ATTEND Psychiatry & Neurology Neurology
DX: M25.50 Pain in unspecified joint (principal); K50.812 Crohn's disease of both small and large intestine with intestinal obstruction
CPT/HCPCS: 36415; 80053; 82306; 82607; 82728; 83540; 83550; 84590; 85025; 85652; 86038; 86140

== ENCOUNTER → 2023-05-12 | Outpatient (CLI) | payer MEDICARE, OTHER ==
[2023-05-13 13:10] LABS: Cryptosporidium Antigen Negative (Negative)
== END | disposition home or self-care (01) ==
LOC: LABWHC1 14:14
PROVIDERS: ATTEND Internal Medicine
DX: K50.812 Crohn's disease of both small and large intestine with intestinal obstruction (principal); R19.7 Diarrhea, unspecified
CPT/HCPCS: 83993; 87045; 87046; 87324; 87328; 87329

== ENCOUNTER 2023-08-15 13:26 | Inpatient (IN) | payer MEDICARE, OTHER ==
--- NOTE | 2023-08-15 13:52 | ED ---
Abdominal Pain HPI - General Chief Complaint: Back Pain/Injury Stated Complaint: back pain Time Seen by Provider: 08/15/23 13:35 Source: patient, RN notes reviewed, old records reviewed Mode of arrival: ambulatory Limitations: no limitations - History of Present Illness Initial Comments: This is a 43-year-old female to the ER for evaluation today. Patient presents today for evaluation regards to severe back pain left-sided flank pain. Patient does have a long complicated history of abdominal surgery secondary to Crohn's disease. Patient has persistent left-sided flank pain for about a week now concern for kidney stones but the pain has been episodic. Today it came on worse than it has been with nausea no vomiting no fevers MD Complaint: abdominal pain, flank pain -: days(s) Location: LLQ, L flank, bilateral flank Radiation: back Migration to: LLQ Severity: severe Severity scale (1-10): 9 Quality: stabbing Consistency: constant Improves With: nothing, eating Worsens With: nothing Associated Symptoms: nausea, vomiting Treatments Prior to Arrival: other (0) - Related Data Home Medications Medication Instructions Recorded Confirmed Butalb/APAP/Caff 50-325-40Mg 1 tab PO BID PRN 09/22/21 08/15/23 [Fioricet 50-325-40] Gabapentin [Neurontin] 300 mg PO BID 09/22/21 08/15/23 Loperamide [Imodium] 2 mg PO QID PRN 09/22/21 08/15/23 Pantoprazole Sodium [Protonix] 20 mg PO DAILY 09/22/21 08/15/23 Vit No.180/Iron/Folic 1 tab PO DAILY 09/22/21 08/15/23 [ Plus Vitamin-Mineral] traMADol HCL [Ultram] 50 mg PO BID 09/22/21 08/15/23 Diphenoxylate HCl/Atropine 1 tab PO QID 08/15/23 08/15/23 [Lomotil 2.5-0.025 mg Tablet] Risankizumab-Rzaa [Skyrizi On-Body] 360 mg SQ Q42D 08/15/23 08/15/23 Sertraline [Zoloft] 100 mg PO DAILY 08/15/23 08/15/23 hydrOXYzine pamoate [Vistaril] 50 mg PO HS 08/15/23 08/15/23 tiZANidine HCL 2 mg PO HS 08/15/23 08/15/23 Allergies Allergy/AdvReac Type Severity Reaction Status Date / Time prednisone AdvReac Hallucinati Verified 08/15/23 16:47 ons prochlorperazine AdvReac AGITATION Verified 08/15/23 16:47 [From Compazine] Review of Systems ROS Statement: Those systems with pertinent positive or pertinent negative responses have been documented in the HPI. ROS Other: All systems not noted in ROS Statement are negative. Past Medical History Past Medical History: Pulmonary Embolus (PE) Additional Past Medical History / Comment(s): HEPATITIS C received treatment reports levels are now undetectable , crohn's disease, SBO, factor V Leiden with history of PE History of Any Multi-Drug Resistant Organisms: MRSA Date of last positivie culture/infection: 06/12/15 MRSA @ [facility] MDRO Source:: Abdomen Past Surgical History: Bowel Resection, Hernia Repair Additional Past Surgical History / Comment(s): VICTOR HUGO FOOT SURGERY, BOWEL RESECTION,. carpal tunnel surgery bilat hand Past Anesthesia/Blood Transfusion Reactions: No Reported Reaction Past Psychological History: Depression Smoking Status: Vaper Past Alcohol Use History: None Reported Past Drug Use History: None Reported - Past Family History Father Family Medical History: Cancer General Exam Limitations: no limitations General appearance: alert, in no apparent distress Head exam: Present: atraumatic, normocephalic, normal inspection Eye exam: Present: normal appearance, PERRL, EOMI. Absent: scleral icterus, conjunctival injection, periorbital swelling ENT exam: Present: normal exam, mucous membranes moist Neck exam: Present: normal inspection. Absent: tenderness, meningismus, lymphadenopathy Respiratory exam: Present: normal lung sounds bilaterally. Absent: respiratory distress, wheezes, rales, rhonchi, stridor Cardiovascular Exam: Present: regular rate, normal rhythm, normal heart sounds. Absent: systolic murmur, diastolic murmur, rubs, gallop, clicks GI/Abdominal exam: Present: soft, normal bowel sounds. Absent: distended, tenderness, guarding, rebound, rigid Extremities exam: Present: normal inspection, full ROM, normal capillary refill. Absent: tenderness, pedal edema, joint swelling, calf tenderness Back exam: Present: normal inspection Neurological exam: Present: alert, oriented X3, CN II-XII intact Psychiatric exam: Present: normal affect, normal mood Skin exam: Present: warm, dry, intact, normal color. Absent: rash Course Vital Signs 08/15/23 08/15/23 08/15/23 13:27 14:46 15:19 Temperature 98.1 F Pulse Rate 102 H 71 86 Respiratory 20 16 16 Rate Blood Pressure 123/86 118/84 120/87 O2 Sat by Pulse 99 96 94 L Oximetry 08/15/23 08/15/23 08/15/23 16:00 18:19 21:00 Temperature 98.5 F Pulse Rate 88 71 68 Respiratory 16 16 16 Rate Blood Pressure 136/92 129/91 138/87 O2 Sat by Pulse 94 L 97 96 Oximetry - Reevaluation(s) Reevaluation #1: 08/15/23 13:51 Medical record is reviewed Reevaluation #2: 08/15/23 16:39 Patient symptoms are unchanged Reevaluation #3: 08/15/23 16:40 Patient informed of results and questions answered Reevaluation #4: Was pt. sent in by a medical professional or institution (, PA, [employer]TER, urgent care, hospital, or intermediate...) When possible be specific @ -no Did you speak to anyone other than the patient for history (EMS, parent, family, police, friend...)? What history was obtained from this source @ -no Did you review nursing and triage notes (agree or disagree)? Why? @ -agree Are old charts reviewed (outside hosp., previous admission, EMS record, old EKG, old radiological studies, urgent care reports/EKG's, intermediate records)? Report findings @ -yes Differential Diagnosis (chest pain, altered mental status, abdominal pain women, abdominal pain men, vaginal bleeding, weakness, fever, dyspnea, syncope, headache, dizziness, GI bleed, back pain, seizure, CVA, palpatations, mental health, musculoskeletal)? @ -prior EKG interpreted by me (3pts min.). @ -no X-rays interpreted by me (1pt min.). @ -no CT interpreted by me (1pt min.). @ -Yes negative for acute disease U/S interpreted by me (1pt. min.). @ -no What testing was considered but not performed or refused? (CT, X-rays, U/S, labs)? Why? @ -none What meds were considered but not given or refused? Why? @ -none Did you discuss the management of the patient with other professionals (professionals i.e. , PA, [employer], lab, RT, psych nurse, case management social worker, surg nurse, teacher, defence force senior officer, case management social worker)? Give summary @ -no Was smoking cessation discussed for >3mins.? @ -no Was critical care preformed (if so, how long)? @ -no Were there social determinants of health that impacted care today? How? (Homelessness, low income, unemployed, alcoholism, drug addiction, transportation, low edu. Level, literacy, decrease access to med. care, halfway, rehab)? @ -none Was there de-escalation of care discussed even if they declined (Discuss DNR or withdrawal of care, Hospice)? DNR status @ -no What co-morbidities impacted this encounter? (DM, HTN, Smoking, COPD, CAD, Cancer, CVA, ARF, Chemo, Hep., AIDS, mental health diagnosis, sleep apnea, morbid obesity)? @ -none Was patient admitted / discharged? Hospital course, mention meds given and route, prescriptions, significant lab abnormalities, going to OR and other pertinent info. @ - 43 female to the ER today. Patient presents today for evaluation in reg ards to severe abdominal pain, uncontrolled rib pain with history of similar symptoms in the past. Patient has had significant wilder with Crohn's disease with partial colectomy in the past with prior bowel surgery. Patient has had surgery at this hospital and has been transferred for surgery at a higher center. Patient otherwise has persistent pain here in the ER with difficult to control pain Admitted Undiagnosed new problem with uncertain prognosis? @ -no Drug Therapy requiring intensive monitoring for toxicity (Heparin, Nitro, Insulin, Cardizem)? @ -no Were any procedures done? @ -no Diagnosis/symptom? @ -Abdominal pain history of Crohn's disease Acute, or Chronic, or Acute on Chronic? @ -Acute Uncomplicated (without systemic symptoms) or Complicated (systemic symptoms)? @ -Complicated Side effects of treatment? @ -no Exacerbation, Progression, or Severe Exacerbation? @ -exacerbation Poses a threat to life or bodily function? How? (Chest pain, [place], [place], pneumonia, PE, COPD, DKA, ARF, appy, cholecystitis, CVA, Diverticulitis, Homicidal, Suicidal, threat to staff... and all critical care pts) @ -Yes possible called underlying cancer diagnosis Reevaluation #5: Differential Abdominal Pain Women: Appendicitis, Cholecystitis, diverticulosis, ischemic bowel, pancreatitis, hepatitis, UTI, gastroenteritis, AAA, incarcerated hernia, bowel obstruction, constipation, inflammatory bowel, hepatitis, peptic ulcer disease, splenic infarction, perforated viscus, vulvitis, ovarian torsion, PID, kidney stone, placenta abruption, this is not meant to be an all-inclusive list - Consultations Consultation #1: Spoke with admitting physicians, agreed to admit this patient Medical Decision Making - Medical Decision Making 43 female to the ER today. Patient presents today for evaluation in regards to severe abdominal pain, uncontrolled rib pain with history of similar symptoms in the past. Patient has had significant wilder with Crohn's disease with partial colectomy in the past with prior bowel surgery. Patient has had surgery at this hospital and has been transferred for surgery at a higher center. Patient otherwise has persistent pain here in the ER with difficult to control pain - Lab Data Result diagrams: 08/17/23 05:39 08/17/23 05:39 Lab Results 08/15/23 08/15/23 08/15/23 Range/Units 13:54 13:54 13:54 WBC 9.6 (3.8-10.6) k/uL RBC 4.08 (3.80-5.40) m/uL Hgb 12.9 (11.4-16.0) gm/dL Hct 38.1 (34.0-46.0) % MCV 93.4 (80.0-100.0) fL MCH 31.7 (25.0-35.0) pg MCHC 33.9 (31.0-37.0) g/dL RDW 12.2 (11.5-15.5) % Plt Count 294 (150-450) k/uL MPV 7.5 Neutrophils % 59 % Lymphocytes % 34 % Monocytes % 4 % Eosinophils % 1 % Basophils % 1 % Neutrophils # 5.6 (1.3-7.7) k/uL Lymphocytes # 3.2 (1.0-4.8) k/uL Monocytes # 0.4 (0-1.0) k/uL Eosinophils # 0.1 (0-0.7) k/uL Basophils # 0.1 (0-0.2) k/uL Sodium 140 (137-145) mmol/L Potassium 4.2 (3.5-5.1) mmol/L Chloride 105 (98-107) mmol/L Carbon Dioxide 26 (22-30) mmol/L Anion Gap 9 mmol/L BUN 15 (7-17) mg/dL Creatinine 0.62 (0.52-1.04) mg/dL Est GFR (CKD-EPI)AfAm >90 (>60 ml/min/1.73 sqM) Est GFR (CKD-EPI)NonAf >90 (>60 ml/min/1.73 sqM) Glucose 151 H (74-99) mg/dL Calcium 9.5 (8.4-10.2) mg/dL Phosphorus 4.4 (2.5-4.5) mg/dL Magnesium 1.7 (1.6-2.3) mg/dL Total Bilirubin 0.6 (0.2-1.3) mg/dL AST 38 H (14-36) U/L ALT 25 (4-34) U/L Alkaline Phosphatase 73 (38-126) U/L Total Protein 7.5 (6.3-8.2) g/dL Albumin 4.6 (3.5-5.0) g/dL Amylase 60 (30-110) U/L Lipase 45 (23-300) U/L Urine Color Yellow Urine Appearance Clear (Clear) Urine pH 5.0 (5.0-8.0) Ur Specific [place] 1.019 (1.001-1.035) Urine Protein Negative (Negative) Urine Glucose (UA) Negative (Negative) Urine Ketones Negative (Negative) Urine Blood Negative (Negative) Urine Nitrite Negative (Negative) Urine Bilirubin Negative (Negative) Urine Urobilinogen <2.0 (<2.0) mg/dL Ur Leukocyte Esterase Negative (Negative) - Radiology Data Radiology results: report reviewed (CT abdomen pelvis does show history of Crohn's disease possible worsening), image reviewed Disposition Clinical Impression: Mid back pain, Thoracic back pain, Abdominal pain, Crohn's disease Disposition: ADMITTED IP TO THIS [facility] Condition: Fair Is patient prescribed a controlled substance at d/c from ED?: No Time of Disposition: 14:25
[2023-08-15] MEDS: PANTOPRAZOLE 40 MG/10 ML VIAL IVP STA (14:00)
[2023-08-15] MEDS: SODIUM CHLORIDE 0.9% 1,000 ML IV STA (14:00)
[2023-08-15 14:08] LABS: Basophils # (A) 0.1 k/uL (0-0.2); Basophils % (A) 1 %; Eosinophils # (A) 0.1 k/uL (0-0.7); Eosinophils % (A) 1 %; HCT 38.1 % (34.0-46.0); HGB 12.9 gm/dL (11.4-16.0); Lymphocytes # (A) 3.2 k/uL (1.0-4.8); Lymphocytes % (A) 34 %; MCH 31.7 pg (25.0-35.0); MCHC 33.9 g/dL (31.0-37.0); MCV 93.4 fL (80.0-100.0); Mean Platelet Volume 7.5; Monocytes # (A) 0.4 k/uL (0-1.0); Monocytes % (A) 4 %; Neutrophils # (A) 5.6 k/uL (1.3-7.7); Neutrophils % (A) 59 %; Platelet Count 294 k/uL (150-450); RBC 4.08 m/uL (3.80-5.40); RDW 12.2 % (11.5-15.5); WBC 9.6 k/uL (3.8-10.6)
[2023-08-15 14:21] LABS: Appearance,Urine Clear (Clear); Bilirubin,Urine Negative (Negative); Blood,Urine Negative (Negative); Color,Urine Yellow; Glucose,Urine (UA) Negative (Negative); Ketones,Urine Negative (Negative); Leukocyte Esterase,Urine Negative (Negative); Nitrite,Urine Negative (Negative); Protein,Urine Negative (Negative); Specific Gravity,Urine 1.019 (1.001-1.035); Urobilinogen,Urine <2.0 mg/dL (<2.0)
[2023-08-15] MEDS: KETOROLAC 15 MG/ML 1 ML VIAL IVP STA (14:35)
[2023-08-15] MEDS: MORPHINE SULFATE 4 MG/ML SYRINGE IVP STA (14:36)
[2023-08-15 14:44] LABS: ALT 25 U/L (4-34); African American GFR (CKD) >90 (>60 ml/min/1.73 sqM); Albumin 4.6 g/dL (3.5-5.0); Amylase 60 U/L (30-110); Anion Gap 9 mmol/L; Blood Urea Nitrogen 15 mg/dL (7-17); Calcium 9.5 mg/dL (8.4-10.2); Carbon Dioxide 26 mmol/L (22-30); Chloride 105 mmol/L (98-107); Glucose 151 mg/dL (74-99); Lipase 45 U/L (23-300); Non-African American GFR(CKD) >90 (>60 ml/min/1.73 sqM); Sodium 140 mmol/L (137-145); Total Bilirubin 0.6 mg/dL (0.2-1.3); Total Protein 7.5 g/dL (6.3-8.2)
--- NOTE | 2023-08-15 14:47 | CT ---
EXAMINATION TYPE: CT abdomen pelvis wo con DATE OF EXAM: 08/15/2023 COMPARISON: 11/05/2022 HISTORY: 43 year-old female abdominal pain, left flank pain CT DLP: 491.4 mGycm. Automated exposure control for dose reduction was used. TECHNIQUE: Contiguous axial scanning of the abdomen and pelvis without IV contrast. Coronal and sagit madhavi reconstructions performed. FINDINGS: Heart normal size without pericardial effusion. Lung bases clear without pleural effusion. Noncontrast appearance of the liver, gallbladder, adrenal glands, kidneys, spleen, and pancreas withi n normal limits. No nephrolithiasis or hydronephrosis. No dilated small bowel, free fluid, or free air. No mesenteric or retroperitoneal lymphadenopathy. Previous partial right hemicolectomy with ileocolic anastomosis at the hepatic flexure of the colon. Moderate stool throughout the remainder of the colon. No pericolic inflammatory change. A few areas of irregular soft tissue nodularity in the right sided mesentery, axial image 53 and 58 m easuring up to 1.3 cm measured 8 mm, previously. Adjacent right lower quadrant mesenteric lymph node measures 1.2 cm versus 9 mm, previously. Bladder is collapsed. Uterus anteverted. Suspect visualization of small bilateral ovaries. No abnorma l fluid collection the pelvis or pelvic lymphadenopathy. Dextroconvex scoliosis lumbar spine. IMPRESSION: 1. No nephrolithiasis or hydronephrosis. No acute inflammatory process identified to explain the pat ient's symptoms. 2. The patient is status post partial right colectomy. THERE IS SOME FOCAL SOFT TISSUE NODULARITY IN THE ADJACENT MESENTERY MEASURING UP TO 1.2 CM, PREVIOUSLY MEASURING 8 MM. RIGHT LOWER QUADRANT MESEN TERIC LYMPH NODES MEASURE UP TO 1.2 CM VERSUS 9 MM, PREVIOUSLY. IF THERE IS ONCOLOGIC HISTORY AND THI S PATIENT, EARLY LOCAL NEOPLASTIC RECURRENCE IS NOT EXCLUDED. RECOMMEND APPROPRIATE ONCOLOGIC FOLLOW- UP.
[2023-08-15 14:48] LABS: AST 38 U/L (14-36); Alkaline Phosphatase 73 U/L (38-126); Magnesium 1.7 mg/dL (1.6-2.3); Potassium 4.2 mmol/L (3.5-5.1)
[2023-08-15 14:49] LABS: Phosphorus 4.4 mg/dL (2.5-4.5)
[2023-08-15] MEDS: HYDROmorphone 1 MG/ML 1 ML SYRINGE IVP STA (15:21)
[2023-08-15] MEDS ORDERED: NALOXONE 0.4 MG/ML 1 ML VIAL IV PRN (16:30)
[2023-08-15] MEDS: SODIUM CHLORIDE 0.9% 1,000 ML IV SCH (16:44)
[2023-08-15] MEDS: HYDROmorphone 1 MG/ML 1 ML SYRINGE IVP PRN (18:21)
[2023-08-15] MEDS ORDERED: traMADol 50 MG TAB PO PRN (22:07)
[2023-08-15] MEDS ORDERED: ACETAMINOPHEN TAB 325 MG TAB PO PRN (22:09)
[2023-08-15] MEDS: DIPHENOX-ATROP 2.5-0.025 MG 1 EACH TAB PO SCH (22:29)
[2023-08-15] MEDS: tiZANidine 4 MG TAB PO SCH (22:30)
[2023-08-15] MEDS: HEPARIN SODIUM,PORCINE 5,000 UNIT/ML 1 ML VIAL SQ SCH (22:30)
[2023-08-15] MEDS: GABAPENTIN 300 MG CAP PO SCH (22:30)
[2023-08-15] MEDS: hydrOXYzine pamoate 25 MG CAP PO SCH (22:30)
[2023-08-16] MEDS: ONDANSETRON 4 MG/2 ML VIAL IVP PRN (04:07)
[2023-08-16] MEDS: PANTOPRAZOLE 40 MG TABLET PO SCH (04:08)
[2023-08-16 08:33] LABS: Basophils # (A) 0.04 X 10*3/uL (0.00-0.10); Basophils % (A) 0.5 %; Eosinophils % (A) 1.3 %; HCT 36.6 % (37.2-46.3); HGB 12.1 g/dL (12.0-15.0); Lymphocytes % (A) 32.4 %; MCH 30.6 pg (27.0-32.0); MCHC 33.1 g/dL (32.0-37.0); MCV 92.7 FL (80.0-97.0); Monocytes # (A) 0.56 X 10*3/uL (0.20-1.00); Monocytes % (A) 7.3 %; NRBC Per 100 WBC 0 X 10*3/uL (0.00-0.01); Neutrophils % (A) 58.4 %; Platelet Count 253 X 10*3/uL (140-440); RBC 3.95 X 10*6/uL (4.10-5.20); RDW 12.2 % (11.5-14.5); WBC 7.71 X 10*3/uL (4.50-10.00)
[2023-08-16 08:43] LABS: Magnesium 2.1 mg/dL (1.5-2.4); Phosphorus 4.5 mg/dL (2.4-5.1)
[2023-08-16] MEDS ORDERED: PANTOPRAZOLE 40 MG/10 ML VIAL IV SCH (09:00)
[2023-08-16 09:08] LABS: BUN/Creat Ratio 21.33 Ratio (12.00-20.00); Blood Urea Nitrogen 12.8 mg/dL (9.0-27.0); Glucose 89 mg/dL (70-110)
[2023-08-16 09:09] LABS: ALT 22 U/L (8-44); AST 24 U/L (13-35); Albumin 4.4 g/dL (3.8-4.9); Albumin/Globulin Ratio 1.76 Ratio (1.60-3.17); Alkaline Phosphatase 93 U/L (41-126); Calcium 9.4 mg/dL (8.7-10.3); Carbon Dioxide 25.5 mmol/L (21.6-31.8); Chloride 102 mmol/L (96-109); Globulin 2.5 g/dL (1.6-3.3); Potassium 4.6 mmol/L (3.5-5.5); Sodium 139 mmol/L (135-145); Total Bilirubin <0.2 mg/dL (0.3-1.2); Total Protein 6.9 g/dL (6.2-8.2)
[2023-08-16] MEDS: SERTRALINE 100 MG TAB PO SCH (09:33)
[2023-08-16] MEDS: PRENATAL VIT-IRON-FOLIC ACID 1 EACH TABLET PO SCH (09:34)
[2023-08-16] MEDS ORDERED: RX INFO: IV CONTRAST WAS GIVEN 1 EACH MISC MISCELLANE PRN (10:04)
--- NOTE | 2023-08-16 10:25 | P.CONS ---
History of Present Illness - Reason for Consult Consult date: 08/16/23 Lymphadenopathy on computed tomography scan Requesting physician: Tere Damian - Chief Complaint Left rib pain - History of Present Illness Mrs. Lucas is a 43-year-old female patient with a past medical history of Crohn's disease diagnosed in 2001, currently on biologic estela Vinny who is admitted with complaints of left-sided rib pain, this started in the last week, it is been constant, no relief with OTC remedies, she denies any injury, unintentional weight loss, fevers, respiratory illness, nausea, vomiting, abdominal pain. She has chronic diarrhea, and have up to 20 stools a day, denies hematochezia, melena. No recent respiratory illness, shortness of breath or cough. She has had bowel surgery in 2014 and 2019, she had a colonoscopy last month, she has had 2 stricturotomies, the most recent was last month with Dr. An. On admission for back pain, patient had CT of the abdomen and pelvis, showing lymphadenopathy on the right side of the abdomen. Irregular soft tissue nodularity in the right sided mesentery measuring 1.3 cm, previously measured 8 mm, adjacent right lower quadrant mesenteric LAD 1.2 cm, previously measured 9 mm. CBC and CMP were within normal limits. Review of Systems 10 point review of systems is negative except as stated in HPI Past Medical History Past Medical History: Pulmonary Embolus (PE) Additional Past Medical History / Comment(s): HEPATITIS C received treatment reports levels are now undetectable , crohn's disease, SBO, factor V Leiden with history of PE History of Any Multi-Drug Resistant Organisms: MRSA Year Discovered:: 06/12/15 MRSA @ [facility] MDRO Source:: Abdomen Past Surgical History: Ablation, Bowel Resection, Hernia Repair Additional Past Surgical History / Comment(s): VICTOR HUGO FOOT SURGERY, BOWEL RESECTION,. carpal tunnel surgery bilat hand. Uterine ablation and fallopian tube removal. Past Anesthesia/Blood Transfusion Reactions: No Reported Reaction Past Psychological History: Depression Smoking Status: Vaper Past Alcohol Use History: None Reported Additional Past Alcohol Use History / Comment(s): STARTED SMOKING AT AGE 13 SMOKES 1PPD Past Drug Use History: None Reported - Past Family History Father Family Medical History: Cancer Medications and Allergies Home Medications Medication Instructions Recorded Confirmed Type Butalb/APAP/Caff 50-325-40Mg 1 tab PO BID PRN 09/22/21 08/15/23 History [Fioricet 50-325-40] Gabapentin [Neurontin] 300 mg PO BID 09/22/21 08/15/23 History Loperamide [Imodium] 2 mg PO QID PRN 09/22/21 08/15/23 History Pantoprazole Sodium [Protonix] 20 mg PO DAILY 09/22/21 08/15/23 History Vit No.180/Iron/Folic 1 tab PO DAILY 09/22/21 08/15/23 History [ Plus Vitamin-Mineral] traMADol HCL [Ultram] 50 mg PO BID 09/22/21 08/15/23 History Diphenoxylate HCl/Atropine 1 tab PO QID 08/15/23 08/15/23 History [Lomotil 2.5-0.025 mg Tablet] Risankizumab-Rzaa [Skyrizi On-Body] 360 mg SQ Q42D 08/15/23 08/15/23 History Sertraline [Zoloft] 100 mg PO DAILY 08/15/23 08/15/23 History hydrOXYzine pamoate [Vistaril] 50 mg PO HS 08/15/23 08/15/23 History tiZANidine HCL 2 mg PO HS 08/15/23 08/15/23 History Allergies Allergy/AdvReac Type Severity Reaction Status Date / Time prednisone AdvReac Hallucinati Verified 08/15/23 16:47 ons prochlorperazine AdvReac AGITATION Verified 08/15/23 16:47 [From Compazine] Physical Exam Vitals: Vital Signs Temp Pulse Pulse Resp BP BP BP 08/16/23 07:00 97.7 F 81 16 113/74 08/16/23 02:00 97.6 F 54 L 16 107/66 08/15/23 21:34 98.3 F 88 16 133/87 08/15/23 21:00 98.5 F 68 16 138/87 08/15/23 18:19 71 16 129/91 08/15/23 16:00 88 16 136/92 08/15/23 15:19 86 16 120/87 08/15/23 14:46 71 16 118/84 08/15/23 13:27 98.1 F 102 H 20 123/86 Pulse Ox 08/16/23 07:00 95 08/16/23 02:00 96 08/15/23 21:34 100 08/15/23 21:00 96 08/15/23 18:19 97 08/15/23 16:00 94 L 08/15/23 15:19 94 L 08/15/23 14:46 96 08/15/23 13:27 99 Intake and Output 08/15/23 08/16/23 08/16/23 22:59 06:59 14:59 Other: Voiding Method Toilet # Voids 1 2 Weight 71.668 kg - Constitutional General appearance: average body habitus, cooperative, no acute distress - EENT Eyes: anicteric sclerae, EOMI ENT: hearing grossly normal, normal oropharynx - Neck Neck: no lymphadenopathy - Respiratory In the area of the sixth and seventh ribs, on the left side, patient has pain with palpation, no palpable mass or deformity Respiratory: bilateral: CTA - Cardiovascular Rhythm: regular Heart sounds: normal: S1, S2 Abnormal Heart Sounds: no systolic murmur, no diastolic murmur, no rub, no S3 Gallop, no S4 Gallop, no click, no other leg Peripheral Edema: bilateral: None - Gastrointestinal General gastrointestinal: no absent bowel sounds, no decreased bowel sounds, no distended, no hepatomegaly, no hyperactive bowel sounds, normal bowel sounds, no organomegaly, no rigid, no scaphoid, soft, no splenomegaly, no tenderness, no umbilical hernia, no ventral hernia - Integumentary Integumentary: normal - Neurologic Neurologic: CNII-XII intact - Musculoskeletal Musculoskeletal: strength equal bilaterally - Psychiatric Psychiatric: A&O x's 3, appropriate affect, intact judgment & insight Results CBC & Chem 7: 08/16/23 05:33 08/16/23 05:33 Labs: Abnormal Lab Results - Last 24 Hours (Table) 08/15/23 08/16/23 08/16/23 Range/Units 13:54 05:33 05:33 RBC 3.95 L (4.10-5.20) X 10*6/uL Hct 36.6 L (37.2-46.3) % BUN/Creatinine Ratio 21.33 H (12.00-20.00) Ratio Glucose 151 H (74-99) mg/dL Total Bilirubin <0.2 L (0.3-1.2) mg/dL AST 38 H (14-36) U/L CT scan - abdomen: report reviewed CT scan - pelvis: report reviewed Assessment and Plan (1) Left-sided chest wall pain Current Visit: Yes Status: Acute Priority: High Code(s): R07.89 - OTHER CHEST PAIN SNOMED Code(s): 417373499 (2) Lymphadenopathy Current Visit: Yes Status: Acute Priority: Medium Code(s): R59.1 - GENERALIZED ENLARGED LYMPH NODES SNOMED Code(s): 53759232 Plan: Left chest wall pain -New onset pain, patient has not had pain like this before. -CT of the abdomen and pelvis showing lymphadenopathy in the right side of the pelvis, no other acute findings in the report, nothing to explain the left chest wall pain. Lymphadenopathy findings and the left chest wall pain are likely not related. -On physical exam pt has pain to palpation in the area of the sixth and seventh ribs on the left side, inferior to the axilla. -CT of the chest with contrast ordered for evaluation of pain -We'll follow up on results Lymphadenopathy on imaging -Changes and no lymphadenopathy in the right side of the pelvis. LAD in the mesentery currently measuring 1.3 cm, previously measured 8 mm. Also, an adjacent right lower quadrant mesenteric LAD 1.2 cm, previously measured 9 mm. -Patient has history of chronic inflammatory disease, Crohn's disease that could account for LAD -Patient recently had a stricturotomy 07/20, though she is not sure which side of the colon. We will see if we get some reports from Dr. Ayoub office about this recent procedure. This millimeter increase in lymphadenopathy may be reactive from the same. -It was reviewed that based on the location of these enlarged lymph nodes, he would be very difficult to obtain a biopsy from, and would require rather i nvasive surgical procedure. There was no other lymphadenopathy found on physical exam. Though less likely malignancy, I cannot be 100% ruled out. Recommendation would be for follow-up imaging in about 90 days to see if these lymph nodes regress or progress. Patient verbalized understanding. She is in agreement with the plan of care at this time. Doctor attests: I performed a history and physical examination of this patient, developed impression and plan of care. Discussed with dictator. I agree with dictators note, documented as a scribe.
--- NOTE | 2023-08-16 11:48 | P.GSCN ---
History of Present Illness Consult date: 08/16/23 History of present illness: CHIEF COMPLAINT: Left lower rib pain HISTORY OF PRESENT ILLNESS: This is a 43-year-old female who presented with left side lower rib pain x 1 week patient denies any abdominal pain. Denies any nausea or vomiting. She reports her bowel movements have been her usual. She does have a history of Crohn's and her stools are usually loose. She denies any blood in her stools. She reports having a recent stricturotomy with Dr. An at [facility] 1 month ago. Patient does have prior history of partial colectomy with ileostomy for ileocolonic anastomosis stricture. Patient has had prior bowel resection her Crohn's disease and a prior hernia repair with mesh placement. CT scan abdomen and pelvis showed no evidence of kidney stones. Did report focal soft tissue nodularity in the adjacent mesentery measuring up to 1.2 cm previously measuring 8 mm and right lower quadrant mesenteric lymph nodes measuring up to 1.2 centimeters versus 9 mm. Oncology has also been consulted. PAST MEDICAL HISTORY: See below PAST SURGICAL HISTORY: See below MEDICATIONS: See below ALLERGIES: See below SOCIAL HISTORY: No illicit drug use. REVIEW OF SYSTEMS: CONSTITUTIONAL: Denies fever or chills. HEENT: Denies blurred vision, vision changes, or eye pain. Denies hemoptysis CARDIOVASCULAR: Denies chest pain or pressure. RESPIRATORY: No shortness of breath. GASTROINTESTINAL: See HPI for pertinent findings HEMATOLOGIC: Denies bleeding disorders. GENITOURINARY: Denies any blood in urine or increased urinary frequency. SKIN: Denies pruitis. Denies rash. PHYSICAL EXAM: VITAL SIGNS: Reviewed GENERAL: Well-developed in no acute distress. HEENT: No sclera icterus. Extraocular movements grossly intact. Moist buccal mucosa. Head is atraumatic, normocephalic. No nasal drainage. CHEST: Patient with tenderness along the left side of the lower rib cage ABDOMEN: Soft. Nondistended. Nontender NEUROLOGIC: Alert and oriented. Cranial nerves II through XII grossly intact. LABORATORY DATA: WBC 7.71 Hgb 12.1 platelets 253 Sodium is 139 potassium 4.6 creatinine 0.6 LFTs normal IMAGING: CT scan of abdomen pelvis as stated above ASSESSMENT: 1. Left sided lower rib cage pain 2. History of partial right colectomy. CT reports soft tissue nodularity in the adjacent mesentery measuring up to 1.2 cm previously measuring 8 mm. Right lower quadrant mesenteric lymph node measuring up to 1.2 cm versus 9 mm 3. History of Crohn's 4. History of recent stricturotomy on July 20 PLAN: -Agree with oncology consults -Agree with CT scan of the chest -Continue supportive care -Further recommendations forthcoming per surgeon Physician Gas Torch Solderer note has been reviewed by physician. Signing provider agrees with the documented findings, assessment, and plan of care. I have personally seen and examined the patient, reviewed the LEAD PRESSER /PAs history, exam and MDM and agree with the assessment and plan as written. Based on total visit time, I have performed more than 50% of the visit. As above: Patient with significant pain left lower rib cage. This seems to be superficial and likely musculoskeletal in origin. Await CT chest. CT abdomen shows some small lymph nodes. I suspect this is related to chronic inflammation and recent intervention by GI at [facility]. Agree with plans for outpatient oncology follow-up. No surgical plans at this time. Will sign off. Please reconsult if needed. Past Medical History Past Medical History: Pulmonary Embolus (PE) Additional Past Medical History / Comment(s): HEPATITIS C received treatment reports levels are now undetectable , crohn's disease, SBO, factor V Leiden with history of PE History of Any Multi-Drug Resistant Organisms: MRSA Year Discovered:: 06/12/15 MRSA @ [facility] MDRO Source:: Abdomen Past Surgical History: Ablation, Bowel Resection, Hernia Repair Additional Past Surgical History / Comment(s): VICTOR HUGO FOOT SURGERY, BOWEL RESECTION,. carpal tunnel surgery bilat hand. Uterine ablation and fallopian tube removal. Past Anesthesia/Blood Transfusion Reactions: No Reported Reaction Past Psychological History: Depression Smoking Status: Vaper Past Alcohol Use History: None Reported Additional Past Alcohol Use History / Comment(s): STARTED SMOKING AT AGE 13 SMOKES 1PPD Past Drug Use History: None Reported - Past Family History Father Family Medical History: Cancer Medications and Allergies Home Medications Medication Instructions Recorded Confirmed Type Butalb/APAP/Caff 50-325-40Mg 1 tab PO BID PRN 09/22/21 08/15/23 History [Fioricet 50-325-40] Gabapentin [Neurontin] 300 mg PO BID 09/22/21 08/15/23 History Loperamide [Imodium] 2 mg PO QID PRN 09/22/21 08/15/23 History Pantoprazole Sodium [Protonix] 20 mg PO DAILY 09/22/21 08/15/23 History Vit No.180/Iron/Folic 1 tab PO DAILY 09/22/21 08/15/23 History [ Plus Vitamin-Mineral] traMADol HCL [Ultram] 50 mg PO BID 09/22/21 08/15/23 History Diphenoxylate HCl/Atropine 1 tab PO QID 08/15/23 08/15/23 History [Lomotil 2.5-0.025 mg Tablet] Risankizumab-Rzaa [Skyrizi On-Body] 360 mg SQ Q42D 08/15/23 08/15/23 History Sertraline [Zoloft] 100 mg PO DAILY 08/15/23 08/15/23 History hydrOXYzine pamoate [Vistaril] 50 mg PO HS 08/15/23 08/15/23 History tiZANidine HCL 2 mg PO HS 08/15/23 08/15/23 History Allergies Allergy/AdvReac Type Severity Reaction Status Date / Time prednisone AdvReac Hallucinati Verified 08/15/23 16:47 ons prochlorperazine AdvReac AGITATION Verified 08/15/23 16:47 [From Compazine] Surgical - Exam Vital Signs Temp Pulse Resp BP Pulse Ox 98.1 F 102 H 20 123/86 99 08/15/23 13:27 08/15/23 13:27 08/15/23 13:27 08/15/23 13:27 08/15/23 13:27 Results - Labs 08/16/23 05:33 08/16/23 05:33 Abnormal Lab Results - Last 24 Hours (Table) 08/15/23 08/16/23 08/16/23 Range/Units 13:54 05:33 05:33 RBC 3.95 L (4.10-5.20) X 10*6/uL Hct 36.6 L (37.2-46.3) % BUN/Creatinine Ratio 21.33 H (12.00-20.00) Ratio Glucose 151 H (74-99) mg/dL Total Bilirubin <0.2 L (0.3-1.2) mg/dL AST 38 H (14-36) U/L Diabetes panel 08/15/23 08/16/23 Range/Units 13:54 05:33 Sodium 140 139 (137-145) mmol/L Potassium 4.2 4.6 (3.5-5.1) mmol/L Chloride 105 102 (98-107) mmol/L Carbon Dioxide 26 25.5 (22-30) mmol/L BUN 15 12.8 (7-17) mg/dL Creatinine 0.62 0.6 (0.52-1.04) mg/dL Glucose 151 H 89 (74-99) mg/dL Calcium 9.5 9.4 (8.4-10.2) mg/dL AST 38 H 24 (14-36) U/L ALT 25 22 (4-34) U/L Alkaline Phosphatase 73 93 (38-126) U/L Total Protein 7.5 6.9 (6.3-8.2) g/dL Albumin 4.6 4.4 (3.5-5.0) g/dL Calcium panel 08/15/23 08/16/23 Range/Units 13:54 05:33 Calcium 9.5 9.4 (8.4-10.2) mg/dL Phosphorus 4.4 4.5 (2.5-4.5) mg/dL Albumin 4.6 4.4 (3.5-5.0) g/dL Pituitary panel 08/15/23 08/16/23 Range/Units 13:54 05:33 Sodium 140 139 (137-145) mmol/L Potassium 4.2 4.6 (3.5-5.1) mmol/L Chloride 105 102 (98-107) mmol/L Carbon Dioxide 26 25.5 (22-30) mmol/L BUN 15 12.8 (7-17) mg/dL Creatinine 0.62 0.6 (0.52-1.04) mg/dL Glucose 151 H 89 (74-99) mg/dL Calcium 9.5 9.4 (8.4-10.2) mg/dL Adrenal panel 08/15/23 08/16/23 Range/Units 13:54 05:33 Sodium 140 139 (137-145) mmol/L Potassium 4.2 4.6 (3.5-5.1) mmol/L Chloride 105 102 (98-107) mmol/L Carbon Dioxide 26 25.5 (22-30) mmol/L BUN 15 12.8 (7-17) mg/dL Creatinine 0.62 0.6 (0.52-1.04) mg/dL Glucose 151 H 89 (74-99) mg/dL Calcium 9.5 9.4 (8.4-10.2) mg/dL Total Bilirubin 0.6 <0.2 L (0.2-1.3) mg/dL AST 38 H 24 (14-36) U/L ALT 25 22 (4-34) U/L Alkaline Phosphatase 73 93 (38-126) U/L Total Protein 7.5 6.9 (6.3-8.2) g/dL Albumin 4.6 4.4 (3.5-5.0) g/dL
--- NOTE | 2023-08-16 12:04 | CT ---
EXAMINATION TYPE: CT chest w con DATE OF EXAM: 08/16/2023 COMPARISON: None available. HISTORY: Left-sided chest pain. CT DLP: 242.3 mGycm Automated exposure control for dose reduction was used. TECHNIQUE: CT scan of the chest is performed with IV Contrast, patient injected with 100 mL of Isovue 300. MIP Images are created on CT scanner and reviewed. 3D reconstructed images are created on an independent workstation and reviewed. FINDINGS: Mediastinum and Lisette: There is no axillary, mediastinal or hilar lymphadenopathy. Pleural and Pericardial spaces: There are no pleural or pericardial effusions. Upper Abdomen: The visualized upper abdomen is unremarkable. Cardiovascular: Dilation of the ascending thoracic aorta to 4.1 cm without evidence of dissection is seen. Pulmonary Artery: There are no central pulmonary arterial abnormalities. The examination was not per formed to evaluate for pulmonary embolism. Lung Parenchyma and Airways: The lungs are clear. Bones: No fracture or aggressive osseous lesion. IMPRESSION: 1. No acute abnormality in the chest. 2. Dilation of the ascending thoracic aorta to 4.1 cm. No dissection.
--- NOTE | 2023-08-16 23:33 | P.HPIM ---
History of Present Illness H&P Date: 08/16/23 Chief Complaint: Abdominal pain Patient is a 43-year-old female with a past medical history of Crohn's and right partial colectomy, currently on immunotherapy, history of PE, hepatitis C status posttreatment, recent history of stricturotomy at [facility] and ablation and use of Vape presents to ER with complaints of abdominal pain mainly left lower rib and flank pain. Patient has been having symptoms for the past 1 week. Pain has been episodic. Otherwise patient denies any complaints of fever or chills. No dysuria or hematuria. Denies any renal stones. No complaints of chest pain or shortness of breath. No nausea or vomiting or abdominal pain. Denied hematemesis or melena. CT of the abdomen pelvis showed no nephrolithiasis or hydronephrosis. No acute inflammatory process to explain the patient's symptoms. Status post right colectomy changes. There is some focal soft tissue nodularity in the adjacent mesentery measuring up to 1.2 cm previously measuring 8 mm. Right lower quadrant mesenteric lymph nodes measure up to 1.2 cm versus 9 mm previously. If there is oncologic history and this patient yearly local neoplastic recurrence is not excluded. Laboratory data showed sodium 140 potassium 4.2 chloride 105 bicarb is 26 BUN 15 and creatinine 0.62 and blood sugar 151 AST 38 ALT 25 alk phos 73 Amylase 16 lipase 45 WBC 9.6 hemoglobin 12.9 and platelets 294. Urinalysis is negative for infection. Review of Systems Constitutional: Patient denies any fever or chills . No generalized weakness or weight loss. Abdomen: Patient denied nausea vomiting and diarrhea and abdominal pain. Cardiovascular: Patient does have left lower chest pain. No short of breath no palpitations. No leg swelling. Respiratory: patient denied any cough is from production. No shortness of breath Neurologic: Patient denied any numbness or tingling headache. Musculoskeletal: Patient denies any complaints of joint swelling or deformity. Skin: Negative Psychiatric: Negative Endocrine: No heat or cold intolerance. No recent weight gain. Genitourinary: No dysuria or hematuria. All other 14 point ROS negative except the above Past Medical History Past Medical History: Pulmonary Embolus (PE) Additional Past Medical History / Comment(s): HEPATITIS C received treatment reports levels are now undetectable , crohn's disease, SBO, factor V Leiden with history of PE History of Any Multi-Drug Resistant Organisms: MRSA Date of last positivie culture/infection: 06/12/15 MRSA @ [facility] MDRO Source:: Abdomen Past Surgical History: Ablation, Bowel Resection, Hernia Repair Additional Past Surgical History / Comment(s): VICTOR HUGO FOOT SURGERY, BOWEL RESECTION,. carpal tunnel surgery bilat hand. Uterine ablation and fallopian tube removal. Past Anesthesia/Blood Transfusion Reactions: No Reported Reaction Past Psychological History: Depression Smoking Status: Vaper Past Alcohol Use History: None Reported Additional Past Alcohol Use History / Comment(s): STARTED SMOKING AT AGE 13 SMOKES 1PPD Past Drug Use History: None Reported - Past Family History Father Family Medical History: Cancer Medications and Allergies Home Medications Medication Instructions Recorded Confirmed Type Butalb/APAP/Caff 50-325-40Mg 1 tab PO BID PRN 09/22/21 08/15/23 History [Fioricet 50-325-40] Gabapentin [Neurontin] 300 mg PO BID 09/22/21 08/15/23 History Loperamide [Imodium] 2 mg PO QID PRN 09/22/21 08/15/23 History Pantoprazole Sodium [Protonix] 20 mg PO DAILY 09/22/21 08/15/23 History Vit No.180/Iron/Folic 1 tab PO DAILY 09/22/21 08/15/23 History [ Plus Vitamin-Mineral] traMADol HCL [Ultram] 50 mg PO BID 09/22/21 08/15/23 History Diphenoxylate HCl/Atropine 1 tab PO QID 08/15/23 08/15/23 History [Lomotil 2.5-0.025 mg Tablet] Risankizumab-Rzaa [Skyrizi On-Body] 360 mg SQ Q42D 08/15/23 08/15/23 History Sertraline [Zoloft] 100 mg PO DAILY 08/15/23 08/15/23 History hydrOXYzine pamoate [Vistaril] 50 mg PO HS 08/15/23 08/15/23 History tiZANidine HCL 2 mg PO HS 08/15/23 08/15/23 History Allergies Allergy/AdvReac Type Severity Reaction Status Date / Time prednisone AdvReac Hallucinati Verified 08/15/23 16:47 ons prochlorperazine AdvReac AGITATION Verified 08/15/23 16:47 [From Compazine] Physical Exam Vitals: Vital Signs Temp Pulse Pulse Resp BP BP BP 08/16/23 07:00 97.7 F 81 16 113/74 08/16/23 02:00 97.6 F 54 L 16 107/66 08/15/23 21:34 98.3 F 88 16 133/87 08/15/23 21:00 98.5 F 68 16 138/87 08/15/23 18:19 71 16 129/91 08/15/23 16:00 88 16 136/92 08/15/23 15:19 86 16 120/87 08/15/23 14:46 71 16 118/84 08/15/23 13:27 98.1 F 102 H 20 123/86 Pulse Ox 08/16/23 07:00 95 08/16/23 02:00 96 08/15/23 21:34 100 08/15/23 21:00 96 08/15/23 18:19 97 08/15/23 16:00 94 L 08/15/23 15:19 94 L 08/15/23 14:46 96 08/15/23 13:27 99 Intake and Output 08/15/23 08/16/23 08/16/23 22:59 06:59 14:59 Other: Voiding Method Toilet # Voids 1 2 Weight 71.668 kg PHYSICAL EXAMINATION: Patient is lying in the bed comfortably, no acute distress, awake alert and or iented.. HEENT: Normocephalic. Neck is supple. Pupils reactive. Nostrils clear. Oral cavity is moist. Neck reveals no JVD, carotid bruits, or thyromegaly. CHEST EXAMINATION: Trachea is central. Symmetrical expansion. Lung oakley clear to auscultation and percussion. Left lower rib tenderness with deep palpation. CARDIAC: Normal S1, S2 with no gallops. No murmurs ABDOMEN: Soft. Bowel sounds normal. No organomegaly. No abdominal bruits. Extremities: reveal no edema. No clubbing or cyanosis Neurologically awake, alert, oriented x3 with well-coordinated movements. No focal deficits noted Skin: No rash or skin lesions. Psychiatric: Coperative. Nonsuicidal Musculoskeletal: No joint swelling or deformity. Normal range of motion. Results CBC & Chem 7: 08/16/23 05:33 08/16/23 05:33 Labs: Abnormal Lab Results - Last 24 Hours (Table) 08/15/23 08/16/23 08/16/23 Range/Units 13:54 05:33 05:33 RBC 3.95 L (4.10-5.20) X 10*6/uL Hct 36.6 L (37.2-46.3) % BUN/Creatinine Ratio 21.33 H (12.00-20.00) Ratio Glucose 151 H (74-99) mg/dL Total Bilirubin <0.2 L (0.3-1.2) mg/dL AST 38 H (14-36) U/L Thrombosis Risk Factor Assmnt - DVT/VTE Prophylaxis DVT/VTE Prophylaxis: Pharmacologic Prophylaxis ordered - Choose All That Apply Any of the Below Risk Factors Present?: Yes Each Factor Represents 1 point: Age 41-60 years, Obesity (BMI >25) Each Risk Factor Represents 3 Points: History of DVT/PE Thrombosis Risk Factor Assessment Total Risk Factor Score: 5 Thrombosis Risk Factor Assessment Level: High Risk Assessment and Plan Assessment: Left lower chest pain and flank pain Recent history of stricturotomy on July 20, 2023 Ascending aortic aneurysm measuring 4.1 cm. No dissection. Mesenteric lymphadenopathy with increase in size Crohn's disease currently on immunotherapy History of right colectomy and prior history of SBO Prior history of PE History of hepatitis C status posttreatment Depression GERD prophylaxis with PPI and heparin subcu Plan: Patient will be continued IV hydration with normal saline. Continue with pain management. Continue with PPI Encourage incentive spirometry and D-dimer will be ordered. Oncology was consulted. CT thorax with contrast done. Report pending. General surgery and oncology is on board. Follow-up closely. Time with Patient: Greater than 30
[2023-08-17 08:39] LABS: BUN/Creat Ratio 26.17 Ratio (12.00-20.00); Blood Urea Nitrogen 15.7 mg/dL (9.0-27.0); Calcium 9.2 mg/dL (8.7-10.3); Carbon Dioxide 23.5 mmol/L (21.6-31.8); Chloride 103 mmol/L (96-109); Glucose 89 mg/dL (70-110); Potassium 4.5 mmol/L (3.5-5.5); Sodium 138 mmol/L (135-145)
[2023-08-17 08:45] LABS: Basophils # (A) 0.02 X 10*3/uL (0.00-0.10); Basophils % (A) 0.3 %; Eosinophils # (A) 0.12 X 10*3/uL (0.04-0.35); Eosinophils % (A) 1.8 %; HCT 38.2 % (37.2-46.3); HGB 12.5 g/dL (12.0-15.0); Lymphocytes # (A) 2.39 X 10*3/uL (0.90-5.00); Lymphocytes % (A) 36.6 %; MCH 30.5 pg (27.0-32.0); MCHC 32.7 g/dL (32.0-37.0); MCV 93.2 FL (80.0-97.0); Mean Platelet Volume 10.1 FL (9.5-12.2); Monocytes # (A) 0.48 X 10*3/uL (0.20-1.00); Monocytes % (A) 7.4 %; NRBC Per 100 WBC 0 X 10*3/uL (0.00-0.01); Neutrophils % (A) 53.6 %; Platelet Count 235 X 10*3/uL (140-440); RDW 12.3 % (11.5-14.5); WBC 6.53 X 10*3/uL (4.50-10.00)
[2023-08-17] MEDS: BUTALB/APAP/CAFF 50-325-40MG TAB PO PRN (09:02)
[2023-08-17] MEDS: HYDROcodone/APAP 5-325MG 1 EACH TAB PO PRN (15:09)
[2023-08-17] MEDS: KETOROLAC 15 MG/ML 1 ML VIAL IVP SCH (15:09)
[2023-08-17] MEDS: HYDROmorphone 0.5 MG/0.5 ML SYRINGE IVP PRN (16:48)
--- NOTE | 2023-08-17 19:52 | P.PN ---
Subjective Progress Note Date: 08/17/23 Principal diagnosis: Abd LAD In follow-up today patient continues to complain of left flank/mid back pain. It is stabbing, nearly constant, nothing is really relieving it. Patient reports that she had similar pain but it is usually on her left side. She does follow with Neurologist Dr. Frazier, she has seen Dr. Hines in the past for her scoliosis. Objective - Vital Signs Vital signs: Vital Signs Temp 98.6 F 08/17/23 07:00 Pulse 58 L 08/17/23 07:00 Resp 16 08/17/23 07:00 BP 106/66 08/17/23 07:00 Pulse Ox 97 08/17/23 07:00 FiO2 Intake & Output 08/16/23 08/17/23 08/17/23 18:59 06:59 18:59 Intake Total 180 420 Balance 180 420 Intake: Oral 180 420 Other: Voiding Method Toilet # Voids 4 2 # Bowel Movements 2 - Constitutional General appearance: Present: average body habitus, cooperative, mild distress - EENT Eyes: Present: anicteric sclerae, EOMI ENT: Present: hearing grossly normal - Respiratory Details: Respirations even and unlabored at rest - Cardiovascular Details: Skin warm and dry to the touch, radial pulse 2+, regular - Peripheral edema leg Peripheral Edema: bilateral: None - Integumentary Integumentary Comment(s): Skin was evaluated in the area that patient complains of pain, no rash or lesions are seen, no masses or irregularities are palpable. - Neurologic Neurologic: Present: CNII-XII intact - Musculoskeletal Musculoskeletal: Present: strength equal bilaterally - Psychiatric Psychiatric: Present: A&O x's 3, appropriate affect, intact judgment & insight - Labs CBC & Chem 7: 08/17/23 05:39 08/17/23 05:39 Labs: Abnormal Lab Results - Last 24 Hours (Table) 08/17/23 Range/Units 05:39 BUN/Creatinine Ratio 26.17 H (12.00-20.00) Ratio - Imaging and Cardiology CT scan - chest: report reviewed Assessment and Plan (1) Left-sided chest wall pain Current Visit: Yes Status: Acute Priority: High Code(s): R07.89 - OTHER CHEST PAIN SNOMED Code(s): 201600971 (2) Lymphadenopathy Current Visit: Yes Status: Acute Priority: Medium Code(s): R59.1 - GENERALIZED ENLARGED LYMPH NODES SNOMED Code(s): 99980563 Plan: Left chest wall pain -New onset pain. With further questioning today, patient reports she has had pain like this before, normally it is on her right side -CT of the abdomen and pelvis showing lymphadenopathy in the right side of the pelvis, no other acute findings in the report, nothing to explain the left chest wall pain. Lymphadenopathy findings and the left chest wall pain are likely not related. -On physical exam pt continues to have pain to palpation in the area of the sixth and seventh ribs on the left side, inferior to the axilla, she even feels it inferior/lateral to the scapula. -CT of the chest with contrast did not reveal any findings that could account for patient's pain -Case discussed with attending DENTAL ASSOCIATE. Patient may need referral to a scoliosis specialist Lymphadenopathy on imaging -Slight changes to lymphadenopathy previously seen in the right side of the pelvis per report. LAD in the mesentery currently measuring 1.3 cm, previously measured 8 mm. Also, an adjacent right lower quadrant mesenteric LAD 1.2 cm, previously measured 9 mm. -Patient has history of chronic inflammatory disease, Crohn's disease, that could account for LAD -Patient recently had a stricturotomy 07/20, though she is not sure which side of the colon. Did not have reports as of this am from Dr. Ayoub office. Mill imeter increase in lymphadenopathy may be reactive from the same. -Pt understands that based on the location of these enlarged lymph nodes, it would be very difficult to obtain a biopsy, would require rather invasive surgical procedure. No lymphadenopathy found on physical exam, CT of the chest did not reveal any other lymphadenopathy, bony lesions, lungs were clear. -Though less likely, malignancy cannot be 100% ruled out. Recommendation would be for follow-up imaging in about 90 days to see if these lymph nodes regress or progress. Patient verbalized understanding. She is in agreement with the plan of care at this time. Will plan for follow-up and contact patient with appointment date and time.
--- NOTE | 2023-08-17 21:59 | P.PN ---
Subjective Progress Note Date: 08/17/23 Patient is a 43-year-old female with a past medical history of Crohn's and right partial colectomy, currently on immunotherapy, history of PE, hepatitis C status posttreatment, recent history of stricturotomy at [facility] and ablation and use of Vape presents to ER with complaints of abdominal pain mainly left lower rib and flank pain. Patient has been having symptoms for the past 1 week. Pain has been episodic. Otherwise patient denies any complaints of fever or chills. No dysuria or hematuria. Denies any renal stones. No complaints of chest pain or shortness of breath. No nausea or vomiting or abdominal pain. Denied hematemesis or melena. CT of the abdomen pelvis showed no nephrolithiasis or hydronephrosis. No acute inflammatory process to explain the patient's symptoms. Status post right colectomy changes. There is some focal soft tissue nodularity in the adjacent mesentery measuring up to 1.2 cm previously measuring 8 mm. Right lower quadrant mesenteric lymph nodes measure up to 1.2 cm versus 9 mm previously. If there is oncologic history and this patient yearly local neoplastic recurrence is not excluded. Laboratory data showed sodium 140 potassium 4.2 chloride 105 bicarb is 26 BUN 15 and creatinine 0.62 and blood sugar 151 AST 38 ALT 25 alk phos 73 Amylase 16 lipase 45 WBC 9.6 hemoglobin 12.9 and platelets 294. Urinalysis is negative for infection. 08/17/2023 Patient is seen and evaluated in follow-up this morning continues to report severe 10/10 pain in her back and continues on IV pain medications with little to no relief. Patient with lymphadenopathy noted on CT and be evaluated by hematology/oncology currently awaiting further testing. Patient is up and walking to the bathroom and continues to have frequent episodes in the bathroom with history of Crohn's. Patient reports she follows with pain management with neurology outpatient with no relief. Patient has been evaluated by Dr. Gutierrez in the past and has occasionally undergone physical therapy in the outpatient setting with no relief as well. Per patient will consult orthopedics Dr. Lanier for evaluation and input and recommendations. Patient has been encouraged to increase activity as tolerated. Discussed with the patient about weaning off IV narcotics and will add Toradol and continue with as needed Foster. Review of systems: Constitutional: No reports of fatigue, fever, or chills Cardiovascular: No reports of chest pain or palpitations Respiratory: No reports of shortness of breath or cough GI: No reports of nausea, vomiting, or diarrhea : No reports of dysuria or retention Neurovascular: reports of continued back pain 03/16 All medications have been reviewed PHYSICAL EXAMINATION: Patient is sitting up at the side of the bed, slightly anxious and restless appears uncomfortable, awake alert and oriented.. HEENT: Normocephalic. Neck is supple. Pupils reactive. Nostrils clear. Oral cavity is moist. Neck reveals no JVD, carotid bruits, or thyromegaly. CHEST EXAMINATION: Trachea is central. Symmetrical expansion. Lung oakley clear to auscultation and percussion. Left lower rib tenderness with deep palpation. CARDIAC: Normal S1, S2 with no gallops. No murmurs ABDOMEN: Soft. Bowel sounds normal. No organomegaly. No abdominal bruits. Extremities: reveal no edema. No clubbing or cyanosis Neurologically awake, alert, oriented x3 with well-coordinated movements. No focal deficits noted Skin: No rash or skin lesions. Psychiatric: Cooperative. Non-suicidal, anxious Musculoskeletal: No joint swelling or deformity. Normal range of motion. Assessment: Left lower chest pain and flank pain, likely musculoskeletal Recent history of stricturotomy on July 20, 2023 Ascending aortic aneurysm measuring 4.1 cm. No dissection. Mesenteric lymphadenopathy with increase in size History of scoliosis Crohn's disease currently on immunotherapy History of right colectomy and prior history of SBO Prior history of PE History of hepatitis C status posttreatment Depression GERD prophylaxis with PPI and heparin subcu Full code Plan: Patient will be continued on pain management and will add Foster and Toradol and discussed with patient and nursing staff about limiting IV narcotic use as patient continues to request 1 mg every 3 hours [id number] per nursing staff. Encouraged to increase activity as tolerated Oncology/hematology following and CT was negative awaiting other blood tests Encourage incentive spirometry use at least 10 times every hour while awake, D- dimer was negative Will consult orthopedics Dr. Lanier for input and recommendations Will refer to scoliosis specialist outpatient Due to multiple complex medical issues, prognosis is guarded The impression and plan of care has been dictated by Florecita Dubois, Nurse Practitioner as directed. Dr. Rosa Maria MD I have performed a history and examination and MDM of this patient, discussed the same with the dictator, and agree with the dictator's assessment and plan as written ,documented as a scribe. Based on total visit time, I have performed more than 50% of the visit. Objective - Vital Signs Vital signs: Vital Signs Temp 98.6 F 08/17/23 07:00 Pulse 58 L 08/17/23 07:00 Resp 16 08/17/23 07:00 BP 106/66 08/17/23 07:00 Pulse Ox 97 08/17/23 07:00 FiO2 Intake & Output 08/16/23 08/17/23 08/17/23 18:59 06:59 18:59 Intake Total 180 420 Balance 180 420 Intake: Oral 180 420 Other: Voiding Method Toilet # Voids 4 2 # Bowel Movements 2 - Labs CBC & Chem 7: 08/17/23 05:39 08/17/23 05:39 Labs: Abnormal Lab Results - Last 24 Hours (Table) 08/17/23 Range/Units 05:39 BUN/Creatinine Ratio 26.17 H (12.00-20.00) Ratio
[2023-08-18 01:39] VITALS: RESP 16
[2023-08-18 08:47] VITALS: BP 108/71; PULSE 71; TEMP 97.8
--- NOTE | 2023-08-18 12:11 | XR ---
EXAMINATION TYPE: XR chest 2V DATE OF EXAM: 08/18/2023 11:46 AM CLINICAL INDICATION:Female, 43 years old with history of left side rib pain, shamika; COMPARISON: Chest radiographs from 08/09/2019 TECHNIQUE: XR chest 2V Frontal and lateral views of the chest. FINDINGS: Lungs/Pleura: There is no evidence of pleural effusion, focal consolidation, or pneumothorax. Pulmonary vascularity: Unremarkable. Heart/mediastinum: Cardiomediastinal silhouette is unremarkable. Musculoskeletal: No acute osseous pathology. IMPRESSION: No acute cardiopulmonary disease/process.
--- NOTE | 2023-08-18 13:15 | P.CNOR ---
History of Present Illness - [facility] Consult date: 08/18/23 Requesting physician: Florecita Dubois Consult reason: back pain, other (Scoliosis) History of present illness: History of Presenting Illness Patient is a pleasant 43-year-old female who presented to the ER for evaluation for severe left-sided flank/back pain. Patient does have a orthopedic history of severe dextroconvex scoliosis, our services were consulted due to increased back pain. Patient reports on 08/08/2023 she had awoken with complaint of a constant sharp shooting pain of the left posterior flank region. Patient denies any injury or trauma to indicate onset of symptoms. Patient denies any numbness or tingling to the bilateral lower extremities. Patient reports her pain has restricted her ADLS. She is a patient of Dr. De Souza and states she has had BAO injections of the lumbar spine in the past. Patient lives at home with her family and is independent. Patient does have a past medical history of Crohn's disease, history of PE, hepatitis C status post treatment, recent history of stricturotomy performed at [facility], and right partial colectomy. She is currently on immunotherapy. Patient seen and examined this morning. Patient is resting currently in bed. Patient states that her pain is not managed on current regimen. She continues to have complaint of left posterior flank/back pain. Patient is able to re- position herself in bed without any difficulty. She denies any radicular symptoms to the lower extremities. She denies any perineal numbness or tingling, loss of bowel or bladder, and is ambulating independently. CT of the Abd and Pelvis taken on 08/15/23 demonstrates Dextroconvex scoliosis l umbar spine. No acute process or fractures. Review of Systems Pertinent positives and negatives as discussed in HPI, a complete review of systems was performed and all other systems are negative. Physical Examination Inspection: Negative for any open fractures, ecchymosis, significant erythema/ulcers. Patient does have small multiple bruises on posterior left flank region. Sensation: Sensation is equal, symmetric, bilaterally intact throughout the upper and lower extremities Palpation: Tenderness to palpation over the posterior left rib/flank area. Range of motion: Patient does have full range of motion bilateral upper and lower extremities on exam Motor: 5/5 in all major motor groups in the bilateral upper and lower extremities Special tests: Negative Homans bilaterally. Negative Dale bilaterally. Negative clonus bilaterally. Neurovascular: Radial pulse intact, 2+ bilaterally. Cap refill under 3 seconds in digits upper extremities. Assessment and Plan Severe dextroconvex scoliosis Left rib/flank pain Multiple Comorbidities At this time we do not recommend any emergent/urgent orthopedic surgical intervention. Patient may follow-up with Dr. Lanier office for further evaluation as needed. Orthopedics is signing off at this time. Please do not hesitate to contact us for any further questions. 2. Appreciate medical management 3. Pain management - Continue with oral pain medications, patient may benefit from a consult to pain management 4. GI prophylaxis -per medicine 5. DVT prophylaxis - senna 6. PT/OT - weightbearing as tolerated with a walker as needed. 7. Appreciate consult I reviewed and discussed this case with my attending Dr. Lanier, whom has reviewed this chart and films and is in agreement with assessment and plan of care as outlined above. I have personally seen and examined the patient, performed the documentation and the assessment and plan as written. Number of minutes spent on the visit: 20m. Past Medical History Past Medical History: Pulmonary Embolus (PE) Additional Past Medical History / Comment(s): HEPATITIS C received treatment rep orts levels are now undetectable , crohn's disease, SBO, factor V Leiden with history of PE History of Any Multi-Drug Resistant Organisms: MRSA Year Discovered:: 06/12/15 MRSA @ [facility] MDRO Source:: Abdomen Past Surgical History: Ablation, Bowel Resection, Hernia Repair Additional Past Surgical History / Comment(s): VICTOR HUGO FOOT SURGERY, BOWEL RESECTION,. carpal tunnel surgery bilat hand. Uterine ablation and fallopian tube removal. Past Anesthesia/Blood Transfusion Reactions: No Reported Reaction Past Psychological History: Depression Smoking Status: Vaper Past Alcohol Use History: None Reported Additional Past Alcohol Use History / Comment(s): STARTED SMOKING AT AGE 13 SMOKES 1PPD Past Drug Use History: None Reported - Past Family History Father Family Medical History: Cancer Medications and Allergies Home Medications Medication Instructions Recorded Confirmed Type Butalb/APAP/Caff 50-325-40Mg 1 tab PO BID PRN 09/22/21 08/15/23 History [Fioricet 50-325-40] Gabapentin [Neurontin] 300 mg PO BID 09/22/21 08/15/23 History Loperamide [Imodium] 2 mg PO QID PRN 09/22/21 08/15/23 History Pantoprazole Sodium [Protonix] 20 mg PO DAILY 09/22/21 08/15/23 History Vit No.180/Iron/Folic 1 tab PO DAILY 09/22/21 08/15/23 History [ Plus Vitamin-Mineral] traMADol HCL [Ultram] 50 mg PO BID 09/22/21 08/15/23 History Diphenoxylate HCl/Atropine 1 tab PO QID 08/15/23 08/15/23 History [Lomotil 2.5-0.025 mg Tablet] Risankizumab-Rzaa [Skyrizi On-Body] 360 mg SQ Q42D 08/15/23 08/15/23 History Sertraline [Zoloft] 100 mg PO DAILY 08/15/23 08/15/23 History hydrOXYzine pamoate [Vistaril] 50 mg PO HS 08/15/23 08/15/23 History tiZANidine HCL 2 mg PO HS 08/15/23 08/15/23 History Allergies Allergy/AdvReac Type Severity Reaction Status Date / Time prednisone AdvReac Hallucinati Verified 08/15/23 16:47 ons prochlorperazine AdvReac AGITATION Verified 08/15/23 16:47 [From Compazine] Results - Labs Labs: H & H 08/15/23 08/16/23 08/17/23 Range/Units 13:54 05:33 05:39 Hgb 12.9 12.1 12.5 (11.4-16.0) gm/dL Hct 38.1 36.6 L 38.2 (34.0-46.0) % Result Diagrams: 08/17/23 05:39 08/17/23 05:39
--- NOTE | 2023-08-22 10:46 | P.DS ---
Providers Date of admission: 08/15/23 16:31 Expected date of discharge: 08/18/23 Attending physician: Joselo Sheth Consults: 08/15/23 22:06 Consult Physician Routine Consulting Provider: Shawn Carreno Consult Reason/Comments: lymphadenopathy noted on CT Do you want consulting provider notified?: Yes 08/17/23 13:29 Consult Physician Urgent Consulting Provider: Yaw Lanier Consult Reason/Comments: scoliosis, back pain, pt. request Do you want consulting provider notified?: Yes Primary care physician: Raquel Villeda [facility] Course: Final diagnosis Left lower chest pain and flank pain, likely musculoskeletal Recent history of stricturotomy on July 20, 2023 Ascending aortic aneurysm measuring 4.1 cm. No dissection. Mesenteric lymphadenopathy with increase in size History of scoliosis Crohn's disease currently on immunotherapy History of right colectomy and prior history of SBO Prior history of PE History of hepatitis C status posttreatment Depression GERD prophylaxis with PPI and heparin subcu Full code Medical Discharge disposition Patient is being discharged in a stable condition with guarded prognosis to home. Patient will follow-up with Dr. Bonilla Sheth in the outpatient setting upon discharge. Patient is to continue with current medications and outpatient follow-up with GI as well as neurology and pain management as scheduled. Total time taken is greater than 35 minutes. Hospital course This is a 43-year-old female who was recently admitted with flank pain along with chest pain being closely monitored. Patient evaluated by cardiology and deemed most likely musculoskeletal. Patient continued to have pain despite multiple medications including IV narcotics and evaluated by orthopedics with no plans for surgical interventions at this time recommending conservative management. Patient given resources for referrals in the outpatient setting for scoliosis specialists. Patient has been instructed to follow-up with her neurologist who is her silo painter as well. Patient to continue following with GI outpatient for Crohn's. Patient has been cleared by consultations. Please refer to consultation notes for further HPI. Currently no reports of chest pain, shortness of breath, or palpitations. Patient is afebrile. No reports of nausea or vomiting and patient is tolerating diet. Patient will be discharged home. high risk for readmissions given patient's significant comorbidities and continued uncontrolled pain today.. Physical exam: Gen: This is a 43-year-old female who is awake, alert oriented x 3, well- developed, well-nourished, anxious HEENT: Head is atraumatic, normocephalic. Pupils equal, round. Sclerae is anicteric. NECK: Supple. No JVD. No lymphadenopathy. No thyromegaly. LUNGS: Clear to auscultation. No wheezes or rhonchi. No intercostal retractions. HEART: Regular rate and rhythm. No murmur. ABDOMEN: Soft. Bowel sounds are present. No masses. No tenderness. EXTREMITIES: No pedal edema. No calf tenderness. NEUROLOGICAL: Patient is awake, alert and oriented x3. Cranial nerves 2 through 12 are grossly intact. Please refer to medication reconciliation sheet for a list of medications. The impression and plan of care has been dictated by Florecita Dubois, Nurse Practitioner as directed. Dr. Rosa Maria MD I have performed a history and examination and MDM of this patient, discussed the same with the dictator, and agree with the dictator's assessment and plan as written ,documented as a scribe. Based on total visit time, I have performed more than 50% of the visit. Patient Condition at Discharge: Fair Plan - Discharge Summary New Discharge Prescriptions: Continue Vit No.180/Iron/Folic [ Plus Vitamin-Mineral] 1 tab PO DAILY Gabapentin [Neurontin] 300 mg PO BID Butalb/APAP/Caff 50-325-40Mg [Fioricet 50-325-40] 1 tab PO BID PRN PRN Reason: Migraine Headache Sertraline [Zoloft] 100 mg PO DAILY tiZANidine HCL 2 mg PO HS Diphenoxylate HCl/Atropine [Lomotil 2.5-0.025 mg Tablet] 1 tab PO QID traMADol HCL [Ultram] 50 mg PO BID Pantoprazole Sodium [Protonix] 20 mg PO DAILY Loperamide [Imodium] 2 mg PO QID PRN PRN Reason: Diarrhea Risankizumab-Rzaa [Skyrizi On-Body] 360 mg SQ Q42D hydrOXYzine pamoate [Vistaril] 50 mg PO HS Discharge Medication List Butalb/APAP/Caff 50-325-40Mg [Fioricet 50-325-40] 1 tab PO BID PRN 09/22/21 [History] Gabapentin [Neurontin] 300 mg PO BID 09/22/21 [History] Loperamide [Imodium] 2 mg PO QID PRN 09/22/21 [History] Pantoprazole Sodium [Protonix] 20 mg PO DAILY 09/22/21 [History] Vit No.180/Iron/Folic [ Plus Vitamin-Mineral] 1 tab PO DAILY 09/22/21 [History] traMADol HCL [Ultram] 50 mg PO BID 09/22/21 [History] Diphenoxylate HCl/Atropine [Lomotil 2.5-0.025 mg Tablet] 1 tab PO QID 08/15/23 [History] Risankizumab-Rzaa [Skyrizi On-Body] 360 mg SQ Q42D 08/15/23 [History] Sertraline [Zoloft] 100 mg PO DAILY 08/15/23 [History] hydrOXYzine pamoate [Vistaril] 50 mg PO HS 08/15/23 [History] tiZANidine HCL 2 mg PO HS 08/15/23 [History] Follow up Appointment(s)/Referral(s): Shawn Carreno [STAFF PHYSICIAN] - As Needed (Plan is for scan and f/u in about 3mo. Pt will be contacted with scan and appt dates and time) Raquel Villeda MD [Primary Care Provider] - 1-2 days Yaw Lanier DO [Doctor of Osteopathic Medicine] - 2 Weeks Patient Instructions/Handouts: Back Pain (ED) Activity/Diet/Wound Care/Special Instructions: Activity limited until follow-up Follow-up with primary care provider on discharge Follow-up with orthopedics outpatient Follow-up neurology outpatient Continue taking medications as prescribed [phone] to make an appointment Discussed with primary care provider and/or neurology if needing a referral to this appointment Discharge Disposition: HOME SELF-CARE
== END 2023-08-18 15:40 | disposition home or self-care (01) | DRG 313 ==
LOC: EC 13:26 → 6NMEDSUR 16:31 → OBSVTOIN 16:32 → 6NMEDSUR 20:07
PROVIDERS: ADMIT Hospitalist; ATTEND Hospitalist
DX: R07.89 Other chest pain (principal); D68.51 Activated protein C resistance; K50.90 Crohn's disease, unspecified, without complications; I71.21 Aneurysm of the ascending aorta, without rupture; R10.9 Unspecified abdominal pain; R07.81 Pleurodynia; M54.6 Pain in thoracic spine; F32.A Depression, unspecified; M41.9 Scoliosis, unspecified; R59.1 Generalized enlarged lymph nodes; Z79.899 Other long term (current) drug therapy; Z86.711 Personal history of pulmonary embolism; Z86.19 Personal history of other infectious and parasitic diseases; Z87.891 Personal history of nicotine dependence; Z86.14 Personal history of Methicillin resistant Staphylococcus aureus infection; Z88.8 Allergy status to other drugs, medicaments and biological substances
CPT/HCPCS: 36415; 71046; 71260; 74176; 80048; 80053; 81003; 82150; 83690; 83735; 84100; 85025; 85379; 96361; 96374; 96375; 96376; 99285

== ENCOUNTER → 2023-09-10 | Outpatient (CLI) | payer MEDICARE, OTHER ==
[2023-09-10 15:49] LABS: Basophils # (A) 0.03 X 10*3/uL (0.00-0.10); Basophils % (A) 0.4 %; Eosinophils # (A) 0.09 X 10*3/uL (0.04-0.35); Eosinophils % (A) 1.2 %; HCT 36.7 % (37.2-46.3); HGB 11.8 g/dL (12.0-15.0); Lymphocytes # (A) 2.58 X 10*3/uL (0.90-5.00); Lymphocytes % (A) 35.4 %; MCH 30.1 pg (27.0-32.0); MCHC 32.2 g/dL (32.0-37.0); MCV 93.6 FL (80.0-97.0); Mean Platelet Volume 10.4 FL (9.5-12.2); Monocytes # (A) 0.49 X 10*3/uL (0.20-1.00); Monocytes % (A) 6.7 %; NRBC Per 100 WBC 0 X 10*3/uL (0.00-0.01); Neutrophils # (A) 4.09 X 10*3/uL (1.80-7.70); Neutrophils % (A) 56.2 %; Platelet Count 231 X 10*3/uL (140-440); RBC 3.92 X 10*6/uL (4.10-5.20); RDW 13.2 % (11.5-14.5); WBC 7.29 X 10*3/uL (4.50-10.00)
[2023-09-10 15:51] LABS: ALT 26 U/L (8-44); AST 32 U/L (13-35); Albumin 4.6 g/dL (3.8-4.9); Albumin/Globulin Ratio 1.77 Ratio (1.60-3.17); Alkaline Phosphatase 87 U/L (41-126); BUN/Creat Ratio 19.71 Ratio (12.00-20.00); Blood Urea Nitrogen 13.8 mg/dL (9.0-27.0); Calcium 9.6 mg/dL (8.7-10.3); Chloride 106 mmol/L (96-109); Globulin 2.6 g/dL (1.6-3.3); Glucose 74 mg/dL (70-110); Potassium 4.3 mmol/L (3.5-5.5); Sodium 140 mmol/L (135-145); Total Bilirubin 0.3 mg/dL (0.3-1.2); Total Protein 7.2 g/dL (6.2-8.2)
== END | disposition home or self-care (01) ==
LOC: LABWHC1 10:33
PROVIDERS: ATTEND Internal Medicine Gastroenterology
DX: K50.90 Crohn's disease, unspecified, without complications (principal)
CPT/HCPCS: 36415; 80053; 85025

== ENCOUNTER → 2023-10-30 | Outpatient (CLI) | payer MEDICARE, OTHER ==
--- NOTE | 2023-10-30 10:39 | MR ---
EXAMINATION TYPE: MR lumbar spine wo con DATE OF EXAM: 10/30/2023 COMPARISON: None HISTORY: Lower back pain, BLE radiculopathy, scoliosis. CONTRAST: 0 mL intravenous Gadavist. TECHNIQUE: Multiplanar, multisequence images of the lumbar spine were acquired. FINDINGS: Scoliosis is present with convexity to the right centered at L3. Cord appears to terminate at the L1-2 level. L5-S1: No significant disc bulge or focal disc herniation is evident. No spinal canal stenosis presen t. Neural foramen are patent L4-L5: Right paracentral disc bulge is present. This may be impinging the exiting right L5 nerve root . Correlate with radicular symptoms. L3-L4: No significant disc bulge or disc herniation. No spinal canal stenosis. No foraminal stenosi s. L2-L3: Some facet hypertrophy and the scoliosis was contributing to left canal narrowing. However, no compression is identified. Neural foramen appears patent. L1-L2: There may be some minimal disc bulging with anterior thecal sac contact. No spinal canal steno sis is present. Due to scoliosis and rotation foraminal evaluation is limited. T12-L1: No spinal canal stenosis is evident. Scoliosis is present. Foramen appear patent. IMPRESSION: 1. Scoliosis may have some thecal sac compression without stenosis at L2-3. 2. Right paracentral disc bulging L4-5 present. Correlate with right L5 radicular symptoms.
== END | disposition home or self-care (01) ==
LOC: RADMRIMAIN 09:18
PROVIDERS: ATTEND Orthopaedic Surgery
DX: M51.16 Intervertebral disc disorders with radiculopathy, lumbar region (principal); M47.26 Other spondylosis with radiculopathy, lumbar region; M48.061 Spinal stenosis, lumbar region without neurogenic claudication; M41.86 Other forms of scoliosis, lumbar region
CPT/HCPCS: 72148

== ENCOUNTER → 2023-11-15 | Outpatient (CLI) | payer MEDICARE, OTHER ==
[2023-11-16 02:27] LABS: HCT 36.7 % (37.2-46.3); HGB 12.2 g/dL (12.0-15.0); MCH 30.4 pg (27.0-32.0); MCHC 33.2 g/dL (32.0-37.0); MCV 91.5 FL (80.0-97.0); Mean Platelet Volume 10.1 FL (9.5-12.2); NRBC Per 100 WBC 0 X 10*3/uL (0.00-0.01); Platelet Count 250 X 10*3/uL (140-440); RBC 4.01 X 10*6/uL (4.10-5.20); RDW 12.5 % (11.5-14.5); WBC 6.32 X 10*3/uL (4.50-10.00)
[2023-11-16 02:28] LABS: Basophils # (A) 0.02 X 10*3/uL (0.00-0.10); Basophils % (A) 0.3 %; Eosinophils % (A) 1.6 %; Lymphocytes # (A) 2.07 X 10*3/uL (0.90-5.00); Lymphocytes % (A) 32.8 %; Monocytes # (A) 0.46 X 10*3/uL (0.20-1.00); Monocytes % (A) 7.3 %; Neutrophils # (A) 3.66 X 10*3/uL (1.80-7.70); Neutrophils % (A) 57.8 %
[2023-11-16 03:02] LABS: ALT 21 U/L (8-44); AST 25 U/L (13-35); Albumin 4.6 g/dL (3.8-4.9); Albumin/Globulin Ratio 1.84 Ratio (1.60-3.17); Alkaline Phosphatase 93 U/L (41-126); BUN/Creat Ratio 14.43 Ratio (12.00-20.00); Blood Urea Nitrogen 10.1 mg/dL (9.0-27.0); Calcium 9.3 mg/dL (8.7-10.3); Carbon Dioxide 24.6 mmol/L (21.6-31.8); Chloride 105 mmol/L (96-109); Globulin 2.5 g/dL (1.6-3.3); Glucose 98 mg/dL (70-110); Potassium 4.2 mmol/L (3.5-5.5); Sodium 143 mmol/L (135-145); Total Bilirubin <0.2 mg/dL (0.3-1.2); Total Protein 7.1 g/dL (6.2-8.2)
--- NOTE | 2023-11-16 07:32 | XR ---
EXAMINATION TYPE: XR scoliosis survey DATE OF EXAM: 11/15/2023 COMPARISON: NONE HISTORY: Scoliosis TECHNIQUE: 3 views FINDINGS: There is a rotatory severe scoliotic curvature of spine estimated at 51 degrees. Multilevel hypertrophic and degenerative changes of the spine. Visualized lung oakley clear. Bowel gas pattern nonspecific. IMPRESSION: 1. Scoliotic curvature estimated at 51 degrees the thoracolumbar spine. 2. Multilevel degenerative disc disease.
== END | disposition home or self-care (01) ==
LOC: LABWHC1 15:24
PROVIDERS: ATTEND Orthopaedic Surgery
DX: M41.35 Thoracogenic scoliosis, thoracolumbar region (principal); K50.90 Crohn's disease, unspecified, without complications
CPT/HCPCS: 36415; 72082; 80053; 85025

== ENCOUNTER → 2023-11-22 | Outpatient (CLI) | payer MEDICARE, OTHER ==
--- NOTE | 2023-11-22 14:35 | CT ---
EXAMINATION TYPE: CT thor lumbar spine wo con DATE OF EXAM: 11/22/2023 COMPARISON: None HISTORY: scoliosis, surgical planning CT DLP: [address] of the thoracic and lumbar spine was performed. Bone and soft tissue window settings a re submitted as well as coronal and sagittal reconstructions. There is a reverse S-shaped scoliosis of the thoracolumbar spine noted. Greatest component is noted a t the lumbar spine with rotoscoliosis convex to the right. There is no evidence of fracture or osseou s lesion. Mild scattered degenerative changes are present. IMPRESSION: 1. Thoracolumbar scoliosis.
== END | disposition home or self-care (01) ==
LOC: RADCTMAIN 12:14
PROVIDERS: ATTEND Orthopaedic Surgery
DX: M41.86 Other forms of scoliosis, lumbar region (principal); M41.34 Thoracogenic scoliosis, thoracic region; M41.9 Scoliosis, unspecified
CPT/HCPCS: 72128; 72131

== ENCOUNTER → 2023-11-27 | Outpatient (CLI) | payer MEDICARE, OTHER ==
--- NOTE | 2023-11-27 10:33 | MR ---
EXAMINATION TYPE: MR thoracic spine wo con DATE OF EXAM: 11/27/2023 COMPARISON: 11/22/2023 HISTORY: Mid back pain, Scoliosis CONTRAST: Performed utilizing 0 mL intravenous Gadavist gadolinium contrast. TECHNIQUE: Multiplanar, multiecho imaging on a 3.0 Jaycee magnet is performed through the thoracic spi ne. Spinal cord maintains normal signal through its visualized course. There is a scoliosis present Vertebral body heights are preserved. Disc heights are preserved. Disc hydration levels are preserved. No spinal canal stenosis is evident. IMPRESSION: 1. Scoliosis. 2. No acute abnormality MRI thoracic spine
== END | disposition home or self-care (01) ==
LOC: RADMRIMAIN 08:10
PROVIDERS: ATTEND Orthopaedic Surgery
DX: M41.34 Thoracogenic scoliosis, thoracic region (principal); M41.9 Scoliosis, unspecified
CPT/HCPCS: 72146

== ENCOUNTER → 2023-12-28 | Outpatient (CLI) | payer MEDICARE, OTHER | END | disposition home or self-care (01) | LOC: LABWHC1 15:15 | PROVIDERS: ATTEND Internal Medicine | DX: K50.812 Crohn's disease of both small and large intestine with intestinal obstruction (principal) | CPT/HCPCS: 36415; 86480 ==

== ENCOUNTER → 2024-01-10 | Outpatient (CLI) | payer MEDICARE, OTHER ==
--- NOTE | 2024-02-15 15:15 | CT ---
Patient: Bianca Lucas B Ordering Physician: Unknown, Unknown ID: [id number] Phone, Pager: Phone: N/A Pager: N/A : 1980 Age/Gender: 43Y, F Primary Location: N/A Procedure: CT abdomen pelvis w c on Study Date: 01/10/2024 12:00:00 PM EXAMINATION TYPE: CT abdomen pelvis w con DATE OF EXAM: 01/25/2024 COMPARISON: 11/05/2022, 08/15/2023 INDICATION: Lymphadenopathy DLP: 1084 mGycm, Automated exposure control for dose reduction was used. CONTRAST: 100 mL of Isovue 300. Study performed with Oral Contrast TECHNIQUE: Axial images were obtained from above the diaphragm to the pubic rami in the axial plane a t 5 mm thick sections. Reconstructed images are reviewed on the computer in the coronal plane. FINDINGS: Limited CT sections are obtained the lung bases. The lung bases are clear. CT ABDOMEN: Liver: Normal Spleen: Normal Pancreas: Normal Adrenal glands: The adrenal glands are normal. Gallbladder: Normal Kidneys: No masses are evident. No hydronephrosis is present. No cysts are present. Delayed images were obtained through the kidneys, which remain unremarkable. Aorta: Normal Inferior vena cava: Normal. CT PELVIS: Loops of bowel within the abdomen and pelvis are normal. There are loops of bowel which are incom pletely distended or lack oral contrast limiting their evaluation. Appendix: Normal as visualized. Urinary bladder: Normal. Genitourinary structures: Uterus is normal. Adnexa are unremarkable. Osseous structures: No suspicious lytic or sclerotic lesions. Scoliosis through the lumbar spine. Lymphadenopathy: There are a few small mesenteric lymph nodes present. Enlarged lymphadenopathy is no t evident. A few shotty lymph nodes in the periaortic region. No suspicious enlarged iliac chain or i nguinal adenopathy evident. Previous enlarged foraminal quadrant adenopathy is diminished to 0.7 cm o n the current examination. Some soft tissue density adjacent to the ascending colon, series 2 image 4 2, measures 1.3 cm in length and is smaller than the prior study. IMPRESSION: 1. Lymphadenopathy is diminished in size over the interval. No enlarged lymphadenopathy evident at t his time. 2. Persistence of soft tissue adjacent to the ascending colon region appears smaller in size and conf iguration from the prior exam.
== END | disposition home or self-care (01) ==
LOC: RADCTMAIN 10:07
PROVIDERS: ATTEND Internal Medicine Hematology & Oncology
DX: R59.1 Generalized enlarged lymph nodes (principal)
CPT/HCPCS: 74177; Q9967

== ENCOUNTER → 2024-02-10 | Outpatient (CLI) | payer MEDICARE, OTHER ==
[2024-02-10 08:06] VITALS: BP 128/80; PULSE 65; RESP 18; TEMP 98.4
--- NOTE | 2024-02-10 14:08 | P.PAINPG ---
PQRS Measure Charge Sheet Comment: HISTORY OF PRESENT ILLNESS: A 43 yr old female as a referral from Dr Lanier presents today w severe and chronic LBP > 3 mo secondary to radiculopathy, spondylosis and facet arthropathy without myelopathy for evaluation. Pt states pain level is provoked at 8 /10 in intensity, constant, localized in the lower lumbar spine, predominantly axial, sharp in character w occasional shooting pain towards the LLE. Pain is provoked by bending or walking > 10 min. Pain is alleviated by PT x 6 wks which ended in Dec 2023, physician guided HEP 4 times weekly since Dec 2023, massage therapy monthly since Jul 2023, heat, ice, medications (Tramadol, Neurontin 300mg, Ibu, Tyl), Lidoderm topical, repositioning and rest . PMH: OA, PE, Hx of HepC, Crohn's Disease, SBO, Factor V Leiden Deficiency, MDD PSH: BL Foot Surgery, Bowel Resection, BL CTR, Uterine Ablation and Salpingectomy, Hernia Repair SH: Vape use, No ETOH abuse, No illicit drug use FH: Fa- CA All: See list Meds: See list REVIEW OF ORGAN SYSTEMS: CONSTITUTIONAL: No fevers or chills. No recent weight loss. NEUROLOGICAL: + numbness and tingling along the distal extremities. No seizure disorders or headaches. MUSCULOSKELETAL: + pain PSYCHIATRIC: Denies current depression or suicidal thoughts. Physical Examinations : Constitutional : Cooperative , not in acute distress . Neurologic : Cranial nerve II to XII intact. No focal neurological deficits. Psychiatric : alert & oriented x 3. Matching mood & appropriate affect. Judgment & insight intact. Musculoskeletal : Cervical Spine Motor strength in the deltoid and biceps: Normal right side. Normal Left side Motor strength biceps and the wrist extensors: Normal right side . Normal left side Motor strength in the triceps muscle: Normal right side. Normal left side Deep tendon reflexes: Normal at the biceps. Normal at Brachioradialis. Normal at triceps Vertebral body tenderness to deep palpation over Cervical facet loading test: positive bilaterally Spurling test: positive bilaterally Neck distraction test: positive bilaterally Dale sign: positive bilaterally Lumbar spine Motor strength lower extremities ,thigh and legs 5/5 Right side , 5/5 Left side Deep tendon reflexes : Normal Knee Jerk. Normal Ankle Jerk Vertebral body tenderness over Muse Test positive Lumbar facet Loading Test: positive Right / positive Left L4-L5, L5-S1 Range of motion of the lumbar spine Flexion 30 degrees, extension 10 degrees Straight Leg Raise test: Left/ Right positive at degrees Macrina test: positive right / positive left. Severe tenderness over the Sacroiliac joint on the Right / Left sides Gaenslen test: positive bilaterally Seated flexion test: positive bilaterally. Sacral spine : Severe tenderness over the Sacroiliac joint: right side / left side Range of motion: Flexion of the lumbar spine <60 degrees Range of motion: Extension of the lumbar spine <20 degrees Gaenslen's Test positive Macrina test: positive right side / left side Thigh Thrust Test Sacral Thrust Test Imaging: CT non contrast thoracolumbar spine from 11/22/23 reviewed Assessment/ Plan : Dextroconvex scoliosis Recommendation of BL MBB L4-L5/ L5-S1 #1. Risks, benefits of procedure discussed and patient verbalized understanding. Protocol for discontinuation/ continuation of medications jackelin procedure discussed. Minimal anesthesia provided, if clinically indicated, consisting of Versed and Fentanyl. All questions answered. I have spent greater than 30 minutes on patient care today. Dr Virgen was available by phone for the evaluation of this patient. The time was used to review the medical records including relevant urine studies and Prescription history (MAPs), review of the available imaging, evaluation and examination of the patient, coordination of care with the medical staff and if applicable referring physicians, as well as creation of the medical record PQRS Narrative: Smoking Status Current every day smoker Home Medications: Ambulatory Orders Butalb/APAP/Caff 50-325-40Mg [Fioricet 50-325-40] 1 tab PO BID PRN 09/22/21 Gabapentin [Neurontin] 300 mg PO BID 09/22/21 Loperamide [Imodium] 2 mg PO QID PRN 09/22/21 Pantoprazole Sodium [Protonix] 20 mg PO DAILY 09/22/21 Vit No.180/Iron/Folic [ Plus Vitamin-Mineral] 1 tab PO DAILY 09/22/21 traMADol HCL [Ultram] 50 mg PO BID 09/22/21 Diphenoxylate HCl/Atropine [Lomotil 2.5-0.025 mg Tablet] 1 tab PO QID 08/15/23 Risankizumab-Rzaa [Skyrizi On-Body] 360 mg SQ Q42D 08/15/23 Sertraline [Zoloft] 100 mg PO DAILY 08/15/23 hydrOXYzine pamoate [Vistaril] 50 mg PO HS 08/15/23 tiZANidine HCL 2 mg PO HS 08/15/23 Controlled Substance Measures - Controlled Substance Measures Is patient prescribed a controlled substance at discharge?: No
== END ==
LOC: PNWHC3 07:42
PROVIDERS: ATTEND Specialist
DX: M47.816 Spondylosis without myelopathy or radiculopathy, lumbar region (principal); M41.86 Other forms of scoliosis, lumbar region; F17.290 Nicotine dependence, other tobacco product, uncomplicated; Z88.8 Allergy status to other drugs, medicaments and biological substances
CPT/HCPCS: 99211

== ENCOUNTER 2024-02-24 06:23 | Day surgery (SDC) | payer MEDICARE, OTHER ==
[2024-02-18 15:38] VITALS: BMI 28.0
[2024-02-24 07:17] VITALS: TEMP 97.3
[2024-02-24] MEDS: IV FLUID CONTINUATION 1,000 ML IV ONE ×2 (07:37→08:22)
[2024-02-24] MEDS: LACTATED RINGERS 1,000 ML IV SCH (07:37)
[2024-02-24] MEDS ORDERED: fentaNYL (PF) 50 MCG/ML 2 ML AMP ONE (07:51)
[2024-02-24] MEDS ORDERED: ROPIVACAINE 5MG/ML 20ML VIAL ONE (07:51)
[2024-02-24] MEDS ORDERED: MIDAZOLAM 2 MG/2 ML VIAL ONE (07:51)
--- NOTE | 2024-02-24 08:26 | P.PCN ---
Description of Procedure: Preprocedure diagnosis. 1. Lumbar spondylosis with facet joint arthropathy without myelopathy. 2. Lumbar degenerative disc disease. Postprocedure diagnosis. As above. Procedure done. Bilateral diagnostic block with local anesthetics at L3, L4, L5 medial branch to target the facet joint L4- 5 and L5-S1 with fluoroscopic guidan ce (fluoroscopy images are available in the radiology department) . Anesthesia. Moderate sedation with intravenous Versed 2 mg and fentanyl and local infiltration with local anesthetics. In OR, continuous pulse ox, EKG, blood pressure and verbal communication was maintained. Time. Blood loss. Minimal. Indication. The patient has low back pain secondary to lumbar facet joint arthropathy. Discussed the procedure and alternative and complications which includes infection, bleeding, nerve damage, paralysis ,aggravation of pain. Patient understands and all questions were answered. Patient iunderstands that if any pain relief occurs it will last for a few hours to a few days maximum. Procedure description. After getting consent patient was taken in the OR in prone position. Back prepped with chlorhexidine and draped in sterile fashion. After injecting 5 mL of plain 1% lidocaine subcutaneously, a 22-gauge spinal needle was introduced under tunnel vision of the fluoroscope at the junction of the superior articular process with RIGHT ala of the sacrum. With slight oblique fluoroscope, after injecting 5 mL of plain 1% lidocaine subcutaneously, a 22-gauge spinal needle was introduced under tunnel vision of the fluoroscope at the junction of the superior articular process with RIGHT L5 transverse process, junction of the superior articular process with the RIGHT L4 transverse process. Negative CSF, negative blood, negative paresthesia. After needle position confirmation by AP and crosstable lateral view, after negative aspiration, half milliliters of solution were injected at each point. Total 1- 1/2 mL of solution was injected on the right side which consists of 0.5% ropivacaine. In exactly same way, LEFT sided injections were done at the following 3 points. Junction of the superior articular process with left ala of the sacrum, junction of the superior articular process with the left L5 transverse process, junction of the superior articular process with left L4 transverse process using 0.5 mL of solution at each point. Total 1-1/2 mL of solution was injected on the left side which consists of 0.5% ropivacaine . Spinal needles were taken out and bandages were applied. Disposition. Patient tolerated the procedure well. No complication. Discharged home in stable condition
[2024-02-24 08:31] VITALS: RESP 18
[2024-02-24 08:52] VITALS: BP 125/75; PULSE 62
--- NOTE | 2024-03-09 10:36 | FL ---
EXAMINATION TYPE: FL guided pain mgmt statistic DATE OF EXAM: 02/24/2024 8:22 AM COMPARISON: Pre Operative Images if available both CT/MRI or plain film CLINICAL INDICATION: Female, 43 years old with history of Harley Lumbar Facet; TECHNIQUE: FL guided pain mgmt statistic, multiple fluoroscopic images provided for procedure. Total fluoroscopy time: 49.2 seconds Total submitted images to PACS: 5 DAP: 0.92348 mGym2 Gycm2 uGym2 cGycm2 or equivalent. FINDINGS: Fluoroscopic images during injection for pain management demonstrate multilevel degeneration changes throughout the spine. No evidence for fracture. No acute process identified. IMPRESSION: 1. No evidence for intraoperative complication. 2. Please see the operative/procedural note for further details. [facility], , 03/09/2024 10:33 AM
== END 2024-02-24 09:05 | disposition home or self-care (01) ==
LOC: ORPAIN 06:23
PROVIDERS: ATTEND Pain Medicine Interventional Pain Medicine
DX: M47.816 Spondylosis without myelopathy or radiculopathy, lumbar region
CPT/HCPCS: 81025; 99152

== ENCOUNTER 2024-03-02 08:17 | Emergency (ER) | payer MEDICARE, OTHER ==
[2024-03-02 08:31] VITALS: RESP 18; TEMP 98.4
--- NOTE | 2024-03-02 09:07 | ED ---
Back Pain HPI - General Chief Complaint: Back Pain/Injury Stated Complaint: lower L side back pain Time Seen by Provider: 03/02/24 08:46 Source: patient, RN notes reviewed Limitations: no limitations - History of Present Illness Initial Comments: 43 year old female presents to the ED with chief complaint of left posterior rib pain (03/16) that started yesterday. She states that she was hospitalized recently for bowel obstruction and imaging revealed posterior costal fractures. She also reports that she has a history of severe scoliosis and is receiving weekly injections related to back pain. Today shes believes that this pain could be related to urinary symptoms as she is experiencing incomplete emptying, flank pain, possible fevers; she denies dysuria, hematuria, abdominal pain, or gastrointestinal symptoms. - Related Data Home Medications Medication Instructions Recorded Confirmed Butalb/APAP/Caff 50-325-40Mg 1 tab PO BID PRN 09/22/21 02/24/24 [Fioricet 50-325-40] Gabapentin [Neurontin] 300 mg PO BID 09/22/21 02/24/24 Pantoprazole Sodium [Protonix] 20 mg PO DAILY 09/22/21 02/24/24 Vit No.180/Iron/Folic 1 tab PO DAILY 09/22/21 02/24/24 [ Plus Vitamin-Mineral] traMADol HCL [Ultram] 50 mg PO BID 09/22/21 02/24/24 Diphenoxylate HCl/Atropine 1 tab PO QID 08/15/23 02/24/24 [Lomotil 2.5-0.025 mg Tablet] Risankizumab-Rzaa [Skyrizi On-Body] 360 mg SQ Q42D 08/15/23 02/24/24 Sertraline [Zoloft] 100 mg PO DAILY 08/15/23 02/24/24 tiZANidine HCL 2 mg PO HS 08/15/23 02/24/24 Allergies Allergy/AdvReac Type Severity Reaction Status Date / Time prednisone AdvReac Hallucinati Verified 03/02/24 08:29 ons prochlorperazine AdvReac AGITATION Verified 03/02/24 08:29 [From Compazine] Review of Systems ROS Statement: Those systems with pertinent positive or pertinent negative responses have been documented in the HPI. ROS Other: All systems not noted in ROS Statement are negative. Past Medical History Past Medical History: Blood Disorder, Pulmonary Embolus (PE) Additional Past Medical History / Comment(s): HEPATITIS C received treatment reports levels are now undetectable , crohn's disease, SBO, factor V Leiden with history of PE History of Any Multi-Drug Resistant Organisms: MRSA Date of last positivie culture/infection: 06/12/15 MRSA @ [facility] MDRO Source:: Abdomen-PT STATES WAS NOT COLONIZED Past Surgical History: Bowel Resection, Hernia Repair, Uterine Ablation Additional Past Surgical History / Comment(s): VICTOR HUGO FOOT SURGERY, BOWEL RESECTION,. carpal tunnel surgery bilat hand. COLONOSCOPY Past Anesthesia/Blood Transfusion Reactions: No Reported Reaction Past Psychological History: Depression Smoking Status: Current every day smoker, Former smoker, Vaper - Past Family History Father Family Medical History: Cancer General Exam Limitations: no limitations General appearance: alert, in no apparent distress Head exam: Present: atraumatic, normocephalic, normal inspection Eye exam: Present: normal appearance, PERRL, EOMI. Absent: scleral icterus, conjunctival injection, periorbital swelling ENT exam: Present: normal exam, mucous membranes moist Neck exam: Present: normal inspection. Absent: tenderness, meningismus, lymphadenopathy Respiratory exam: Present: normal lung sounds bilaterally, chest wall tenderness (Tenderness over the left lower ribs posterior). Absent: respiratory distress, wheezes, rales, rhonchi, stridor Cardiovascular Exam: Present: regular rate, normal rhythm, normal heart sounds. Absent: systolic murmur, diastolic murmur, rubs, gallop, clicks GI/Abdominal exam: Present: soft, normal bowel sounds. Absent: distended, tenderness, guarding, rebound, rigid Extremities exam: Present: normal inspection, full ROM, normal capillary refill. Absent: tenderness, pedal edema, joint swelling, calf tenderness Back exam: Present: normal inspection, full ROM, tenderness (Tenderness of the left lower rib) Neurological exam: Present: alert, oriented X3, CN II-XII intact Psychiatric exam: Present: normal affect, normal mood Skin exam: Present: warm, dry, intact, normal color. Absent: rash Course Vital Signs 03/02/24 08:27 Temperature 98.4 F Pulse Rate 74 Respiratory 18 Rate Blood Pressure 138/89 O2 Sat by Pulse 93 L Oximetry Medical Decision Making - Medical Decision Making Was pt. sent in by a medical professional or institution (STEPHEN Romero, ENTERPRISE APPLICATION ADMINISTRATOR, urgent care, hospital, or long term...) When possible be specific @ -No Did you speak to anyone other than the patient for history (EMS, parent, family, police, friend...)? What history was obtained from this source @ -No Did you review nursing and triage notes (agree or disagree)? Why? @ -I reviewed and agree with nursing and triage notes Were old charts reviewed (outside hosp., previous admission, EMS record, old EKG, old radiological studies, urgent care reports/EKG's, long term records)? Report findings @ -Reviewed CT record from [facility] showing old chronic rib fractures and a left and known Crohn's disease Differential Diagnosis (chest pain, altered mental status, abdominal pain women, abdominal pain men, vaginal bleeding, weakness, fever, dyspnea, syncope, headache, dizziness, GI bleed, back pain, seizure, CVA, palpatations, mental health, musculoskeletal)? @ -Differential Back Pain: Strain, zoster, cauda equina syndrome, epidural abscess, vertebral osteomyelitis, discitis, fracture, subluxation, disc herniation, DJD, spinal stenosis, dissection, AAA, pancreatitis, peptic ulcer disease, pyelonephritis, kidney stone, this is not meant to be an all-inclusive list. EKG interpreted by me (3pts min.). @None X-rays interpreted by me (1pt min.). @ -Chest x-ray shows no acute cardiopulmonary process CT interpreted by me (1pt min.). @ -None done U/S interpreted by me (1pt. min.). @ -None done What testing was considered but not performed or refused? (CT, X-rays, U/S, labs)? Why? @ -None What meds were considered but not given or refused? Why? @ -None Did you discuss the management of the patient with other professionals (professionals i.e. STEPHEN Romero, ENTERPRISE APPLICATION ADMINISTRATOR, lab, RT, psych nurse, social work assistant, inter fold roll cutter, teacher, licensed mortgage loan officer, caser up)? Give summary @ -No Was smoking cessation discussed for >3mins.? @ -No Was critical care preformed (if so, how long)? @ -No Were there social determinants of health that impacted care today? How? (Homelessness, low income, unemployed, alcoholism, drug addiction, transportation, low edu. Level, literacy, decrease access to med. care, intermediate, rehab)? @ -No Was there de-escalation of care discussed even if they declined (Discuss DNR or withdrawal of care, Hospice)? DNR status @ -No What co-morbidities impacted this encounter? (DM, HTN, Smoking, COPD, CAD, Cancer, CVA, ARF, Chemo, Hep., AIDS, mental health diagnosis, sleep apnea, morbid obesity)? @ -Crohn's, chronic pain Was patient admitted / discharged? Hospital course, mention meds given and route, prescriptions, significant lab abnormalities, going to OR and other pertinent info. @ -[Discharge patient presented for left flank pain reproducible over the ribs patient has no rash workup was negative patient provided analgesics in the emergency department and discharged to follow-up with her pain management. Undiagnosed new problem with uncertain prognosis? @ -No Drug Therapy requiring intensive monitoring for toxicity (Heparin, Nitro, Insulin, Cardizem)? @ -No Were any procedures done? @ -No Diagnosis/symptom? @ -Back pain Acute, or Chronic, or Acute on Chronic? @ -Acute Uncomplicated (without systemic symptoms) or Complicated (systemic symptoms)? @ -Uncomplicated Side effects of treatment? @ -No Exacerbation, Progression, or Severe Exacerbation? @ -No Poses a threat to life or bodily function? How? (Chest pain, [place], [place], pneumonia, PE, COPD, DKA, ARF, appy, cholecystitis, CVA, Diverticulitis, Homicidal, Suici sandra, threat to staff... and all critical care pts) @ -No - Lab Data Result diagrams: 03/02/24 10:29 03/02/24 10:29 Lab Results 03/02/24 03/02/24 03/02/24 Range/Units 08:54 08:54 10:29 WBC 4.1 (3.8-10.6) k/uL RBC 3.88 (3.80-5.40) m/uL Hgb 11.8 (11.4-16.0) gm/dL Hct 36.2 (34.0-46.0) % MCV 93.5 (80.0-100.0) fL MCH 30.4 (25.0-35.0) pg MCHC 32.5 (31.0-37.0) g/dL RDW 12.5 (11.5-15.5) % Plt Count 219 (150-450) k/uL MPV 7.9 Neutrophils % 49 % Lymphocytes % 38 % Monocytes % 9 % Eosinophils % 1 % Basophils % 0 % Neutrophils # 2.0 (1.3-7.7) k/uL Lymphocytes # 1.6 (1.0-4.8) k/uL Monocytes # 0.4 (0-1.0) k/uL Eosinophils # 0.0 (0-0.7) k/uL Basophils # 0.0 (0-0.2) k/uL Sodium (137-145) mmol/L Potassium (3.5-5.1) mmol/L Chloride (98-107) mmol/L Carbon Dioxide (22-30) mmol/L Anion Gap mmol/L BUN (7-17) mg/dL Creatinine (0.52-1.04) mg/dL Est GFR (CKD-EPI)AfAm (>60 ml/min/1.73 sqM) Est GFR (CKD-EPI)NonAf (>60 ml/min/1.73 sqM) Glucose (74-99) mg/dL Calcium (8.4-10.2) mg/dL Total Bilirubin (0.2-1.3) mg/dL AST (14-36) U/L ALT (4-34) U/L Alkaline Phosphatase (38-126) U/L Total Protein (6.3-8.2) g/dL Albumin (3.5-5.0) g/dL Urine Color Colorless Urine Appearance Cloudy H (Clear) Urine pH 5.5 (5.0-8.0) Ur Specific [place] 1.006 (1.001-1.035) Urine Protein Negative (Negative) Urine Glucose (UA) Negative (Negative) Urine Ketones Negative (Negative) Urine Blood Negative (Negative) Urine Nitrite Negative (Negative) Urine Bilirubin Negative (Negative) Urine Urobilinogen <2.0 (<2.0) mg/dL Ur Leukocyte Esterase Negative (Negative) Urine RBC 2 (0-5) /hpf Urine WBC 1 (0-5) /hpf Ur Squamous Epith Cells 6 H (0-4) /hpf Urine Bacteria Few H (None) /hpf Urine Mucus Occasional H (None) /hpf Urine HCG, Qual Not Detected (Not Detectd) 03/02/24 Range/Units 10:29 WBC (3.8-10.6) k/uL RBC (3.80-5.40) m/uL Hgb (11.4-16.0) gm/dL Hct (34.0-46.0) % MCV (80.0-100.0) fL MCH (25.0-35.0) pg MCHC (31.0-37.0) g/dL RDW (11.5-15.5) % Plt Count (150-450) k/uL MPV Neutrophils % % Lymphocytes % % Monocytes % % Eosinophils % % Basophils % % Neutrophils # (1.3-7.7) k/uL Lymphocytes # (1.0-4.8) k/uL Monocytes # (0-1.0) k/uL Eosinophils # (0-0.7) k/uL Basophils # (0-0.2) k/uL Sodium 139 (137-145) mmol/L Potassium 4.2 (3.5-5.1) mmol/L Chloride 107 (98-107) mmol/L Carbon Dioxide 24 (22-30) mmol/L Anion Gap 8 mmol/L BUN 9 (7-17) mg/dL Creatinine 0.56 (0.52-1.04) mg/dL Est GFR (CKD-EPI)AfAm >90 (>60 ml/min/1.73 sqM) Est GFR (CKD-EPI)NonAf >90 (>60 ml/min/1.73 sqM) Glucose 90 (74-99) mg/dL Calcium 9.5 (8.4-10.2) mg/dL Total Bilirubin 0.4 (0.2-1.3) mg/dL AST 36 (14-36) U/L ALT 23 (4-34) U/L Alkaline Phosphatase 75 (38-126) U/L Total Protein 7.0 (6.3-8.2) g/dL Albumin 4.4 (3.5-5.0) g/dL Urine Color Urine Appearance (Clear) Urine pH (5.0-8.0) Ur Specific [place] (1.001-1.035) Urine Protein (Negative) Urine Glucose (UA) (Negative) Urine Ketones (Negative) Urine Blood (Negative) Urine Nitrite (Negative) Urine Bilirubin (Negative) Urine Urobilinogen (<2.0) mg/dL Ur Leukocyte Esterase (Negative) Urine RBC (0-5) /hpf Urine WBC (0-5) /hpf Ur Squamous Epith Cells (0-4) /hpf Urine Bacteria (None) /hpf Urine Mucus (None) /hpf Urine HCG, Qual (Not Detectd) Disposition Clinical Impression: Back pain, Thoracic back pain Disposition: HOME SELF-CARE Condition: Good Instructions (If sedation given, give patient instructions): Back Pain (ED) Additional Instructions: Please return to the Emergency Department if symptoms worsen or any other concerns. Is patient prescribed a controlled substance at d/c from ED?: No Referrals: Raquel Villeda MD [Primary Care Provider] - 1-2 days Time of Disposition: 11:07
[2024-03-02 09:19] LABS: Appearance,Urine Cloudy (Clear); Bacteria,Urine Few /hpf; Bilirubin,Urine Negative (Negative); Blood,Urine Negative (Negative); Color,Urine Colorless; Glucose,Urine (UA) Negative (Negative); Ketones,Urine Negative (Negative); Leukocyte Esterase,Urine Negative (Negative); Mucus,Urine Occasional /hpf; Nitrite,Urine Negative (Negative); PH, Urine 5.5 (5.0-8.0); Protein,Urine Negative (Negative); RBC,Urine 2 /hpf (0-5); Specific Gravity,Urine 1.006 (1.001-1.035); Squamous Epithelial Cell,Urine 6 /hpf (0-4); Urobilinogen,Urine <2.0 mg/dL (<2.0); WBC,Urine 1 /hpf (0-5)
--- NOTE | 2024-03-02 09:24 | XR ---
EXAMINATION TYPE: XR chest 2V DATE OF EXAM: 03/02/2024 COMPARISON: 08/18/2023 TECHNIQUE: PA and lateral views submitted. HISTORY: Pain FINDINGS: The lungs are clear and there is no pneumothorax, pleural effusion, or focal pneumonia. Heart size normal and no overt failure. Osseous structures intact. Curvature of the spine with degenerative mueller ges.. IMPRESSION: 1. No acute process. [facility], , 03/02/2024 9:22 AM
[2024-03-02] MEDS: HYDROmorphone 1 MG/ML 1 ML SYRINGE IVP STA (10:24)
[2024-03-02 10:39] LABS: Basophils % (A) 0 %; Eosinophils % (A) 1 %; HCT 36.2 % (34.0-46.0); HGB 11.8 gm/dL (11.4-16.0); Lymphocytes # (A) 1.6 k/uL (1.0-4.8); Lymphocytes % (A) 38 %; MCH 30.4 pg (25.0-35.0); MCHC 32.5 g/dL (31.0-37.0); MCV 93.5 fL (80.0-100.0); Mean Platelet Volume 7.9; Monocytes # (A) 0.4 k/uL (0-1.0); Monocytes % (A) 9 %; Neutrophils % (A) 49 %; Platelet Count 219 k/uL (150-450); RBC 3.88 m/uL (3.80-5.40); RDW 12.5 % (11.5-15.5); WBC 4.1 k/uL (3.8-10.6)
[2024-03-02 10:59] LABS: ALT 23 U/L (4-34); AST 36 U/L (14-36); African American GFR (CKD) >90 (>60 ml/min/1.73 sqM); Albumin 4.4 g/dL (3.5-5.0); Alkaline Phosphatase 75 U/L (38-126); Anion Gap 8 mmol/L; Blood Urea Nitrogen 9 mg/dL (7-17); Calcium 9.5 mg/dL (8.4-10.2); Carbon Dioxide 24 mmol/L (22-30); Chloride 107 mmol/L (98-107); Glucose 90 mg/dL (74-99); Non-African American GFR(CKD) >90 (>60 ml/min/1.73 sqM); Potassium 4.2 mmol/L (3.5-5.1); Sodium 139 mmol/L (137-145); Total Bilirubin 0.4 mg/dL (0.2-1.3)
[2024-03-02] MEDS: KETOROLAC 15 MG/ML 1 ML VIAL IVP STA (11:21)
[2024-03-02 11:32] VITALS: BP 164/115; PULSE 85
== END 2024-03-02 11:32 | disposition home or self-care (01) ==
LOC: EC 08:17
CPT/HCPCS: 36415; 71046; 80053; 81001; 81025; 85025; 96372; 96374; 96375; 99284

== ENCOUNTER → 2024-03-02 | Outpatient (CLI) | payer MEDICARE, OTHER ==
[2024-03-02 08:20] VITALS: BP 130/88; PULSE 76; RESP 16; TEMP 97.6
--- NOTE | 2024-03-02 14:36 | P.PAINPG ---
PQRS Measure Charge Sheet Comment: HISTORY OF PRESENT ILLNESS: A 43 yr old female presents today w severe and chronic LBP > 3 mo secondary to radiculopathy, spondylosis and facet arthropathy without myelopathy for evaluation s/p BL MBB L4-L5/ L5-S1 #1. Pt states she experienced 100 % pain relief x 15 hrs s/p procedure. Pt states pain level is provoked at 8 /10 in intensity, constant, localized in the lower lumbar spine, predominantly axial, sharp in character w occasional shooting pain towards the LLE. Pain is provoked by bending or walking > 10 min. Pain is alleviated by PT x 6 wks which ended in Dec 2023, physician guided HEP 4 times weekly since Dec 2023, massage therapy monthly since Jul 2023, heat, ice, medication, topical, repositioning and rest . Interventional procedures include BL MBB L3-L5 x1 Medications include Tramadol, Neurontin 300mg, Tyl, Ibu, Lidoderm REVIEW OF ORGAN SYSTEMS: CONSTITUTIONAL: No fevers or chills. No recent weight loss. NEUROLOGICAL: + numbness and tingling along the distal extremities. No seizure disorders or headaches. MUSCULOSKELETAL: + pain PSYCHIATRIC: Denies current depression or suicidal thoughts. Physical Examinations : Constitutional : Cooperative , not in acute distress . Neurologic : Cranial nerve II to XII intact. No focal neurological deficits. Psychiatric : alert & oriented x 3. Matching mood & appropriate affect. Judgment & insight intact. Musculoskeletal : Cervical Spine Motor strength in the deltoid and biceps: Normal right side. Normal Left side Motor strength biceps and the wrist extensors: Normal right side . Normal left side Motor strength in the triceps muscle: Normal right side. Normal left side Deep tendon reflexes: Normal at the biceps. Normal at Brachioradialis. Normal at triceps Vertebral body tenderness to deep palpation over Cervical facet loading test: positive bilaterally Spurling test: positive bilaterally Neck distraction test: positive bilaterally Dale sign: positive bilaterally Lumbar spine Motor strength lower extremities ,thigh and legs 5/5 Right side , 5/5 Left side Deep tendon reflexes : Normal Knee Jerk. Normal Ankle Jerk Vertebral body tenderness over Muse Test positive Lumbar facet Loading Test: positive Right / positive Left L4-L5, L5-S1 Range of motion of the lumbar spine Flexion 30 degrees, extension 10 degrees Straight Leg Raise test: Left/ Right positive at degrees Macrina test: positive right / positive left. Severe tenderness over the Sacroiliac joint on the Right / Left sides Gaenslen test: positive bilaterally Seated flexion test: positive bilaterally. Sacral spine : Severe tenderness over the Sacroiliac joint: right side / left side Range of motion: Flexion of the lumbar spine <60 degrees Range of motion: Extension of the lumbar spine <20 degrees Gaenslen's Test positive Macrina test: positive right side / left side Thigh Thrust Test Sacral Thrust Test Imaging: CT non contrast thoracolumbar spine from 11/22/23 reviewed Assessment/ Plan : Dextroconvex scoliosis Recommendation of BL MBB L4-L5/ L5-S1 #2. Risks, benefits of procedure discussed and patient verbalized understanding. Protocol for discontinuation/ continuation of medications jackelin procedure discussed. Minimal anesthesia provided, if clinically indicated, consisting of Versed and Fentanyl. All questions answered. I have spent greater than 30 minutes on patient care today. Dr Virgen was available by phone for the evaluation of this patient. The time was used to review the medical records including relevant urine studies and Prescription history (MAPs), review of the available imaging, evaluation and examination of the patient, coordination of care with the medical staff and if applicable referring physicians, as well as creation of the medical record PQRS Narrative: Smoking Status Current every day smoker Hx Alcohol Use (MH) Yes Home Medications: Ambulatory Orders Butalb/APAP/Caff 50-325-40Mg [Fioricet 50-325-40] 1 tab PO BID PRN 09/22/21 Gabapentin [Neurontin] 300 mg PO BID 09/22/21 Pantoprazole Sodium [Protonix] 20 mg PO DAILY 09/22/21 Vit No.180/Iron/Folic [ Plus Vitamin-Mineral] 1 tab PO DAILY 09/22/21 traMADol HCL [Ultram] 50 mg PO BID 09/22/21 Diphenoxylate HCl/Atropine [Lomotil 2.5-0.025 mg Tablet] 1 tab PO QID 08/15/23 Risankizumab-Rzaa [Skyrizi On-Body] 360 mg SQ Q42D 08/15/23 Sertraline [Zoloft] 100 mg PO DAILY 08/15/23 tiZANidine HCL 2 mg PO HS 08/15/23 Controlled Substance Measures - Controlled Substance Measures Is patient prescribed a controlled substance at discharge?: No
== END ==
LOC: PNWHC3 07:40
PROVIDERS: ATTEND Specialist
DX: M47.816 Spondylosis without myelopathy or radiculopathy, lumbar region
CPT/HCPCS: 99211

== ENCOUNTER 2024-03-04 03:10 | Emergency (ER) | payer MEDICARE, OTHER ==
[2024-03-04 03:14] VITALS: RESP 18
[2024-03-04] MEDS: MORPHINE SULFATE 4 MG/ML SYRINGE IV STA ×2 (04:22→05:22)
[2024-03-04 04:41] LABS: Basophils % (A) 1 %; Eosinophils # (A) 0.1 k/uL (0-0.7); Eosinophils % (A) 2 %; HCT 37.2 % (34.0-46.0); HGB 12.4 gm/dL (11.4-16.0); Lymphocytes # (A) 2.1 k/uL (1.0-4.8); Lymphocytes % (A) 42 %; MCH 30.9 pg (25.0-35.0); MCHC 33.2 g/dL (31.0-37.0); Monocytes # (A) 0.3 k/uL (0-1.0); Monocytes % (A) 7 %; Neutrophils # (A) 2.4 k/uL (1.3-7.7); Neutrophils % (A) 47 %; Platelet Count 223 k/uL (150-450); RBC 3.99 m/uL (3.80-5.40); RDW 12.8 % (11.5-15.5); WBC 5.1 k/uL (3.8-10.6)
[2024-03-04 04:43] LABS: ALT 21 U/L (4-34); African American GFR (CKD) >90 (>60 ml/min/1.73 sqM); Amylase 42 U/L (30-110); Anion Gap 5 mmol/L; Blood Urea Nitrogen 18 mg/dL (7-17); Calcium 9.3 mg/dL (8.4-10.2); Carbon Dioxide 20 mmol/L (22-30); Chloride 112 mmol/L (98-107); Glucose 105 mg/dL (74-99); Lipase 41 U/L (23-300); Non-African American GFR(CKD) >90 (>60 ml/min/1.73 sqM); Sodium 137 mmol/L (137-145); Total Bilirubin 0.6 mg/dL (0.2-1.3)
[2024-03-04 04:48] LABS: AST 44 U/L (14-36); Albumin 4.4 g/dL (3.5-5.0); Alkaline Phosphatase 58 U/L (38-126); C Reactive Protein <0.5 mg/dL (<1.0); Potassium 4.4 mmol/L (3.5-5.1)
[2024-03-04] MEDS: HYDROmorphone 1 MG/ML 1 ML SYRINGE IVP STA (05:26)
--- NOTE | 2024-03-04 05:51 | CT ---
EXAM: CT Abdomen and Pelvis Without Intravenous Contrast CLINICAL HISTORY: ITS.REASON CT Reason: L flank pain TECHNIQUE: Axial computed tomography images of the abdomen and pelvis without intravenous contrast. CTDI is 9 mGy and DLP is 482.2 mGy-cm. This CT exam was performed using one or more of the following dose reduction techniques: automated exposure control, adjustment of the mA and/or kV according to patient size, and/or use of iterative reconstruction technique. COMPARISON: CT dated 01/10/2024 FINDINGS: Lung bases: Unremarkable. No mass. No consolidation. ABDOMEN: Liver: The liver is enlarged with uniform decreased density consistent with hepatic steatosis. Gallbladder and bile ducts: Unremarkable. No calcified stones. No ductal dilation. Pancreas: Unremarkable. No ductal dilation. Spleen: Unremarkable. No splenomegaly. Adrenals: Unremarkable. No mass. Kidneys and ureters: Unremarkable. No obstructing stones. No hydronephrosis. Stomach and bowel: Postsurgical changes are seen to the right hemicolon. Colonic diverticulosis without evidence of acute diverticulitis. No obstruction. PELVIS: Bladder: Unremarkable. No stones. Reproductive: Unremarkable as visualized. ABDOMEN and PELVIS: Intraperitoneal space: Unremarkable. No free air. No significant fluid collection. Bones/joints: Degenerative changes are seen within the spine and hips. S-shaped curvature to the thoracolumbar spine. No acute fracture. No dislocation. Soft tissues: Unremarkable. Vasculature: Unremarkable. No abdominal aortic aneurysm. Lymph nodes: Unremarkable. No enlarged lymph nodes. IMPRESSION: No acute intra-abdominal or pelvic findings. No left-sided nephrolithiasis, urolithiasis or obstruction.
--- NOTE | 2024-03-04 06:19 | ED ---
General Adult HPI - General Chief complaint: Abdominal Pain Stated complaint: Left side pain Time Seen by Provider: 03/04/24 03:19 Source: patient Mode of arrival: ambulatory Limitations: no limitations - History of Present Illness Initial comments: This patient is 43-year-old woman who presents to have evaluation for left-sided mid back/flank pain. The patient has not noted any associated symptoms. No worsening or relieving factors. Onset/Timin -: days(s) Location: back Radiation: non-radiation Quality: aching, sharp Consistency: constant Improves with: none Worsens with: none Associated Symptoms: denies other symptoms Treatments Prior to Arrival: none - Related Data Home Medications Medication Instructions Recorded Confirmed Butalb/APAP/Caff 50-325-40Mg 1 tab PO BID PRN 09/22/21 03/16/24 [Fioricet 50-325-40] Gabapentin [Neurontin] 300 mg PO BID 09/22/21 03/16/24 Pantoprazole Sodium [Protonix] 20 mg PO DAILY 09/22/21 03/16/24 Vit No.180/Iron/Folic 1 tab PO DAILY 09/22/21 03/16/24 [ Plus Vitamin-Mineral] traMADol HCL [Ultram] 50 mg PO BID 09/22/21 03/16/24 Diphenoxylate HCl/Atropine 1 tab PO QID 08/15/23 03/16/24 [Lomotil 2.5-0.025 mg Tablet] Risankizumab-Rzaa [Skyrizi On-Body] 360 mg SQ Q42D 08/15/23 03/16/24 Sertraline [Zoloft] 150 mg PO DAILY 08/15/23 03/16/24 tiZANidine HCL 2 mg PO HS 08/15/23 03/16/24 oxyCODONE HCL [Roxicodone] 5 mg PO HS 03/13/24 03/16/24 Allergies Allergy/AdvReac Type Severity Reaction Status Date / Time prednisone AdvReac Hallucinati Verified 03/16/24 07:08 ons prochlorperazine AdvReac AGITATION Verified 03/16/24 07:08 [From Compazine] Review of Systems ROS Statement: Those systems with pertinent positive or pertinent negative responses have been documented in the HPI. ROS Other: All systems not noted in ROS Statement are negative. Constitutional: Denies: fever, chills, weakness Respiratory: Denies: cough, dyspnea Cardiovascular: Denies: chest pain, palpitations, edema Gastrointestinal: Reports: as per HPI. Denies: nausea, vomiting, diarrhea, constipation, melena, hematochezia Genitourinary: Denies: dysuria, hematuria Musculoskeletal: Reports: as per HPI, back pain Skin: Denies: rash Neurological: Denies: headache, weakness, numbness Past Medical History Past Medical History: Blood Disorder, Pulmonary Embolus (PE) Additional Past Medical History / Comment(s): HEPATITIS C received treatment reports levels are now undetectable , crohn's disease, SBO, factor V Leiden with history of PE History of Any Multi-Drug Resistant Organisms: MRSA Date of last positivie culture/infection: 06/12/15 MRSA @ [facility] MDRO Source:: Abdomen-PT STATES WAS NOT COLONIZED Past Surgical History: Bowel Resection, Hernia Repair, Uterine Ablation Additional Past Surgical History / Comment(s): VICTOR HUGO FOOT SURGERY, BOWEL RESECTION,. carpal tunnel surgery bilat hand. COLONOSCOPY Past Anesthesia/Blood Transfusion Reactions: No Reported Reaction Past Psychological History: Depression Smoking Status: Current every day smoker, Vaper Past Alcohol Use History: None Reported Past Drug Use History: None Reported - Past Family History Father Family Medical History: Cancer General Exam Limitations: no limitations General appearance: alert, in no apparent distress Head exam: Present: atraumatic, normocephalic Eye exam: Present: normal appearance. Absent: scleral icterus, conjunctival injection Neck exam: Present: normal inspection, full ROM Respiratory exam: Present: normal lung sounds bilaterally. Absent: respiratory distress, wheezes, rales, rhonchi, stridor, accessory muscle use Cardiovascular Exam: Present: regular rate, normal rhythm, normal heart sounds. Absent: systolic murmur, diastolic murmur, rubs, gallop GI/Abdominal exam: Present: soft. Absent: distended, tenderness, guarding, rebound, rigid, mass, pulsatile mass, hernia Extremities exam: Present: normal inspection, normal capillary refill. Absent: pedal edema, calf tenderness Back exam: Present: normal inspection, CVA tenderness (L), paraspinal tenderness. Absent: CVA tenderness (R), vertebral tenderness Neurological exam: Present: alert. Absent: motor sensory deficit Skin exam: Present: warm, dry, intact, normal color. Absent: rash Course Vital Signs 03/04/24 03/04/24 03/04/24 03:11 05:28 07:34 Temperature 97.6 F 97.5 F L Pulse Rate 84 69 88 Respiratory 18 18 18 Rate Blood Pressure 135/87 138/97 137/91 O2 Sat by Pulse 99 97 97 Oximetry 03/04/24 08:08 Temperature 98.2 F Pulse Rate 64 Respiratory 18 Rate Blood Pressure 122/86 O2 Sat by Pulse 100 Oximetry Medical Decision Making - Medical Decision Making The patient had CT scan of the abdomen and pelvis that I interpreted as negative for free air, obstruction, kidney stone. Was pt. sent in by a medical professional or institution (, PA, LAPPER, urgent care, hospital, or retirement...) When possible be specific @ -[No] Did you speak to anyone other than the patient for history (EMS, parent, family, police, friend...)? What history was obtained from this source @ -[No] Did you review nursing and triage notes (agree or disagree)? Why? @ -[I reviewed and agree with nursing and triage notes] Were old charts reviewed (outside hosp., previous admission, EMS record, old EKG, old radiological studies, urgent care reports/EKG's, retirement records)? Report findings @ -[No old charts were reviewed] Differential Diagnosis (chest pain, altered mental status, abdominal pain women, abdominal pain men, vaginal bleeding, weakness, fever, dyspnea, syncope, headache, dizziness, GI bleed, back pain, seizure, CVA, palpatations, mental health, musculoskeletal)? @ -[Differential Back Pain: Strain, zoster, cauda equina syndrome, epidural abscess, vertebral osteomyelitis, discitis, fracture, subluxation, disc herniation, DJD, spinal stenosis, dissection, AAA, pancreatitis, peptic ulcer disease, pyelonephritis, kidney stone, this is not meant to be an all-inclusive list. EKG interpreted by me (3pts min.). @ -[As above] X-rays interpreted by me (1pt min.). @ -[None done] CT interpreted by me (1pt min.). @ -[I interpreted as above U/S interpreted by me (1pt. min.). @ -[None done] What testing was considered but not performed or refused? (CT, X-rays, U/S, labs)? Why? @ -[None] What meds were considered but not given or refused? Why? @ -[None] Did you discuss the management of the patient with other professionals (professionals i.e. , PA, LAPPER, lab, RT, psych nurse, elementary school social worker, patent lawyer, teacher, deputy juvenile officer, case repairer)? Give summary @ -[No] Was smoking cessation discussed for >3mins.? @ -[No] Was critical care preformed (if so, how long)? @ -[No] Were there social determinants of health that impacted care today? How? (H omelessness, low income, unemployed, alcoholism, drug addiction, transportation, low edu. Level, literacy, decrease access to med. care, senior care, rehab)? @ -[No] Was there de-escalation of care discussed even if they declined (Discuss DNR or withdrawal of care, Hospice)? DNR status @ -[No] What co-morbidities impacted this encounter? (DM, HTN, Smoking, COPD, CAD, Cancer, CVA, ARF, Chemo, Hep., AIDS, mental health diagnosis, sleep apnea, morbid obesity)? @ -[None] Was patient admitted / discharged? Hospital course, mention meds given and route, prescriptions, significant lab abnormalities, going to OR and other pertinent info. @ -[Patient is 43-year-old woman here to have evaluation for mid back/flank pain. The patient not having red flag signs or symptoms. The workup does not reveal acute surgical condition or kidney stone. She has had some improvement in symptoms. We discussed appropriate further care and follow-up as well as return parameters. Undiagnosed new problem with uncertain prognosis? @ -[No] Drug Therapy requiring intensive monitoring for toxicity (Heparin, Nitro, In sulin, Cardizem)? @ -[No] Were any procedures done? @ -[No] Diagnosis/symptom? @ -[Acute flank pain Acute, or Chronic, or Acute on Chronic? @ -[Acute Uncomplicated (without systemic symptoms) or Complicated (systemic symptoms)? @ -[Uncomplicated Side effects of treatment? @ -[No] Exacerbation, Progression, or Severe Exacerbation? @ -[No] Poses a threat to life or bodily function? How? (Chest pain, USA, ID, pneumonia, PE, COPD, DKA, ARF, appy, cholecystitis, CVA, Diverticulitis, Homicidal, Suicidal, threat to staff... and all critical care pts) @ -[No] - Lab Data Result diagrams: 03/04/24 04:20 03/04/24 03:57 Lab Results 03/04/24 03/04/24 03/04/24 Range/Units 03:57 03:57 04:20 WBC 5.1 (3.8-10.6) k/uL RBC 3.99 (3.80-5.40) m/uL Hgb 12.4 (11.4-16.0) gm/dL Hct 37.2 (34.0-46.0) % MCV 93.0 (80.0-100.0) fL MCH 30.9 (25.0-35.0) pg MCHC 33.2 (31.0-37.0) g/dL RDW 12.8 (11.5-15.5) % Plt Count 223 (150-450) k/uL MPV 8.0 Neutrophils % 47 % Lymphocytes % 42 % Monocytes % 7 % Eosinophils % 2 % Basophils % 1 % Neutrophils # 2.4 (1.3-7.7) k/uL Lymphocytes # 2.1 (1.0-4.8) k/uL Monocytes # 0.3 (0-1.0) k/uL Eosinophils # 0.1 (0-0.7) k/uL Basophils # 0.0 (0-0.2) k/uL Sodium 137 (137-145) mmol/L Potassium 4.4 (3.5-5.1) mmol/L Chloride 112 H (98-107) mmol/L Carbon Dioxide 20 L (22-30) mmol/L Anion Gap 5 mmol/L BUN 18 H (7-17) mg/dL Creatinine 0.57 (0.52-1.04) mg/dL Est GFR (CKD-EPI)AfAm >90 (>60 ml/min/1.73 sqM) Est GFR (CKD-EPI)NonAf >90 (>60 ml/min/1.73 sqM) Glucose 105 H (74-99) mg/dL Plasma Lactic Acid Anton 1.0 (0.7-2.0) mmol/L Calcium 9.3 (8.4-10.2) mg/dL Total Bilirubin 0.6 (0.2-1.3) mg/dL AST 44 H (14-36) U/L ALT 21 (4-34) U/L Alkaline Phosphatase 58 (38-126) U/L C-Reactive Protein <0.5 (<1.0) mg/dL Total Protein 7.0 (6.3-8.2) g/dL Albumin 4.4 (3.5-5.0) g/dL Amylase 42 (30-110) U/L Lipase 41 (23-300) U/L Disposition Clinical Impression: Thoracic back pain Disposition: HOME SELF-CARE Condition: Fair Instructions (If sedation given, give patient instructions): Flank Pain (ED) Is patient prescribed a controlled substance at d/c from ED?: No Referrals: Raquel Villeda MD [Primary Care Provider] - 1-2 days Clayton Virgen MD [STAFF PHYSICIAN] - 1-2 days
[2024-03-04] MEDS: HYDROmorphone 0.5 MG/0.5 ML SYRINGE IVP STA (06:46)
[2024-03-04 08:11] VITALS: BP 122/86; PULSE 64; TEMP 98.2
== END 2024-03-04 08:14 | disposition home or self-care (01) ==
LOC: EC 03:10
CPT/HCPCS: 36415; 74176; 80053; 82150; 83605; 83690; 85025; 86140; 96374; 96375; 96376; 99284

== ENCOUNTER 2024-03-16 06:26 | Day surgery (SDC) | payer MEDICARE, OTHER ==
[2024-03-16] MEDS: IV FLUID CONTINUATION 1,000 ML IV ONE ×2 (06:45→08:03)
[2024-03-16 07:09] LABS: Glucose,Whole Blood 92 mg/dL (70-110)
[2024-03-16 07:10] VITALS: RESP 16; TEMP 97.2
[2024-03-16] MEDS: LACTATED RINGERS 1,000 ML IV SCH (07:12)
[2024-03-16] MEDS ORDERED: ROPIVACAINE 5MG/ML 20ML VIAL ONE (07:41)
[2024-03-16] MEDS ORDERED: MIDAZOLAM 2 MG/2 ML VIAL ONE (07:41)
[2024-03-16] MEDS ORDERED: fentaNYL (PF) 50 MCG/ML 2 ML AMP ONE (07:41)
--- NOTE | 2024-03-16 07:56 | P.PCN ---
Date of Procedure: 03/16/24 Procedure(s) Performed: PREOPERATIVE DIAGNOSIS : 1- Lumbar spondylosis with Facet Arthropathy with out myelopathy . 2- Lumber degenerative disc disease POSTOPERATIVE DIAGNOSIS: 1- Lumbar spondylosis with Facet Arthropathy without myelopathy . 2- Lumber degenerative disc disease PROCEDURE: Diagnostic bilateral L3 , L4 , and L5 medial branch block under fluoroscopy guidance(fluoroscopy images available in the radiology Department ) ( To target the facet joint between Bilateral L4-5 , and L5-S1 )#2nd ANESTHESIA: moderate sedation with intravenous Versed 2 mg and Fentanyl 100 mcg. ( sedations started at 07:41, end at 07:53 ) EBL: Minimal COMPLICATION: None PROCEDURE INDICATION: Chronic low back pain secondary to Facet arthropathy unresponsive to conservative treatment. PROCEDURE DESCRIPTION: the patient was seen and identified in the preop holding area , risks and benefits and possible complications of the procedure and alternative were discussed with the patient, and the patient agreed to proceed with the procedure and signed the consent and vital signs monitored during the procedure and fluoroscopy was used to maximize the benefit and accuracy of the needle placement, and sedation was given to decrease patient anxiety, patient was taken to the procedure room and placed in prone position vital signs monitored in the back prepped with chlorhexidine X3 then under strict sterile technique using a right oblique fluoroscopy ,the junction of the transverse process and the superior articulating process of the right L3 , L4 , and L5 vertebra which corresponding to the fluoroscopy image of the eye of the Romaine dog on the block side for the medial branches and subsequently , after local infiltration of skin and subcu tissuies with Ropivacaine 0.5 % , one mL at each level ,then 22-gauge Quincke-type needles , 3 needle was used , each one of them placed at the junction of the base of the transverse process and the superior articular process at the appropriate level, and the needle was advanced until the periosteum contacted, needle placement confirmed with AP oblique and lateral view and after appropriate needle placement confirmed, and after negative aspiration for heme and CSF and there was no paresthesia 1-1/2 mL of Ropivacaine 0.5% , then half mL injected at each level after negative aspiration the needle subsequently removed and the same procedure repeated for the left side at left side at L3 , L4 and L5 levels. At the end of the procedure and the needles removed and a bandage applied after the skin was cleaned the cleaning solution patient taken to recovery room in stable condition and monitors in the recovery room for 20-30 minutes and discharged home in stable condition after discharge criteria met and patient will follow up with the pain clinic in 2-4 weeks
[2024-03-16 08:17] VITALS: BP 121/71; PULSE 62
--- NOTE | 2024-03-16 09:36 | FL ---
EXAMINATION TYPE: FL guided pain mgmt statistic DATE OF EXAM: 03/16/2024 FLUOROSCOPY 19 sec FL, .[id number] DAP dose. 4 images provided. These demonstrate bilateral lumbar facet injections at multiple levels for pain management procedure. [facility], , 03/16/2024 9:34 AM
== END 2024-03-16 08:39 | disposition home or self-care (01) ==
LOC: ORPAIN 06:26
PROVIDERS: ATTEND Specialist
DX: M47.816 Spondylosis without myelopathy or radiculopathy, lumbar region
CPT/HCPCS: 81025; 99152

== ENCOUNTER 2024-03-31 21:01 | Emergency (ER) | payer MEDICARE, OTHER ==
--- NOTE | 2024-03-31 21:26 | ED ---
Abdominal Pain HPI - General Chief Complaint: Abdominal Pain Stated Complaint: Abd Pain Time Seen by Provider: 03/31/24 21:06 Source: patient, EMS Mode of arrival: EMS - History of Present Illness Initial Comments: Patient is a 43-year-old female past medical history of multiple bowel obstructions, prior hernia surgery presenting today for abdominal pain x 1 day. Patient states she did not feel well yesterday however today began having diffuse abdominal pain in the upper part of her abdomen and right lower quadrant. Patient states abdominal pain feels like prior bowel obstructions. She took her home pain medications all at relief from pain. Endorses 1 episode of emesis in the ambulance en route to the hospital today unsure if it was bloody or green. States typically has 10-15 loose stools a day and did have 1 loose stool yesterday but no bowel movements today. She did attempt have a bowel movement and noted black on the toilet paper when she wiped it did not ac tually pass any stool. [place] feverish at home but denies any measured fevers. No chest pain or shortness of breath. No vaginal discharge, dysuria or hematuria. - Related Data Home Medications Medication Instructions Recorded Confirmed Butalb/APAP/Caff 50-325-40Mg 1 tab PO BID PRN 09/22/21 03/16/24 [Fioricet 50-325-40] Gabapentin [Neurontin] 300 mg PO BID 09/22/21 03/16/24 Pantoprazole Sodium [Protonix] 20 mg PO DAILY 09/22/21 03/16/24 Vit No.180/Iron/Folic 1 tab PO DAILY 09/22/21 03/16/24 [ Plus Vitamin-Mineral] traMADol HCL [Ultram] 50 mg PO BID 09/22/21 03/16/24 Diphenoxylate HCl/Atropine 1 tab PO QID 08/15/23 03/16/24 [Lomotil 2.5-0.025 mg Tablet] Risankizumab-Rzaa [Skyrizi On-Body] 360 mg SQ Q42D 08/15/23 03/16/24 Sertraline [Zoloft] 150 mg PO DAILY 08/15/23 03/16/24 tiZANidine HCL 2 mg PO HS 08/15/23 03/16/24 oxyCODONE HCL [Roxicodone] 5 mg PO HS 03/13/24 03/16/24 Allergies Allergy/AdvReac Type Severity Reaction Status Date / Time prednisone AdvReac Hallucinati Verified 03/16/24 07:08 ons prochlorperazine AdvReac AGITATION Verified 03/16/24 07:08 [From Compazine] Review of Systems ROS Statement: Those systems with pertinent positive or pertinent negative responses have been documented in the HPI. ROS Other: All systems not noted in ROS Statement are negative. Past Medical History Past Medical History: Blood Disorder, Pulmonary Embolus (PE) Additional Past Medical History / Comment(s): HEPATITIS C received treatment reports levels are now undetectable , crohn's disease, SBO, factor V Leiden with history of PE History of Any Multi-Drug Resistant Organisms: MRSA Date of last positivie culture/infection: 06/12/15 MRSA @ [facility] MDRO Source:: Abdomen-PT STATES WAS NOT COLONIZED Past Surgical History: Bowel Resection, Hernia Repair, Uterine Ablation Additional Past Surgical History / Comment(s): VICTOR HUGO FOOT SURGERY, BOWEL RESECTION, x2. carpal tunnel surgery bilat hand. COLONOSCOPY Past Anesthesia/Blood Transfusion Reactions: No Reported Reaction Past Psychological History: Depression Smoking Status: Vaper Past Alcohol Use History: Rare - Past Family History Father Family Medical History: Cancer General Exam - General Exam Comments Initial Comments: PE: CONSTITUTIONAL: Ill-appearing, painful appearing, no apparent distress SKIN: Warm, dry, no jaundice, hives or petechiae, no overlying skin changes on the abdomen EYES: Pupils are equally round, extraocular movements intact without nystagmus, clear conjunctiva, non-icteric sclera HENT: Normocephalic, atraumatic, moist mucus membranes, oropharynx clear without exudates NECK: , Full range of motion, normal appearance PULMONARY: Clear to auscultation without wheezes, rhonchi, or rales, normal excursion, no accessory muscle use and no stridor CARDIOVASCULAR: Regular rate, rhythm, normal S1 and S2. No appreciated murmurs, rubs or gallops. Extremities well-perfused no lower extremity edema GASTROINTESTINAL: Firm, hyperactive bowel sounds, diffuse tenderness however predominantly in the epigastrium and bilateral lower quadrants, mildly distended, guarding with palpation of the abdomen no palpable masses, no hepato splenomegaly GENITOURINARY: MUSCULOSKELETAL: Extremities have no gross deformity, no edema, redness, or swelling. No calf swelling NEUROLOGIC:_a/o x 3, GCS 15, normal mentation and speech. Moves all extremities x 4 without motor or sensory deficit PSYCHIATRIC:_normal mood and affect, thought process is clear and linear Course Vital Signs 03/31/24 03/31/24 04/01/24 21:09 23:06 00:17 Temperature 99.4 F 98.5 F 97.8 F Pulse Rate 68 66 52 L Respiratory 17 16 18 Rate Blood Pressure 137/96 129/86 128/84 O2 Sat by Pulse 99 100 98 Oximetry 04/01/24 01:10 Temperature Pulse Rate 54 L Respiratory 18 Rate Blood Pressure 127/88 O2 Sat by Pulse 99 Oximetry - Reevaluation(s) Reevaluation #1: CT performed. Reviewed by myself, appears to show findings consistent with small bowel obstruction. Paged Dr. Sheffield for further recs. 03/31/24 22:06 Medical Decision Making - Medical Decision Making Was pt. sent in by a medical professional or institution (, PA, PIPE ORGAN TECHNICIAN, urgent ca re, hospital, or longterm...) When possible be specific @ -No Did you speak to anyone other than the patient for history (EMS, parent, family, police, friend...)? What history was obtained from this source @ -No Did you review nursing and triage notes (agree or disagree)? Why? @ -I reviewed and agree with nursing and triage notes Were old charts reviewed (outside hosp., previous admission, EMS record, old EKG, old radiological studies, urgent care reports/EKG's, longterm records)? Report findings @ -Medical records reviewed - Patient recently had facet block performed on 03/16/24. Patient also does have surgical history of bowel resections, ileostomy, hernia repairs Differential Diagnosis (chest pain, altered mental status, abdominal pain women, abdominal pain men, vaginal bleeding, weakness, fever, dyspnea, syncope, headache, dizziness, GI bleed, back pain, seizure, CVA, palpatations, mental health, musculoskeletal)? @ -Differential Abdominal Pain Women: Appendicitis, Cholecystitis, diverticulosis, ischemic bowel, pancreatitis, hepatitis, UTI, gastroenteritis, incarcerated hernia, bowel obstruction, constipation, inflammatory bowel, hepatitis, peptic ulcer disease, splenic infarction, perforated viscus, PID, kidney stone, this is not meant to be an all-inclusive list EKG interpreted by me (3pts min.). @ -As above X-rays interpreted by me (1pt min.). @ -None done CT interpreted by me (1pt min.). @ -Dilated bowel with air-fluid levels, but bowel wall thickening, transition point consistent with bowel obstruction U/S interpreted by me (1pt. min.). @ -None done What testing was considered but not performed or refused? (CT, X-rays, U/S, labs)? Why? @ -None What meds were considered but not given or refused? Why? @ -None Did you discuss the management of the patient with other professionals (professionals i.e. , PA, PIPE ORGAN TECHNICIAN, lab, RT, psych nurse, long term care social worker, heel blacker, teacher, conservation science officer, machine adjuster leader case trim)? Give summary @ -No Was smoking cessation discussed for >3mins.? @ -No Was critical care preformed (if so, how long)? @ -No Were there social determinants of health that impacted care today? How? (Homelessness, low income, unemployed, alcoholism, drug addiction, transportation, low edu. Level, literacy, decrease access to med. care, detention, rehab)? @ -No Was there de-escalation of care discussed even if they declined (Discuss DNR or withdrawal of care, Hospice)? @ -No What co-morbidities impacted this encounter? (DM, HTN, Smoking, COPD, CAD, Can cer, CVA, ARF, Chemo, Hep., AIDS, mental health diagnosis, sleep apnea, morbid obesity)? @Crohn disease, chronic pain Was patient admitted / discharged? Hospital course, mention meds given and route, prescriptions, significant lab abnormalities, going to OR and other pertinent info. @ -Transfer to [facility] Patient is a 43-year-old female presenting today for abdominal pain x 1 day. History of multiple bowel obstructions, bowel surgeries, Crohn's disease. On my assessment patient is somewhat ill-appearing, painful but in no acute distress. Rectal temp 100.1 degrees. No tachycardia, hypotension or tachypnea noted. Abdomen is firm, mildly distended, diffusely tender predominantly in the epigastric and bilateral lower quadrants. Hyperactive bowel sounds throughout. Rectal exam was performed with CHANA Pierce at bedside. Showed external hemorrhoids, no stool in the rectal vault, was unable to obtain stool sample for Hemoccult testing. No masses palpated. Differential diagnosis as above however top considerations include gastric outlet obstruction, bowel obstruction, volvulus, constipation, incarcerated hernia. Ordered stat CT abdomen pelvis, considered chest x-ray with acute abdomen series however with right lower quadrant pain and patient still having her appendix cannot rule out appendicitis with x-ray so we will proceed with CT scan. Pain control, fluids, antibiotics and comprehensive labs ordered. Patient is agreeable plan of care. Reviewed CT scan, consistent with likely bowel obstruction. Page Dr. Sheffield for further resc. Discussed with Dr. Sheffield, patient okay for admission here but he would prefer the patient be at center where there is a purse seiner available. He recommends 40 mg Solu-Medrol twice daily, he does recommend discussing with the patient transfer to a facility where GI is available. I discussed this with the patient, she states her purse seiner works at [facility] and would prefer transfer there. Patient agreeable with transfer to [facility]. CT abdomen pelvis read by radiologist as scattered gas/fluid levels throughout fully distended but nondilated distal small bowel with small amount of surrounding edema and free fluid, there are surgical changes from right hemila minectomy, fluid within the colon at the anastomosis as well as mild edema involving the transverse colon, "consider enteritis and colitis with ileus versus low-grade bowel obstruction" no peritoneum or abscess identified. Discussed with Dr. Yang at [facility] She kindly accepts patient for admission. Patient transferred to [facility] in stable condition. Undiagnosed new problem with uncertain prognosis? @ -No Drug Therapy requiring intensive monitoring for toxicity (Heparin, Nitro, Insulin, Cardizem)? @ -No Were any procedures done? @ -No Diagnosis/symptom? @ Bowel obstruction Acute, or Chronic, or Acute on Chronic? @ -Acute Uncomplicated (without systemic symptoms) or Complicated (systemic symptoms)? @Complicated Side effects of treatment? @ -No Exacerbation, Progression, or Severe Exacerbation? @ -No Poses a threat to life or bodily function? How? (Chest pain, USA, PR, pneumonia, PE, COPD, DKA, ARF, appy, cholecystitis, CVA, Diverticulitis, Homicidal, Suicidal, threat to staff... and all critical care pts) @Yes - Lab Data Result diagrams: 03/31/24 21:19 03/31/24 21:19 Lab Results 03/31/24 03/31/24 03/31/24 Range/Units 21:19 21:19 21:19 WBC 8.9 (3.8-10.6) k/uL RBC 4.25 (3.80-5.40) m/uL Hgb 12.5 (11.4-16.0) gm/dL Hct 40.0 (34.0-46.0) % MCV 94.3 (80.0-100.0) fL MCH 29.6 (25.0-35.0) pg MCHC 31.3 (31.0-37.0) g/dL RDW 12.3 (11.5-15.5) % Plt Count 264 (150-450) k/uL MPV 7.7 Neutrophils % 80 % Lymphocytes % 14 % Monocytes % 4 % Eosinophils % 1 % Basophils % 0 % Neutrophils # 7.1 (1.3-7.7) k/uL Lymphocytes # 1.3 (1.0-4.8) k/uL Monocytes # 0.3 (0-1.0) k/uL Eosinophils # 0.1 (0-0.7) k/uL Basophils # 0.0 (0-0.2) k/uL PT (10.0-12.5) sec INR (<1.2) APTT (22.0-30.0) sec Sodium 138 (137-145) mmol/L Potassium 3.9 (3.5-5.1) mmol/L Chloride 105 (98-107) mmol/L Carbon Dioxide 23 (22-30) mmol/L Anion Gap 10 mmol/L BUN 8 (7-17) mg/dL Creatinine 0.52 (0.52-1.04) mg/dL Est GFR (CKD-EPI)AfAm >90 (>60 ml/min/1.73 sqM) Est GFR (CKD-EPI)NonAf >90 (>60 ml/min/1.73 sqM) Glucose 134 H (74-99) mg/dL Plasma Lactic Acid Anton 1.3 (0.7-2.0) mmol/L Calcium 9.3 (8.4-10.2) mg/dL Total Bilirubin 0.4 (0.2-1.3) mg/dL AST 71 H (14-36) U/L ALT 90 H (4-34) U/L Alkaline Phosphatase 97 (38-126) U/L Total Protein 7.2 (6.3-8.2) g/dL Albumin 4.5 (3.5-5.0) g/dL Amylase 45 (30-110) U/L Lipase 27 (23-300) U/L HCG, Quant 3.0 mIU/mL Urine Color Urine Appearance (Clear) Urine pH (5.0-8.0) Ur Specific [place] (1.001-1.035) Urine Protein (Negative) Urine Glucose (UA) (Negative) Urine Ketones (Negative) Urine Blood (Negative) Urine Nitrite (Negative) Urine Bilirubin (Negative) Urine Urobilinogen (<2.0) mg/dL Ur Leukocyte Esterase (Negative) Blood Type Blood Type Recheck Bld Type Recheck Status Antibody Screen Spec Expiration Date 03/31/24 03/31/24 04/01/24 Range/Units 22:01 22:01 01:09 WBC (3.8-10.6) k/uL RBC (3.80-5.40) m/uL Hgb (11.4-16.0) gm/dL Hct (34.0-46.0) % MCV (80.0-100.0) fL MCH (25.0-35.0) pg MCHC (31.0-37.0) g/dL RDW (11.5-15.5) % Plt Count (150-450) k/uL MPV Neutrophils % % Lymphocytes % % Monocytes % % Eosinophils % % Basophils % % Neutrophils # (1.3-7.7) k/uL Lymphocytes # (1.0-4.8) k/uL Monocytes # (0-1.0) k/uL Eosinophils # (0-0.7) k/uL Basophils # (0-0.2) k/uL PT 9.9 L (10.0-12.5) sec INR 0.9 (<1.2) APTT 19.3 L (22.0-30.0) sec Sodium (137-145) mmol/L Potassium (3.5-5.1) mmol/L Chloride (98-107) mmol/L Carbon Dioxide (22-30) mmol/L Anion Gap mmol/L BUN (7-17) mg/dL Creatinine (0.52-1.04) mg/dL Est GFR (CKD-EPI)AfAm (>60 ml/min/1.73 sqM) Est GFR (CKD-EPI)NonAf (>60 ml/min/1.73 sqM) Glucose (74-99) mg/dL Plasma Lactic Acid Anton (0.7-2.0) mmol/L Calcium (8.4-10.2) mg/dL Total Bilirubin (0.2-1.3) mg/dL AST (14-36) U/L ALT (4-34) U/L Alkaline Phosphatase (38-126) U/L Total Protein (6.3-8.2) g/dL Albumin (3.5-5.0) g/dL Amylase (30-110) U/L Lipase (23-300) U/L HCG, Quant mIU/mL Urine Color Colorless Urine Appearance Clear (Clear) Urine pH 7.0 (5.0-8.0) Ur Specific [place] 1.034 (1.001-1.035) Urine Protein Negative (Negative) Urine Glucose (UA) Negative (Negative) Urine Ketones Negative (Negative) Urine Blood Negative (Negative) Urine Nitrite Negative (Negative) Urine Bilirubin Negative (Negative) Urine Urobilinogen <2.0 (<2.0) mg/dL Ur Leukocyte Esterase Negative (Negative) Blood Type O Positive Blood Type Recheck O Pos Bld Type Recheck Status No Antibody Screen NEGATIVE Spec Expiration Date 04/03/20242300 Disposition Clinical Impression: Bowel obstruction Disposition: DC/TRNS INTERMEDIATE CARE FAC Condition: Stable Referrals: Raquel Villeda MD [Primary Care Provider] - 1-2 days - Out of Hospital Transfer - Req. Specs Out of Hospital Transfer - Requested Specifics: Other Non-Acute ([facility])
[2024-03-31 21:29] LABS: Basophils % (A) 0 %; Eosinophils # (A) 0.1 k/uL (0-0.7); Eosinophils % (A) 1 %; HGB 12.5 gm/dL (11.4-16.0); Lymphocytes # (A) 1.3 k/uL (1.0-4.8); Lymphocytes % (A) 14 %; MCH 29.6 pg (25.0-35.0); MCHC 31.3 g/dL (31.0-37.0); MCV 94.3 fL (80.0-100.0); Mean Platelet Volume 7.7; Monocytes # (A) 0.3 k/uL (0-1.0); Monocytes % (A) 4 %; Neutrophils # (A) 7.1 k/uL (1.3-7.7); Neutrophils % (A) 80 %; Platelet Count 264 k/uL (150-450); RBC 4.25 m/uL (3.80-5.40); RDW 12.3 % (11.5-15.5); WBC 8.9 k/uL (3.8-10.6)
[2024-03-31] MEDS: HYDROmorphone 1 MG/ML 1 ML SYRINGE IVP STA ×2 (21:38→23:22)
[2024-03-31 21:39] LABS: ALT 90 U/L (4-34); AST 71 U/L (14-36); African American GFR (CKD) >90 (>60 ml/min/1.73 sqM); Albumin 4.5 g/dL (3.5-5.0); Alkaline Phosphatase 97 U/L (38-126); Amylase 45 U/L (30-110); Anion Gap 10 mmol/L; Blood Urea Nitrogen 8 mg/dL (7-17); Calcium 9.3 mg/dL (8.4-10.2); Carbon Dioxide 23 mmol/L (22-30); Chloride 105 mmol/L (98-107); Glucose 134 mg/dL (74-99); Lipase 27 U/L (23-300); Non-African American GFR(CKD) >90 (>60 ml/min/1.73 sqM); Potassium 3.9 mmol/L (3.5-5.1); Sodium 138 mmol/L (137-145); Total Bilirubin 0.4 mg/dL (0.2-1.3); Total Protein 7.2 g/dL (6.3-8.2)
[2024-03-31] MEDS: SODIUM CHLORIDE 0.9% 2,000 ML IV STA (21:39)
[2024-03-31] MEDS: ONDANSETRON 4 MG/2 ML VIAL IVP STA (21:39)
[2024-03-31] MEDS: ACETAMINOPHEN IV (For NPO) 1,000 MG in EMPTY BAG 1 BAG IVPB ONE (22:06)
[2024-03-31 22:29] LABS: INR 0.9 (<1.2); Prothrombin Time 9.9 sec (10.0-12.5)
--- NOTE | 2024-03-31 22:30 | CT ---
EXAM: CT Abdomen and Pelvis With Intravenous Contrast CLINICAL HISTORY: Reason: abdominal pain TECHNIQUE: Axial computed tomography images of the abdomen and pelvis with intravenous contrast. CTDI is 17 mGy and DLP is 759.7 mGy-cm. This CT exam was performed using one or more of the following dose reduction techniques: automated exposure control, adjustment of the mA and/or kV according to patient size, and/or use of iterative reconstruction technique. COMPARISON: March 04, 2024 FINDINGS: Lung bases: Unremarkable. No mass. No consolidation. ABDOMEN: Liver: Unremarkable. No mass. Gallbladder and bile ducts: Unremarkable. No calcified stones. No ductal dilation. Pancreas: Unremarkable. No mass. No ductal dilation. Spleen: Unremarkable. No splenomegaly. Adrenals: Unremarkable. No mass. Kidneys and ureters: Delayed images show normal renal contrast excretion bilaterally. No hydronephrosis. Stomach and bowel: Unremarkable. No obstruction. No mucosal thickening. PELVIS: Appendix: No findings to suggest acute appendicitis. Bladder: Unremarkable. No mass. Reproductive: Unremarkable as visualized. ABDOMEN and PELVIS: Intraperitoneal space: There are scattered gas fluid levels throughout fully distended but nondilated distal small bowel with slight surrounding edema and free fluid there are surgical changes from right hemilaminectomy. There is fluid within the colon at the anastomosis as well as mild edema involving the transverse colon. Bones/joints: Mild degenerative changes throughout the lumbar spine as well as scoliosis with Leon angle measuring 50. Soft tissues: Unremarkable. Vasculature: Unremarkable. No abdominal aortic aneurysm. Lymph nodes: Unremarkable. No enlarged lymph nodes. IMPRESSION: There are scattered gas fluid levels throughout fully distended but nondilated distal small bowel with a small amount of surrounding edema and free fluid. There are surgical changes from right hemilaminectomy. There is fluid within the colon at the anastomosis as well as mild edema involving the transverse colon. Consider enteritis and colitis with ileus versus low-grade bowel obstruction. No pneumoperitoneum or abscess is identified.
[2024-03-31 22:41] LABS: Partial Thromboplastin Time 19.3 sec (22.0-30.0)
[2024-03-31] MEDS: CEFEPIME 2 GM in SODIUM CHLORIDE 0.9% 100 ML IVPB STA (23:22)
[2024-04-01] MEDS: metroNIDAZOLE-NS PMX 500 MG in SALINE 1 100ML.BAG IVPB STA (00:15)
[2024-04-01 00:18] VITALS: RESP 18
[2024-04-01 00:19] VITALS: TEMP 97.8
[2024-04-01] MEDS: HYDROmorphone 1 MG/ML 1 ML SYRINGE IVP STA ×2 (00:30→01:03)
[2024-04-01] MEDS: methylPREDNISolone SOD SUCCI 125 MG/2 ML VIAL IV STA (00:31)
[2024-04-01 01:26] VITALS: BP 127/88; PULSE 54
[2024-04-01 01:29] LABS: Appearance,Urine Clear (Clear); Bilirubin,Urine Negative (Negative); Blood,Urine Negative (Negative); Color,Urine Colorless; Glucose,Urine (UA) Negative (Negative); Ketones,Urine Negative (Negative); Leukocyte Esterase,Urine Negative (Negative); Nitrite,Urine Negative (Negative); Protein,Urine Negative (Negative); Specific Gravity,Urine 1.034 (1.001-1.035); Urobilinogen,Urine <2.0 mg/dL (<2.0)
== END 2024-04-01 01:26 ==
LOC: EC 21:01
DX: K50.012 Crohn's disease of small intestine with intestinal obstruction (principal); F17.290 Nicotine dependence, other tobacco product, uncomplicated; Z88.8 Allergy status to other drugs, medicaments and biological substances
CPT/HCPCS: 36415; 86900; 86901; 80053; 82150; 83605; 83690; 85025; 85610; 85730; 86850; 81003; 84702; 74177; 99285; 96365; 96367 ×2; 96375 ×4; 96376 ×3; J2405; J0692; J1171 ×2; J0131; Q9967; J1836; J2919

== ENCOUNTER → 2024-04-17 | Outpatient (CLI) | payer MEDICARE, OTHER ==
[2024-04-17 07:55] VITALS: BP 135/87; PULSE 69; RESP 16
--- NOTE | 2024-04-17 15:44 | P.PAINPG ---
PQRS Measure Charge Sheet Comment: HISTORY OF PRESENT ILLNESS: A 43 yr old female presents today w severe and chronic LBP > 3 mo secondary to radiculopathy, spondylosis and facet arthropathy without myelopathy for evaluation s/p BL MBB L4-L5/ L5-S1 #2. Pt states she experienced 100 % pain relief x 72 hrs s/p procedure. Pt states pain level is provoked at 8 /10 in intensity, constant, localized in the lower lumbar spine, predominantly axial, sharp in character without shooting pain. Pain is provoked by bending or walking > 10 min. Pain is alleviated by PT x 6 wks which ended in Dec 2023, physician guided HEP 4 times weekly since Dec 2023, massage therapy monthly since Jul 2023, heat, ice, medication, topical, repositioning and rest . Interventional procedures include BL MBB L3-L5 x2 Medications include Tramadol, Neurontin 300mg, Tyl, Ibu, Lidoderm REVIEW OF ORGAN SYSTEMS: CONSTITUTIONAL: No fevers or chills. No recent weight loss. NEUROLOGICAL: + numbness and tingling along the distal extremities. No seizure disorders or headaches. MUSCULOSKELETAL: + pain PSYCHIATRIC: Denies current depression or suicidal thoughts. Physical Examinations : Constitutional : Cooperative , not in acute distress . Neurologic : Cranial nerve II to XII intact. No focal emily rological deficits. Psychiatric : alert & oriented x 3. Matching mood & appropriate affect. Judgment & insight intact. Musculoskeletal : Cervical Spine Motor strength in the deltoid and biceps: Normal right side. Normal Left side Motor strength biceps and the wrist extensors: Normal right side . Normal left side Motor strength in the triceps muscle: Normal right side. Normal left side Deep tendon reflexes: Normal at the biceps. Normal at Brachioradialis. Normal at triceps Vertebral body tenderness to deep pal pation over Cervical facet loading test: positive bilaterally Spurling test: positive bilaterally Neck distraction test: positive bilaterally Dale sign: positive bilaterally Lumbar spine Motor strength lower extremities ,thigh and legs 5/5 Right side , 5/5 Left side Deep tendon reflexes : Normal Knee Jerk. Normal Ankle Jerk Vertebral body tenderness over Muse Test positive Lumbar facet Loading Test: positive Right / positive Left L4-L5, L5-S1 Range of motion of the lumbar spine Flexion 30 degrees, extension 10 degrees Straight Leg Raise test: Left/ Right positive at degrees Macrina test: positive right / positive left. Severe tenderness over the Sacroiliac joint on the Right / Left sides Gaenslen test: positive bilaterally Seated flexion test: positive bilaterally. Sacral spine : Severe tenderness over the Sacroiliac joint: right side / left side Range of motion: Flexion of the lumbar spine <60 degrees Range of motion: Extension of the lumbar spine <20 degrees Gaenslen's Test positive Macrina test: positive right side / left side Thigh Thrust Test Sacral Thrust Test Imaging: CT non contrast thoracolumbar spine from 11/22/23 reviewed Assessment/ Plan : Dextroconvex scoliosis Recommendation of BL RFA L4-L5/ L5-S1. Risks, benefits of procedure discussed and patient verbalized understanding. Protocol for discontinuation/ continuation of medications jackelin procedure discussed. Minimal anesthesia provided, if clinically indicated, consisting of Versed and Fentanyl. All questions answered. I have spent greater than 30 minutes on patient care today. Dr Virgen was available by phone for the evaluation of this patient. The time was used to review the medical records including relevant urine studies and Prescription history (MAPs), review of the available imaging, evaluation and examination of the patient, coordination of care with the medical staff and if applicable referring physicians, as well as creation of the medical record - Pain Location Lower Back Non-Pharmacological Interventions: Heat, Ice, Massage, Physical Therapy Pharmacological Interventions: Epidural, Scheduled Medication, Topical Medication PQRS Narrative: Smoking Status Current every day smoker Hx Alcohol Use (MH) Yes Home Medications: Ambulatory Orders Butalb/APAP/Caff 50-325-40Mg [Fioricet 50-325-40] 1 tab PO BID PRN 09/22/21 Gabapentin [Neurontin] 300 mg PO BID 09/22/21 Pantoprazole Sodium [Protonix] 20 mg PO DAILY 09/22/21 Vit No.180/Iron/Folic [ Plus Vitamin-Mineral] 1 tab PO DAILY 09/22/21 traMADol HCL [Ultram] 50 mg PO BID 09/22/21 Diphenoxylate HCl/Atropine [Lomotil 2.5-0.025 mg Tablet] 1 tab PO QID 08/15/23 Risankizumab-Rzaa [Skyrizi On-Body] 360 mg SQ Q42D 08/15/23 Sertraline [Zoloft] 150 mg PO DAILY 08/15/23 tiZANidine HCL 2 mg PO HS 08/15/23 oxyCODONE HCL [Roxicodone] 5 mg PO HS 03/13/24 diazePAM [Valium] 5 mg PO DAILY PRN 1 Days #2 tab 04/17/24 Controlled Substance Measures - Controlled Substance Measures Is patient prescribed a controlled substance at discharge?: No
== END ==
LOC: PNWHC3 07:38
PROVIDERS: ATTEND Specialist
DX: M41.87 Other forms of scoliosis, lumbosacral region (principal); F17.200 Nicotine dependence, unspecified, uncomplicated; Z88.8 Allergy status to other drugs, medicaments and biological substances
CPT/HCPCS: 99211

== ENCOUNTER → 2024-05-12 | Day surgery (SDC) | payer MEDICARE, OTHER ==
[2024-05-09 10:27] VITALS: BMI 25.7
[~2024-05-12] MED LIST changes: -LACTATED RINGERS 1,000 ML IV SCH; +MIDAZOLAM 2 MG/2 ML VIAL ONE; +ROPIVACAINE 5MG/ML 20ML VIAL ONE; +fentaNYL (PF) 50 MCG/ML 2 ML AMP ONE; +methylPREDNISolone ACETATE 80 MG/ML 1 ML VIAL ONE
[2024-05-12] MEDS: IV FLUID CONTINUATION 1,000 ML IV ONE ×2 (09:32→10:50)
[2024-05-12] MEDS: LACTATED RINGERS 1,000 ML IV SCH (09:52)
[2024-05-12 09:57] VITALS: TEMP 97.3
--- NOTE | 2024-05-12 10:36 | P.PCN ---
Date of Procedure: 05/12/24 Procedure(s) Performed: PREOPERATIVE DIAGNOSIS: 1-Lumbar Spondylosis with Facet Arthropathy without myelopathy. 2- Lumber degenerative disc disease. POSTOPERATIVE DIAGNOSIS: 1- Lumbar Spondylosis with Facet Arthropathy without myelopathy. 2- Lumber degenerative disc disease. PROCEDURES : Bilateral Radiofrequency thermocoagulation, L3 , L4 ,L5 medial branch with fluoro guidance (fluoro images available in the radiology department) ( to denervate the facet joint at bilateral L4-5 ,and L5-S1 levels ). ANESTHESIA: Moderate sedation with intravenous versed 2 mg and fentaneyl 200 mcg, (sedations started 10:08, ended at 10:33 ). EBL: Minimal PROCEDURE INDICATION: The patient with low back pain secondary to lumbar facet arthropathy who had more than 50% relief of her pain with previous diagnostic lumbar medial branch block with bupivacaine. PROCEDURE DESCRIPTION / TECHNIQUE: The patient was seen and identified in the preoperative area. Risks, benefits, complications, including but not limited to risk of infection ,bleeding , allergic reactions to the medications and no complete pain releife , and alternatives were discussed with the patient, the patient agreed to proceed with the procedure and signed the consent. IV was started. Vital signs remained stable throughout the procedure. Patient was taken to the OR and time out was completed. The patient was placed in the prone position on the procedure table. The lumber area was prepped and draped in the usual sterile fashion. . Vital signs were closely monitored during the procedure .IV sedation was used during the procedure to decrease patients anxiety. Using AP and then oblique fluoroscopy, the ``eye of the Romaine dog corresponding to the connection between the superior and transverse articular processes of right L3, L4, and L5 were identified, marked, and localized with 1% lidocaine. Subsequently, a [id number] (VENOM ) radiofrequency cannula with a 10-mm active tip was advanced guided by fluoroscopy to each of the``eyes of the Romaine dog at right L3, L4, and L5. Each site then underwent sensory testing at 50 Hz and 0 to 1 volt and motor testing at 2.5 Hz and 0 to 3 volt with local stimulation, but no radicular symptoms down the legs. Thereafter each sites underwent radiofrequency thermocoagulation at 80 degrees celsius for 90 seconds after injecting 0.5 ml of PF Ropivacaine 1ml, then after the thermocoagulation done , 1 ml of the block solution containing Depo-Medrol 20 mg and 3 ml of Ropivacaine 0.5% was injected at the right L3 , L4 , and L5 , levels after negative aspiration of CSF and blood and with no paresthesias. Cannulas were retracted while injecting lidocaine 1% until the needle is out. The same procedure was repeated at the level of Left L3, L4, and L5 levels. At the end of the procedure, the skin was cleansed and bandages were applied. COMPLICATIONS: No acute complications. DISPOSITION / PLANS: The patient was placed in a supine position and transferred to the recovery area in a stable condition for observation and was discharged from the recovery room after meeting discharge criteria. Home discharge instructions given to the patient by the staff. The patient was reexamined prior to discharge. The patient will schedule a follow up in the clinic in 2-4 weeks.
[2024-05-12 10:41] VITALS: RESP 16
--- NOTE | 2024-05-12 11:09 | FL ---
EXAMINATION TYPE: FL guided pain mgmt statistic DATE OF EXAM: 05/12/2024 10:47 AM COMPARISON: Pre Operative Images if available both CT/MRI or plain film CLINICAL INDICATION: Female, 44 years old with history of RAD FREQ LUMBAR; TECHNIQUE: FL guided pain mgmt statistic, multiple fluoroscopic images provided for procedure. Total fluoroscopy time: 18.6 seconds Total submitted images to PACS: 5 DAP: [id number] mGym2 Gycm2 uGym2 cGycm2 or equivalent. FINDINGS: Fluoroscopic images during injection for pain management demonstrate multilevel degeneration changes throughout the spine. No evidence for fracture. No acute process identified. IMPRESSION: 1. No evidence for intraoperative complication. 2. Please see the operative/procedural note for further details. [facility], , 05/12/2024 11:07 AM
[2024-05-12 11:41] VITALS: BP 129/76; PULSE 86
== END ==
LOC: ORPAIN 09:10
PROVIDERS: ATTEND Specialist
DX: M47.816 Spondylosis without myelopathy or radiculopathy, lumbar region (principal); M51.369 Other intervertebral disc degeneration, lumbar region without mention of lumbar back pain or lower extremity pain; Z79.899 Other long term (current) drug therapy; Z88.8 Allergy status to other drugs, medicaments and biological substances
CPT/HCPCS: 81025; 99152; 99153

== ENCOUNTER → 2024-05-24 | Outpatient (CLI) | payer MEDICARE, OTHER ==
[2024-05-24 15:01] VITALS: BP 120/76; PULSE 66; RESP 18; TEMP 97.6
--- NOTE | 2024-05-24 15:25 | P.PAINPG ---
Objective - Vital Signs Vital signs: Vital Signs Temp 97.6 F 05/24/24 14:57 Pulse 66 05/24/24 14:57 Resp 18 05/24/24 14:57 BP 120/76 05/24/24 14:57 Pulse Ox 96 05/24/24 14:57 FiO2 Intake & Output 05/23/24 05/24/24 05/24/24 18:59 06:59 18:59 Weight 145 kg PQRS Measure Charge Sheet Mode of Arrival: Ambulatory Comment: HISTORY OF PRESENT ILLNESS: A 43 yr old female presents today w severe and chronic thoracolumbar pain > 6 mo secondary to radiculopathy, spondylosis and facet arthropathy without myelopathy for evaluation s/p BL RFA L4-L5/ L5-S1. Pt states she experienced 90 % pain relief s/p procedure. Pt states pain level is provoked at 8 /10 in intensity, constant, localized in the thoracic spine, predominantly axial, sharp in character w occasional shooting pain L & R of midline. Pain is provoked by bending or walking > 10 min. Pain is alleviated by PT x 6 wks which ended in Dec 2023, physician guided HEP 4 times weekly since Dec 2023, massage therapy monthly since Jul 2023, heat, ice, medication, topical, repositioning and rest . Interventional procedures include BL RFA L3-L5 (May 2024) Medications include Tramadol, Neurontin 300mg, Tyl, Ibu, Lidoderm REVIEW OF ORGAN SYSTEMS: CONSTITUTIONAL: No fevers or chills. No recent weight loss. NEUROLOGICAL: + numbness and tingling along the distal extremities. No seizure disorders or headaches. MUSCULOSKELETAL: + pain PSYCHIATRIC: Denies current depression or suicidal thoughts. Physical Examinations : Constitutional : Cooperative , not in acute distress . Neurologic : Cranial nerve II to XII intact. No focal neurological deficits. Psychiatric : alert & oriented x 3. Matching mood & appropriate affect. Judgment & insight intact. Musculoskeletal : Cervical Spine Motor strength in the deltoid and biceps: Normal right side. Normal Left side Motor strength biceps and the wrist extensors: Normal right side . Normal left side Motor strength in the triceps muscle: Normal right side. Normal left side Deep tendon reflexes: Normal at the biceps. Normal at Brachioradialis. Normal at triceps Vertebral body tenderness to deep palpation over Cervical facet loading test: positive bilaterally Spurling test: positive bilaterally Neck distraction test: positive bilaterally Dale sign: positive bilaterally Thoracic spine Taut bands w twitch response over BL T1-T8 Lumbar spine Motor strength lower extremities ,thigh and legs 5/5 Right side , 5/5 Left side Deep tendon reflexes : Normal Knee Jerk. Normal Ankle Jerk Vertebral body tenderness over Muse Test positive Lumbar facet Loading Test: positive Right / positive Left L4-L5, L5-S1 Range of motion of the lumbar spine Flexion 30 degrees, extension 10 degrees Straight Leg Raise test: Left/ Right positive at degrees Macrina test: positive right / positive left. Severe tenderness over the Sacroiliac joint on the Right / Left sides Gaenslen test: positive bilaterally Seated flexion test: positive bilaterally. Sacral spine : Severe tenderness over the Sacroiliac joint: right side / left side Range of motion: Flexion of the lumbar spine <60 degrees Range of motion: Extension of the lumbar spine <20 degrees Gaenslen's Test positive Macrina test: positive right side / left side Thigh Thrust Test Sacral Thrust Test Imaging: CT non contrast thoracolumbar spine from 11/22/23 reviewed Assessment/ Plan : Dextroconvex scoliosis Recommendation of BL TPIs T1-T8 #1. Risks, benefits of procedure discussed and patient verbalized understanding. All questions answered. I have spent greater than 30 minutes on patient care today. Dr Virgen was available by phone for the evaluation of this patient. The time was used to review the medical records including relevant urine studies and Prescription history (MAPs), review of the available imaging, evaluation and examination of the patient, coordination of care with the medical staff and if applicable referring physicians, as well as creation of the medical record PQRS Narrative: Smoking Status Current every day smoker Narcotic Agreement Date Signed 05/24/24 Blood Pressure 120/76 Pain Intensity [Lower Back] 8 Scale Used Numeric (1 - 10) Hx Alcohol Use (MH) Yes Home Medications: Ambulatory Orders Butalb/APAP/Caff 50-325-40Mg [Fioricet 50-325-40] 1 tab PO BID PRN 09/22/21 Gabapentin [Neurontin] 300 mg PO BID 09/22/21 Pantoprazole Sodium [Protonix] 20 mg PO DAILY 09/22/21 Vit No.180/Iron/Folic [ Plus Vitamin-Mineral] 1 tab PO DAILY 09/22/21 traMADol HCL [Ultram] 50 mg PO BID 09/22/21 Diphenoxylate HCl/Atropine [Lomotil 2.5-0.025 mg Tablet] 1 tab PO QID 08/15/23 Risankizumab-Rzaa [Skyrizi On-Body] 360 mg SQ Q42D 08/15/23 Sertraline [Zoloft] 150 mg PO DAILY 08/15/23 tiZANidine HCL 2 mg PO HS 08/15/23 diazePAM [Valium] 5 mg PO DAILY PRN 1 Days #2 tab 04/17/24 Controlled Substance Measures - Controlled Substance Measures Is patient prescribed a controlled substance at discharge?: No
== END ==
LOC: PNWHC3 14:37
PROVIDERS: ATTEND Specialist
DX: M41.84 Other forms of scoliosis, thoracic region (principal); F17.200 Nicotine dependence, unspecified, uncomplicated; Z88.8 Allergy status to other drugs, medicaments and biological substances
CPT/HCPCS: 99211

== ENCOUNTER 2024-07-02 13:32 | Emergency (ER) | payer MEDICARE, OTHER ==
--- NOTE | 2024-07-02 13:52 | ED ---
Back Pain HPI - General Source: patient, RN notes reviewed, old records reviewed Limitations: no limitations <Rox Boone - Last Filed: 07/02/24 16:52> <Denise Centeno - Last Filed: 07/02/24 21:13> - General Chief Complaint: Back Pain/Injury Stated Complaint: back pain Time Seen by Provider: 07/02/24 13:50 - History of Present Illness Initial Comments: 44-year-old female presented to the ER for evaluation of back pain. Patient reports a history of scoliosis and spinal canal stenosis due to this. She states for the past 4 days she has been having a stabbing 10 out of 10 back pain. She does report mild numbness down anterior left thigh. Patient reports she recently broke bilateral metatarsals and has been wearing a walking boot. She states on 06-26-2024 she was instructed by orthopedics to remove boot from her right foot and wear it on her left and she slipped in the shower causing the second metatarsal fracture. She states the pain started shortly after wearing the boot on left foot. Patient states she is concerned her pelvis "might be off" or possible kidney issue as her "scoliosis may have moved her kidney". Patient is ambulating with a cane but states this is not typical. She has been taking 600 mg of ibuprofen 3 times a day without relief of discomfort. Patient denies a history of kidney stones. She does admit to a history of Crohn's disease but states this does not feel bowel related. She denies any bowel or bladder incontinence or retention, saddle paresthesias, fevers. Patient reports she has been ambulating with a cane given the pain. This is not typical for her. (Rox Boone) - Related Data Home Medications Medication Instructions Recorded Confirmed Butalb/APAP/Caff 50-325-40Mg 1 tab PO BID PRN 09/22/21 05/12/24 [Fioricet 50-325-40] Gabapentin [Neurontin] 300 mg PO BID 09/22/21 05/12/24 Pantoprazole Sodium [Protonix] 20 mg PO DAILY 09/22/21 05/12/24 Vit No.180/Iron/Folic 1 tab PO DAILY 09/22/21 05/12/24 [ Plus Vitamin-Mineral] traMADol HCL [Ultram] 50 mg PO BID 09/22/21 05/12/24 Diphenoxylate HCl/Atropine 1 tab PO QID 08/15/23 05/12/24 [Lomotil 2.5-0.025 mg Tablet] Risankizumab-Rzaa [Skyrizi On-Body] 360 mg SQ Q42D 08/15/23 05/12/24 Sertraline [Zoloft] 150 mg PO DAILY 08/15/23 05/12/24 tiZANidine HCL 2 mg PO HS 08/15/23 05/12/24 Previous Rx's Medication Instructions Recorded diazePAM [Valium] 5 mg PO DAILY PRN 1 Days #2 tab 04/17/24 HYDROcodone/APAP 7.5-325MG [[place] 1 tab PO Q4H PRN 3 Days #18 tab 07/02/24 7.5-325] Meloxicam [Mobic] 15 mg PO DAILY #30 tab 07/02/24 methocarbamoL [Robaxin-750] 1,500 mg PO TID PRN #30 tab 07/02/24 Allergies Allergy/AdvReac Type Severity Reaction Status Date / Time prednisone AdvReac Hallucinati Verified 07/02/24 13:36 ons prochlorperazine AdvReac AGITATION Verified 07/02/24 13:36 [From Compazine] Review of Systems ROS Other: All systems not noted in ROS Statement are negative. <Rox Boone - Last Filed: 07/02/24 16:52> ROS Other: All systems not noted in ROS Statement are negative. <Denise Centeno - Last Filed: 07/02/24 21:13> ROS Statement: Those systems with pertinent positive or pertinent negative responses have been documented in the HPI. Past Medical History Past Medical History: Blood Disorder, Pulmonary Embolus (PE) Additional Past Medical History / Comment(s): HEPATITIS C received treatment reports levels are now undetectable , crohn's disease, SBO, factor V Leiden with history of PE History of Any Multi-Drug Resistant Organisms: None Reported, MRSA Date of last positivie culture/infection: 06/12/15 MRSA @ [facility] MDRO Source:: Abdomen-PT STATES WAS NOT COLONIZED Past Surgical History: Bowel Resection, Hernia Repair, Uterine Ablation Additional Past Surgical History / Comment(s): VICTOR HUGO FOOT SURGERY, BOWEL RESECTION, x2. carpal tunnel surgery bilat hand. COLONOSCOPY Past Anesthesia/Blood Transfusion Reactions: No Reported Reaction Past Psychological History: Depression Smoking Status: Vaper Past Alcohol Use History: Rare Past Drug Use History: None Reported - Past Family History Father Family Medical History: Cancer <Rox Boone - Last Filed: 07/02/24 16:52> General Exam Limitations: no limitations General appearance: alert, in no apparent distress Respiratory exam: Present: normal lung sounds bilaterally. Absent: respiratory distress, wheezes, rales, rhonchi, stridor Cardiovascular Exam: Present: regular rate, normal rhythm, normal heart sounds. Absent: systolic murmur, diastolic murmur, rubs, gallop, clicks Extremities exam: Present: normal inspection, full ROM, normal capillary refill (2+ bilateral DP and PT pulse), other (Negative straight leg raise bilaterally.). Absent: tenderness, pedal edema, joint swelling, calf tenderness Back exam: Present: normal inspection, full ROM, tenderness (Left pelvic girdle. No overlying skin changes.) Neurological exam: Present: alert, oriented X3, CN II-XII intact Skin exam: Present: warm, dry, intact, normal color. Absent: rash <Rox Boone - Last Filed: 07/02/24 16:52> Course Vital Signs 07/02/24 07/02/24 07/02/24 13:34 19:46 20:35 Temperature 98.4 F 98.2 F Pulse Rate 79 64 60 Respiratory 18 16 17 Rate Blood Pressure 127/86 132/80 156/96 O2 Sat by Pulse 96 97 99 Oximetry Medical Decision Making <Rox Boone - Last Filed: 07/02/24 16:52> - Lab Data Result diagrams: 07/02/24 17:45 07/02/24 15:16 - Radiology Data Radiology results: report reviewed, image reviewed <Denise Centeno - Last Filed: 07/02/24 21:13> - Medical Decision Making Was pt. sent in by a medical professional or institution (, PA, MONTESSORI TEACHER, urgent care, hospital, or fdc...) When possible be specific @ -No Did you speak to anyone other than the patient for history (EMS, parent, family, police, friend...)? What history was obtained from this source @ -No Did you review nursing and triage notes (agree or disagree)? Why? @ -I reviewed and agree with nursing and triage notes Were old charts reviewed (outside hosp., previous admission, EMS record, old EKG, old radiological studies, urgent care reports/EKG's, fdc records)? Report findings @ -Medical records reviewed Differential Diagnosis (chest pain, altered mental status, abdominal pain women, abdominal pain men, vaginal bleeding, weakness, fever, dyspnea, syncope, headache, dizziness, GI bleed, back pain, seizure, CVA, palpatations, mental health, musculoskeletal)? @ -Differential Back Pain:Strain, zoster, cauda equina syndrome, epidural abscess, vertebral osteomyelitis, discitis, fracture, subluxation, disc herniation, DJD, spinal stenosis, dissection, AAA, pancreatitis, peptic ulcer disease, pyelonephritis, kidney stone, this is not meant to be an all-inclusive list. EKG interpreted by me (3pts min.). @ -None done X-rays interpreted by me (1pt min.). @ -None done CT interpreted by me (1pt min.). @ -None done U/S interpreted by me (1pt. min.). @ -None done What testing was considered but not performed or refused? (CT, X-rays, U/S, la bs)? Why? @ -None What meds were considered but not given or refused? Why? @ -None Did you discuss the management of the patient with other professionals (professionals i.e. , PA, MONTESSORI TEACHER, lab, RT, psych nurse, social economist, religion professor, teacher, medical laboratory technical officer, sample case porter)? Give summary @ -No Was smoking cessation discussed for >3mins.? @ -No Was critical care preformed (if so, how long)? @ -No Were there social determinants of health that impacted care today? How? (Homelessness, low income, unemployed, alcoholism, drug addiction, transportation, low edu. Level, literacy, decrease access to med. care, assisted, rehab)? @ -No Was there de-escalation of care discussed even if they declined (Discuss DNR or withdrawal of care, Hospice)? DNR status @ -No What co-morbidities impacted this encounter? (DM, HTN, Smoking, COPD, CAD, Cancer, CVA, ARF, Chemo, Hep., AIDS, mental health diagnosis, sleep apnea, morbid obesity)? @ -Scoliosis with spinal canal stenosis, Crohn's disease Was patient admitted / discharged? Hospital course, mention meds given and route, prescriptions, significant lab abnormalities, going to OR and other pertinent info. @ -44-year female presented the ER for evaluation of left back discomfort. Upon rooming, history and physical exam completed. Vitals within normal acceptable limits. Urinalysis obtained showing small leukocyte esterases and many bacteria along with 5 epithelial cells. Patient given Toradol, lidocaine patch and 1 mg IV Dilaudid for pain control. Laboratory studies, CT and disposition pending at time of signout to Denise Centeno PA-C at my shift completion. (Rox Boone) Case signed out to me by Rox Boone PA-C, at shift completion. Briefly, patient has been experiencing left lower back pain for the last 4 days. She has a history of right sided sciatica, but states that she has never had it on the left side. She did deal with 2 broken feet and wonders if the way she has been ambulating has thrown her sciatic joints off. Lab work obtained was relatively unremarkable. Urinalysis demonstrated many bacteria, however it was slightly contaminated and there were no other significant irregularities noted.. She denies any urinary symptoms. Will send urine for culture. CT scan of the abdom en and pelvis demonstrates no acute findings to explain her current symptoms. She does have stable postoperative changes of previous right hemicolectomy with liquid stool throughout the bowel suggesting diarrhea. Pain was treated in the emergency department. Prescription for meloxicam and Robaxin provided. Advised she avoid taking meloxicam with ibuprofen and see which one is more effective. She was also given a prescription for a 3-day course of [place] given the severity of her symptoms with known documented back problems as well as 2 broken feet. Patient discharged home in stable condition. Case discussed with ED attending, Dr. Reaves. Return precautions reviewed in depth, the patient is instructed to return to the emergency department with any new, worsening, or concerning symptoms. Patient verbalized understanding. (Denise Centeno) - Lab Data Lab Results 07/02/24 07/02/24 07/02/24 Range/Units 14:15 15:10 15:16 WBC (3.8-10.6) k/uL RBC (3.80-5.40) m/uL Hgb (11.4-16.0) gm/dL Hct (34.0-46.0) % MCV (80.0-100.0) fL MCH (25.0-35.0) pg MCHC (31.0-37.0) g/dL RDW (11.5-15.5) % Plt Count (150-450) k/uL MPV Neutrophils % % Lymphocytes % % Monocytes % % Eosinophils % % Basophils % % Neutrophils # (1.3-7.7) k/uL Lymphocytes # (1.0-4.8) k/uL Monocytes # (0-1.0) k/uL Eosinophils # (0-0.7) k/uL Basophils # (0-0.2) k/uL Sodium 138 (137-145) mmol/L Potassium 4.2 (3.5-5.1) mmol/L Chloride 105 (98-107) mmol/L Carbon Dioxide 22 (22-30) mmol/L Anion Gap 11 mmol/L BUN 21 H (7-17) mg/dL Creatinine 0.63 (0.52-1.04) mg/dL Est GFR (CKD-EPI)AfAm >90 (>60 ml/min/1.73 sqM) Est GFR (CKD-EPI)NonAf >90 (>60 ml/min/1.73 sqM) Glucose 99 (74-99) mg/dL Plasma Lactic Acid Anton 1.4 (0.7-2.0) mmol/L Calcium 9.7 (8.4-10.2) mg/dL Total Bilirubin 0.5 (0.2-1.3) mg/dL AST 52 H (14-36) U/L ALT 36 H (4-34) U/L Alkaline Phosphatase 59 (38-126) U/L Total Protein 7.7 (6.3-8.2) g/dL Albumin 4.7 (3.5-5.0) g/dL Urine Color Light Yellow Urine Appearance Cloudy H (Clear) Urine pH 5.5 (5.0-8.0) Ur Specific [place] 1.015 (1.001-1.035) Urine Protein Negative (Negative) Urine Glucose (UA) Negative (Negative) Urine Ketones Negative (Negative) Urine Blood Negative (Negative) Urine Nitrite Negative (Negative) Urine Bilirubin Negative (Negative) Urine Urobilinogen <2.0 (<2.0) mg/dL Ur Leukocyte Esterase Small H (Negative) Urine RBC 2 (0-5) /hpf Urine WBC 5 (0-5) /hpf Ur Squamous Epith Cells 5 H (0-4) /hpf Urine Bacteria Many H (None) /hpf Urine Mucus Many H (None) /hpf 07/02/24 Range/Units 17:45 WBC 7.1 (3.8-10.6) k/uL RBC 4.37 (3.80-5.40) m/uL Hgb 13.0 (11.4-16.0) gm/dL Hct 39.2 (34.0-46.0) % MCV 89.7 (80.0-100.0) fL MCH 29.7 (25.0-35.0) pg MCHC 33.1 (31.0-37.0) g/dL RDW 13.6 (11.5-15.5) % Plt Count 214 (150-450) k/uL MPV 7.6 Neutrophils % 56 % Lymphocytes % 33 % Monocytes % 7 % Eosinophils % 1 % Basophils % 1 % Neutrophils # 4.0 (1.3-7.7) k/uL Lymphocytes # 2.3 (1.0-4.8) k/uL Monocytes # 0.5 (0-1.0) k/uL Eosinophils # 0.1 (0-0.7) k/uL Basophils # 0.0 (0-0.2) k/uL Sodium (137-145) mmol/L Potassium (3.5-5.1) mmol/L Chloride (98-107) mmol/L Carbon Dioxide (22-30) mmol/L Anion Gap mmol/L BUN (7-17) mg/dL Creatinine (0.52-1.04) mg/dL Est GFR (CKD-EPI)AfAm (>60 ml/min/1.73 sqM) Est GFR (CKD-EPI)NonAf (>60 ml/min/1.73 sqM) Glucose (74-99) mg/dL Plasma Lactic Acid Anton (0.7-2.0) mmol/L Calcium (8.4-10.2) mg/dL Total Bilirubin (0.2-1.3) mg/dL AST (14-36) U/L ALT (4-34) U/L Alkaline Phosphatase (38-126) U/L Total Protein (6.3-8.2) g/dL Albumin (3.5-5.0) g/dL Urine Color Urine Appearance (Clear) Urine pH (5.0-8.0) Ur Specific [place] (1.001-1.035) Urine Protein (Negative) Urine Glucose (UA) (Negative) Urine Ketones (Negative) Urine Blood (Negative) Urine Nitrite (Negative) Urine Bilirubin (Negative) Urine Urobilinogen (<2.0) mg/dL Ur Leukocyte Esterase (Negative) Urine RBC (0-5) /hpf Urine WBC (0-5) /hpf Ur Squamous Epith Cells (0-4) /hpf Urine Bacteria (None) /hpf Urine Mucus (None) /hpf Disposition <Rox Boone - Last Filed: 07/02/24 16:52> Is patient prescribed a controlled substance at d/c from ED?: Yes When asked, does pt state using other controlled substances?: No If prescribed controlled substance>3 days was MAPS reviewed?: Prescribed <3 Days Time of Disposition: 20:18 <Denise Centeno - Last Filed: 07/02/24 21:13> Clinical Impression: Sciatica Disposition: HOME SELF-CARE Instructions (If sedation given, give patient instructions): Sciatica (ED), Acute Low Back Pain (ED), Lumbar Radiculopathy (ED) Additional Instructions: Return to the emergency department with any new, worsening, or concerning symptoms. Try taking the Mobic once daily in place of the ibuprofen to see if it is more effective. Take the [place] sparingly when the pain is the most severe. Take the Robaxin as 1 to 2 tablets up to 3-4 times daily. Prescriptions: Meloxicam [Mobic] 15 mg PO DAILY #30 tab HYDROcodone/APAP 7.5-325MG [[place] 7.5-325] 1 tab PO Q4H PRN 3 Days #18 tab PRN Reason: Pain methocarbamoL [Robaxin-750] 1,500 mg PO TID PRN #30 tab PRN Reason: Pain Referrals: Raquel Villeda MD [Primary Care Provider] - 1-2 days
[2024-07-02] MEDS: LIDOCAINE 4% PATCH TOPICAL ONE (14:16)
[2024-07-02] MEDS: KETOROLAC 15 MG/ML 1 ML VIAL IM STA (14:17)
[2024-07-02 14:44] LABS: Appearance,Urine Cloudy (Clear); Bacteria,Urine Many /hpf; Bilirubin,Urine Negative (Negative); Blood,Urine Negative (Negative); Color,Urine Light Yellow; Glucose,Urine (UA) Negative (Negative); Ketones,Urine Negative (Negative); Leukocyte Esterase,Urine Small (Negative); Mucus,Urine Many /hpf; Nitrite,Urine Negative (Negative); PH, Urine 5.5 (5.0-8.0); Protein,Urine Negative (Negative); RBC,Urine 2 /hpf (0-5); Specific Gravity,Urine 1.015 (1.001-1.035); Squamous Epithelial Cell,Urine 5 /hpf (0-4); Urobilinogen,Urine <2.0 mg/dL (<2.0); WBC,Urine 5 /hpf (0-5)
[2024-07-02] MEDS: HYDROmorphone 1 MG/ML 1 ML SYRINGE IVP STA (15:19)
[2024-07-02] MEDS: ONDANSETRON 4 MG/2 ML VIAL IVP STA (15:19)
[2024-07-02] MEDS: SODIUM CHLORIDE 0.9% 1,000 ML IV STA (15:20)
[2024-07-02] MEDS: HYDROmorphone 1 MG/ML 1 ML SYRINGE IM STA ×2 (17:33→20:27)
[2024-07-02 18:23] LABS: ALT 36 U/L (4-34); African American GFR (CKD) >90 (>60 ml/min/1.73 sqM); Albumin 4.7 g/dL (3.5-5.0); Anion Gap 11 mmol/L; Blood Urea Nitrogen 21 mg/dL (7-17); Calcium 9.7 mg/dL (8.4-10.2); Carbon Dioxide 22 mmol/L (22-30); Chloride 105 mmol/L (98-107); Glucose 99 mg/dL (74-99); Non-African American GFR(CKD) >90 (>60 ml/min/1.73 sqM); Sodium 138 mmol/L (137-145); Total Bilirubin 0.5 mg/dL (0.2-1.3); Total Protein 7.7 g/dL (6.3-8.2)
[2024-07-02 18:40] LABS: Basophils % (A) 1 %; Eosinophils # (A) 0.1 k/uL (0-0.7); Eosinophils % (A) 1 %; HCT 39.2 % (34.0-46.0); Lymphocytes # (A) 2.3 k/uL (1.0-4.8); Lymphocytes % (A) 33 %; MCH 29.7 pg (25.0-35.0); MCHC 33.1 g/dL (31.0-37.0); MCV 89.7 fL (80.0-100.0); Mean Platelet Volume 7.6; Monocytes # (A) 0.5 k/uL (0-1.0); Monocytes % (A) 7 %; Neutrophils % (A) 56 %; Platelet Count 214 k/uL (150-450); RBC 4.37 m/uL (3.80-5.40); RDW 13.6 % (11.5-15.5); WBC 7.1 k/uL (3.8-10.6)
[2024-07-02 18:41] LABS: AST 52 U/L (14-36); Potassium 4.2 mmol/L (3.5-5.1)
[2024-07-02 18:42] LABS: Alkaline Phosphatase 59 U/L (38-126)
[2024-07-02 19:47] VITALS: TEMP 98.2
--- NOTE | 2024-07-02 19:52 | CT ---
EXAMINATION TYPE: CT abdomen pelvis w con DATE OF EXAM: 07/02/2024 6:43 PM COMPARISON: Multiple prior CT abdomen/pelvis studies, most recent dated 03/31/2024. CLINICAL INDICATION: Female, 44 years old with history of left lower back pain; low left back pain TECHNIQUE: Axial CT abdomen pelvis w con;Sagittal and coronal reformats were created on a separate w orkstation. Contrast used:100ml mL of Isovue 300 with IV Contrast, (none if empty) Oral contrast used: without Oral Contrast (none if empty) CT DLP: 638.5 mGycm, Automated exposure control for dose reduction was used. FINDINGS: LOWER CHEST: Unremarkable ABDOMEN LIVER: Unremarkable GALLBLADDER AND BILE DUCTS: Unremarkable. PANCREAS: Unremarkable. SPLEEN: Unremarkable. ADRENAL GLANDS: Unremarkable. KIDNEYS AND URETERS: No evidence of hydronephrosis or renal calculus. The ureters are unremarkable. PELVIS BLADDER: No evidence for wall thickening or mass given limitations of exam. REPRODUCTIVE: Unremarkable. ABDOMEN & PELVIS STOMACH AND BOWEL: Stomach unremarkable. Post surgical changes of previous right hemicolectomy. Liqui d colonic stool throughout the large bowel suggesting diarrhea. No small bowel obstruction. PERITONEUM/RETROPERITONEUM: No evidence of pneumoperitoneum or free fluid. VASCULATURE: No evidence of aortic aneurysm. MUSCULOSKELETAL: No acute osseous abnormalities. Lumbosacral spine degenerative changes. This are con vex scoliotic curvature centered at L2-L3. LYMPH NODES: No gross evidence for lymphadenopathy. SOFT TISSUE/ABDOMINAL WALL: Unremarkable IMPRESSION: 1. No acute abnormality in the abdomen/pelvis or CT findings to explain reported symptoms. 2. Stable postoperative changes of previous right hemicolectomy with liquid stool throughout the lar ge bowel suggesting diarrhea. [facility], , 07/02/2024 7:49 PM
[2024-07-02] MEDS: ACET/COD 300 MG/30 MG STARTER PACK 6 TAB BTL PO STA (20:27)
[2024-07-02] MEDS: ORPHENADRINE 30 MG/ML 2 ML VIAL IM STA (20:29)
[2024-07-02 20:37] VITALS: BP 156/96; PULSE 60; RESP 17
== END 2024-07-02 20:37 | disposition home or self-care (01) ==
LOC: EC 13:32
DX: M54.32 Sciatica, left side (principal); F17.290 Nicotine dependence, other tobacco product, uncomplicated; Z88.8 Allergy status to other drugs, medicaments and biological substances
CPT/HCPCS: 36415; 80053; 83605; 85025; 81001; 74177; 99284; 96374; 96375; 96372; 96361; J2360; J2405; J1171; J1885; Q9967

== ENCOUNTER → 2024-07-11 | Outpatient (CLI) | payer MEDICARE, OTHER ==
[2024-07-11 12:38] VITALS: BP 145/99; PULSE 67; RESP 19; TEMP 97.3
--- NOTE | 2024-07-11 15:52 | P.PAINPG ---
PQRS Measure Charge Sheet Comment: HISTORY OF PRESENT ILLNESS: A 44 yr old female presents today w severe and chronic thoracolumbar pain > 6 mo secondary to radiculopathy, spondylosis and facet arthropathy without myelopathy for evaluation. Pt states pain level is provoked at 9 /10 in intensity, constant, localized in the L lumbar spine, predominantly axial, sharp in character w occasional shooting pain towards the LLE. Pain is provoked by bending or walking > 10 min. Pain is alleviated by PT x 6 wks which ended in Dec 2023, physician guided HEP 4 times weekly since Dec 2023, massage therapy monthly since Jul 2023, heat, ice, medication, topical, use of a cane for ambulatory assistance, repositioning and rest . Interventional procedures include BL RFA L3-L5 (May 2024) Medications include Neurontin 300mg, Tyl, Ibu, Lidoderm REVIEW OF ORGAN SYSTEMS: CONSTITUTIONAL: No fevers or chills. No recent weight loss . NEUROLOGICAL: + numbness and tingling along the distal extremities. No seizure disorders or headaches. MUSCULOSKELETAL: + pain PSYCHIATRIC: Denies current depression or suicidal thoughts. Physical Examinations : Constitutional : Cooperative , not in acute distress . Neurologic : Cranial nerve II to XII intact. No focal neurological deficits. Psychiatric : alert & oriented x 3. Matching mood & appropriate affect. Judgment & insight intact. Musculoskeletal : Cervical Spine Motor strength in the deltoid and biceps: Normal right side. Normal Left side Motor strength biceps and the wrist ext ensors: Normal right side . Normal left side Motor strength in the triceps muscle: Normal right side. Normal left side Deep tendon reflexes: Normal at the biceps. Normal at Brachioradialis. Normal at triceps Vertebral body tenderness to deep palpation over Cervical facet loading test: positive bilaterally Spurling test: positive bilaterally Neck distraction test: positive bilaterally Dale sign: positive bilaterally Thoracic spine Taut bands w twitch response over BL T1-T8 Lumbar spine Motor strength lower extremities ,thigh and legs 5/5 Right side , 5/5 Left side Deep tendon reflexes : Normal Knee Jerk. Normal Ankle Jerk Vertebral body tenderness over L4 Muse Test positive R L4-L5 Lumbar facet Loading Test: positive R ight / positive Left L4-L5, L5-S1 Range of motion of the lumbar spine Flexion 30 degrees, extension 10 degrees Straight Leg Raise test: Left/ Right positive at degrees Macrina test: positive right / positive left. Severe tenderness over the Sacroiliac joint on the Right / Left sides Gaenslen test: positive bilaterally Seated flexion test: positive bilaterally. Sacral spine : Severe tenderness over the Sacroiliac joint: right side / left side Range of motion: Flexion of the lumbar spine <60 degrees Range of motion: Extension of the lumbar spine <20 degrees Gaenslen's Test positive Macrina test: positive right side / left side Thigh Thrust Test Sacral Thrust Test Imaging: CT non contrast thoracolumbar spine from 11/22/23 reviewed Assessment/ Plan : L4-L5 radiculopathy, Dextroconvex scoliosis Recommendation of BAO L4-L5 #1 and medication management. Opiate/ narcotic agreement signed 07/11/24. [place] 7.5/325mg #60 w 1 RF. Use, side effects, adverse reactions, safe storage discussed. Risks, benefits of procedure discussed and patient verbalized understanding. Protocol for discontinuation/ continuation of medications jackelin procedure discussed. All questions answered. I have spent greater than 30 minutes on patient care today. Dr Virgen was available by phone for the evaluation of this patient. The time was used to review the medical records including relevant urine studies and Prescription history (MAPs), review of the available imaging, evaluation and examination of the patient, coordination of care with the medical staff and if applicable referring physicians, as well as creation of the medical record - Pain Location Left Lower Back Non-Pharmacological Interventions: Heat, Position/Reposition PQRS Narrative: Smoking Status Current every day smoker Narcotic Agreement Date Signed 05/24/24 Hx Alcohol Use (MH) Yes Home Medications: Ambulatory Orders Butalb/APAP/Caff 50-325-40Mg [Fioricet 50-325-40] 1 tab PO BID PRN 09/22/21 Gabapentin [Neurontin] 300 mg PO BID 09/22/21 Pantoprazole Sodium [Protonix] 20 mg PO DAILY 09/22/21 Vit No.180/Iron/Folic [ Plus Vitamin-Mineral] 1 tab PO DAILY 09/22/21 traMADol HCL [Ultram] 50 mg PO BID 09/22/21 Diphenoxylate HCl/Atropine [Lomotil 2.5-0.025 mg Tablet] 1 tab PO QID 08/15/23 Risankizumab-Rzaa [Skyrizi On-Body] 360 mg SQ Q42D 08/15/23 Sertraline [Zoloft] 150 mg PO DAILY 08/15/23 tiZANidine HCL 2 mg PO HS 08/15/23 diazePAM [Valium] 5 mg PO DAILY PRN 1 Days #2 tab 04/17/24 Meloxicam [Mobic] 15 mg PO DAILY #30 tab 07/02/24 methocarbamoL [Robaxin-750] 1,500 mg PO TID PRN #30 tab 07/02/24 HYDROcodone/APAP 7.5-325MG [[place] 7.5-325] 1 tab PO BID PRN 30 Days #60 tab 07/11/24 HYDROcodone/APAP 7.5-325MG [[place] 7.5-325] 1 tab PO BID PRN 30 Days #60 tab 07/11/24 Controlled Substance Measures - Controlled Substance Measures Is patient prescribed a controlled substance at discharge?: Yes When asked, does pt state using other controlled substances?: Yes If prescribed controlled substance>3 days was MAPS reviewed?: Yes If Rx opioid, was Start Talking consent form obtained?: Yes Was information provided regarding opioid addiction?: Yes
== END ==
LOC: PNWHC3 12:13
PROVIDERS: ATTEND Specialist
DX: M54.16 Radiculopathy, lumbar region (principal); M41.86 Other forms of scoliosis, lumbar region; F17.210 Nicotine dependence, cigarettes, uncomplicated; Z88.8 Allergy status to other drugs, medicaments and biological substances; Z88.9 Allergy status to unspecified drugs, medicaments and biological substances
CPT/HCPCS: 99211

== ENCOUNTER 2024-08-01 08:31 | Day surgery (SDC) | payer MEDICARE, OTHER ==
[2024-07-28 10:42] VITALS: BMI 26.0
[~2024-08-01 08:31] MED LIST changes: +LACTATED RINGERS 1,000 ML IV SCH; -MIDAZOLAM 2 MG/2 ML VIAL ONE; -ROPIVACAINE 5MG/ML 20ML VIAL ONE; -fentaNYL (PF) 50 MCG/ML 2 ML AMP ONE; -methylPREDNISolone ACETATE 80 MG/ML 1 ML VIAL ONE
[2024-08-01 09:11] VITALS: RESP 16; TEMP 98
[2024-08-01] MEDS ORDERED: IOPAMIDOL M200 10 ML VIAL ONE (09:24)
[2024-08-01] MEDS ORDERED: methylPREDNISolone ACETATE 40 MG/ML 1 ML VIAL ONE (09:24)
--- NOTE | 2024-08-01 09:30 | P.PCN ---
Date of Procedure: 08/01/24 Description of Procedure: Diagnosis: Lumbar degenerative disc disease, and lumbar radiculopathy Procedure: L4-L5 Inter-Laminar Lumbar Epidural Steroid Injection under biplanar fluoroscopy Surgeon: Aime Velasquez Anesthesia: Local: 1% Lidocaine, IV sedation : None. Complications: None Estimated blood loss: None Specimens removed: none. Fluoroscopic image: Saved to patient EMR. Indications for Procedure: The patient has been suffering from lower back pain and leg pain. Inadequate pain control with pharmacologic regimen. Came here for lumbar epidural steroid injection for better pain control. Procedure and Findings: The patient was seen and examined in the holding area. The written informed consent was obtained after explaining the risks, benefits, and alternatives of the procedure to the patient. The patient was brought to the procedure room and was placed in the prone position on the operating room table. A pillow was placed under the abdomen to reduce lumbar lordosis. The anesthesia was started as mentioned above and monitoring was done with noninvasive blood pressure cuff, EKG and pulse oximetry. The skin preparation was done with ChloraPrep and draping was done in usual sterile fashion. Sterile technique was observed throughout the procedure. Under fluoroscopic guidance, the L4-L5 inter-laminar space was identified. 3 ml of 1% Lidocaine was injected with a 25 gauge needle to achieve adequate local anesthesia of the skin and subcutaneous tissue. A 20 gauge, 3.5 inch Tuohy type epidural needle was placed and advanced up to the epidural space using loss of resistance technique and fluoroscopic guidance. No paresthesia was noted. A negative aspiration was confirmed and then 1.5 ml Isovue was injected. A good dye spread was seen in the epidural space and it was negative for any intrathecal, intraneural or intravascular spread. A total of 6 ml solution containing Depo-Medrol 40 mg and 5 mL of preservative-free Normal Saline was injected slowly with intermittent aspiration. The needle was removed intact, area was cleaned and bandage was applied. Disposition : The patient tolerated the procedure very well. The patient was transferred to the recovery room and remained stable until discharged home. The patient was given detailed discharge instructions for infection, bleeding, headache , leg weekness, and increased pain at the injection site, and was advised to seek immediate medical attention should significant side effects develop. The patient will be followed up with our Pain [facility] within 4 weeks for follow-up visit.
[2024-08-01 09:44] VITALS: BP 132/72; PULSE 58
--- NOTE | 2024-08-01 09:55 | FL ---
EXAMINATION TYPE: FL guided pain mgmt statistic DATE OF EXAM: 08/01/2024 CLINICAL INDICATION: Female, 44 years old with history of LESI; PHH, pain. TECHNIQUE: Fluoroscopy. COMPARISON: None. FINDINGS: Fluoroscopic guidance was provided during pain relief procedure performed by Dr. Farris. A total of 8.6 seconds of fluoroscopic time was utilized during the procedure and two spot images ar e acquired. Images acquired shows needle localization in the lower lumbar spine. Scoliosis is noted. Total DAP: 0.00579 mGym2. IMPRESSION: As Above. [facility], , 08/01/2024 9:52 AM
== END 2024-08-01 09:49 | disposition home or self-care (01) ==
LOC: ORPAIN 08:31
DX: M51.16 Intervertebral disc disorders with radiculopathy, lumbar region (principal); M19.90 Unspecified osteoarthritis, unspecified site; I26.99 Other pulmonary embolism without acute cor pulmonale; B19.20 Unspecified viral hepatitis C without hepatic coma; K50.90 Crohn's disease, unspecified, without complications; Z89.432 Acquired absence of left foot; Z89.431 Acquired absence of right foot; Z88.9 Allergy status to unspecified drugs, medicaments and biological substances; Z88.8 Allergy status to other drugs, medicaments and biological substances; Z79.899 Other long term (current) drug therapy
CPT/HCPCS: 81025; 62323; Q9966; J1010

== ENCOUNTER 2024-08-04 04:23 | Emergency (ER) | payer MEDICARE, OTHER ==
[2024-08-04 04:28] VITALS: RESP 18
[2024-08-04] MEDS: ACETAMINOPHEN TAB 325 MG TAB PO STA (04:51)
[2024-08-04 05:29] LABS: Influenza A Detected (Not Detectd); Influenza B Not Detected (Not Detectd); RSV Not Detected (Not Detectd)
[2024-08-04 05:47] VITALS: BP 125/80; PULSE 82; TEMP 98.2
--- NOTE | 2024-08-04 06:14 | ED ---
URI HPI - General Chief Complaint: Upper Respiratory Infection Stated Complaint: Fever, cough, weakness Time Seen by Provider: 08/04/24 04:40 Source: patient Mode of arrival: ambulatory Limitations: no limitations - History of Present Illness Initial Comments: Patient is 44-year-old woman who presents with constellation of symptoms for 2 to 3 days including cough, congestion, headache and subjective fever MD Complaint: fever, cough, sore throat, other -: days(s) Severity: moderate Quality: burning Consistency: constant Improves With: nothing Worsens With: nothing Context: sick contacts Associated Symptoms: fever, chills, headache, nasal congestion, sore throat, cough - Related Data Home Medications Medication Instructions Recorded Confirmed Butalb/APAP/Caff 50-325-40Mg 1 tab PO BID PRN 09/22/21 08/01/24 [Fioricet 50-325-40] Gabapentin [Neurontin] 300 mg PO BID 09/22/21 08/01/24 Pantoprazole Sodium [Protonix] 20 mg PO DAILY 09/22/21 08/01/24 Vit No.180/Iron/Folic 1 tab PO DAILY 09/22/21 08/01/24 [ Plus Vitamin-Mineral] Diphenoxylate HCl/Atropine 1 tab PO QID 08/15/23 08/01/24 [Lomotil 2.5-0.025 mg Tablet] Risankizumab-Rzaa [Skyrizi On-Body] 360 mg SQ Q42D 08/15/23 08/01/24 Sertraline [Zoloft] 150 mg PO DAILY 08/15/23 08/01/24 tiZANidine HCL 2 mg PO HS 08/15/23 08/01/24 Previous Rx's Medication Instructions Recorded HYDROcodone/APAP 7.5-325MG [[place] 1 tab PO BID PRN 30 Days #60 tab 07/11/24 7.5-325] diazePAM [Valium] 5 mg PO DAILY 1 Days #2 tab 07/31/24 Allergies Allergy/AdvReac Type Severity Reaction Status Date / Time prednisone AdvReac Hallucinati Verified 08/04/24 04:28 ons prochlorperazine AdvReac AGITATION Verified 08/04/24 04:28 [From Compazine] Review of Systems ROS Statement: Those systems with pertinent positive or pertinent negative responses have been documented in the HPI. ROS Other: All systems not noted in ROS Statement are negative. Constitutional: Reports: fever. Denies: weakness ENT: Reports: throat pain, congestion. Denies: ear pain, hearing loss Respiratory: Reports: cough. Denies: dyspnea, wheezes Cardiovascular: Denies: chest pain Gastrointestinal: Denies: abdominal pain, nausea, vomiting Genitourinary: Denies: dysuria, hematuria Musculoskeletal: Denies: back pain Skin: Denies: rash Neurological: Reports: headache. Denies: weakness, numbness Past Medical History Past Medical History: Blood Disorder, Pulmonary Embolus (PE) Additional Past Medical History / Comment(s): HEPATITIS C received treatment reports levels are now undetectable , crohn's disease, SBO, factor V Leiden with history of PE History of Any Multi-Drug Resistant Organisms: None Reported Date of last positivie culture/infection: 06/12/15 MRSA @ [facility] MDRO Source:: Abdomen-PT STATES WAS NOT COLONIZED Past Surgical History: Bowel Resection, Hernia Repair, Uterine Ablation Additional Past Surgical History / Comment(s): VICTOR HUGO FOOT SURGERY, BOWEL RESECTION, x2. carpal tunnel surgery bilat hand. COLONOSCOPY. Hernia repair w/mesh,. bunion removal Past Anesthesia/Blood Transfusion Reactions: No Reported Reaction Past Psychological History: Depression Smoking Status: Vaper - Past Family History Father Family Medical History: Cancer General Exam Limitations: no limitations General appearance: alert, in no apparent distress Head exam: Present: atraumatic, normocephalic Eye exam: Present: normal appearance. Absent: scleral icterus, conjunctival injection Neck exam: Present: normal inspection, full ROM, lymphadenopathy. Absent: meningismus Respiratory exam: Present: normal lung sounds bilaterally. Absent: respiratory distress, wheezes, rales, rhonchi, stridor, accessory muscle use Cardiovascular Exam: Present: regular rate, normal rhythm, normal heart sounds. Absent: systolic murmur, diastolic murmur, rubs, gallop GI/Abdominal exam: Present: soft. Absent: distended, tenderness, guarding, rebound Extremities exam: Present: normal inspection, normal capillary refill Back exam: Present: normal inspection Neurological exam: Present: alert Skin exam: Present: warm, dry, intact, normal color. Absent: rash Course Vital Signs 08/04/24 08/04/24 04:24 05:43 Temperature 100 F H 98.2 F Pulse Rate 81 82 Respiratory 18 18 Rate Blood Pressure 147/84 125/80 O2 Sat by Pulse 99 99 Oximetry Medical Decision Making - Medical Decision Making Was pt. sent in by a medical professional or institution (, [facility], [facility], urgent care, hospital, or [facility]...) When possible be specific @ -[No] Did you speak to anyone other than the patient for history (EMS, parent, family, police, friend...)? What history was obtained from this source @ -[No] Did you review nursing and triage notes (agree or disagree)? Why? @ -[I reviewed and agree with nursing and triage notes] Were old charts reviewed (outside hosp., previous admission, EMS record, old EKG, old radiological studies, urgent care reports/EKG's, [facility] records)? Report findings @ -[No old charts were reviewed] Differential Diagnosis (chest pain, altered mental status, abdominal pain women, abdominal pain men, vaginal bleeding, weakness, fever, dyspnea, syncope, headache, dizziness, GI bleed, back pain, seizure, CVA, palpatations, mental health, musculoskeletal)? @ -[Differential cough Coronary syndrome, arrhythmia, tamponade, asthma, COPD, pulmonary embolism, pneumonia, pneumothorax, pulmonary effusion, anaphylaxis, upper respiratory infection this is not meant to be an all-inclusive list. EKG interpreted by me (3pts min.). @ -[As above] X-rays interpreted by me (1pt min.). @ -[None done] CT interpreted by me (1pt min.). @ -[None done] U/S interpreted by me (1pt. min.). @ -[None done] What testing was considered but not performed or refused? (CT, X-rays, U/S, labs)? Why? @ -[None] What meds were considered but not given or refused? Why? @ -[None] Did you discuss the management of the patient with other professionals (professionals i.e. , [facility], [facility], lab, RT, psych nurse, aids social worker, mixing house operator, teacher, unemployment insurance hearing officer, mattress spring encaser)? Give summary @ -[No] Was smoking cessation discussed for >3mins.? @ -[No] Was critical care preformed (if so, how long)? @ -[No] Were there social determinants of health that impacted care today? How? (Homelessness, low income, unemployed, alcoholism, drug addiction, transportation, low edu. Level, literacy, decrease access to med. care, alf, rehab)? @ -[No] Was there de-escalation of care discussed even if they declined (Discuss DNR or withdrawal of care, Hospice)? DNR status @ -[No] What co-morbidities impacted this encounter? (DM, HTN, Smoking, COPD, CAD, Cancer, CVA, ARF, Chemo, Hep., AIDS, mental health diagnosis, sleep apnea, morbid obesity)? @ -[None] Was patient admitted / discharged? Hospital course, mention meds given and route, prescriptions, significant lab abnormalities, going to OR and other pertinent info. @ -[Patient is a 44-year-old woman with history and physical exam consistent wi th viral infection and the viral swab does reveal influenza. Discussed appropriate further care and follow-up as well as return parameters. Patient stable for outpatient course at this time Undiagnosed new problem with uncertain prognosis? @ -[No] Drug Therapy requiring intensive monitoring for toxicity (Heparin, Nitro, Insulin, Cardizem)? @ -[No] Were any procedures done? @ -[No] Diagnosis/symptom? @ -[Acute influenza infection Acute, or Chronic, or Acute on Chronic? @ -[Acute Uncomplicated (without systemic symptoms) or Complicated (systemic symptoms)? @ -Uncomplicated Side effects of treatment? @ -[No] Exacerbation, Progression, or Severe Exacerbation? @ -[No] Poses a threat to life or bodily function? How? (Chest pain, [place], [place], pneumonia, PE, COPD, DKA, ARF, appy, cholecystitis, CVA, Diverticulitis, Homicidal, Suicidal, threat to staff... and all critical care pts) @ -[No] All treatments are based on ideal body weight as in ED triage - Lab Data Lab Results 08/04/24 Range/Units 04:48 Influenza Type A (PCR) Detected A (Not Detectd) Influenza Type B (PCR) Not Detected (Not Detectd) RSV (PCR) Not Detected (Not Detectd) SARS-CoV-2 (PCR) Not Detected (Not Detectd) Disposition Clinical Impression: Influenza Disposition: HOME SELF-CARE Condition: Good Instructions (If sedation given, give patient instructions): Influenza (ED) Is patient prescribed a controlled substance at d/c from ED?: No Referrals: Raquel Villeda MD [Primary Care Provider] - 1-2 days
[2024-08-04] MEDS ORDERED: PROMETHAZINE 25 MG TAB PO STA (06:35)
== END 2024-08-04 06:30 | disposition home or self-care (01) ==
LOC: EC 04:23
DX: J10.1 Influenza due to other identified influenza virus with other respiratory manifestations (principal); F17.290 Nicotine dependence, other tobacco product, uncomplicated; Z88.8 Allergy status to other drugs, medicaments and biological substances
CPT/HCPCS: 87636; 99283

== ENCOUNTER → 2024-08-18 | Outpatient (CLI) | payer MEDICARE, OTHER ==
--- NOTE | 2024-08-18 11:43 | CT ---
EXAMINATION TYPE: CT abdomen pelvis w con DATE OF EXAM: 08/18/2024 11:34 AM COMPARISON: 07/02/2024 CLINICAL INDICATION: Female, 44 years old with history of R59.0 LYMPHADENOPATHY; F/U LYMPHADENOPATHY, prior on pacs. Pt also states LLQ pain after having flu A recently. TECHNIQUE: Axial CT abdomen pelvis w con;Sagittal and coronal reformats were created on a separate w orkstation. Contrast used:100 ml mL of Isovue 300 with IV Contrast, (none if empty) Oral contrast used: with Oral Contrast (none if empty) CT DLP: 597.10 mGycm, Automated exposure control for dose reduction was used. FINDINGS: LOWER CHEST: Unremarkable ABDOMEN LIVER: Unremarkable GALLBLADDER AND BILE DUCTS: Unremarkable. PANCREAS: Unremarkable. SPLEEN: Unremarkable. ADRENAL GLANDS: Unremarkable. KIDNEYS AND URETERS: No evidence of hydronephrosis or renal calculus. The ureters are unremarkable. PELVIS BLADDER: No evidence for wall thickening or mass given limitations of exam. REPRODUCTIVE: Unremarkable. ABDOMEN & PELVIS STOMACH AND BOWEL: No evidence of bowel obstruction. Postsurgical change; unchanged. PERITONEUM/RETROPERITONEUM: No evidence of pneumoperitoneum or free fluid. VASCULATURE: No evidence of aortic aneurysm. MUSCULOSKELETAL: No acute osseous abnormalities. Moderate disc degeneration changes are present throu ghout the thoracolumbar spine. Scoliosis changes throughout the spine with dextroscoliosis apex L2. LYMPH NODES: No gross evidence for lymphadenopathy. SOFT TISSUE/ABDOMINAL WALL: Unremarkable IMPRESSION: 1. No evidence for acute left lower quadrant process. No obstructive uropathy or renal calculus. No significant diverticulosis identified. 2. Severe scoliosis. 3. No evidence for lymphadenopathy. [facility], , 08/18/2024 11:41 AM
== END | disposition home or self-care (01) ==
LOC: RADCTMAIN 09:33
PROVIDERS: ATTEND Internal Medicine Hematology & Oncology
DX: R59.0 Localized enlarged lymph nodes (principal); K50.90 Crohn's disease, unspecified, without complications; R51.9 Headache, unspecified; M12.9 Arthropathy, unspecified; M41.86 Other forms of scoliosis, lumbar region
CPT/HCPCS: 74177; Q9967

== ENCOUNTER → 2024-09-04 | Outpatient (CLI) | payer MEDICARE, OTHER ==
[2024-09-04 11:05] VITALS: BP 122/78; PULSE 96; RESP 16; TEMP 98.1
--- NOTE | 2024-09-04 15:21 | P.PAINPG ---
PQRS Measure Charge Sheet Comment: HISTORY OF PRESENT ILLNESS: A 44 yr old female presents today w severe and chronic thoracolumbar pain > 6 mo secondary to radiculopathy, spondylosis and facet arthropathy without myelopathy for evaluation s/p BAO L4-L5 #1 and medication refills. Pt states he experienced 50 % pain relief x 4 wks s/p procedure. Pt states pain level is provoked at 9 /10 in intensity, constant, localized in the L lumbar spine, predominantly axial, sharp in character w occasional shooting pain towards the LLE. Pain is provoked by bending or walking > 10 min. Pain is alleviated by PT x 6 wks which ended in Dec 2023, physician guided HEP 4 times weekly since Dec 2023, massage therapy monthly since Jul 2023, heat, ice, medication, topical, use of a cane for ambulatory assistance, repositioning and rest . Interventional procedures include BL RFA L3-L5 (05/30), BAO L4-L5 x1 (08/01) Medications include Neurontin 300mg, Tyl, Ibu, Lidoderm REVIEW OF ORGAN SYSTEMS: CONSTITUTIONAL: No fevers or chills. No recent weight loss. NEUROLOGICAL: + numbness and tingling along the distal extremities. No seizure disorders or headaches. MUSCULOSKELETAL: + pain PSYCHIATRIC: Denies current depression or suicidal thoughts. Physical Examinations : Constitutional : Cooperative , not in acute distress . Neurologic : Cranial nerve II to XII intact. No focal neurological deficits. Psychiatric : alert & oriented x 3. Matching mood & appropriate affect. Judgment & insight intact. Musculoskeletal : Cervical Spine Motor strength in the deltoid and bi ceps: Normal right side. Normal Left side Motor strength biceps and the wrist extensors: Normal right side . Normal left side Motor strength in the triceps muscle: Normal right side. Normal left side Deep tendon reflexes: Normal at the biceps. Normal at Brachioradialis. Normal at triceps Vertebral body tenderness to deep palpation over Cervical facet loading test: positive bilaterally Spurling test: positive bilaterally Neck distraction test: positive bilaterally Dale sign: positive bilaterally Thoracic spine Taut bands w twitch response over BL T1-T8 Lumbar spine Motor strength lower extremities ,thigh and legs 5/5 Right side , 5/5 Left side Deep tendon reflexes : Normal Knee Jerk. Normal Ankle Jerk Vertebral body tenderness over L4 Muse Test positive R L4-L5 Taut bands w twitch response over BL L1-S1 Lumbar facet Loading Test: positive Right / positive Left L4-L5, L5-S1 Range of motion of the lumbar spine Flexion 30 degrees, extension 10 degrees Straight Leg Raise test: Left/ Right positive at degrees Macrina test: positive right / positive left. Severe tenderness over the Sacroiliac joint on the Right / Left sides Gaenslen test: positive bilaterally Seated flexion test: positive bi laterally. Sacral spine : Severe tenderness over the Sacroiliac joint: right side / left side Range of motion: Flexion of the lumbar spine <60 degrees Range of motion: Extension of the lumbar spine <20 degrees Gaenslen's Test positive Macrina test: positive right side / left side Thigh Thrust Test Sacral Thrust Test Imaging: CT non contrast thoracolumbar spine from 11/22/23 reviewed Assessment/ Plan : L4-L5 radiculopathy, Dextroconvex scoliosis Recommendation of medication management and BL TPIs L1-S1 #1. Opiate/ narcotic agreement signed 07/11/24. [place] 7.5/325mg #60 w 1 RF. Use, side effects, adverse reactions, safe storage discussed. Risks, benefits of procedure discussed and patient verbalized understanding. Protocol for discontinuation/ continuation of medications jackelin procedure discussed. All questions answered. I have spent greater than 30 minutes on patient care today. Dr Virgen was available by phone for the evaluation of this patient. The time was used to review the medical records including relevant urine studies and Prescription history (MAPs), review of the available imaging, evaluation and examination of the patient, coordination of care with the medical staff and if applicable referring physicians, as well as creation of the medical record PQRS Narrative: Smoking Status Current every day smoker Narcotic Agreement Date Signed 05/24/24 Hx Alcohol Use (MH) Yes Home Medications: Ambulatory Orders Butalb/APAP/Caff 50-325-40Mg [Fioricet 50-325-40] 1 tab PO BID PRN 09/22/21 Gabapentin [Neurontin] 300 mg PO BID 09/22/21 Pantoprazole Sodium [Protonix] 20 mg PO DAILY 09/22/21 Vit No.180/Iron/Folic [ Plus Vitamin-Mineral] 1 tab PO DAILY 09/22/21 Diphenoxylate HCl/Atropine [Lomotil 2.5-0.025 mg Tablet] 1 tab PO QID 08/15/23 Risankizumab-Rzaa [Skyrizi On-Body] 360 mg SQ Q42D 08/15/23 Sertraline [Zoloft] 150 mg PO DAILY 08/15/23 tiZANidine HCL 2 mg PO HS 08/15/23 diazePAM [Valium] 5 mg PO DAILY 1 Days #2 tab 07/31/24 HYDROcodone/APAP 7.5-325MG [[place] 7.5-325] 1 tab PO BID PRN 30 Days #60 tab 09/04/24 HYDROcodone/APAP 7.5-325MG [[place] 7.5-325] 1 tab PO BID PRN 30 Days #60 tab 09/04/24 Controlled Substance Measures - Controlled Substance Measures Is patient prescribed a controlled substance at discharge?: Yes When asked, does pt state using other controlled substances?: Yes If prescribed controlled substance>3 days was MAPS reviewed?: Yes
== END ==
LOC: PNWHC3 10:17
PROVIDERS: ATTEND Specialist
DX: M47.26 Other spondylosis with radiculopathy, lumbar region (principal); F17.200 Nicotine dependence, unspecified, uncomplicated; Z88.8 Allergy status to other drugs, medicaments and biological substances
CPT/HCPCS: 99211

== ENCOUNTER 2024-09-09 16:06 | Emergency (ER) | payer MEDICARE, OTHER ==
[2024-09-09 17:20] LABS: Basophils % (A) 1 %; Eosinophils # (A) 0.2 k/uL (0-0.7); Eosinophils % (A) 2 %; HCT 35.7 % (34.0-46.0); HGB 11.5 gm/dL (11.4-16.0); Lymphocytes # (A) 2.2 k/uL (1.0-4.8); Lymphocytes % (A) 32 %; MCH 29.6 pg (25.0-35.0); MCHC 32.2 g/dL (31.0-37.0); MCV 92.1 fL (80.0-100.0); Mean Platelet Volume 9.5; Monocytes # (A) 0.4 k/uL (0-1.0); Monocytes % (A) 6 %; Neutrophils % (A) 58 %; Platelet Count 196 k/uL (150-450); RBC 3.88 m/uL (3.80-5.40); RDW 14.5 % (11.5-15.5)
[2024-09-09] MEDS: ONDANSETRON 4 MG/2 ML VIAL IVP STA (17:28)
[2024-09-09] MEDS: MORPHINE SULFATE 4 MG/ML SYRINGE IVP STA (17:30)
[2024-09-09 17:34] LABS: ALT 33 U/L (4-34); African American GFR (CKD) >90 (>60 ml/min/1.73 sqM); Albumin 4.6 g/dL (3.5-5.0); Anion Gap 9 mmol/L; Blood Urea Nitrogen 17 mg/dL (7-17); Calcium 9.4 mg/dL (8.4-10.2); Carbon Dioxide 24 mmol/L (22-30); Chloride 106 mmol/L (98-107); Glucose 114 mg/dL (74-99); Non-African American GFR(CKD) >90 (>60 ml/min/1.73 sqM); Sodium 139 mmol/L (137-145); Total Bilirubin 1.1 mg/dL (0.2-1.3); Total Protein 7.7 g/dL (6.3-8.2)
[2024-09-09 17:36] LABS: AST 62 U/L (14-36); Alkaline Phosphatase 43 U/L (38-126); Potassium 5.1 mmol/L (3.5-5.1)
[2024-09-09] MEDS: SODIUM CHLORIDE 0.9% 1,000 ML IV SCH (17:40)
--- NOTE | 2024-09-09 17:46 | ED ---
Abdominal Pain HPI - General Chief Complaint: Abdominal Pain Stated Complaint: diarrhea Time Seen by Provider: 09/09/24 16:18 Source: patient Mode of arrival: ambulatory Limitations: no limitations - History of Present Illness Initial Comments: 44-year-old female with history of Crohn's disease presenting with chief complaint of diarrhea and abdominal pain. Patient reports that for the past week she has had abdominal pain and diarrhea, however for the past 2 days it has been significantly worse. She states that she is frequently going to the bathro om and at times is unable to make it to the bathroom before having a bowel movement. Pain is vague but seems to be mostly located in the left upper quadrant. Patient states that she has been taking Lomotil which she was regularly taking even prior to her symptoms but this does not seem to be helpi ng. She denies fever. No hematochezia. No urinary symptoms. She admits to nausea, no vomiting. No history of C. difficile. No recent antibiotics. Denies alcohol and drug use. - Related Data Home Medications Medication Instructions Recorded Confirmed Butalb/APAP/Caff 50-325-40Mg 1 tab PO BID PRN 09/22/21 08/01/24 [Fioricet 50-325-40] Gabapentin [Neurontin] 300 mg PO BID 09/22/21 08/01/24 Pantoprazole Sodium [Protonix] 20 mg PO DAILY 09/22/21 08/01/24 Vit No.180/Iron/Folic 1 tab PO DAILY 09/22/21 08/01/24 [ Plus Vitamin-Mineral] Diphenoxylate HCl/Atropine 1 tab PO QID 08/15/23 08/01/24 [Lomotil 2.5-0.025 mg Tablet] Risankizumab-Rzaa [Skyrizi On-Body] 360 mg SQ Q42D 08/15/23 08/01/24 Sertraline [Zoloft] 150 mg PO DAILY 08/15/23 08/01/24 tiZANidine HCL 2 mg PO HS 08/15/23 08/01/24 Previous Rx's Medication Instructions Recorded diazePAM [Valium] 5 mg PO DAILY 1 Days #2 tab 07/31/24 HYDROcodone/APAP 7.5-325MG [[place] 1 tab PO BID PRN 30 Days #60 tab 09/04/24 7.5-325] HYDROcodone/APAP 7.5-325MG [[place] 1 tab PO BID PRN 30 Days #60 tab 09/04/24 7.5-325] Allergies Allergy/AdvReac Type Severity Reaction Status Date / Time prednisone AdvReac Hallucinati Verified 09/09/24 16:17 ons prochlorperazine AdvReac AGITATION Verified 09/09/24 16:17 [From Compazine] Review of Systems ROS Statement: Those systems with pertinent positive or pertinent negative responses have been documented in the HPI. ROS Other: All systems not noted in ROS Statement are negative. Past Medical History Past Medical History: Blood Disorder, Pulmonary Embolus (PE) Additional Past Medical History / Comment(s): HEPATITIS C received treatment reports levels are now undetectable , crohn's disease, SBO, factor V Leiden with history of PE History of Any Multi-Drug Resistant Organisms: None Reported Date of last positivie culture/infection: 06/12/15 MRSA @ [facility] MDRO Source:: Abdomen-PT STATES WAS NOT COLONIZED Past Surgical History: Bowel Resection, Hernia Repair, Uterine Ablation Additional Past Surgical History / Comment(s): VICTOR HUGO FOOT SURGERY, BOWEL RESECTION , x2. carpal tunnel surgery bilat hand. COLONOSCOPY. Hernia repair w/mesh,. bunion removal Past Anesthesia/Blood Transfusion Reactions: No Reported Reaction Past Psychological History: Depression Smoking Status: Vaper Past Alcohol Use History: Occasional Past Drug Use History: None Reported - Past Family History Father Family Medical History: Cancer General Exam Limitations: no limitations General appearance: alert, in no apparent distress Head exam: Present: atraumatic, normocephalic, normal inspection Eye exam: Present: normal appearance, EOMI Neck exam: Present: normal inspection. Absent: meningismus Respiratory exam: Present: normal lung sounds bilaterally. Absent: respiratory distress, wheezes, rales, rhonchi, stridor Cardiovascular Exam: Present: regular rate, normal rhythm, normal heart sounds. Absent: systolic murmur, diastolic murmur, rubs, gallop, clicks GI/Abdominal exam: Present: soft, tenderness (Discomfort). Absent: distended, guarding, rebound, rigid Neurological exam: Present: alert, oriented X3 Psychiatric exam: Present: normal affect, normal mood Skin exam: Present: warm, dry, normal color Course Vital Signs 09/09/24 09/09/24 09/09/24 16:14 19:54 22:33 Temperature 98.3 F Pulse Rate 73 55 L 54 L Respiratory 18 16 16 Rate Blood Pressure 147/101 153/86 121/66 O2 Sat by Pulse 98 97 100 Oximetry 09/10/24 01:54 Temperature 97.8 F Pulse Rate 57 L Respiratory 18 Rate Blood Pressure 134/87 O2 Sat by Pulse 98 Oximetry Medical Decision Making - Medical Decision Making Was pt. sent in by a medical professional or institution (, PA, INSTRUMENTATION SUPERVISOR, urgent care, hospital, or [facility]...) When possible be specific @ -No Did you speak to anyone other than the patient for history (EMS, parent, family, police, friend...)? What history was obtained from this source @ -No Did you review nursing and triage notes (agree or disagree)? Why? @ -I reviewed and agree with nursing and triage notes Were old charts reviewed (outside hosp., previous admission, EMS record, old EKG, old radiological studies, urgent care reports/EKG's, [facility] records)? Report findings @ -No old charts were reviewed Differential Diagnosis (chest pain, altered mental status, abdominal pain women, abdominal pain men, vaginal bleeding, weakness, fever, dyspnea, syncope, headache, dizziness, GI bleed, back pain, seizure, CVA, palpatations, mental health, musculoskeletal)? @ -MDM Differential Abdominal Pain Women: Appendicitis, Cholecystitis, diverticulosis, ischemic bowel, pancreatitis, hepatitis, UTI, gastroenteritis, AAA, incarcerated hernia, bowel obstruction, constipation, inflammatory bowel, hepatitis, peptic ulcer disease, splenic infarction, perforated viscus, vulvitis, ovarian torsion, PID, kidney stone, placenta abruption... This is not meant to be an all-inclusive list EKG interpreted by me (3pts min.). @ -As above X-rays interpreted by me (1pt min.). @ -None done CT interpreted by me (1pt min.). @ -CT shows no acute findings in the abdomen or pelvis U/S interpreted by me (1pt. min.). @ -None done What testing was considered but not performed or refused? (CT, X-rays, U/S, labs)? Why? @ -None What meds were considered but not given or refused? Why? @ -None Did you discuss the management of the patient with other professionals (professionals i.e. DrAmira, PA, INSTRUMENTATION SUPERVISOR, lab, RT, psych nurse, neonatal social worker, merchandise distributor, teacher, credit products officer, medical case manager)? Give summary @ -No Was smoking cessation discussed for >3mins.? @ -No Was critical care preformed (if so, how long)? @ -No Were there social determinants of health that impacted care today? How? (Homelessness, low income, unemployed, alcoholism, drug addiction, transportation, low edu. Level, literacy, decrease access to med. care, care home, rehab)? @ -No Was there de-escalation of care discussed even if they declined (Discuss DNR or withdrawal of care, Hospice)? DNR status @ -No What co-morbidities impacted this encounter? (DM, HTN, Smoking, COPD, CAD, Cancer, CVA, ARF, Chemo, Hep., AIDS, mental health diagnosis, sleep apnea, morbid obesity)? @ -None Was patient admitted / discharged? Hospital course, mention meds given and route, prescriptions, significant lab abnormalities, going to OR and other pertinent info. @ -44-year-old female with history of Crohn's disease presenting with chief complaint of abdominal pain and diarrhea. History and physical examination are conducted. Lab work shows no leukocytosis or anemia. AST 62 and glucose 114 otherwise CMP is unremarkable. Urine shows no infectious process. Patient initially declined CT. Patient is given multiple rounds of pain medication on reassessment reports continued pain. Because of this continued pain I advised that we proceed with a CT which she was agreeable to. CT shows no acute process. Patient is educated on today's findings. Follow-up with PCP. Report back to ER with any new or worsening symptoms. Discussed return parameters and answered all questions. Patient conveyed verbal understanding and agreed to the plan. I discussed this case in detail with my attending Dr. Kinsey Undiagnosed new problem with uncertain prognosis? @ -No Drug Therapy requiring intensive monitoring for toxicity (Heparin, Nitro, Insulin, Cardizem)? @ -No Were any procedures done? @ -No Diagnosis/symptom? @ -Abdominal pain Acute, or Chronic, or Acute on Chronic? @ -Acute Uncomplicated (without systemic symptoms) or Complicated (systemic symptoms)? @ -Uncomplicated Side effects of treatment? @ -No Exacerbation, Progression, or Severe Exacerbation? @ -No Poses a threat to life or bodily function? How? (Chest pain, [place], [place], pneumonia, PE, COPD, DKA, ARF, appy, cholecystitis, CVA, Diverticulitis, Homicidal, Suicidal, threat to staff... and all critical care pts) @ -Low likelihood - Lab Data Result diagrams: 09/09/24 17:14 09/09/24 17:14 Lab Results 09/09/24 09/09/24 09/09/24 Range/Units 17:14 17:14 17:14 WBC 7.0 (3.8-10.6) k/uL RBC 3.88 (3.80-5.40) m/uL Hgb 11.5 (11.4-16.0) gm/dL Hct 35.7 (34.0-46.0) % MCV 92.1 (80.0-100.0) fL MCH 29.6 (25.0-35.0) pg MCHC 32.2 (31.0-37.0) g/dL RDW 14.5 (11.5-15.5) % Plt Count 196 (150-450) k/uL MPV 9.5 Neutrophils % 58 % Lymphocytes % 32 % Monocytes % 6 % Eosinophils % 2 % Basophils % 1 % Neutrophils # 4.0 (1.3-7.7) k/uL Lymphocytes # 2.2 (1.0-4.8) k/uL Monocytes # 0.4 (0-1.0) k/uL Eosinophils # 0.2 (0-0.7) k/uL Basophils # 0.0 (0-0.2) k/uL Sodium 139 (137-145) mmol/L Potassium 5.1 (3.5-5.1) mmol/L Chloride 106 (98-107) mmol/L Carbon Dioxide 24 (22-30) mmol/L Anion Gap 9 mmol/L BUN 17 (7-17) mg/dL Creatinine 0.55 (0.52-1.04) mg/dL Est GFR (CKD-EPI)AfAm >90 (>60 ml/min/1.73 sqM) Est GFR (CKD-EPI)NonAf >90 (>60 ml/min/1.73 sqM) Glucose 114 H (74-99) mg/dL Plasma Lactic Acid Anton 1.4 (0.7-2.0) mmol/L Calcium 9.4 (8.4-10.2) mg/dL Total Bilirubin 1.1 (0.2-1.3) mg/dL AST 62 H (14-36) U/L ALT 33 (4-34) U/L Alkaline Phosphatase 43 (38-126) U/L Total Protein 7.7 (6.3-8.2) g/dL Albumin 4.6 (3.5-5.0) g/dL Urine Color Urine Appearance (Clear) Urine pH (5.0-8.0) Ur Specific [place] (1.001-1.035) Urine Protein (Negative) Urine Glucose (UA) (Negative) Urine Ketones (Negative) Urine Blood (Negative) Urine Nitrite (Negative) Urine Bilirubin (Negative) Urine Urobilinogen (<2.0) mg/dL Ur Leukocyte Esterase (Negative) 09/09/24 Range/Units 18:54 WBC (3.8-10.6) k/uL RBC (3.80-5.40) m/uL Hgb (11.4-16.0) gm/dL Hct (34.0-46.0) % MCV (80.0-100.0) fL MCH (25.0-35.0) pg MCHC (31.0-37.0) g/dL RDW (11.5-15.5) % Plt Count (150-450) k/uL MPV Neutrophils % % Lymphocytes % % Monocytes % % Eosinophils % % Basophils % % Neutrophils # (1.3-7.7) k/uL Lymphocytes # (1.0-4.8) k/uL Monocytes # (0-1.0) k/uL Eosinophils # (0-0.7) k/uL Basophils # (0-0.2) k/uL Sodium (137-145) mmol/L Potassium (3.5-5.1) mmol/L Chloride (98-107) mmol/L Carbon Dioxide (22-30) mmol/L Anion Gap mmol/L BUN (7-17) mg/dL Creatinine (0.52-1.04) mg/dL Est GFR (CKD-EPI)AfAm (>60 ml/min/1.73 sqM) Est GFR (CKD-EPI)NonAf (>60 ml/min/1.73 sqM) Glucose (74-99) mg/dL Plasma Lactic Acid Anton (0.7-2.0) mmol/L Calcium (8.4-10.2) mg/dL Total Bilirubin (0.2-1.3) mg/dL AST (14-36) U/L ALT (4-34) U/L Alkaline Phosphatase (38-126) U/L Total Protein (6.3-8.2) g/dL Albumin (3.5-5.0) g/dL Urine Color Colorless Urine Appearance Clear (Clear) Urine pH 6.5 (5.0-8.0) Ur Specific [place] 1.011 (1.001-1.035) Urine Protein Negative (Negative) Urine Glucose (UA) Negative (Negative) Urine Ketones Negative (Negative) Urine Blood Negative (Negative) Urine Nitrite Negative (Negative) Urine Bilirubin Negative (Negative) Urine Urobilinogen <2.0 (<2.0) mg/dL Ur Leukocyte Esterase Negative (Negative) Disposition Clinical Impression: Abdominal pain Disposition: HOME SELF-CARE Condition: Good Instructions (If sedation given, give patient instructions): Abdominal Pain (ED) Additional Instructions: Follow-up with PCP. Report back to ER with any new or worsening symptoms. Is patient prescribed a controlled substance at d/c from ED?: No Referrals: Raquel Villeda MD [Primary Care Provider] - 1-2 days Time of Disposition: 01:41
[2024-09-09] MEDS: HYDROmorphone 0.5 MG/0.5 ML SYRINGE IVP STA (18:37)
[2024-09-09 19:09] LABS: Appearance,Urine Clear (Clear); Bilirubin,Urine Negative (Negative); Blood,Urine Negative (Negative); Color,Urine Colorless; Glucose,Urine (UA) Negative (Negative); Ketones,Urine Negative (Negative); Leukocyte Esterase,Urine Negative (Negative); Nitrite,Urine Negative (Negative); PH, Urine 6.5 (5.0-8.0); Protein,Urine Negative (Negative); Specific Gravity,Urine 1.011 (1.001-1.035); Urobilinogen,Urine <2.0 mg/dL (<2.0)
[2024-09-09] MEDS: KETOROLAC 15 MG/ML 1 ML VIAL IVP STA (20:39)
[2024-09-09] MEDS: HYDROmorphone 1 MG/ML 1 ML SYRINGE IVP STA (22:36)
[2024-09-09] MEDS: methylPREDNISolone SOD SUCCI 125 MG/2 ML VIAL IVP ONE (22:41)
--- NOTE | 2024-09-10 01:18 | CT ---
EXAM: CT Abdomen and Pelvis With Intravenous Contrast CLINICAL HISTORY: ITS.REASON CT Reason: Abdominal pain TECHNIQUE: Axial computed tomography images of the abdomen and pelvis with intravenous contrast. CTDI is 16.7 mGy and DLP is 729.5 mGy-cm. This CT exam was performed using one or more of the following dose reduction techniques: automated exposure control, adjustment of the mA and/or kV according to patient size, and/or use of iterative reconstruction technique. Delayed imaging was performed. COMPARISON: 07/02/24 FINDINGS: Lung bases: Unremarkable. ABDOMEN: Liver: Unremarkable. No mass. Gallbladder and bile ducts: Unremarkable. No calcified stones. No ductal dilation. Pancreas: Unremarkable. No mass. No ductal dilation. Spleen: Unremarkable. No splenomegaly. Adrenals: Unremarkable. No mass. Kidneys and ureters: Symmetric renal enhancement. No hydronephrosis. Stomach and bowel: Right hemicolectomy. No bowel obstruction. Diverticulosis without diverticulitis. PELVIS: Appendix: Appendix is surgically absent. Bladder: Unremarkable. No mass. Reproductive: Unremarkable as visualized. ABDOMEN and PELVIS: Intraperitoneal space: Unremarkable. No free air or significant free fluid. Bones/joints: Significant lumbar scoliosis. No acute fracture or dislocation. Soft tissues: Unremarkable. Vasculature: Unremarkable. No abdominal aortic aneurysm. Lymph nodes: Unremarkable. No enlarged lymph nodes. IMPRESSION: No acute findings in the abdomen or pelvis.
[2024-09-10 02:01] VITALS: BP 134/87; PULSE 57; RESP 18; TEMP 97.8
== END 2024-09-10 02:01 | disposition home or self-care (01) ==
LOC: EC 16:06
DX: R10.12 Left upper quadrant pain (principal); F17.290 Nicotine dependence, other tobacco product, uncomplicated; Z88.8 Allergy status to other drugs, medicaments and biological substances
CPT/HCPCS: 80053; 83605; 85025; 74177; 99284; 96374; 96375; 96376; 96361; J2270; J2405; J1171 ×2; J1885; Q9967; J2919; 36415; 81003

== ENCOUNTER → 2024-09-22 | Outpatient (CLI) | payer MEDICARE, OTHER | END | disposition home or self-care (01) | LOC: LABWHC1 10:26 | PROVIDERS: ATTEND Podiatrist | DX: S92.324D Nondisplaced fracture of second metatarsal bone, right foot, subsequent encounter for fracture with routine healing (principal) | CPT/HCPCS: 36415; 82306; 82652 ==

== ENCOUNTER 2024-10-06 09:07 | Day surgery (SDC) | payer MEDICARE, OTHER ==
[2024-10-06 09:50] VITALS: RESP 18; TEMP 97.9
[2024-10-06] MEDS ORDERED: methylPREDNISolone ACETATE 40 MG/ML 1 ML VIAL ONE (10:39)
[2024-10-06] MEDS ORDERED: ROPIVACAINE 5 MG/ML 30 ML VIAL ONE (10:39)
--- NOTE | 2024-10-06 10:46 | P.PCN ---
Date of Procedure: 10/06/24 Procedure(s) Performed: Procedure= trigger point injections lumbar paraspinal muscles bilaterally , 3 on the right side from L1 to S1, and 4 on the left side from L1 to S1 Preoperative diagnosis= 1-myofascial pain syndrome lumbar paraspinal muscles 2-lumbar facet arthropathy Postoperative diagnosis=Same as preop Diagnosis . Complication = none Condition= stable Anesthesia= none Indication for the procedure= patient complaining of low back pain , examination was positive for multiple trigger point in the lumbar paraspinal muscles bilaterally and patient diagnosed with myofascial pain syndrome and is here to have trigger point injections Description of the procedure= procedure risk and benefits discussed with the patient, including but not limited, risk of infection and bleeding, and ALLERGIC reaction to the medication and not complete pain relief and patient agreed with the preceding patient taken to the operating room, placed in sitting position or standard monitors applied to the patient then after induction of anesthesia back prepped with chlorhexidine 3 times , then under sterile technique each of the trigger point that was marked in the preop holding area 3 on the right side lumbar paraspinal muscles and 4 on the left side lumbar paraspinal muscles each one of them injected with the 2 mL of the mixture of ropivacaine 0.5% 14 ML mixed with 40 mg of Depo-Medrol and 2 mL of the mixture injected at each trigger point after negative aspiration, using 25-gauge needle, injection done after negative aspiration under was no paresthesia during the injection patient tolerated the procedure well without any complications and he will follow up in the pain clinic in a few weeks
[2024-10-06] MEDS ORDERED: LACTATED RINGERS 1,000 ML IV SCH (10:52)
[2024-10-06 11:10] VITALS: BP 136/87; PULSE 66
== END 2024-10-06 11:12 | disposition home or self-care (01) ==
LOC: ORPAIN 09:07
PROVIDERS: ATTEND Specialist
DX: M79.18 Myalgia, other site (principal); M47.816 Spondylosis without myelopathy or radiculopathy, lumbar region; Z79.1 Long term (current) use of non-steroidal anti-inflammatories (NSAID); Z88.8 Allergy status to other drugs, medicaments and biological substances; Z88.6 Allergy status to analgesic agent
CPT/HCPCS: 81025; 20553; J2795; J1010

== ENCOUNTER → 2024-10-24 | Outpatient (CLI) | payer MEDICARE, OTHER | END | disposition home or self-care (01) | LOC: LABWHC1 08:59 | PROVIDERS: ATTEND Podiatrist | DX: Z00.00 Encounter for general adult medical examination without abnormal findings (principal); Z53.9 Procedure and treatment not carried out, unspecified reason | CPT/HCPCS: 36415; 82652 ==

== ENCOUNTER → 2024-10-26 | Outpatient (CLI) | payer MEDICARE, OTHER ==
[2024-10-26 10:24] VITALS: BP 141/95; PULSE 66; RESP 16; TEMP 97.3
--- NOTE | 2024-10-26 12:40 | XR ---
EXAMINATION TYPE: XR cervical spine 3 views DATE OF EXAM: 10/26/2024 12:36 PM COMPARISON: None CLINICAL INDICATION: Female, 44 years old with history of N54.12 cervical pain; PHH, pain FINDINGS: No predental space widening or prevertebral soft tissue swelling. There is preserved alignment of the cervical spine. Mild uncovertebral joint degenerative change mid to lower cervical spine. No odontoi d view. IMPRESSION: No malalignment. No prevertebral soft tissue swelling. Mild degenerative uncovertebral joint change m id to lower cervical spine. [facility], Workstation: [facility], 10/26/2024 12:38 PM
--- NOTE | 2024-10-26 16:56 | P.PAINPG ---
Objective - Vital Signs Vital signs: Intake & Output 10/25/24 10/26/24 10/26/24 18:59 06:59 18:59 Weight 70.76 kg PQRS Measure Charge Sheet Comment: HISTORY OF PRESENT ILLNESS: A 44 yr old female presents today w severe and chronic thoracolumbar pain > 6 mo secondary to radiculopathy, spondylosis and facet arthropathy without myelopathy for evaluation s/p BL TPIs L1-S1 #1 and medication refills. Pt states she experienced 90 % pain relief x 3 wks s/p procedure. Pt states pain level is provoked at 9 /10 in intensity, constant, localized in the cervical spine, predominantly axial, achy in character w occasional shooting pain towards the shoulders and RUE. Pain is provoked by bending or walking > 10 min. Pain is alleviated by PT x 6 wks which ended in Dec 2023 (cerv, lumb), physician guided HEP 4 times weekly since Dec 2023, massage therapy monthly since Jul 2023, heat, ice, medication, topical, use of a cane for ambulatory assistance, repositioning and rest . Interventional procedures include BL RFA L3-L5 (05/30), BAO L4-L5 x1 (08/01), BL TPIs L1-S1 x1 (10/29) Medications include Soldier 7.5/325mg #60, Neurontin 300mg, Tyl, Ibu, Lidoderm REVIEW OF ORGAN SYSTEMS: CONSTITUTIONAL: No fevers or chills. No recent weight loss. NEUROLOGICAL: + numbness and tingling along the distal extremities. No seizure disorders or headaches. MUSCULOSKELETAL: + pain PSYCHIATRIC: Denies current depression or suicidal thoughts. Physical Examinations : Constitutional : Cooperative , not in acute distress . Neurologic : Cranial nerve II to XII intact. No focal neurological deficits. Psychiatric : alert & oriented x 3. Matching mood & appropriate affect. Judgment & insight intact. Musculoskeletal : Cervical Spine Motor strength in the deltoid and biceps: Normal right side. Normal Left side Motor strength biceps and the wrist extensors: Normal right side . Normal left side Motor strength in the triceps muscle: Normal right side. Normal left side Deep tendon reflexes: Normal at the biceps. Normal at Brachioradialis. Normal at triceps Vertebral body tenderness to deep palpation over C6 Cervical facet loading test: positive bilaterally Spurling test: positive BL C6-C7 Neck distraction test: positive bilaterally Dale sign: positive bilaterally Thoracic spine Taut bands w twitch response over BL T1-T8 Lumbar spine Motor strength lower extremities ,thigh and legs 5/5 Right side , 5/5 Left side Deep tendon reflexes : Normal Knee Jerk. Normal Ankle Jerk Vertebral body tenderness over L4 Muse Test positive R L4-L5 Taut bands w twitch response over BL L1-S1 Lumbar facet Loading Test: positive Right / positive Left L4-L5, L5-S1 Range of motion of the lumbar spine Flexion 30 degrees, extension 10 degrees Straight Leg Raise test: Left/ Right positive at degrees Macrina test: positive right / positive left. Severe tenderness over the Sacroiliac joint on the Right / Left sides Gaenslen test: positive bilaterally Seated flexion test: positive bilaterally. Sacral spine : Severe tenderness over the Sacroiliac joint: right side / left side Range of motion: Flexion of the lumbar spine <60 degrees Range of motion: Extension of the lumbar spine <20 degrees Gaenslen's Test positive Macrina test: positive right side / left side Thigh Thrust Test Sacral Thrust Test Imaging: CT non contrast thoracolumbar spine from 11/22/23 reviewed Assessment/ Plan : Cervical radiculopathy, L4-L5 radiculopathy, Dextroconvex scoliosis Recommendation of cervical x ray M54.16 and medication management. Opiate/ narcotic agreement signed 07/11/24. Soldier 7.5/325mg #60 w 1 RF. UDS collected 10/26/24. Use, side effects, adverse reactions, safe storage discussed. Risks, benefits of procedure discussed and patient verbalized understanding. Protocol for discontinuation/ continuation of medications jackelin procedure discussed. All questions answered. I have spent greater than 30 minutes on patient care today. Dr Virgen was available by phone for the evaluation of this patient. The time was used to review the medical records including relevant urine studies and Prescription history (MAPs), review of the available imaging, evaluation and examination of the patient, coordination of care with the medical staff and if applicable referring physicians, as well as creation of the medical record - Pain Location Bilateral Lower Neck Non-Pharmacological Interventions: Chiropractic Treatment, Elevation, Heat, Home Exercise, Ice, Inactivity, Massage, Physical Therapy, Position/Reposition, Relaxation Technique, Sitting, Stretching, TENS Unit Pharmacological Interventions: PRN Medication, Scheduled Medication, Topical Medication PQRS Narrative: Smoking Status Current every day smoker Narcotic Agreement Date Signed 05/24/24 Hx Alcohol Use (MH) Yes Home Medications: Ambulatory Orders Butalb/APAP/Caff 50-325-40Mg [Fioricet 50-325-40] 1 tab PO BID PRN 09/22/21 Gabapentin [Neurontin] 300 mg PO TID 09/22/21 Pantoprazole Sodium [Protonix] 20 mg PO DAILY 09/22/21 Vit No.180/Iron/Folic [ Plus Vitamin-Mineral] 1 tab PO DAILY 09/22/21 Diphenoxylate HCl/Atropine [Lomotil 2.5-0.025 mg Tablet] 2 tab PO QID 08/15/23 Risankizumab-Rzaa [Skyrizi On-Body] 360 mg SQ Q42D 08/15/23 Sertraline [Zoloft] 150 mg PO DAILY 08/15/23 tiZANidine HCL 2 mg PO HS 08/15/23 Cholecalciferol [Vitamin D3 (10 Mcg = 400 Iu)] 1 tab PO DAILY 10/04/24 traZODone HCL 100 mg PO HS 10/06/24 Colostrum, Bovine [Diaresq] 1 packet PO 10/26/24 HYDROcodone/APAP 7.5-325MG [Soldier 7.5-325] 1 tab PO BID PRN 30 Days #60 tab 10/26/24 HYDROcodone/APAP 7.5-325MG [Soldier 7.5-325] 1 tab PO BID PRN 30 Days #60 tab 10/26/24 Sertraline HCl 200 mg PO 10/26/24 diazePAM [Valium] 10 mg PO DAILY 1 Days #1 tab 10/26/24 Controlled Substance Measures - Controlled Substance Measures Is patient prescribed a controlled substance at discharge?: Yes When asked, does pt state using other controlled substances?: No If prescribed controlled substance>3 days was MAPS reviewed?: Yes
== END ==
LOC: PNWHC3 09:54
PROVIDERS: ATTEND Specialist
DX: M47.22 Other spondylosis with radiculopathy, cervical region (principal); M47.26 Other spondylosis with radiculopathy, lumbar region; M41.9 Scoliosis, unspecified; F17.200 Nicotine dependence, unspecified, uncomplicated; Z88.8 Allergy status to other drugs, medicaments and biological substances
CPT/HCPCS: 80307; 72040; G0463; 99211

== ENCOUNTER 2024-11-24 05:46 | Day surgery (SDC) | payer MEDICARE, OTHER ==
[2024-11-24] MEDS: IV FLUID CONTINUATION 1,000 ML IV ONE ×2 (06:14→09:42)
[2024-11-24] MEDS ORDERED: SCOPOLAMINE 1 MG/72 HR PATCH TRANSDERM ONE (06:16)
[2024-11-24] MEDS ORDERED: ONDANSETRON 4 MG/2 ML VIAL IVP ONE (06:16)
[2024-11-24] MEDS: fentaNYL (PF) 50 MCG/ML 2 ML AMP IVP STA (06:48)
[2024-11-24] MEDS: MIDAZOLAM 2 MG/2 ML VIAL IV PRN (06:48)
[2024-11-24] MEDS: LACTATED RINGERS 1,000 ML IV SCH (07:06)
[2024-11-24] MEDS: DEXAMETHASONE SOD PHOSPHATE 4 MG/ML 1 ML VIAL IVP STA (07:07)
[2024-11-24] MEDS ORDERED: GLYCOPYRROLATE 0.2 MG/ML 2 ML VIAL ONE (07:19)
[2024-11-24] MEDS ORDERED: KETOROLAC 15 MG/ML 1 ML VIAL ONE (07:19)
[2024-11-24] MEDS ORDERED: PROPOFOL 10 MG/ML 20 ML VIAL IV ONE (07:19)
[2024-11-24] MEDS ORDERED: MIDAZOLAM 2 MG/2 ML VIAL ONE (07:19)
[2024-11-24] MEDS ORDERED: ePHEDrine 50 MG/ML 1 ML VIAL ONE (07:19)
[2024-11-24] MEDS ORDERED: ROPIVACAINE 5 MG/ML 30 ML VIAL ONE (07:19)
[2024-11-24] MEDS ORDERED: fentaNYL (PF) 50 MCG/ML 2 ML AMP ONE (07:19)
[2024-11-24] MEDS ORDERED: LIDOCAINE 1% INJ 10MG/ML (20 ML MDV) ONE (07:19)
[2024-11-24] MEDS ORDERED: DEXAMETHASONE SOD PHOSPHATE 4 MG/ML 1 ML VIAL ONE (07:19)
[2024-11-24] MEDS: ceFAZolin 2 GM in DEXTROSE 5% IN WATER 50 ML IVPB PRN (07:24)
--- NOTE | 2024-11-24 07:54 | P.ANPRN ---
Procedure Note - Anesthesia - Nerve Block Performed Right Popliteal Single Time Out Performed: Yes Date of Procedure: 11/24/24 Procedure Start Time: 06:48 Procedure Stop Time: 06:53 Location of Patient: PreOp Indication: Acute Post-Operative Pain, Analgesia, Requested by Surgeon Sedation Type: Sedate with meaningful contact maintained Preparation: Sterile Prep Position: Left Lateral Catheter: None Needle Types: Pajunk Needle Gauge: 21 Ultrasound used to visualize needle placement: Yes Ultrasound used to observe medication spread: Yes Injectate: 0.5% Ropivacaine (see comment for volume) ([id number]) Blood Aspirated: No Pain Paresthesia on Injection Noted: No Resistance on Injection: Normal Image Stored and Saved: Yes Events: Uneventful and Well Tolerated
--- NOTE | 2024-11-24 07:56 | P.ANPRN ---
Procedure Note - Anesthesia - Nerve Block Performed Right Adductor Canal Single Time Out Performed: Yes Date of Procedure: 11/24/24 Procedure Start Time: 06:53 Procedure Stop Time: 06:58 Location of Patient: PreOp Indication: Acute Post-Operative Pain, Analgesia, Requested by Surgeon Sedation Type: Sedate with meaningful contact maintained Preparation: Sterile Prep Position: Prone Needle Types: Pajunk Needle Gauge: 21 Ultrasound used to visualize needle placement: Yes Ultrasound used to observe medication spread: Yes Injectate: 0.5% Ropivacaine (see comment for volume) ([id number]) Blood Aspirated: No Pain Paresthesia on Injection Noted: No Resistance on Injection: Normal Image Stored and Saved: Yes Events: Uneventful and Well Tolerated
[2024-11-24 08:51] VITALS: TEMP 97
[2024-11-24] MEDS: HYDROmorphone 0.5 MG/0.5 ML SYRINGE IVP PRN (08:58)
[2024-11-24 09:02] VITALS: RESP 16
[2024-11-24] MEDS: HYDROcodone/APAP 10-325MG 1 EACH TAB PO ONE (10:33)
[2024-11-24 11:18] VITALS: BP 133/84; PULSE 77
--- NOTE | 2024-11-24 12:11 | P.OP ---
Date of Procedure: 11/24/24 Preoperative Diagnosis: 1. Hallux rigidus right foot 2. Metatarsalgia right second metatarsal Postoperative Diagnosis: 1. Same 2. Same Procedure(s) Performed: 1. First metatarsal phalangeal joint arthrodesis right foot 2. Second metatarsal osteotomy right foot Implants: Arthrex 3.5 mm beveled screws x 2 Arthrex bone allograft Anesthesia: CHRISTINEA Surgeon: Gus Rowan Estimated Blood Loss (ml): 1 Pathology: none sent Condition: stable Disposition: PACU Description of Procedure: Prior to the patient being brought to the op room, anesthesia administered nerve block on the right lower extremity. The patient was brought into the operative room placed on table supine position. Timeout was taken to confirm correct patient identifiers, correct laterality of surgery, and correct procedure. Once all staff in the room was in agreement the timeout, the patient was induced and placed under general anesthesia. A well-padded tourniquet was placed on the right calf and then the right foot was prepped and draped usual manner. The right foot was exsanguinated and the tourniquet inflated to 250 mmHg. Attention was focused on the second metatarsal osteotomy. Fluoroscopy was used to identify the junction of the head and neck. A small terrence was made over the skin for the incision placement. The incision was made and bluntly dissected directly down to bone. The 2 mm bur was inserted and used to perform the osteotomy from medial to lateral. There is also dorsal to plantar proximal angulation to allow for shortening. Once the osteotomy is completed it was distracted first to make sure the bone was fully released and then it was compressed to shorten the second metatarsal. With the shortening there was improvement in the overall parabola of the forefoot. Then attention directed to the first metatarsal phalangeal joint arthrodesis. A medial portal was made over the joint for the placement of the bur. The capsule was opened and then freed with an elevator to allow for passage of the bur. The incision for the second metatarsal osteotomy was used as the dorsal lateral portal for the passage of the bur into that partial portion of the joint. An elevator was inserted into the medial portal and used to release any of the scar tissue and distract the joint. A 2 mm bur was used to initiate the debridement of the cartilage and bony surfaces from medial to lateral. Both portals were used for this. Once completed the larger wedge bur was inserted and used to remove the rest of the cartilage and subchondral bone. Once that was completed the joint was distracted and thoroughly irrigated any of the bony debris. And then the joint was impacted to inspect the amount of bony contact. Both medial and lateral views showed adequate bony contact across the fusion site. With the joint distracted, the Arthrex bony allograft was injected with a small syringe into the fusion site. Guidewires for 3.5 mm beveled screws were then placed through the distal phalanx from medial to lateral progressing proximally. The second screw was placed from proximal medial to distal lateral dorsal to the for screw so they appear to be parallel on the lateral view. Once both screws were properly positioned, small stab incision was made at the wire entry points. The wires were measured for appropriate screw length and then drilled through all cortices. The screws were inserted over the wires and advanced until there was excellent bony purchase and the bevel of the screw was buried beneath the cortical bone and was flush with the medial surface. Fluoroscopic imaging showed excellent compression across the arthrodesis site. Both screws were properly aligned. The great toe was in neutral to just slight mild dorsiflexion at the MPJ. Then all wounds were irrigated with antibiotic saline. All incisions were closed with 3-0 nylon. Nonadherent gauze and a dry sterile dressing applied to the right foot. The tourniquet was released and capillary refill returned to all digits on the right foot. The patient was placed in a w ell-padded, well molded plaster posterior mold/sugar-tong splint. The ankle and foot were held in neutral position until the splint was dried. Then anesthesia was reversed and the patient was taken recovery with vital signs stable.
== END 2024-11-24 11:38 | disposition home or self-care (01) ==
LOC: OR 05:46
PROVIDERS: ATTEND Podiatrist
DX: M20.21 Hallux rigidus, right foot (principal); M77.41 Metatarsalgia, right foot; G89.18 Other acute postprocedural pain; G47.33 Obstructive sleep apnea (adult) (pediatric); M19.90 Unspecified osteoarthritis, unspecified site; D68.2 Hereditary deficiency of other clotting factors; F41.9 Anxiety disorder, unspecified; F32.A Depression, unspecified; Z88.8 Allergy status to other drugs, medicaments and biological substances; Z86.711 Personal history of pulmonary embolism; Z87.891 Personal history of nicotine dependence; Z79.899 Other long term (current) drug therapy
CPT/HCPCS: 64447; 81025; 64445; 28750; 28308; C1713; C1734; J2250; J1100; J0690; J2003; J3010; J2795; J1885; J2704; J1171; J1596

== ENCOUNTER → 2024-12-17 | Outpatient (CLI) | payer MEDICARE, OTHER ==
--- NOTE | 2024-12-18 08:05 | MR ---
EXAMINATION TYPE: MR cervical spine wo con DATE OF EXAM: 12/17/2024 7:26 PM COMPARISON: 04/23/2020 08/24/1714. CLINICAL INDICATION: Female, 44 years old with history of M54.12 RADICULOPATHY, CERVICAL REGION; PHH, neck pain. numbness and tingling in right arm TECHNIQUE: Multi planar, multi sequence imaging was performed utilizing: T1-weighted, T2-weighted, an d turbo inversion recovery imaging of the cervical spine. IV Contrast: mL (None, if empty) FINDINGS: Alignment: The cervical vertebral bodies have preserved heights. Alignment is within normal limits gi bernarda patient positioning. Bones: Osteophytes and disc space narrowing most pronounced at the C5-C7 vertebral levels. Cord: The spinal cord is unremarkable with regards to their signal intensity and morphology. Discs: Intervertebral disc signal is maintained. C2-C3: No significant disc pathology. The spinal canal is patent. No neural foraminal stenosis. C3-C4: No significant disc pathology. The spinal canal is patent. Bilateral facet and uncovertebral joint arthropathy are present with mild left neural foraminal stenosis. The right neural foramen is p atent. C4-C5: No significant disc pathology. The spinal canal is patent. No neural foraminal stenosis. C5-C6: No significant disc pathology. The spinal canal is patent. No neural foraminal stenosis. C6-C7: No significant disc pathology. The spinal canal is patent. No neural foraminal stenosis. C7-T1: No significant disc pathology. The spinal canal is patent. No neural foraminal stenosis. Other: None. IMPRESSION: 1. No evidence for disc herniation or significant spinal canal stenosis. 2. Mild disc degeneration with associated osteoarthritic changes. No evidence for high-grade neural f oraminal stenosis. [facility], , 12/18/2024 8:02 AM
== END | disposition home or self-care (01) ==
LOC: RADMRIMAIN 19:15
PROVIDERS: ATTEND Specialist
DX: M50.10 Cervical disc disorder with radiculopathy, unspecified cervical region (principal); M47.22 Other spondylosis with radiculopathy, cervical region
CPT/HCPCS: 72141

== ENCOUNTER → 2025-01-04 | Outpatient (CLI) | payer MEDICARE, OTHER ==
[2025-01-04 10:24] VITALS: BP 121/85; PULSE 64; RESP 16; TEMP 98.2
--- NOTE | 2025-01-04 14:32 | P.PAINPG ---
Objective - Vital Signs Vital signs: Intake & Output 01/03/25 01/04/25 01/04/25 18:59 06:59 18:59 Weight 71.214 kg PQRS Measure Charge Sheet Comment: HISTORY OF PRESENT ILLNESS: A 44 yr old female w 2 young children at side presents today w severe and chronic thoracolumbar pain > 6 mo secondary to radiculopathy, spondylosis and facet arthropathy without myelopathy for medication refills. Pt states pain level is provoked at 9 /10 in intensity, constant, localized in the cervical spine, predominantly axial, achy in character w occasional shooting pain towards the shoulders and RUE. Pain is provoked by bending or walking > 10 min. Pain is alleviated by PT x 6 wks which ended in Dec 2023 (cerv, lumb), physician guided HEP 4 times weekly since Dec 2023, massage therapy monthly since Jul 2023, heat, ice, medication, topical, use of a cane for ambulatory assistance, repositioning and rest . Interventional procedures include BL RFA L3-L5 (05/30), BAO L4-L5 x1 (08/01), BL TPIs L1-S1 x1 (10/29) Medications include Erie 7.5/325mg #60, Neurontin 300mg, Tyl, Ibu, Lidoderm REVIEW OF ORGAN SYSTEMS: CONSTITUTIONAL: No fevers or chills. No recent weight loss. NEUROLOGICAL: + numbness and tingling along the distal extremities. No seizure disorders or headaches. MUSCULOSKELETAL: + pain PSYCHIATRIC: Denies current depression or suicidal thoughts. Physical Examinations : Constitutional : Cooperative , not in acute distress . Neurologic : Cranial nerve II to XII intact. No focal neurological deficits. Psychiatric : alert & oriented x 3. Matching mood & appropriate affect. Judgment & insight intact. Musculoskeletal : Cervical Spine Motor strength in the deltoid and bicep s: Normal right side. Normal Left side Motor strength biceps and the wrist extensors: Normal right side . Normal left side Motor strength in the triceps muscle: Normal right side. Normal left side Deep tendon reflexes: Normal at the biceps. Normal at Brachioradialis. Normal at triceps Vertebral body tenderness to deep palpation over C6 Cervical facet loading test: positive bilaterally Spurling test: positive BL C6-C7 Neck distraction test: positive bilaterally Dale sign: positive bilaterally Thoracic spine Taut bands w twitch response over BL T1-T8 Lumbar spine Motor strength lower extremities ,thigh and legs 5/5 Right side , 5/5 Left side Deep tendon reflexes : Normal Knee Jerk. Normal Ankle Jerk Vertebral body tenderness over L4 Muse Test positive R L4-L5 Taut bands w twitch response over BL L1-S1 Lumbar facet Loading Test: positive Right / positive Left L4-L5, L5-S1 Range of motion of the lumbar spine Flexion 30 degrees, extension 10 degrees Straight Leg Raise test: Left/ Right positive at degrees Macrina test: positive right / positive left. Severe tenderness over the Sacroiliac joint on the Right / Left sides Gaenslen test: positive bilaterally Seated flexion test: positive bilaterally. Sacral spine : Severe tenderness over the Sacroiliac joint: right side / left side Range of motion: Flexion of the lumbar spine <60 degrees Range of motion: Extension of the lumbar spine <20 degrees Gaenslen's Test positive Macrina test: positive right side / left side Thigh Thrust Test Sacral Thrust Test Imaging: CT non contrast thoracolumbar spine from 11/22/23 reviewed MRI non contrast cervical spine from 12/17/24 reviewed Assessment/ Plan : C3-C4 radiculopathy, L4-L5 radiculopathy, Dextroconvex scoliosis Recommendation of medication management. Opiate/ narcotic agreement signed 07/11/24. Erie 7.5/325mg #60 w RF. UDS 10/26/24 +ETOH metabolites, +Hydrocodone, +Gabapentin. Recheck UDS 01/04/25. Use, side effects, adverse reactions, safe storage discussed. All questions answered. I have spent greater than 30 minutes on patient care today. Dr Virgen was available by phone for the evaluation of this patient. The time was used to review the medical records including relevant urine studies and Prescription history (MAPs), review of the available imaging, evaluation and examination of the patient, coordination of care with the medical staff and if applicable referring physicians, as well as creation of the medical record - Pain Location Bilateral Lower Neck Non-Pharmacological Interventions: Heat, Home Exercise, Ice, Inactivity, Physical Therapy, Position/Reposition, Sitting, Stretching Pharmacological Interventions: PRN Medication, Scheduled Medication, Topical Medication PQRS Narrative: Smoking Status Current every day smoker Narcotic Agreement Date Signed 05/24/24 Hx Alcohol Use (MH) Yes Home Medications: Ambulatory Orders Butalb/APAP/Caff 50-325-40Mg [Fioricet 50-325-40] 1 tab PO BID PRN 09/22/21 Gabapentin [Neurontin] 300 mg PO TID 09/22/21 Pantoprazole Sodium [Protonix] 20 mg PO DAILY 09/22/21 Vit No.180/Iron/Folic [ Plus Vitamin-Mineral] 1 tab PO DAILY 09/22/21 Diphenoxylate HCl/Atropine [Lomotil 2.5-0.025 mg Tablet] 2 tab PO QID 08/15/23 Risankizumab-Rzaa [Skyrizi On-Body] 360 mg SQ Q42D 08/15/23 Sertraline [Zoloft] 100 mg PO DAILY 08/15/23 tiZANidine HCL 2 mg PO HS 08/15/23 Cholecalciferol [Vitamin D3 (10 Mcg = 400 Iu)] 1 tab PO DAILY 10/04/24 traZODone HCL 100 mg PO HS 10/06/24 Colostrum, Bovine [Diaresq] 1 packet PO DIRECTED 10/26/24 diazePAM [Valium] 10 mg PO DAILY 1 Days #1 tab 10/26/24 HYDROcodone/APAP 7.5-325MG [Erie 7.5-325] 1 tab PO BID PRN 30 Days #60 tab 01/04/25 HYDROcodone/APAP 7.5-325MG [Erie 7.5-325] 1 tab PO BID PRN 30 Days #60 tab 01/04/25 Controlled Substance Measures - Controlled Substance Measures Is patient prescribed a controlled substance at discharge?: Yes When asked, does pt state using other controlled substances?: Yes If prescribed controlled substance>3 days was MAPS reviewed?: Yes
[2025-01-04 15:57] LABS: Hepatitis B Surface Antigen Nonreactive (Nonreactive)
== END ==
LOC: PNWHC3 09:39
PROVIDERS: ATTEND Specialist
DX: M47.26 Other spondylosis with radiculopathy, lumbar region (principal); M47.22 Other spondylosis with radiculopathy, cervical region; F17.200 Nicotine dependence, unspecified, uncomplicated; Z88.6 Allergy status to analgesic agent; Z88.8 Allergy status to other drugs, medicaments and biological substances
CPT/HCPCS: 87340; 86704; 86480; 80307; G0463; 99212